=== PATIENT | male | born 1940 | race Caucasian/White ===

== ENCOUNTER → 2018-06-01 00:44 | Outpatient (CLI) | payer MEDICARE, SELFPAY ==
[2018-06-01 10:38] LABS: Hemoglobin A1C 6.7 % (4.5-6.2)
== END ==
PROVIDERS: PCP Family Medicine; Visit Provider Family Medicine
DX: E11.9 Type 2 diabetes mellitus without complications (principal)
CPT/HCPCS: 36415; 83036

== ENCOUNTER 2018-08-20 10:36 | Outpatient (CLI) | payer MEDICARE, SELFPAY ==
[2018-08-20 15:27] LABS: Hemoglobin A1C 6.8 % (4.5-6.2)
== END 2018-08-20 10:56 ==
PROVIDERS: PCP Family Medicine; Visit Provider Family Medicine
DX: E11.9 Type 2 diabetes mellitus without complications (principal)
CPT/HCPCS: 36415; 83036

== ENCOUNTER 2019-02-12 09:06 | Outpatient (CLI) | payer MEDICARE, SELFPAY ==
[2019-02-12 11:58] LABS: Hemoglobin A1C 7.3 % (4.5-6.2)
== END 2019-02-12 09:26 ==
LOC: LBN 09:21 → LBO 11:16
PROVIDERS: PCP Family Medicine; Visit Provider Family Medicine
DX: E11.319 Type 2 diabetes mellitus with unspecified diabetic retinopathy without macular edema (principal)
CPT/HCPCS: 36415; 83036

== ENCOUNTER 2019-08-12 14:37 | Outpatient (CLI) | payer MEDICARE, SELFPAY | END 2019-08-12 14:57 | PROVIDERS: PCP Family Medicine; Visit Provider Family Medicine | DX: E11.9 Type 2 diabetes mellitus without complications (principal) | CPT/HCPCS: 36415; 83036 ==

== ENCOUNTER 2020-05-08 03:27 | Outpatient (CLI) | payer MEDICARE, SELFPAY ==
[2020-05-08 10:10] LABS: Hemoglobin A1C 6.4 % (3.8-5.6)
[2020-05-08 10:46] LABS: Anion Gap 6.6 mmol/L (3-11); BUN 10 mg/dL (7-18); CO2 29.4 mmol/L (21.0-32.0); CREATININE 0.68 mg/dL (0.70-1.30); Calcium 9.3 mg/dL (8.5-10.1); Chloride 98 mmol/L (98-107); Glucose 146 mg/dL (74-106); Potassium 4.7 mmol/L (3.5-5.1); Sodium 134 mmol/L (136-145)
== END 2020-05-08 03:47 ==
PROVIDERS: PCP Family Medicine; Visit Provider Family Medicine
DX: E11.9 Type 2 diabetes mellitus without complications (principal); I10 Essential (primary) hypertension
CPT/HCPCS: 36415; 80048; 83036

== ENCOUNTER 2021-05-20 16:47 | Outpatient (REF) | payer MEDICARE, SELFPAY | END 2021-05-20 16:48 | disposition home or self-care (01) | LOC: LBN 16:47 | PROVIDERS: PCP Nurse Practitioner; Visit Provider Nurse Practitioner | DX: N40.1 Benign prostatic hyperplasia with lower urinary tract symptoms (principal); N13.8 Other obstructive and reflux uropathy | CPT/HCPCS: 87077; 87086; 87186 ==

== ENCOUNTER 2021-06-15 03:07 | Outpatient (CLI) | payer MEDICARE, SELFPAY ==
[2021-06-15 12:32] LABS: CREATININE 0.9 mg/dL (0.70-1.30); Potassium 4.8 mmol/L (3.5-5.1)
[2021-06-15 13:43] LABS: Hemoglobin A1C 6.8 % (<5.7)
== END 2021-06-15 03:08 | disposition home or self-care (01) ==
LOC: LOS 03:08
PROVIDERS: PCP Nurse Practitioner; Visit Provider Nurse Practitioner
DX: I10 Essential (primary) hypertension (principal); E11.9 Type 2 diabetes mellitus without complications
CPT/HCPCS: 36415; 82565; 83036; 84132

== ENCOUNTER 2021-07-21 00:53 | Outpatient (CLI) | payer MEDICARE, SELFPAY ==
[2021-07-21 14:24] LABS: CREATININE 0.8 mg/dL (0.70-1.30); Potassium 4.7 mmol/L (3.5-5.1)
== END 2021-07-21 00:54 | disposition home or self-care (01) ==
PROVIDERS: PCP Nurse Practitioner; Visit Provider Nurse Practitioner
DX: I10 Essential (primary) hypertension (principal)
CPT/HCPCS: 36415; 82565; 84132

== ENCOUNTER 2022-05-28 01:11 | Emergency (ER) | payer MEDICARE, SELFPAY ==
[2022-05-28 01:20] VITALS: BP 165/70; PULSE 72; RESP 16; TEMP 36.5; O2SAT 98
--- NOTE | 2022-05-28 01:33 | ED.GENADUL_ITS ---
Discharge Plan Disposition Patient Disposition: HOME Condition: Stable Discharge Details Clinical Impression: Acute UTI Primary Care Provider: Ning Almanza ED Provider: Romeo Page Home Meds and New Rx's Prescriptions: New ciprofloxacin HCl 500 mg tablet 500 mg PO BID Qty: 14 0RF Continued metoprolol succinate 50 mg tablet extended release 24 hr 25 mg PO DAILY Qty: 90 2RF hydrochlorothiazide 25 mg tablet 25 mg PO DAILY Qty: 90 4RF Hold Instructions: Home Medication placed on hold at Doctor's office metformin 1,000 mg tablet 1,000 mg PO BID Qty: 180 4RF nitroglycerin [Nitrostat] 0.4 mg tablet, sublingual 0.4 mg Sublingual PRN MDD 3 tabs Qty: 25 4RF folic acid 0.4 MG tablet 1 tab PO DAILY aspirin [Ecotrin] 325 MG tablet,delayed release (DR/EC) 1 tab PO DAILY Nephrocaps 1 MG capsule 1 cap PO DAILY Qty: 90 cholecalciferol (vitamin D3) 1,000 UNIT capsule 1 cap PO DAILY glipizide 5 mg tablet 2.5 mg PO BID Qty: 45 4RF (DME) Accu-Chek Nabila Plus test strp Strip 1 ea Miscellaneous BID Qty: 100 4RF Rx Instructions: once daily (DME) lancets 28 gauge misc 1 ea Miscellaneous BID Qty: 100 5RF Rx Instructions: NABILA ACCUCHECK SOFT CLIX Dx: E11.9 QD testing lisinopril 30 mg tablet 30 mg PO DAILY Qty: 90 0RF Discharge Instructions Instructions: Urinary Tract Infection in Men (ED) Additional Instructions: your urine showed evidence of an infection follow up with your primary care provider within 1-2 weeks, you should have a repeat urine test to see if the blood has gone away if you feel more ill, have severe pain or fevers return to the emergency department Medical Decision Making 82 yo male with hx of prior prostatitis, dm, who comes in with cc of his urine having blood in it starting tonight. He says he has felt well all day and continues to feel well now but tonight while urinating has noticed his urine has looked bloody. He denies pain with urination fevers, abdominal pain, urinary frequency or feeling like he is not emptying his bladder. He is in no distress on exam speaking in full sentences, caox4 and intermittently telling jokes. He has no cva tenderness or abdominal tenderness. Suspect this could be a uti and possible prostatitis, will obtain ua and reassess. No fevers or chills and appears well so doubt sepsis pt continues to feel well and has no complaints resting comfortably in the stret rc. UA positive for nitrites so will start on cipro. He is stable for d/c, advised to f/u with pcp and return precautions given Differential Diagnosis Differential Diagnosis: cystitis, prostatitis Lab Data Lab results reviewed: Yes I reviewed the patient's lab results. HPI General Mode of arrival: ambulatory . Date/Time Provider Initiated Documentation: 05/28/22 01:12 . Limitations to Documentation: no limitations . Information obtained by: patient . History of Present Illness 82 year old M presents to the emergency department with the chief complaint of red urine, described as moderate, Patient started experiencing this hour(s) (6) and it has been constant. No relieving factors improve symptom(s), No exacerbating factors reported . Patient notes no other symptoms.. Patient did receive the following treatments prior to arrival, none Related Data Home Medications Medication Instructions Recorded Confirmed aspirin 325 mg tablet,delayed 1 tab PO DAILY 02/06/13 05/28/22 release (Ecotrin) cholecalciferol (vitamin D3) 25 1 cap PO DAILY 02/06/13 05/28/22 mcg (1,000 unit) capsule folic acid 400 mcg tablet 1 tab PO DAILY 02/06/13 05/28/22 vitamin B complex and vitamin C 1 cap PO DAILY ##90 02/06/13 05/28/22 no.20-folic acid 1 mg capsule (Nephrocaps) nitroglycerin 0.4 mg sublingual 0.4 mg sublingual PRN #25 tabs 05/20/21 05/28/22 tablet (Nitrostat) hydrochlorothiazide 25 mg tablet 25 mg PO DAILY #90 tabs 07/23/21 05/28/22 metoprolol succinate 50 mg 25 mg PO DAILY #90 tabs 07/23/21 05/28/22 tablet,extended release 24 hr glipizide 5 mg tablet 2.5 mg PO BID #45 tabs 09/14/21 05/28/22 metformin 1,000 mg tablet 1,000 mg PO BID #180 tabs 02/10/22 05/28/22 blood sugar diagnostic (Accu-Chek #100 strips 02/11/22 05/28/22 Nabila Plus test strips) lancets 28 gauge #100 ea 02/16/22 05/28/22 lisinopril 30 mg tablet 30 mg PO DAILY #90 tabs 05/03/22 05/28/22 ciprofloxacin HCl 500 mg tablet 500 mg PO BID #14 tabs 05/28/22 Previous Rx's Medication Instructions Recorded nitroglycerin 0.4 mg sublingual 0.4 mg sublingual PRN #25 tabs 05/20/21 tablet (Nitrostat) hydrochlorothiazide 25 mg tablet 25 mg PO DAILY #90 tabs 07/23/21 metoprolol succinate 50 mg 25 mg PO DAILY #90 tabs 07/23/21 tablet,extended release 24 hr glipizide 5 mg tablet 2.5 mg PO BID #45 tabs 09/14/21 metformin 1,000 mg tablet 1,000 mg PO BID #180 tabs 02/10/22 blood sugar diagnostic (Accu-Chek #100 strips 02/11/22 Nabila Plus test strips) lancets 28 gauge #100 ea 02/16/22 lisinopril 30 mg tablet 30 mg PO DAILY #90 tabs 05/03/22 ciprofloxacin HCl 500 mg tablet 500 mg PO BID #14 tabs 05/28/22 Allergies Allergy/AdvReac Type Severity Reaction Status Date / Time menthol Allergy Unknown WHEEZING Unverified 05/28/22 01:23 General Stated Complaint: Urinary LILA: 4 Review of Systems All systems reviewed & are unremarkable except as noted in HPI and below Constitutional Constitutional: Denies chills, Denies fever(s) and Denies weakness ENT Ears, Nose, Mouth, and Throat: Denies change in voice Cardiovascular Cardiovascular: Denies chest pain and Denies dyspnea Respiratory Respiratory: Denies cough and Denies dyspnea Gastrointestinal Gastrointestinal: Denies abdominal pain, Denies nausea and Denies vomiting Musculoskeletal Musculoskeletal: Denies joint swelling Neurologic Neurologic: Denies weakness PFSH All Active Problems (Updated 05/28/22 @ 02:41 by Romeo Page MD) Acute UTI (Acute) Bradycardia (Acute) Constipation (Acute) Anal and rectal polyp (Acute) Gastroesophageal reflux disease (Acute) Status post coronary artery stent placement (Acute) Sensorineural hearing loss (SNHL) of both ears (Acute 03/01/18) Primary osteoarthritis of right knee (Acute 08/02/16) Non-toxic multinodular goiter (Acute) Lipoma of neck (Acute 03/01/18) Essential hypertension (Acute 07/24/13) Diabetic retinopathy (Acute) MILD IN LEFT EYE~OPTICAL EXPRESSIONS 08/12/15 Diabetes mellitus (Acute 02/08/13) BPH w urinary obs/LUTS (Acute 03/01/18) Atherosclerosis of [place] coronary artery (Acute) Asthma (Acute) Arthritis (Acute) Medical History (Updated 05/28/22 @ 02:41 by Romeo Page MD) Change in facial mole not suspect- sees [facility] [place] Surgical History (Updated 04/01/20 @ 16:09 by Dell Nowak) Stent placement (~05/2001) 05/30 2 STENTS LAD 11/2001 AND 02/2002 CLEANED BLOCKED STENT (WAS SCAR BUILDUP) KJG (below) Patient report radiation therapy in [facility] to correct scar formation. He believes bare metal stents were placed. Family History (Updated 05/22/21 @ 13:16 by Talia Rivera) Mother , 91 Epilepsy Hyperlipidemia Parkinson disease Father , 73 Essential hypertension Personal history of malignant neoplasm SKIN Stroke Sister Diabetes Essential hypertension Heart disease Hyperlipidemia Brother Heart disease Stroke Pacemaker Parkinson disease Brother Diabetes Heart disease Stroke Brother Diabetes Essential hypertension Heart disease Hyperlipidemia Grandfather Diabetes Heart disease Stroke Grandfather Stroke Grandmother Essential hypertension Depression Heart disease Stroke Grandmother Essential hypertension Hyperlipidemia Stroke Daughter Diabetes Asthma Daughter Diabetes Heart disease VALVE REPLACEMENT Pancreatic cancer Social History (Updated 05/22/21 @ 13:14 by Talia Rivera) Smoking/Tobacco Use Status: Former Tobacco Use Tobacco: How many years used: 14 Smoking risk assessment performed?: Yes Alcohol Intake: never Caregiver/Support person: No Household members: spouse Housing: house Communication Needs: Hard of Hearing Do you need help understanding health information?: Rarely Pets and animals: No Sexually active: No Do you think of yourself as: straight/heterosexual Current gender identity: male What is your relationship status?: How often do you talk on the phone with friends or family?: twice per week How often do you get together with friends or relatives?: three or more times per week How often do you attend cheondoism or muslim services?: 1-3 times per year Do you belong to any clubs or organized social groups?: no Panel score (0-1 are the most socially isolated patients): 2 What type of physical activity do you participate in: regular exercise Duration: > 90 minutes/day Frequency: 3-4 times per week Scarlett/Catholic: Yazidi Special scarlett needs: No Seatbelt use: always Helmet use: Yes Helmet use: sometimes Drive 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 Do you feel safe at home: Yes Exam Const General: no acute distress Orientation: alert HENMT Head: normal to inspection Ears: external ears normal General nose exam: external nose normal Mouth: moist mucous membranes Eyes General: appearance normal, both eyes and all related structures Neck Neck: normal visual inspection Resp Effort & Inspection: normal respiratory effort and able to speak in complete sentences Cardio Rate: regular rate GI Palpation: soft and nontender Skin General skin exam: no rashes or lesions noted Neuro General: patient alert and patient oriented x3 Extrem General: normal to inspection Psych Mental Status: mental status grossly normal Course Vital Signs Vital signs: Vital Signs Temperature 36.5 C 05/28/22 01:20 Pulse 72 05/28/22 01:20 Respiratory Rate 16 05/28/22 01:20 Blood Pressure 165/70 H 05/28/22 01:20 Pulse Oximetry 98 05/28/22 01:20 Temperature 36.5 C 05/28/22 01:20 Temperature Source Oral 05/28/22 01:20 Pulse 72 05/28/22 01:20 Respiratory Rate 16 05/28/22 01:20 Respiratory Effort Short of Breath 05/28/22 01:24 Blood Pressure 165/70 H 05/28/22 01:20 Pulse Oximetry 98 05/28/22 01:20 Pain Level 0 05/28/22 01:20
[2022-05-28 02:24] LABS: Bilirubin Moderate (Negative); Blood Large (Negative); Clarity Cloudy (Clear); Glucose Negative (Negative); Ketones Trace mg/dL (Negative); Leukocyte Esterase Large (Negative); Nitrite Positive (Negative); pH 6.5 (5-8)
[2022-05-28 02:33] LABS: C & S Indicated? C&S Done As Ordered
[2022-05-28 02:59] VITALS: BP 151/69; PULSE 56; RESP 16; O2SAT 97
[2022-05-28] MEDS: Ciprofloxacin 500 MG TAB PO (02:59)
== END 2022-05-28 03:00 | disposition home or self-care (01) ==
PROVIDERS: Emergency Provider Emergency Medicine; PCP Nurse Practitioner
DX: N39.0 Urinary tract infection, site not specified (principal); B96.5 Pseudomonas (aeruginosa) (mallei) (pseudomallei) as the cause of diseases classified elsewhere; Z87.891 Personal history of nicotine dependence
CPT/HCPCS: 87077; 99283; 81003; 81015; 87086; 87186; 99284

== ENCOUNTER 2022-06-08 20:10 | Outpatient (REF) | payer MEDICARE, SELFPAY | END 2022-06-08 20:11 | disposition home or self-care (01) | LOC: LBN 20:10 | PROVIDERS: PCP Nurse Practitioner; Visit Provider Nurse Practitioner Family | DX: R31.9 Hematuria, unspecified (principal) | CPT/HCPCS: 87086 ==

== ENCOUNTER 2022-06-27 04:36 | Outpatient (CLI) | payer MEDICARE, SELFPAY ==
[2022-06-27 12:21] LABS: BUN 12 mg/dL (7-18); CREATININE 0.7 mg/dL (0.70-1.30); Calcium 9.1 mg/dL (8.5-10.1); Chloride 98 mmol/L (98-107); Glucose 92 mg/dL (74-106); Potassium 4.8 mmol/L (3.5-5.1); Sodium 135 mmol/L (136-145)
[2022-06-27 12:59] LABS: Hemoglobin A1C 6.8 % (<5.7)
== END 2022-06-27 04:37 | disposition home or self-care (01) ==
LOC: LOS 04:36
PROVIDERS: PCP Nurse Practitioner; Visit Provider Nurse Practitioner
DX: I10 Essential (primary) hypertension (principal); E11.9 Type 2 diabetes mellitus without complications
CPT/HCPCS: 36415; 80048; 83036

== ENCOUNTER 2022-07-10 23:44 | Emergency (ER) | payer MEDICARE, SELFPAY ==
[2022-07-10 23:48] VITALS: PULSE 68; RESP 20; TEMP 36.1; O2SAT 98
--- NOTE | 2022-07-11 00:07 | W.ED.GENAD ---
Discharge Plan Disposition Patient Disposition: HOME Condition: Stable Discharge Details Clinical Impression: Urinary tract infection Primary Care Provider: Ning Almanza ED Provider: Romeo Page Home Meds and New Rx's Prescriptions: New ciprofloxacin HCl 500 mg tablet 500 mg PO BID Qty: 14 0RF Continued glipizide 5 mg tablet 2.5 mg PO BID Qty: 90 4RF Rx Instructions: dose increase metoprolol succinate 50 mg tablet extended release 24 hr 25 mg PO DAILY Qty: 45 3RF (DME) Accu-Chek Nabila Plus test strp Strip 1 ea Miscellaneous BID Qty: 100 4RF Rx Instructions: once daily metformin 1,000 mg tablet 1,000 mg PO BID Qty: 180 4RF nitroglycerin [Nitrostat] 0.4 mg tablet, sublingual 0.4 mg Sublingual PRN MDD 3 tabs Qty: 25 4RF folic acid 0.4 MG tablet 1 tab PO DAILY aspirin [Ecotrin] 325 MG tablet,delayed release (DR/EC) 1 tab PO DAILY Nephrocaps 1 MG capsule 1 cap PO DAILY Qty: 90 cholecalciferol (vitamin D3) 1,000 UNIT capsule 1 cap PO DAILY (DME) lancets 28 gauge misc 1 ea Miscellaneous BID Qty: 100 5RF Rx Instructions: NABILA ACCUCHECK SOFT CLIX Dx: E11.9 QD testing lisinopril 30 mg tablet 30 mg PO DAILY Qty: 90 0RF Discharge Instructions Instructions: Urinary Tract Infection in Men (ED) Additional Instructions: i placed you on our follow up list to try and see a urologist, you should be contacted with appointment information if you feel more ill, have severe pain or fevers return to the emergency department Medical Decision Making 82 yo male with hx of bph, gerd, uti in April that grew P. aeruginosa sensitive to all antibiotics tested against it and was treated wt cipro, comes in with return of blood in urine. HE states he has felt well all day and tonight urinated and it was bloody. He has some burning as well when he does urinate. Denies fevers, chills, abdomen pain, back pain. He arrives stable and appears well systemically. No abdomen tenderness, no cva tenderness. Given well appearance and no fevers or back pain doubt sepsis or pyelo. Will obtain ua and reassess, suspect recurrent uti. labs show likely recurrent uti, will place on cipro again and provide urology referral given recurrent hematuria and uti so close in time as soon as possible. Return precautions given Differential Diagnosis Differential Diagnosis: uti, cystitis, prostatitis Lab Data Lab results reviewed: Yes I reviewed the patient's lab results. HPI General Mode of arrival: ambulatory. Date/Time Provider Initiated Documentation: 07/10/22 23:44. Limitations to Documentation: no limitations. Information obtained by: patient. History of Present Illness 82 year old M presents to the emergency department with the chief complaint of blood in urine, described as moderate, and it has been constant. No relieving factors improve symptom(s), No exacerbating factors reported . Related Data Home Medications Medication Instructions Recorded Confirmed aspirin 325 mg tablet,delayed 1 tab PO DAILY 02/06/13 07/10/22 release (Ecotrin) cholecalciferol (vitamin D3) 25 1 cap PO DAILY 02/06/13 07/10/22 mcg (1,000 unit) capsule folic acid 400 mcg tablet 1 tab PO DAILY 02/06/13 07/10/22 vitamin B complex and vitamin C 1 cap PO DAILY ##90 02/06/13 07/08/22 no.20-folic acid 1 mg capsule (Nephrocaps) nitroglycerin 0.4 mg sublingual 0.4 mg sublingual PRN #25 tabs 05/20/21 07/10/22 tablet (Nitrostat) metformin 1,000 mg tablet 1,000 mg PO BID #180 tabs 02/10/22 07/10/22 lancets 28 gauge #100 ea 02/16/22 07/10/22 lisinopril 30 mg tablet 30 mg PO DAILY #90 tabs 05/03/22 07/10/22 blood sugar diagnostic (Accu-Chek #100 strips 07/08/22 07/10/22 Nabila Plus test strips) glipizide 5 mg tablet 2.5 mg PO BID #90 tabs 07/08/22 07/10/22 metoprolol succinate 50 mg 25 mg PO DAILY #45 tabs 07/08/22 07/10/22 tablet,extended release 24 hr ciprofloxacin HCl 500 mg tablet 500 mg PO BID #14 tabs 07/11/22 Previous Rx's Medication Instructions Recorded nitroglycerin 0.4 mg sublingual 0.4 mg sublingual PRN #25 tabs 05/20/21 tablet (Nitrostat) metformin 1,000 mg tablet 1,000 mg PO BID #180 tabs 02/10/22 lancets 28 gauge #100 ea 02/16/22 lisinopril 30 mg tablet 30 mg PO DAILY #90 tabs 05/03/22 blood sugar diagnostic (Accu-Chek #100 strips 07/08/22 Nabila Plus test strips) glipizide 5 mg tablet 2.5 mg PO BID #90 tabs 07/08/22 metoprolol succinate 50 mg 25 mg PO DAILY #45 tabs 07/08/22 tablet,extended release 24 hr ciprofloxacin HCl 500 mg tablet 500 mg PO BID #14 tabs 07/11/22 Allergies Allergy/AdvReac Type Severity Reaction Status Date / Time menthol Allergy Unknown WHEEZING Unverified 07/10/22 23:59 General Stated Complaint: Urinary LILA: 4 Review of Systems All systems reviewed & are unremarkable except as noted in HPI and below Constitutional Constitutional: Denies chills, Denies fever(s) and Denies weakness Cardiovascular Cardiovascular: Denies chest pain and Denies dyspnea Respiratory Respiratory: Denies cough and Denies dyspnea Gastrointestinal Gastrointestinal: Denies abdominal pain, Denies nausea and Denies vomiting Musculoskeletal Musculoskeletal: Denies joint swelling Neurologic Neurologic: Denies weakness PFSH All Active Problems (Updated 07/11/22 @ 01:13 by Romeo Page MD) Urinary tract infection (Acute) Arthritis of left knee (Acute) Bradycardia (Acute) Constipation (Acute) Anal and rectal polyp (Acute) Gastroesophageal reflux disease (Acute) Status post coronary artery stent placement (Acute) Sensorineural hearing loss (SNHL) of both ears (Acute 03/01/18) Primary osteoarthritis of right knee (Acute 08/02/16) Non-toxic multinodular goiter (Acute) Lipoma of neck (Acute 03/01/18) Essential hypertension (Acute 07/24/13) Diabetic retinopathy (Acute) MILD IN LEFT EYE~OPTICAL EXPRESSIONS 08/12/15 Diabetes mellitus (Acute 02/08/13) BPH w urinary obs/LUTS (Acute 03/01/18) Atherosclerosis of [place] coronary artery (Acute) Asthma (Acute) Arthritis (Acute) Medical History (Updated 07/11/22 @ 01:13 by Romeo Page MD) Change in facial mole not suspect- sees [facility] [place] Surgical History (Updated 04/01/20 @ 16:09 by Dell Nowak) Stent placement (~05/2001) 05/30 2 STENTS LAD 11/2001 AND 02/2002 CLEANED BLOCKED STENT (WAS SCAR BUILDUP) MATTHIASG (below) Patient report radiation therapy in [facility] to correct scar formation. He believes bare metal stents were placed. Family History (Updated 05/22/21 @ 13:16 by Talia Rivera) Mother , 91 Epilepsy Hyperlipidemia Parkinson disease Father , 73 Essential hypertension Personal history of malignant neoplasm SKIN Stroke Sister Diabetes Essential hypertension Heart disease Hyperlipidemia Brother Heart disease Stroke Pacemaker Parkinson disease Brother Diabetes Heart disease Stroke Brother Diabetes Essential hypertension Heart disease Hyperlipidemia Grandfather Diabetes Heart disease Stroke Grandfather Stroke Grandmother Essential hypertension Depression Heart disease Stroke Grandmother Essential hypertension Hyperlipidemia Stroke Daughter Diabetes Asthma Daughter Diabetes Heart disease VALVE REPLACEMENT Pancreatic cancer Social History (Updated 05/22/21 @ 13:14 by Talia Rivera) Smoking/Tobacco Use Status: Former Tobacco Use Tobacco: How many years used: 14 Smoking risk assessment performed?: Yes Alcohol Intake: current Alcohol Intake frequency: 0-2 drinks per day Alcohol type: wine and hard liquor Drug use: Never Substance use type: does not use Caregiver/Support person: No Household members: spouse Housing: house Communication Needs: Hard of Hearing Do you need help understanding health information?: Rarely Pets and animals: No Sexually active: No Do you think of yourself as: straight/heterosexual Current gender identity: male What is your relationship status?: How often do you talk on the phone with friends or family?: twice per week How often do you get together with friends or relatives?: three or more times per week How often do you attend restoration or amish services?: 1-3 times per year Do you belong to any clubs or organized social groups?: no Panel score (0-1 are the most socially isolated patients): 2 What type of physical activity do you participate in: regular exercise Duration: > 90 minutes/day Frequency: 3-4 times per week Scarlett/Confucianism: Presybeterian Special scarlett needs: No Seatbelt use: always Helmet use: Yes Helmet use: sometimes Drive 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 Do you feel safe at home: Yes Exam Const General: no acute distress Orientation: alert HENMT Head: normal to inspection Ears: external ears normal General nose exam: external nose normal Mouth: moist mucous membranes Eyes General: appearance normal, both eyes and all related structures Neck Neck: normal visual inspection Resp Effort & Inspection: normal respiratory effort and able to speak in complete sentences Cardio Rate: regular rate GI Palpation: soft and nontender Back/Spine/Pelvis Back: no CVA tenderness Skin General skin exam: no rashes or lesions noted Neuro General: patient alert and patient oriented x3 Extrem General: normal to inspection Psych Mental Status: mental status grossly normal Course Vital Signs Vital signs: Vital Signs Temperature 36.1 C L 07/10/22 23:48 Pulse 68 07/10/22 23:48 Respiratory Rate 20 07/10/22 23:48 Pulse Oximetry 98 07/10/22 23:48 Temperature 36.1 C L 07/10/22 23:48 Temperature Source Temporal Artery Scan 07/10/22 23:48 Pulse 68 07/10/22 23:48 Respiratory Rate 20 07/10/22 23:48 Respiratory Effort Non-Labored 07/11/22 00:00 Blood Pressure Position Sitting 07/10/22 23:48 Pulse Oximetry 98 07/10/22 23:48 Oxygen Delivery Method Room Air 07/10/22 23:48 Oxygen Flow Rate 0 07/10/22 23:48 Pain Level 0 07/10/22 23:48 Lab/Test Results Lab/Test Results: 07/10/22 23:59 Urine - Clean Catch Urine Culture - Pending PAWSS Have you Been Recently Intoxicated or Drunk Within the Last 30 days?: No Have you Ever Experienced Previous Episodes of Alcohol Withdrawal?: No Have you ever Experienced Withdrawal Seizures?: No Have you ever Experienced Delirium Tremens(DT)s?: No Have you ever undergone Alcohol Rehabilitation Treatment (i.e, inpt ot outpatient treatment programs)?: No Have you ever Experienced Blackouts?: No Have you ever Combined Alcohol with other Downers within the last 90 days?: No Have you ever Combined Alcohol with any other Substance of Abuse during the last 90 days?: No Positive Blood Alcohol level on Presentation? [PCS.BAL]: No Evidence of Increased Autonomic Activity (i.e. HR>120, tremor, sweating, agitation, nausea)?: No Result: 0
[2022-07-11 00:22] LABS: Bilirubin Small (Negative); Blood Large (Negative); Clarity Cloudy (Clear); Glucose 100 mg/dL (Negative); Ketones Negative (Negative); Leukocyte Esterase Large (Negative); Nitrite Positive (Negative); Urobilinogen 0.2 EU/dL (Up TO 0.2); pH 6.5 (5-8)
[2022-07-11 00:28] LABS: RBC >50 HPF (0-2); WBC >50 HPF (0-5)
[2022-07-11 00:29] LABS: C & S Indicated? C&S Done As Ordered
--- NOTE | 2022-07-11 01:11 | NUR.NOTE ---
Referral faxed to [facility] to f/u for recurrent UTI, Hematuria.Nursing Note:
[2022-07-11] MEDS: Ciprofloxacin 500 MG TAB PO (01:14)
--- NOTE | 2022-07-15 07:58 | W.ED.FU ---
Follow Up Plan: Patient was treated for urinary tract infection and discharged on ciprofloxacin. Urine culture resulted postdischarge growing Pseudomonas aeruginosa, sensitive to ciprofloxacin.
== END 2022-07-11 01:24 | disposition home or self-care (01) ==
PROVIDERS: Emergency Provider Emergency Medicine; PCP Nurse Practitioner
DX: N39.0 Urinary tract infection, site not specified (principal); R31.9 Hematuria, unspecified; Z87.891 Personal history of nicotine dependence; Z87.438 Personal history of other diseases of male genital organs
CPT/HCPCS: 87077; 99283; 81003; 81015; 87086; 87186; 99284

== ENCOUNTER 2022-07-15 14:19 | Emergency (ER) | payer MEDICARE, SELFPAY ==
[2022-07-15 14:22] VITALS: BP 147/72; PULSE 75; RESP 18; TEMP 36.9; O2SAT 98
--- NOTE | 2022-07-15 15:27 | ED.GENADUL_ITS ---
Discharge Plan Disposition Patient Disposition: HOME Condition: Good Discharge Details Clinical Impression: Biceps muscle tear, Traumatic ecchymosis of left upper arm Primary Care Provider: Ning Almanza ED Provider: Josh Greene Home Meds and New Rx's Prescriptions: No Action glipizide 5 mg tablet 2.5 mg PO BID Qty: 90 4RF Rx Instructions: dose increase metoprolol succinate 50 mg tablet extended release 24 hr 25 mg PO DAILY Qty: 45 3RF (DME) Accu-Chek Nabila Plus test strp Strip 1 ea Miscellaneous BID Qty: 100 4RF Rx Instructions: once daily metformin 1,000 mg tablet 1,000 mg PO BID Qty: 180 4RF nitroglycerin [Nitrostat] 0.4 mg tablet, sublingual 0.4 mg Sublingual PRN MDD 3 tabs Qty: 25 4RF folic acid 0.4 MG tablet 1 tab PO DAILY aspirin [Ecotrin] 325 MG tablet,delayed release (DR/EC) 1 tab PO DAILY Nephrocaps 1 MG capsule 1 cap PO DAILY Qty: 90 cholecalciferol (vitamin D3) 1,000 UNIT capsule 1 cap PO DAILY (DME) lancets 28 gauge misc 1 ea Miscellaneous BID Qty: 100 5RF Rx Instructions: NABILA ACCUCHECK SOFT CLIX Dx: E11.9 QD testing lisinopril 30 mg tablet 30 mg PO DAILY Qty: 90 0RF ciprofloxacin HCl 500 mg tablet 500 mg PO BID Qty: 14 0RF Discharge Instructions Instructions: Hematoma (ED) Additional Instructions: At this time I suspect you had a mild or partial muscle tear in your left bicep which caused some bleeding. For the next week please cut down to 81 mg of aspirin daily. You may have been put at increased risk for a tear secondary to the medication you are currently on, Levaquin. At your appointment this week with your urologist please discuss whether or not you need to continue this medication. Please keep your arm wrapped every day and an Kip wrap to help decrease the swelling. Please avoid any significant lifting flexing or utilization of the left arm as this can certainly worsen the bleeding and partial tear. If you notice any worsening of your symptoms, or any new symptoms such as vomiting, diarrhea, fever, chills, shortness of breath, chest pain, numbness, weakness, or fainting , please return immediately to the emergency department for reevaluation. Please follow up with your primary care provider as soon as possible for reassessment and reevaluation. As always, it was a pleasure participating in your medical care today. Referrals: Domenico Gray NP [NURSE PRACTITIONER] - Ning Almanza NP [Primary Care Provider] - Discharge Data Discharge Date/Time-TO BE ENTERED AT DEPARTURE: 07/15/22 15:48 Medical Decision Making 82-year-old male who with past medical history of diabetes, atherosclerotic coronary disease, currently on aspirin, as well as a recent urinary tract infection for which she was taking levofloxacin, presents today for evaluation of swelling and redness in his right arm. Patient states that 3 days ago he was carrying a bucket and felt a sudden burning pinching pain in his left arm. Shortly after that patient developed mild bruising, swelling, with some initial pain with movement. This pain eventually resolved, however the redness/bruising seemed to spread proximally and distally. He has no fever or chills. He denies any other complaints. He does admit to having a previous muscle tear in his left arm in the past. He denies any other trauma. No other complaints at this time. Exam demonstrates evidence of bruising over the medial aspect of his arm extending from the proximal arm all the way down to the medial forearm. No hematoma, no deformity, no signs of muscle tear on exam. Bedside ultrasound shows no evidence of large hematoma or fluid collection or abscess. Area is not warm. There is no evidence of cellulitis clinically. Symptoms at this time appear most consistent with a small partial muscle tear or tendon irritation that resulted in subsequent bleeding. This may have been exacerbated by the Levaquin that he was on. At this time with no evidence of abscess infection or other significant abnormality, there is no indication for imaging or labs currently. We will Kip wrap the patient's arm to help with the minimal swelling. Recommend diminishing his aspirin from 325 to 81 mg for the next week. Recommend discussing with his urologist this week if he can stop the antibiotic. Discussed red flags which to return. I have extensively reviewed the treatment plan and discharge instructions with the patient. I have addressed all patient concerns at this time. The patient was made aware of what symptoms to monitor for that would warrant a return to the emergency department. Discussed the plan with the patient, they demonstrate verbal understanding and agreement with our assessment and plan at this time. The documentation in this chart was dictated using [employer] dictation software. Please excuse any dictation errors. HPI General Date/Time Provider Initiated Documentation: 07/15/22 14:21 . HPI Narrative: 82-year-old male who with past medical history of diabetes, atherosclerotic coronary disease, currently on aspirin, as well as a recent urin [place] tract infection for which she was taking levofloxacin, presents today for evaluation of swelling and redness in his right arm. Patient states that 3 days ago he was carrying a bucket and felt a sudden burning pinching pain in his left arm. Shortly after that patient developed mild bruising, swelling, with some initial pain with movement. This pain eventually resolved, however the redness/bruising seemed to spread proximally and distally. He has no fever or chills. He denies any other complaints. He does admit to having a previous muscle tear in his left arm in the past. He denies any other trauma. No other complaints at this time. Related Data Home Medications Medication Instructions Recorded Confirmed aspirin 325 mg tablet,delayed 1 tab PO DAILY 02/06/13 07/10/22 release (Ecotrin) cholecalciferol (vitamin D3) 25 1 cap PO DAILY 02/06/13 07/10/22 mcg (1,000 unit) capsule folic acid 400 mcg tablet 1 tab PO DAILY 02/06/13 07/10/22 vitamin B complex and vitamin C 1 cap PO DAILY ##90 02/06/13 07/08/22 no.20-folic acid 1 mg capsule (Nephrocaps) nitroglycerin 0.4 mg sublingual 0.4 mg sublingual PRN #25 tabs 05/20/21 07/10/22 tablet (Nitrostat) metformin 1,000 mg tablet 1,000 mg PO BID #180 tabs 02/10/22 07/10/22 lancets 28 gauge #100 ea 02/16/22 07/10/22 lisinopril 30 mg tablet 30 mg PO DAILY #90 tabs 05/03/22 07/10/22 blood sugar diagnostic (Accu-Chek #100 strips 07/08/22 07/10/22 Nabila Plus test strips) glipizide 5 mg tablet 2.5 mg PO BID #90 tabs 07/08/22 07/10/22 metoprolol succinate 50 mg 25 mg PO DAILY #45 tabs 07/08/22 07/10/22 tablet,extended release 24 hr ciprofloxacin HCl 500 mg tablet 500 mg PO BID #14 tabs 07/11/22 Previous Rx's Medication Instructions Recorded nitroglycerin 0.4 mg sublingual 0.4 mg sublingual PRN #25 tabs 05/20/21 tablet (Nitrostat) metformin 1,000 mg tablet 1,000 mg PO BID #180 tabs 02/10/22 lancets 28 gauge #100 ea 02/16/22 lisinopril 30 mg tablet 30 mg PO DAILY #90 tabs 05/03/22 blood sugar diagnostic (Accu-Chek #100 strips 07/08/22 Nabila Plus test strips) glipizide 5 mg tablet 2.5 mg PO BID #90 tabs 07/08/22 metoprolol succinate 50 mg 25 mg PO DAILY #45 tabs 07/08/22 tablet,extended release 24 hr ciprofloxacin HCl 500 mg tablet 500 mg PO BID #14 tabs 07/11/22 Allergies Allergy/AdvReac Type Severity Reaction Status Date / Time menthol Allergy Unknown WHEEZING Unverified 07/10/22 23:59 General Stated Complaint: Cellulitis LILA: 3 Review of Systems All systems reviewed & are unremarkable except as noted in HPI and below PFSH All Active Problems Urinary tract infection (Acute) Biceps muscle tear (Acute) Traumatic ecchymosis of left upper arm (Acute) Arthritis of left knee (Acute) Bradycardia (Acute) Constipation (Acute) Anal and rectal polyp (Acute) Gastroesophageal reflux disease (Acute) Status post coronary artery stent placement (Acute) Sensorineural hearing loss (SNHL) of both ears (Acute 03/01/18) Primary osteoarthritis of right knee (Acute 08/02/16) Non-toxic multinodular goiter (Acute) Lipoma of neck (Acute 03/01/18) Essential hypertension (Acute 07/24/13) Diabetic retinopathy (Acute) MILD IN LEFT EYE~OPTICAL EXPRESSIONS 08/12/15 Diabetes mellitus (Acute 02/08/13) BPH w urinary obs/LUTS (Acute 03/01/18) Atherosclerosis of [place] coronary artery (Acute) Asthma (Acute) Arthritis (Acute) Medical History Change in facial mole not suspect- [place] [facility] [place] placement (~05/2001) 05/30 2 STENTS LAD 11/2001 AND 02/2002 CLEANED BLOCKED STENT (WAS SCAR BUILDUP) KJG (below) Patient report radiation therapy in [facility] to correct scar formation. He believes bare metal stents were placed. Family History Mother , 91 Epilepsy Hyperlipidemia Parkinson disease Father , 73 Essential hypertension Personal history of malignant neoplasm SKIN Stroke Sister Diabetes Essential hypertension Heart disease Hyperlipidemia Brother Heart disease Stroke Pacemaker Parkinson disease Brother Diabetes Heart disease Stroke Brother Diabetes Essential hypertension Heart disease Hyperlipidemia Grandfather Diabetes Heart disease Stroke Grandfather Stroke Grandmother Essential hypertension Depression Heart disease Stroke Grandmother Essential hypertension Hyperlipidemia Stroke Daughter Diabetes Asthma Daughter Diabetes Heart disease VALVE REPLACEMENT Pancreatic cancer Social History Smoking/Tobacco Use Status: Former Tobacco Use Tobacco: How many years used: 14 Smoking risk assessment performed?: Yes Alcohol Intake: current Alcohol Intake frequency: 0-2 drinks per day Alcohol type: wine and hard liquor Drug use: Never Substance use type: does not use Caregiver/Support person: No Household members: spouse Housing: house Communication Needs: Hard of Hearing Do you need help understanding health information?: Rarely Pets and animals: No Sexually active: No Do you think of yourself as: straight/heterosexual Current gender identity: male What is your relationship status?: How often do you talk on the phone with friends or family?: twice per week How often do you get together with friends or relatives?: three or more times per week How often do you attend restoration or holiness services?: 1-3 times per year Do you belong to any clubs or organized social groups?: no Panel score (0-1 are the most socially isolated patients): 2 What type of physical activity do you participate in: regular exercise Duration: > 90 minutes/day Frequency: 3-4 times per week Scarlett/Caodaism: Hoahaoism Special scarlett needs: No Seatbelt use: always Helmet use: Yes Helmet use: sometimes Drive intox 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 vibratory pile driver: No Do you feel safe at home: Yes Exam Narrative Exam Narrative: 1.Const: Well-nourished, Well-developed, appearing stated age 2.Eyes: PERRL, no conjunctival injection, and symmetrical lids. 3.ENT: Atraumatic external nose and ears. Moist MM. Neck: Symmetric, trachea midline, No thyromegaly. 4.CVS: +S1/S2, No murmurs or gallops. Peripheral pulses 2+ and equal in all extremities. Brisk capillary refill in all extremities. 5.RESP: Unlabored respiratory effort. Clear to auscultation bilaterally. No wheezes rales or rhonchi 6.GI: Soft, Nontender/Nondistended, No hepatosplenomegaly. No guarding or rebound. 7.MSK: Normocephali, normal movement of all extremities. Bruising is noted from the proximal left arm extending down to the medial forearm for the patient's left upper extremity. No tenderness in this area. Patient demonstrates excellent flexion and extension of the left elbow, normal hand and wrist movements. Normal shoulder movements. No signs of large hematoma. Bedside ultrasound showed no evidence of effusion or large fluid collection. Distal exam demonstrates good capillary refill less than 3 seconds, radial pulse +2 bilaterally. Normal sensation throughout. 8.Skin: Warm, Dry. Please see musculoskeletal 9.Neuro: wireline operator II-XII grossly intact. Sensation grossly intact, no focal neurologic deficits. 10.Psych: (AAO) x3. Appropriate mood and affect Course Vital Signs Vital signs: Vital Signs Temperature 36.9 C 07/15/22 14:22 Pulse 75 07/15/22 14:22 Respiratory Rate 18 07/15/22 14:22 Blood Pressure 147/72 H 07/15/22 14:22 Pulse Oximetry 98 07/15/22 14:22 Temperature 36.9 C 07/15/22 14:22 Temperature Source Temporal Artery Scan 07/15/22 14:22 Pulse 75 07/15/22 14:22 Respiratory Rate 18 07/15/22 14:22 Blood Pressure 147/72 H 07/15/22 14:22 Blood Pressure Position Sitting 07/15/22 14:22 Pulse Oximetry 98 07/15/22 14:22 Oxygen Delivery Method Room Air 07/15/22 14:22 Oxygen Flow Rate 0 07/15/22 14:22
[2022-07-15 15:42] VITALS: BP 114/66; PULSE 62; TEMP 37; O2SAT 99
== END 2022-07-15 15:48 | disposition home or self-care (01) ==
PROVIDERS: Emergency Provider Student in an Organized Health Care Education/Training Program; PCP Nurse Practitioner
DX: S46.212A Strain of muscle, fascia and tendon of other parts of biceps, left arm, initial encounter (principal); S40.022A Contusion of left upper arm, initial encounter; E11.9 Type 2 diabetes mellitus without complications; I25.10 Atherosclerotic heart disease of native coronary artery without angina pectoris; Z79.82 Long term (current) use of aspirin; Z95.5 Presence of coronary angioplasty implant and graft; Z87.891 Personal history of nicotine dependence; X50.0XXA Overexertion from strenuous movement or load, initial encounter
CPT/HCPCS: 99284; 99282

== ENCOUNTER → 2022-07-19 12:48 | Outpatient (BNVA) | payer MEDICARE, SELFPAY | PROVIDERS: PCP Nurse Practitioner; Referring Provider Nurse Practitioner; Visit Provider Nurse Practitioner Gerontology | DX: R39.89 Other symptoms and signs involving the genitourinary system (principal); N40.1 Benign prostatic hyperplasia with lower urinary tract symptoms; N13.8 Other obstructive and reflux uropathy; R33.8 Other retention of urine | CPT/HCPCS: 51798; 81003; 99215 ==

== ENCOUNTER → 2022-09-14 11:29 | Outpatient (BNVA) | payer MEDICARE, SELFPAY | PROVIDERS: PCP Nurse Practitioner Family; Referring Provider Nurse Practitioner; Visit Provider Nurse Practitioner Gerontology | DX: N40.1 Benign prostatic hyperplasia with lower urinary tract symptoms (principal); N13.8 Other obstructive and reflux uropathy; R33.8 Other retention of urine; N39.0 Urinary tract infection, site not specified; R39.89 Other symptoms and signs involving the genitourinary system | CPT/HCPCS: 51798; 81003; 99214 ==

== ENCOUNTER 2022-09-14 18:49 | Outpatient (REF) | payer MEDICARE, SELFPAY | END 2022-09-14 18:50 | disposition home or self-care (01) | LOC: LBN 18:49 | PROVIDERS: PCP Nurse Practitioner Family; Visit Provider Nurse Practitioner Gerontology | DX: N39.0 Urinary tract infection, site not specified (principal); R33.8 Other retention of urine; N40.1 Benign prostatic hyperplasia with lower urinary tract symptoms | CPT/HCPCS: 87077; 87086; 87186 ==

== ENCOUNTER 2022-10-08 12:50 | Emergency (ER) | payer MEDICARE, SELFPAY ==
[2022-10-08 12:55] VITALS: BP 167/77; PULSE 69; RESP 17; TEMP 36.8; O2SAT 99
--- NOTE | 2022-10-08 13:00 | DI.RAD_ITS ---
Exam(s) XR CLAVICLE RT XR SHOULDER RT COMPLETE 2+V EXAM: XR CLAVICLE RT and XR right shoulder complete CLINICAL HISTORY: pain s/p fall TECHNIQUE: 2D digital imaging was performed of the right clavicle. Six images were obtained. AP, Y, Grashey and axial views were obtained. COMPARISON: None. FINDINGS: BONES: There is an acute mildly angulated fracture of the medial right clavicle. The fracture does a ppear to be comminuted. No bony destructive lesion is seen. JOINTS: No dislocation present. There are degenerative changes seen at the acromioclavicular joint. SOFT TISSUE: Normal IMPRESSION: 1. Acute comminuted angulated fracture of the medial right clavicle. 2. Findings were discussed with Dr. Page at 8 p.m. on 10/08/2022. DATA REPOSITORY: RADIATION DOSE DELIVERED:
--- NOTE | 2022-10-08 13:08 | ED.GENADUL_ITS ---
Discharge Plan Disposition Patient Disposition: Home Condition: Stable Discharge Details Clinical Impression: Contusion of right shoulder Primary Care Provider: Delaney Gaviria ED Provider: Romeo Page Home Meds and New Rx's Prescriptions: Continued glipizide 5 mg tablet 2.5 mg PO BID Qty: 90 4RF Rx Instructions: dose increase metoprolol succinate 50 mg tablet extended release 24 hr 25 mg PO DAILY Qty: 45 3RF (DME) Accu-Chek Nabila Plus test strp Strip 1 ea Miscellaneous BID Qty: 100 4RF Rx Instructions: once daily aspirin [Adult Low Dose Aspirin] 81 mg tablet,delayed release (DR/EC) 81 mg PO DAILY nitroglycerin [Nitrostat] 0.4 mg tablet, sublingual 0.4 mg Sublingual PRN MDD 3 tabs Qty: 25 4RF tamsulosin [Flomax] 0.4 mg capsule 0.8 mg PO DAILY Qty: 180 3RF Rx Instructions: Note dosage increase folic acid 0.4 MG tablet 1 tab PO DAILY Nephrocaps 1 MG capsule 1 cap PO DAILY Qty: 90 cholecalciferol (vitamin D3) 1,000 UNIT capsule 1 cap PO DAILY (DME) lancets 28 gauge misc 1 ea Miscellaneous BID Qty: 100 5RF Rx Instructions: NABILA ACCUCHECK SOFT CLIX Dx: E11.9 QD testing lisinopril 30 mg tablet 30 mg PO DAILY Qty: 90 3RF metformin 1,000 mg tablet 1,000 mg PO BID Qty: 180 3RF Discharge Instructions Instructions: Contusion in Adults (ED) Additional Instructions: follow up with your primary care provider if pain continues this week if you have severe worsening pain, feel more ill or have new pain such as chest pain return to the emergency department Medical Decision Making 82 yo male with hx of htn, dm, bph, who comes in with right shoulder pain. He was pulling on a wood stove and he slipped and landed on his right shoulder. Denies hitting his head or loc. He has pain in the right lateral shoulder and mid clavicle. He is able to move the shoulder in abduction to about 90 degrees then limited by pain. No pain or tenderness elsewhere in the arm, normal distal sensation and pulses. Has no palpable defects of the bone of the shoulder or clavicle. Will obtain xrays of the shoulder and clavicle. He has no midline c spine tenderness and full rom without pain and no signs of trauma to the head so do not feel head ct or c spine ct indicated. pt stable, imaging negative, no changes in exam. Suspect contusion vs sprain, will have him use sling as needed and has f/u this week with pcp, return precautions given Differential Diagnosis Differential Diagnosis: contusion, fracture Imaging Data Radiologic Study: Attestation: I personally reviewed and interpreted this imaging study as follows: Imaging: X-Ray Radiologist's impression: no acute findings shoulder xray Radiologic Study #2: Attestation: I personally reviewed and interpreted this imaging study as follows: Imaging: X-Ray My impression: no acute findings clavicle xray Sign Out No HPI General Mode of arrival: ambulatory . Date/Time Provider Initiated Documentation: 10/08/22 12:51 . Limitations to Documentation: no limitations . Information obtained by: patient . History of Present Illness 82 year old M presents to the emergency department with the chief complaint of right shoulder pain, described as moderate, Quality is described as aching, Patient started experiencing this hour(s) (1) and it has been constant. No relieving factors improve symptom(s), No exacerbating factors reported . Patient notes no other symptoms.. Patient did receive the following treatments prior to arrival, none Related Data Home Medications Medication Instructions Recorded Confirmed cholecalciferol (vitamin D3) 25 1 cap PO DAILY 02/06/13 10/08/22 mcg (1,000 unit) capsule folic acid 400 mcg tablet 1 tab PO DAILY 02/06/13 10/08/22 vitamin B complex and vitamin C 1 cap PO DAILY ##90 02/06/13 10/08/22 no.20-folic acid 1 mg capsule (Nephrocaps) nitroglycerin 0.4 mg sublingual 0.4 mg sublingual PRN #25 tabs 05/20/21 10/08/22 tablet (Nitrostat) lancets 28 gauge #100 ea 02/16/22 10/08/22 blood sugar diagnostic (Accu-Chek #100 strips 07/08/22 10/08/22 Nabila Plus test strips) glipizide 5 mg tablet 2.5 mg PO BID #90 tabs 07/08/22 10/08/22 metoprolol succinate 50 mg 25 mg PO DAILY #45 tabs 07/08/22 10/08/22 tablet,extended release 24 hr aspirin 81 mg tablet,delayed 81 mg PO DAILY 07/19/22 10/08/22 release (Adult Low Dose Aspirin) lisinopril 30 mg tablet 30 mg PO DAILY #90 tabs 07/29/22 10/08/22 metformin 1,000 mg tablet 1,000 mg PO BID #180 tabs 07/29/22 10/08/22 tamsulosin 0.4 mg capsule (Flomax) 0.8 mg PO DAILY #180 caps 09/14/22 10/08/22 Previous Rx's Medication Instructions Recorded nitroglycerin 0.4 mg sublingual 0.4 mg sublingual PRN #25 tabs 05/20/21 tablet (Nitrostat) lancets 28 gauge #100 ea 02/16/22 blood sugar diagnostic (Accu-Chek #100 strips 07/08/22 Nabila Plus test strips) glipizide 5 mg tablet 2.5 mg PO BID #90 tabs 07/08/22 metoprolol succinate 50 mg 25 mg PO DAILY #45 tabs 07/08/22 tablet,extended release 24 hr lisinopril 30 mg tablet 30 mg PO DAILY #90 tabs 07/29/22 metformin 1,000 mg tablet 1,000 mg PO BID #180 tabs 07/29/22 tamsulosin 0.4 mg capsule (Flomax) 0.8 mg PO DAILY #180 caps 09/14/22 Allergies Allergy/AdvReac Type Severity Reaction Status Date / Time menthol Allergy Unknown WHEEZING Unverified 10/08/22 13:03 General Stated Complaint: Orthopedic LILA: 4 Review of Systems All systems reviewed & are unremarkable except as noted in HPI and below Constitutional Constitutional: Denies chills, Denies fever(s) and Denies weakness Eyes Eyes: Denies loss of vision Cardiovascular Cardiovascular: Denies chest pain and Denies dyspnea Respiratory Respiratory: Denies cough and Denies dyspnea Gastrointestinal Gastrointestinal: Denies abdominal pain, Denies nausea and Denies vomiting Integumentary/Breasts Skin/Breast: Denies rash Neurologic Neurologic: Denies loss of vision and Denies weakness PFSH All Active Problems (Updated 10/08/22 @ 14:30 by Romeo Page MD) Contusion of right shoulder (Acute) Arthritis of left knee (Acute) Bradycardia (Acute) Constipation (Acute) Anal and rectal polyp (Acute) Gastroesophageal reflux disease (Acute) Status post coronary artery stent placement (Acute) Sensorineural hearing loss (SNHL) of both ears (Acute 03/01/18) Primary osteoarthritis of right knee (Acute 08/02/16) Non-toxic multinodular goiter (Acute) Lipoma of neck (Acute 03/01/18) Essential hypertension (Acute 07/24/13) Diabetic retinopathy (Acute) MILD IN LEFT EYE~OPTICAL EXPRESSIONS 08/12/15 Diabetes mellitus (Acute 02/08/13) BPH w urinary obs/LUTS (Acute 03/01/18) Atherosclerosis of [place] coronary artery (Acute) Asthma (Acute) Arthritis (Acute) Medical History Change in facial mole not suspect- [place] [facility] [place] History Stent placement (~05/2001) 05/30 2 STENTS LAD 11/2001 AND 02/2002 CLEANED BLOCKED STENT (WAS SCAR BUILDUP) KJG (below) Patient report radiation therapy in [facility] to correct scar formation. He believes bare metal stents were placed. Family History Mother , 91 Epilepsy Hyperlipidemia Parkinson disease Father , 73 Essential hypertension Personal history of malignant neoplasm SKIN Stroke Sister Diabetes Essential hypertension Heart disease Hyperlipidemia Brother Heart disease Stroke Pacemaker Parkinson disease Brother Diabetes Heart disease Stroke Brother Diabetes Essential hypertension Heart disease Hyperlipidemia Grandfather Diabetes Heart disease Stroke Grandfather Stroke Grandmother Essential hypertension Depression Heart disease Stroke Grandmother Essential hypertension Hyperlipidemia Stroke Daughter Diabetes Asthma Daughter Diabetes Heart disease VALVE REPLACEMENT Pancreatic cancer Social History Smoking/Tobacco Use Status: Former Tobacco Use Tobacco: How many years used: 14 Smoking risk assessment performed?: Yes Alcohol Intake: current Alcohol Intake frequency: 0-2 drinks per day Alcohol ty pe: wine and hard liquor Drug use: Never Substance use type: does not use Caregiver/Support person: No Household members: spouse Housing: house Communication Needs: Hard of Hearing Do you need help understanding health information?: Rarely Pets and animals: No Sexually active: No Do you think of yourself as: straight/heterosexual Current gender identity: male What is your relationship status?: How often do you talk on the phone with friends or family?: twice per week How often do you get together with friends or relatives?: three or more times per week How often do you attend restorationism or hindu services?: 1-3 times per year Do you belong to any clubs or organized social groups?: no Panel score (0-1 are the most socially isolated patients): 2 What type of physical activity do you participate in: regular exercise Duration: > 90 minutes/day Frequency: 3-4 times per week Scarlett/Uatsdin: Yarsani Special scarlett needs: No Seatbelt use: always Helmet use: Yes Helmet use: sometimes Drive intox 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 driver guide: No Do you feel safe at home: Yes Exam Const General: no acute distress Orientation: alert HENMT Head: normal to inspection Ears: external ears normal General nose exam: external nose normal Mouth: moist mucous membranes Eyes General: appearance normal, both eyes and all related structures Neck Neck: normal visual inspection Resp Effort & Inspection: normal respiratory effort and able to speak in complete sentences Cardio Rate: regular rate Skin General skin exam: no rashes or lesions noted Neuro General: patient alert and patient oriented x3 Extrem General: capillary refill normal Psych Mental Status: mental status grossly normal Course Vital Signs Vital signs: Vital Signs Temperature 36.8 C 10/08/22 12:55 Pulse 69 10/08/22 12:55 Respiratory Rate 17 10/08/22 12:55 Blood Pressure 167/77 H 10/08/22 12:55 Pulse Oximetry 99 10/08/22 12:55 Temperature 36.8 C 10/08/22 12:55 Temperature Source Temporal Artery Scan 10/08/22 12:55 Pulse 69 10/08/22 12:55 Respiratory Rate 17 10/08/22 12:55 Respiratory Effort Non-Labored 10/08/22 12:59 Blood Pressure 167/77 H 10/08/22 12:55 Blood Pressure Position Sitting 10/08/22 12:55 Pulse Oximetry 99 10/08/22 12:55 Oxygen Delivery Method Room Air 10/08/22 12:55 Oxygen Flow Rate 0 10/08/22 12:55 Pain Level 6 10/08/22 12:59 PAWSS Have you Been Recently Intoxicated or Drunk Within the Last 30 days?: No Have you Ever Experienced Previous Episodes of Alcohol Withdrawal?: No Have you ever Experienced Withdrawal Seizures?: No Have you ever Experienced Delirium Tremens(DT)s?: No Have you ever undergone Alcohol Rehabilitation Treatment (i.e, inpt ot outpatient treatment programs)?: No Have you ever Experienced Blackouts?: No Have you ever Combined Alcohol with other Downers within the last 90 days?: No Have you ever Combined Alcohol with any other Substance of Abuse during the last 90 days?: No Result: 0
[2022-10-08] MEDS: Acetaminophen 500 MG TAB 1000 MG PO (13:53)
--- NOTE | 2022-10-08 14:16 | DI.VRAD_ITS ---
PROCEDURE INFORMATION: Exam: XR Right Clavicle, Complete Exam date and time: 10/08/2022 1:45 PM Age: 82 years old Clinical indication: Injury or trauma; Fall; Blunt trauma (contusions or hematomas); Shoulder; Right TECHNIQUE: Imaging protocol: Radiologic exam of the Right clavicle. Complete exam. Views: Any number of views. COMPARISON: No relevant prior studies available. FINDINGS: Bones/joints: Mild degenerative changes of the acromioclavicular joint. No evidence for acute bony injury. Degenerative changes of the glenohumeral joint. Soft tissues: Unremarkable. IMPRESSION: No acute bony findings. If clinical symptoms persist recommend followup film in 7-10 days. Dictated and Authenticated by: Mia Lewis MD. Ordering:LUCAS Walters MD
--- NOTE | 2022-10-08 14:21 | DI.VRAD_ITS ---
PROCEDURE INFORMATION: Exam: XR Right Shoulder Exam date and time: 10/08/2022 1:47 PM Age: 82 years old Clinical indication: Injury or trauma; Fall; Blunt trauma (contusions or hematomas); Shoulder; Right TECHNIQUE: Imaging protocol: Radiologic exam of the Right shoulder. Views: 2 or more views. COMPARISON: CR XR CLAVICLE RT 08/10/2022 13:45 FINDINGS: Bones/joints: Mild degenerative osteophytes on the under surface of the humerus. The humerus is high-riding in the glenoid fossa. Mild degenerative changes of the acromioclavicular joint. No evidence for fracture dislocation. Mild irregularity of the greater tubercle. The visualized ribs are intact. Soft tissues: Unremarkable. IMPRESSION: No acute bony findings. If clinical symptoms persist recommend followup film in 7-10 days. Dictated and Authenticated by: Mia Lewis MD. Ordering:LUCAS Walters MD
[2022-10-08 14:46] VITALS: BP 153/67; PULSE 76; RESP 18; O2SAT 99
--- NOTE | 2022-10-09 08:21 | W.ED.FU ---
Date of service: 10/09/22 Time of Service: 08:21 Follow Up Plan: overread by Dr. Marie shows right medial clavicle fracture, spoke with pt and he is feeling better, has the sling. I provided the number for ortho and placed on the follow up list, he understands to call them tomorrow and to return for any new or worsening symptoms.
== END 2022-10-08 14:45 | disposition home or self-care (01) ==
PROVIDERS: Emergency Provider Emergency Medicine; PCP Nurse Practitioner Family
DX: S42.011A Anterior displaced fracture of sternal end of right clavicle, initial encounter for closed fracture (principal); I10 Essential (primary) hypertension; E11.9 Type 2 diabetes mellitus without complications; W01.0XXA Fall on same level from slipping, tripping and stumbling without subsequent striking against object, initial encounter; X50.1XXA Overexertion from prolonged static or awkward postures, initial encounter
CPT/HCPCS: 99284; 73000; 73030; 99282

== ENCOUNTER 2022-10-19 10:11 | Outpatient (CLI) | payer MEDICARE, SELFPAY ==
--- NOTE | 2022-10-19 09:43 | DI.RAD_ITS ---
Exam(s) XR CLAVICLE RT EXAM: XR CLAVICLE RT CLINICAL HISTORY: R clavicle fx. TECHNIQUE: 2D digital imaging was performed. COMPARISON: CR,XR XR SHOULDER RT COMPLETE 2+V from 10/08/2022 CR,XR XR CLAVICLE RT from 10/08/2022 FINDINGS: Two views: The medial aspect of the right clavicle is not well-defined on these images. Mid and lateral aspects appear unremarkable. Moderate degenerative changes in the AC joint are again noted. IMPRESSION: Abnormal medial aspect of the right clavicle possible fracture or lesion. Recommend follow-up CT or MRI. DATA REPOSITORY: RADIATION DOSE DELIVERED:
== END 2022-10-19 10:12 | disposition home or self-care (01) ==
LOC: DIORS 10:12
PROVIDERS: PCP Nurse Practitioner Family; Referring Provider Nurse Practitioner Family; Visit Provider Physician Assistant
DX: S42.001A Fracture of unspecified part of right clavicle, initial encounter for closed fracture (principal); X58.XXXA Exposure to other specified factors, initial encounter
CPT/HCPCS: 99203; 99213; 73000

== ENCOUNTER 2022-11-23 11:10 | Outpatient (CLI) | payer MEDICARE, SELFPAY ==
--- NOTE | 2022-11-23 10:45 | DI.RAD_ITS ---
Exam(s) XR CLAVICLE RT EXAM: XR CLAVICLE RT CLINICAL HISTORY: f/u RR CLAVICLE FX TECHNIQUE: 2D digital imaging was performed. COMPARISON: CR,XR XR SHOULDER RT COMPLETE 2+V from 10/08/2022 CR,XR XR CLAVICLE RT from 10/08/2022 CR XR CLAVICLE RT from 10/19/2022 FINDINGS: BONES: The fracture of the medial clavicle is mostly obscured by overlap with the proximal ribs. No gross change in alignment. JOINTS: Spurring at the AC joint and undersurface of the acromion as well as glenoid. SOFT TISSUE: Normal IMPRESSION: No gross interval change in fracture of the medial clavicle. DATA REPOSITORY: RADIATION DOSE DELIVERED:
== END 2022-11-23 11:11 | disposition home or self-care (01) ==
LOC: DIORS 11:11
PROVIDERS: PCP Nurse Practitioner Family; Referring Provider Nurse Practitioner Family; Visit Provider Student in an Organized Health Care Education/Training Program
DX: S42.001D Fracture of unspecified part of right clavicle, subsequent encounter for fracture with routine healing (principal); X58.XXXD Exposure to other specified factors, subsequent encounter
CPT/HCPCS: 99213; 73000

== ENCOUNTER → 2022-12-14 09:56 | Outpatient (BNVA) | payer MEDICARE, SELFPAY | PROVIDERS: PCP Nurse Practitioner Family; Visit Provider Nurse Practitioner Gerontology ==

== ENCOUNTER 2022-12-14 10:28 | Outpatient (CLI) | payer MEDICARE, SELFPAY | END 2022-12-14 10:29 | disposition home or self-care (01) | LOC: LBO 10:30 | PROVIDERS: PCP Nurse Practitioner Family; Visit Provider Nurse Practitioner Gerontology | DX: N40.1 Benign prostatic hyperplasia with lower urinary tract symptoms (principal); N13.8 Other obstructive and reflux uropathy; Z87.440 Personal history of urinary (tract) infections; R33.8 Other retention of urine | CPT/HCPCS: 51798; 81003; 99213 ==

== ENCOUNTER 2022-12-14 15:06 | Outpatient (REF) | payer MEDICARE, SELFPAY | END 2022-12-14 15:07 | disposition home or self-care (01) | LOC: LBN 15:06 | PROVIDERS: PCP Nurse Practitioner Family; Visit Provider Nurse Practitioner Gerontology | DX: N39.0 Urinary tract infection, site not specified (principal); R39.9 Unspecified symptoms and signs involving the genitourinary system | CPT/HCPCS: 87086 ==

== ENCOUNTER 2023-01-12 21:13 | Outpatient (REF) | payer MEDICARE, SELFPAY ==
[2023-01-12 21:58] LABS: COMMENT (LAB VIEW ONLY) 45.49 mg/dL
[2023-01-12 22:04] LABS: Microalb ug/mg Crea 193.9 ug/mg Cr
== END 2023-01-12 21:14 | disposition home or self-care (01) ==
LOC: LBN 21:13
PROVIDERS: PCP Nurse Practitioner Family; Visit Provider Nurse Practitioner Family
DX: E11.9 Type 2 diabetes mellitus without complications (principal)
CPT/HCPCS: 82043; 82570

== ENCOUNTER → 2023-02-07 10:10 | Outpatient (BNVA) | payer MEDICARE, SELFPAY | PROVIDERS: PCP Nurse Practitioner Family; Visit Provider Nurse Practitioner Gerontology | DX: N40.1 Benign prostatic hyperplasia with lower urinary tract symptoms (principal); N13.8 Other obstructive and reflux uropathy; R33.8 Other retention of urine; Z87.440 Personal history of urinary (tract) infections | CPT/HCPCS: 51798; 81003; 99213 ==

== ENCOUNTER 2023-02-07 12:06 | Outpatient (REF) | payer MEDICARE, SELFPAY | END 2023-02-07 12:07 | disposition home or self-care (01) | LOC: LBN 12:06 | PROVIDERS: PCP Nurse Practitioner Family; Visit Provider Nurse Practitioner Gerontology | DX: N39.0 Urinary tract infection, site not specified (principal) | CPT/HCPCS: 87077; 87086; 87186 ==

== ENCOUNTER → 2023-07-19 15:19 | Outpatient (BNVA) | payer MEDICARE, SELFPAY | PROVIDERS: PCP Nurse Practitioner Family; Referring Provider Nurse Practitioner Family; Visit Provider Nurse Practitioner Gerontology ==

== ENCOUNTER 2023-07-19 16:10 | Outpatient (REF) | payer MEDICARE, SELFPAY | END 2023-07-19 16:11 | disposition home or self-care (01) | LOC: LBN 16:10 | PROVIDERS: PCP Nurse Practitioner Family; Visit Provider Nurse Practitioner Gerontology | DX: N40.1 Benign prostatic hyperplasia with lower urinary tract symptoms (principal); R30.0 Dysuria; R39.89 Other symptoms and signs involving the genitourinary system | CPT/HCPCS: 87077; 87086; 87186 ==

== ENCOUNTER 2023-07-19 16:46 | Outpatient (CLI) | payer MEDICARE, SELFPAY ==
[2023-07-19 19:52] LABS: ALT 21 U/L (16-63); AST 19 U/L (15-37); Alkaline Phosphatase 61 U/L (46-116); Anion Gap 9.2 mmol/L (3-11); BUN 11 mg/dL (7-18); Bilirubin, Total 0.6 mg/dL (0.2-1.0); CO2 24.8 mmol/L (21.0-32.0); CREATININE 0.9 mg/dL (0.70-1.30); Calcium 9.6 mg/dL (8.5-10.1); Calculated LDL 72 mg/dL (<100); Chloride 92 mmol/L (98-107); Cholesterol 150 mg/dL (<200); Estimated GFR 85.27 (mL/min/1.73m2); Glucose 94 mg/dL (74-106); HDL Cholesterol 44 mg/dL (40-60); Potassium 4.7 mmol/L (3.5-5.1); Sodium 126 mmol/L (136-145); Total Protein 7.4 g/dL (6.4-8.2); Triglyceride 173 mg/dL (<150)
[2023-07-20 19:57] LABS: PSA, Diagnostic 0.8 ng/mL (<=6.5)
== END 2023-07-19 16:47 | disposition home or self-care (01) ==
LOC: LBO 16:46
PROVIDERS: PCP Nurse Practitioner Family; Visit Provider Nurse Practitioner Gerontology
DX: I10 Essential (primary) hypertension (principal); N13.8 Other obstructive and reflux uropathy; N40.1 Benign prostatic hyperplasia with lower urinary tract symptoms
CPT/HCPCS: 51798; 80053; 80061; 81003; 99214; 84153; 87086

== ENCOUNTER → 2023-07-21 01:34 | Outpatient (CLI) | payer MEDICARE, SELFPAY ==
--- NOTE | 2023-07-21 07:30 | DI.US_ITS ---
Exam(s) US RENAL EXAM: US RENAL CLINICAL HISTORY: High PVR, ? hydro; Renals WNL,r33.9,n40.1,n13.8. TECHNIQUE: Pickett scale, color and spectral Doppler were used. COMPARISON: No exams were available for comparison FINDINGS: Renal size in cm: Right: 12.1 left: 11.7 Echogenicity: Normal. Normal parenchymal thickness. Hydronephrosis: No Cyst or mass: No Nephrolithiasis: No Bladder:Normal . Both ureteral jets were visualized. Prevoid vol:634 cc Postvoid vol: 337 cc Prostate volume 43 cc. IMPRESSION: Large postvoid residual. No evidence of hydronephrosis. DATA REPOSITORY:
== END ==
PROVIDERS: PCP Nurse Practitioner Family; Visit Provider Nurse Practitioner Gerontology
DX: N13.8 Other obstructive and reflux uropathy (principal); N40.1 Benign prostatic hyperplasia with lower urinary tract symptoms; R33.9 Retention of urine, unspecified
CPT/HCPCS: 76770

== ENCOUNTER 2023-07-25 01:44 | Outpatient (CLI) | payer MEDICARE, SELFPAY ==
[2023-07-25 12:27] LABS: Anion Gap 6.9 mmol/L (3-11); BUN 12 mg/dL (7-18); CO2 27.1 mmol/L (21.0-32.0); CREATININE 0.9 mg/dL (0.70-1.30); Calcium 9.5 mg/dL (8.5-10.1); Chloride 96 mmol/L (98-107); Estimated GFR 85.27 (mL/min/1.73m2); Glucose 124 mg/dL (74-106); Potassium 4.6 mmol/L (3.5-5.1); Sodium 130 mmol/L (136-145)
== END 2023-07-25 01:45 | disposition home or self-care (01) ==
LOC: LOS 01:44
PROVIDERS: PCP Nurse Practitioner Family; Visit Provider Nurse Practitioner Family
DX: E87.1 Hypo-osmolality and hyponatremia (principal); E11.9 Type 2 diabetes mellitus without complications; I10 Essential (primary) hypertension
CPT/HCPCS: 36415; 80048

== ENCOUNTER → 2023-10-18 13:46 | Outpatient (BNVA) | payer MEDICARE, SELFPAY | PROVIDERS: PCP Nurse Practitioner Family; Referring Provider Nurse Practitioner Family; Visit Provider Nurse Practitioner Gerontology | DX: N40.1 Benign prostatic hyperplasia with lower urinary tract symptoms (principal); N13.8 Other obstructive and reflux uropathy | CPT/HCPCS: 51798; 99214 ==

== ENCOUNTER 2023-12-21 13:41 | Emergency (ER) | payer MEDICARE, SELFPAY ==
[2023-12-21] VITALS (35 sets, daily range): BP systolic 145–185; BP diastolic 53–84; PULSE 53–69; RESP 18; TEMP 36.8; O2SAT 97–100
--- NOTE | 2023-12-21 13:46 | NUR.NOTE ---
[id number] called back to say that they have the hat and boots at their facility. They will look for the flannel shirt also. The patient at that facility did tell them that these items are not his. Nursing Note:
[2023-12-21 14:25] LABS: Abs Immature Grans 0.01 10^3/uL (0.0-0.06); Absolute Basophil Count 0.02 10^3/uL (0.0-0.2); Absolute Monocyte Count 0.48 10^3/uL (0.1-0.8); Absolute Neutrophil Count 3.58 10^3/uL (1.2-6.7); Basophils % 0.4; Eosinophils % 1.9; HCT 34.3 % (40.0-50.0); HGB 11.9 g/dL (13.5-17.5); Immature Grans % 0.2; Lymphocytes % 20.8; MCHC 34.7 % (32.0-36.0); MCV 92 fL (80-95); MPV 8.9 fL (8.0-11.0); Monocytes % 9.1; Neutrophils % 67.6; Platelet Count 188 10^3/uL (130-400); RBC 3.72 10^6/uL (4.36-5.78); RDW 12.2 % (11.8-14.1); RDW-SD 41.4 fL; WBC 5.29 10^3/uL (4.4-10.8)
[2023-12-21 14:36] LABS: Bilirubin Small (Negative); Blood Large (Negative); Clarity Cloudy (Clear); Glucose 100 mg/dL (Negative); Ketones Negative (Negative); Leukocyte Esterase Small (Negative); Nitrite Negative (Negative); Specific Gravity 1.025 (1.005-1.025); Urobilinogen 0.2 mg/dL (Up to 0.2)
[2023-12-21 14:39] LABS: C & S Indicated? Yes; RBC >50 HPF (0-2)
[2023-12-21 14:40] LABS: ALT 17 U/L (16-63); AST 13 U/L (15-37); Alkaline Phosphatase 63 U/L (46-116); BUN 13 mg/dL (7-18); Bilirubin, Total 0.7 mg/dL (0.2-1.0); CREATININE 0.8 mg/dL (0.70-1.30); Calcium 9.4 mg/dL (8.5-10.1); Chloride 94 mmol/L (98-107); Estimated GFR 88.36 (mL/min/1.73m2); Glucose 131 mg/dL (74-106); Potassium 4.7 mmol/L (3.5-5.1); Sodium 129 mmol/L (136-145); Total Protein 7.9 g/dL (6.4-8.2)
--- NOTE | 2023-12-21 14:55 | ED.GENADUL_ITS ---
Discharge Plan Disposition Patient Disposition: Home Discharge Details Clinical Impression: Gross hematuria, Dilatation of ureter Primary Care Provider: Delaney Gaviria ED Provider: Magdi Mcgee Home Meds and New Rx's Prescriptions: No Action glipizide 5 mg tablet 2.5 mg PO BID Qty: 90 4RF Rx Instructions: dose increase aspirin [Adult Low Dose Aspirin] 81 mg tablet,delayed release (DR/EC) 81 mg PO DAILY metformin 500 mg tablet 500 mg PO BID Qty: 180 3RF tamsulosin [Flomax] 0.4 mg capsule 0.8 mg PO DAILY Qty: 180 3RF Rx Instructions: Note dosage increase finasteride 5 mg tablet 5 mg PO DAILY Qty: 90 3RF Nephrocaps 1 MG capsule 1 cap PO DAILY Qty: 90 cholecalciferol (vitamin D3) 1,000 UNIT capsule 1 cap PO DAILY folic acid 400 mcg tablet 0.2 mg PO DAILY (DME) lancets Misc See Rx Instructions .MEDSUPPLY Qty: 100 3RF Rx Instructions: Check sugars once daily. No insulin. Dispense covered brand. Dx: E11.9 to maintain HbA1c less than 7%. (DME) Blood Glucose Test Strip See Rx Instructions .MEDSUPPLY Qty: 100 3RF Rx Instructions: Check sugars once per day. No insulin. Dispense covered brand. Dx: E11.9 to maintain HbA1c less than 7%. (DME) blood-glucose meter Misc See Rx Instructions .MEDSUPPLY Qty: 1 0RF Rx Instructions: Check blood sugar once daily. No insulin. Dispense covered brand. Dx: E11.9 to maintain HbA1c less than 7%. nitroglycerin [Nitrostat] 0.4 mg tablet, sublingual 0.4 mg Sublingual PRN MDD 3 tabs Qty: 25 4RF metoprolol succinate 50 mg tablet extended release 24 hr 25 mg PO DAILY Qty: 45 3RF lisinopril 30 mg tablet 30 mg PO DAILY Qty: 90 3RF Discharge Instructions Instructions: Hematuria (ED) Additional Instructions: Alexandre should stay in place until you are evaluated by urology. Alexandre bag should drain easily if it is not flowing, return to the emergency department as it may get clogged and need to be flushed and irrigated again. If you develop any fever or abdominal pain please return to the emergency department. Urology will contact you with your follow-up appointment. HPI General Date/Time Provider Initiated Documentation: 12/21/23 14:01 . Limitations to Documentation: no limitations . Information obtained by: patient . HPI Narrative: 83y M with PMH of HTN, DM, CAD, prior hematuria presents with gross hematuria. Reports that his first void this morning was normal. Since that time he has noticed he has been passing large clots. he has pain with the clots but otherwise no pain with urination. no burning. no abdominal pain or flank pain. no vomiting or fever. denies trauma. takes baby aspirin daily. Related Data Home Medications Medication Instructions Recorded Confirmed cholecalciferol (vitamin D3) 25 1 cap PO DAILY 02/06/13 12/21/23 mcg (1,000 unit) capsule vitamin B complex and vitamin C 1 cap PO DAILY ##90 02/06/13 12/21/23 no.20-folic acid 1 mg capsule (Nephrocaps) glipizide 5 mg tablet 2.5 mg (1/2 x 5 mg) PO BID #90 tabs 07/08/22 12/21/23 aspirin 81 mg tablet,delayed 81 mg PO DAILY 07/19/22 12/21/23 release (Adult Low Dose Aspirin) folic acid 400 mcg tablet 0.2 mg PO DAILY 12/14/22 12/21/23 metformin 500 mg tablet 500 mg PO BID #180 tabs 01/12/23 12/21/23 blood sugar diagnostic (Blood #100 ea 01/19/23 12/21/23 Glucose Test strips) lancets #100 ea 01/19/23 12/21/23 blood-glucose meter #1 ea 01/23/23 12/21/23 nitroglycerin 0.4 mg sublingual 0.4 mg sublingual PRN #25 tabs 03/24/23 12/21/23 tablet (Nitrostat) metoprolol succinate 50 mg 25 mg (1/2 x 50 mg) PO DAILY #45 06/30/23 12/21/23 tablet,extended release 24 hr tabs finasteride 5 mg tablet 5 mg PO DAILY #90 tabs 07/19/23 12/21/23 tamsulosin 0.4 mg capsule (Flomax) 0.8 mg (2 x 0.4 mg) PO DAILY #180 07/19/23 12/21/23 caps lisinopril 30 mg tablet 30 mg PO DAILY #90 tabs 10/15/23 12/21/23 Previous Rx's Medication Instructions Recorded glipizide 5 mg tablet 2.5 mg (1/2 x 5 mg) PO BID #90 tabs 07/08/22 metformin 500 mg tablet 500 mg PO BID #180 tabs 01/12/23 blood sugar diagnostic (Blood #100 ea 01/19/23 Glucose Test strips) lancets #100 ea 01/19/23 blood-glucose meter #1 ea 01/23/23 nitroglycerin 0.4 mg sublingual 0.4 mg sublingual PRN #25 tabs 03/24/23 tablet (Nitrostat) metoprolol succinate 50 mg 25 mg (1/2 x 50 mg) PO DAILY #45 06/30/23 tablet,extended release 24 hr tabs finasteride 5 mg tablet 5 mg PO DAILY #90 tabs 07/19/23 tamsulosin 0.4 mg capsule (Flomax) 0.8 mg (2 x 0.4 mg) PO DAILY #180 07/19/23 caps lisinopril 30 mg tablet 30 mg PO DAILY #90 tabs 10/15/23 Allergies Allergy/AdvReac Type Severity Reaction Status Date / Time menthol Allergy Unknown WHEEZING Verified 12/21/23 13:50 aspirin Allergy sick to Verified 12/21/23 13:50 stomach General Stated Complaint: Urinary LILA: 3 Exam Narrative Exam Narrative: Review of Systems: All systems reviewed & are unremarkable except as noted in HPI and below Well-developed, no acute distress NCAT PERRL, normal conjunctiva RRR Unlabored respiratory effort Nondistended abdomen , mild suprapubic tenderness Extremities w/o deformity, no cyanosis, no edema No rashes or lesions. no focal neurologic deficits Appropriate mood and affect Course Vital Signs Vital signs: Vital Signs Temperature 36.8 C 12/21/23 13:46 Pulse 69 12/21/23 13:46 Respiratory Rate 18 12/21/23 13:46 Blood Pressure 169/66 H 12/21/23 13:46 Temperature 36.8 C 12/21/23 13:46 Temperature Source Skin 12/21/23 13:46 Pulse 69 12/21/23 13:46 Respiratory Rate 18 12/21/23 13:46 Respiratory Effort Normal 12/21/23 13:49 Blood Pressure 169/66 H 12/21/23 13:46 Pain Level 0 12/21/23 14:22 Lab/Test Results Lab/Test Results: 12/21/23 14:20 Urine - Reflex from Ua Urine Culture - Pending Laboratory Tests Range/Units 12/21/23 12/21/23 14:15 14:20 WBC (4.4-10.8) 10^3/uL 5.29 RBC (4.36-5.78) 10^6/uL 3.72 L Hgb (13.5-17.5) g/dL 11.9 L Hct (40.0-50.0) % 34.3 L MCV (80-95) fL 92 MCH (27.0-33.0) pg 32.0 MCHC (32.0-36.0) % 34.7 RDW (11.8-14.1) % 12.2 Plt Count (130-400) 10^3/uL 188 MPV (8.0-11.0) fL 8.9 Immature Gran % 0.2 Neutrophils % 67.6 Lymphocytes % 20.8 Monocytes % 9.1 Eosinophils % 1.9 Basophils % 0.4 Nucleated RBC % (0.0-0.3) % 0.0 Absolute Neutrophils (1.2-6.7) 10^3/uL 3.58 Absolute Lymphocytes (1.2-3.4) 10^3/uL 1.10 L Absolute Monocytes (0.1-0.8) 10^3/uL 0.48 Absolute Eosinophils (0.0-0.7) 10^3/uL 0.10 Absolute Basophils (0.0-0.2) 10^3/uL 0.02 Sodium (136-145) mmol/L 129 L Potassium (3.5-5.1) mmol/L 4.7 Chloride (98-107) mmol/L 94 L Carbon Dioxide (21.0-32.0) mmol/L 29.0 Anion Gap (3-11) mmol/L 6.0 BUN (7-18) mg/dL 13 Creatinine (0.70-1.30) mg/dL 0.8 Est GFR (CKD-EPI 2020) (mL/min/1.73m2) 88.36 Glucose (74-106) mg/dL 131 H Calcium (8.5-10.1) mg/dL 9.4 Total Bilirubin (0.2-1.0) mg/dL 0.7 AST (15-37) U/L 13 L ALT (16-63) U/L 17 Alkaline Phosphatase (46-116) U/L 63 Total Protein (6.4-8.2) g/dL 7.9 Albumin (3.4-5.0) g/dL 4.0 Urine Color (Yellow) Red Urine Clarity (Clear) Cloudy Urine pH (5-8) 7.0 Ur Specific [place] (1.005-1.025) 1.025 Urine Protein (Neg-Trace) mg/dL >=300 H Urine Ketones (Negative) mg/dL Negative Urine Blood (Negative) Large H Urine Nitrite (Negative) Negative Urine Bilirubin (Negative) Small H Urine Urobilinogen (Up to 0.2) mg/dL 0.2 Ur Leukocyte Esterase (Negative) Small H Urine RBC (0-2) HPF >50 H Urine WBC Not Applicable Ur Epithelial Cells Not Applicable Urine Crystals Not Applicable Urine Bacteria Not Applicable Urine Mucus Not Applicable Ur Culture Indicated? Yes Urine Glucose (Negative) mg/dL 100 H Medical Decision Making emergent evaluation of hematuria. ddx includes infection, stone, malignancy. is on baby asa but no other anticoagulants. urine at bedside is jalyn blood. PVR is > 700. Alexandre placed and will begin irrigation. Plan for labs and imaging [address] findings with radiologist, concern for dilated left distal ureter, concerning for some obstruction whether non calcified stone or mass. Discussed patient and clinical plan with Dr. Jackson. He will arrange for outpatient procedural evaluation. Patient was irrigated in the emergency department with 3L and had no further clotting and was catheter was flowing well. Strict return precautions advised. Follow-up plan understood by patient Medical Records Medical records reviewed: Yes I reviewed the patient's medical records. Lab Data Lab results reviewed: Yes I reviewed the patient's lab results. Quality:SDOH Health Related Social Needs: No Data to Display PFSH All Active Problems (Updated 12/21/23 @ 19:08 by Magdi Mcgee MD) Dilatation of ureter (Acute) Gross hematuria (Acute) Hyponatremia (Acute) Incomplete emptying of bladder (Acute) Closed right clavicular fracture (Acute 10/08/22) Arthritis of left knee (Acute) Bradycardia (Acute) Constipation (Acute) Anal and rectal polyp (Acute) Gastroesophageal reflux disease (Acute) Status post coronary artery stent placement (Acute) Sensorineural hearing loss (SNHL) of both ears (Acute 03/01/18) Primary osteoarthritis of right knee (Acute 08/02/16) Non-toxic multinodular goiter (Acute) Lipoma of neck (Acute 03/01/18) Essential hypertension (Acute 07/24/13) Diabetic retinopathy (Acute) MILD IN LEFT EYE~OPTICAL EXPRESSIONS 08/12/15 Diabetes mellitus (Acute 02/08/13) BPH w urinary obs/LUTS (Acute 03/01/18) Atherosclerosis of [place] coronary artery (Acute) Asthma (Acute) Arthritis (Acute) Medical History Change in facial mole not suspect- sees [facility] Surgical History Stent placement (~05/2001) 05/30 2 STENTS LAD 11/2001 AND 02/2002 CLEANED BLOCKED STENT (WAS SCAR BUILDUP) KJG (below) Patient report radiation therapy in [facility] to correct scar formation. He believes bare metal stents were placed. Family History Mother , 91 Epilepsy Hyperlipidemia Parkinson disease Father , 73 Essential hypertension Personal history of malignant neoplasm SKIN Stroke Sister Diabetes Essential hypertension Heart disease Hyperlipidemia Brother Heart disease Stroke Pacemaker Parkinson disease Brother Diabetes Heart disease Stroke Brother Diabetes Essential hypertension Heart disease Hyperlipidemia Grandfather Diabetes Heart disease Stroke Grandfather Stroke Grandmother Essential hypertension Depression Heart disease Stroke Grandmother Essential hypertension Hyperlipidemia Stroke Daughter Diabetes Asthma Daughter Diabetes Heart disease VALVE REPLACEMENT Pancreatic cancer Social History Smoking/Tobacco Use Status: Former Tobacco Use Tobacco: How many years used: 14 Smoking risk assessment performed?: Yes Alcohol Intake: current Alcohol Intake frequency: 0-2 drinks per day Alcohol type: wine and hard liquor Drug use: Never Substance use type: does not use Caregiver/Support person: No Household members: spouse Housing: house Communication Needs: Hard of Hearing Do you need help understanding health information?: Rarely Pets and animals: No Sexually active: No Do you think of yourself as: straight/heterosexual Current gender identity: male What is your relationship status?: How often do you talk on the phone with friends or family?: twice per week How often do you get together with friends or relatives?: three or more times per week How often do you attend mormon or sikh services?: 1-3 times per year Do you belong to any clubs or organized social groups?: no Panel score (0-1 are the most socially isolated patients): 2 What type of physical activity do you participate in: regular exercise Duration: > 90 minutes/day Frequency: 3-4 times per week Scarlett/Taoism: Confucianism Special scarlett needs: No Seatbelt use: always Helmet use: Yes Helmet use: sometimes Drive intox 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 over the road driver: No Do you feel safe at home: Yes
--- NOTE | 2023-12-21 15:05 | DI.CT_ITS ---
Exam(s) CT RENAL COLIC WO EXAM: CT RENAL COLIC WO CLINICAL HISTORY: HEMATURIA. TECHNIQUE: Imaging Protocol: Axial computed tomography images with coronal and sagittal reformatted images were created and reviewed. COMPARISON: US US RENAL from 07/21/2023 FINDINGS: ABDOMEN: Lung Bases: Coronary artery calcifications and/or stents. Liver: Normal density. No measurable mass. Gallbladder and biliary tract: No radiodense calculus or biliary ductal dilation. Pancreas: Normal density, no abnormal calcifications or inflammatory process. Spleen: Normal. Kidneys: Normal size, contour and axis.There is moderate dilatation of the left renal collecting syst em to the level of the UVJ. No calcified stone is identified. The right renal collecting system is of normal caliber. No masses seen. Adrenal glands: No mass is seen. Lymph nodes: Within normal limits. Abdominal Aorta: Abdominal portion non-dilated. Atherosclerotic calcifications are present. PELVIS: Bladder:There is thickening of the wall of the urinary bladder diffusely. There is focal thickening posteriorly in the dependent portion of the urinary bladder (series 5 images [id number]. It measures 3. 1 cm transverse by 1.2 cm AP x 3.9 cm craniocaudad. Bowel: There is a large amount of stool in the rectum which may reflect fecal impaction. There is di verticulosis of the colon but no evidence of acute diverticulitis. There is no evidence of bowel obs truction. Appendix is unremarkable. Peritoneal cavity: No ascites, collection or mesenteric inflammatory response. No free air. Reproductive organs: Mildly enlarged prostate gland. Bones: Within normal limits. There is minimal anterolisthesis of L4 on L5. Soft Tissues: Within normal limits. IMPRESSION: 1. New moderate dilatation of the left renal collecting system to the level of the UVJ. No obstructi ng stone is identified. Differential considerations include a recently passed stone or renal mass. Urology consult is recommended. 2. Focal wall thickening along the posterior urinary bladder. Differential considerations include ur inary bladder mass versus clot/hemorrhage. Urology consult is recommended. 3. Colonic diverticulosis without evidence of acute diverticulitis. 4. Large amount of stool seen in the rectum suspicious for fecal impaction. 5. Findings were discussed with Dr. Mcgee on 12/21/2023. RADIATION DOSE DELIVERED: 903.6mGy.cm Total DLP DATA REPOSITORY: All CT scans at this facility are submitted to the National Radiology Data Registry (NRDR) Dose Index Registry (DIR) with the [employer] (A[employer]). RADIATION OPTIMIZATION: All CT scans at this facility use at least one of these dose optimization te chniques: automated exposure control; mA and/or kV adjustment per patient size (includes targeted exa ms where dose is matched to clinical indication); or iterative reconstruction.
== END 2023-12-21 19:39 | disposition home or self-care (01) ==
PROVIDERS: Emergency Provider Emergency Medicine; PCP Nurse Practitioner Family
DX: R31.9 Hematuria, unspecified (principal); N28.82 Megaloureter; I25.10 Atherosclerotic heart disease of native coronary artery without angina pectoris; I10 Essential (primary) hypertension; E11.9 Type 2 diabetes mellitus without complications; Z79.84 Long term (current) use of oral hypoglycemic drugs; Z79.82 Long term (current) use of aspirin; Z95.5 Presence of coronary angioplasty implant and graft; Z87.891 Personal history of nicotine dependence
CPT/HCPCS: 36415; 51702; 80053; 99284; 74176; 81003; 81015; 85025; 87086

== ENCOUNTER → 2023-12-26 13:58 | Outpatient (BNVA) | payer MEDICARE, SELFPAY | PROVIDERS: PCP Nurse Practitioner Family; Referring Provider Nurse Practitioner Family; Visit Provider Urology | DX: N48.89 Other specified disorders of penis (principal); N39.0 Urinary tract infection, site not specified | CPT/HCPCS: 81003; 99213 ==

== ENCOUNTER 2023-12-26 17:31 | Outpatient (REF) | payer MEDICARE, SELFPAY | END 2023-12-26 17:32 | disposition home or self-care (01) | LOC: LBN 17:31 | PROVIDERS: PCP Nurse Practitioner Family; Visit Provider Urology | DX: N39.0 Urinary tract infection, site not specified (principal) | CPT/HCPCS: 87077; 87086; 87186 ==

== ENCOUNTER → 2024-01-02 09:13 | Outpatient (BNVA) | payer MEDICARE, SELFPAY | PROVIDERS: PCP Nurse Practitioner Family; Referring Provider Nurse Practitioner Family; Visit Provider Urology | DX: R31.0 Gross hematuria (principal); N28.82 Megaloureter | CPT/HCPCS: 99214 ==

== ENCOUNTER 2024-01-03 19:43 | Emergency (ER) | payer MEDICARE, SELFPAY ==
[2024-01-03 19:45] VITALS: BP 171/77; PULSE 79; RESP 18; TEMP 37.1; O2SAT 96
--- NOTE | 2024-01-03 19:56 | ED.GENADUL_ITS ---
Discharge Plan Disposition Patient Disposition: Home Condition: Good Discharge Details Clinical Impression: Hematuria Primary Care Provider: Delaney Gaviria ED Provider: Ghassan Mcleods and New Rx's Prescriptions: Continued glipizide 5 mg tablet 2.5 mg PO BID Qty: 90 4RF Rx Instructions: dose increase aspirin [Adult Low Dose Aspirin] 81 mg tablet,delayed release (DR/EC) 81 mg PO DAILY tamsulosin [Flomax] 0.4 mg capsule 0.8 mg PO DAILY Qty: 180 3RF Rx Instructions: Note dosage increase finasteride 5 mg tablet 5 mg PO DAILY Qty: 90 3RF metformin 500 mg tablet 1,000 mg PO BID clotrimazole 1 % cream 1 applic topical TID PRN (Reason: rash) Qty: 15 0RF cholecalciferol (vitamin D3) 1,000 UNIT capsule 1 cap PO DAILY (DME) lancets Misc See Rx Instructions .MEDSUPPLY Qty: 100 3RF Rx Instructions: Check sugars once daily. No insulin. Dispense covered brand. Dx: E11.9 to maintain HbA1c less than 7%. (DME) Blood Glucose Test Strip See Rx Instructions .MEDSUPPLY Qty: 100 3RF Rx Instructions: Check sugars once per day. No insulin. Dispense covered brand. Dx: E11.9 to maintain HbA1c less than 7%. (DME) blood-glucose meter Misc See Rx Instructions .MEDSUPPLY Qty: 1 0RF Rx Instructions: Check blood sugar once daily. No insulin. Dispense covered brand. Dx: E11.9 to maintain HbA1c less than 7%. nitroglycerin [Nitrostat] 0.4 mg tablet, sublingual 0.4 mg Sublingual PRN MDD 3 tabs Qty: 25 4RF metoprolol succinate 50 mg tablet extended release 24 hr 25 mg PO DAILY Qty: 45 3RF lisinopril 30 mg tablet 30 mg PO DAILY Qty: 90 3RF Nephrocaps 1 mg capsule 1 cap PO DAILY Qty: 90 folic acid 400 mcg tablet 0.4 mg PO DAILY Discharge Instructions Additional Instructions: You were seen in the ED for transient hematuria which has since cleared up. May have been related to trauma/irritation. He may continue current medications and follow-up with Dr. Jackson as previously planned. Return to ED for fever, flank pain, abdominal pain, Alexandre catheter not draining, other concerns. HPI General Mode of arrival: ambulatory . Date/Time Provider Initiated Documentation: 01/03/24 19:56 . Limitations to Documentation: no limitations . Information obtained by: patient . HPI Narrative: Patient presenting to ED with concern for blood in his Alexandre. Patient is being worked up for hematuria by Dr. Jackson. Patient for the most part has had minimal blood in his urine since his initial visit here with gross hematuria at the end of November. Tonight he noticed blood like it had been previously. It now seems to be clearing up. He denies fever, back pain, abdominal pain. Related Data Home Medications Medication Instructions Recorded Confirmed cholecalciferol (vitamin D3) 25 1 cap PO DAILY 02/06/13 12/26/23 mcg (1,000 unit) capsule glipizide 5 mg tablet 2.5 mg (1/2 x 5 mg) PO BID #90 tabs 07/08/22 12/26/23 aspirin 81 mg tablet,delayed 81 mg PO DAILY 07/19/22 12/26/23 release (Adult Low Dose Aspirin) blood sugar diagnostic (Blood #100 ea 01/19/23 12/26/23 Glucose Test strips) lancets #100 ea 01/19/23 12/26/23 blood-glucose meter #1 ea 01/23/23 12/26/23 nitroglycerin 0.4 mg sublingual 0.4 mg sublingual PRN #25 tabs 03/24/23 12/26/23 tablet (Nitrostat) metoprolol succinate 50 mg 25 mg (1/2 x 50 mg) PO DAILY #45 06/30/23 12/26/23 tablet,extended release 24 hr tabs finasteride 5 mg tablet 5 mg PO DAILY #90 tabs 07/19/23 12/26/23 tamsulosin 0.4 mg capsule (Flomax) 0.8 mg (2 x 0.4 mg) PO DAILY #180 07/19/23 12/26/23 caps lisinopril 30 mg tablet 30 mg PO DAILY #90 tabs 10/15/23 12/26/23 clotrimazole 1 % topical cream 1 applic topical TID PRN rash #15 12/26/23 12/26/23 grams vitamin B complex and vitamin C 1 cap PO DAILY ##90 02/27/24 02/27/24 no.20-folic acid 1 mg capsule (Nephrocaps) folic acid 400 mcg tablet 0.4 mg PO DAILY 01/02/24 01/02/24 metformin 500 mg tablet 1,000 mg PO BID 01/02/24 Previous Rx's Medication Instructions Recorded glipizide 5 mg tablet 2.5 mg (1/2 x 5 mg) PO BID #90 tabs 07/08/22 blood sugar diagnostic (Blood #100 ea 01/19/23 Glucose Test strips) lancets #100 ea 01/19/23 blood-glucose meter #1 ea 01/23/23 nitroglycerin 0.4 mg sublingual 0.4 mg sublingual PRN #25 tabs 03/24/23 tablet (Nitrostat) metoprolol succinate 50 mg 25 mg (1/2 x 50 mg) PO DAILY #45 06/30/23 tablet,extended release 24 hr tabs finasteride 5 mg tablet 5 mg PO DAILY #90 tabs 07/19/23 tamsulosin 0.4 mg capsule (Flomax) 0.8 mg (2 x 0.4 mg) PO DAILY #180 07/19/23 caps lisinopril 30 mg tablet 30 mg PO DAILY #90 tabs 10/15/23 clotrimazole 1 % topical cream 1 applic topical TID PRN rash #15 12/26/23 grams Allergies Allergy/AdvReac Type Severity Reaction Status Date / Time menthol Allergy Unknown WHEEZING Verified 01/03/24 19:49 aspirin Allergy sick to Verified 01/03/24 19:49 stomach General Stated Complaint: Urinary LILA: 3 Review of Systems Narrative: Per HPI Exam Narrative Exam Narrative: Const: WDWN elderly male in NAD. HEENT: NC/AT. Normal facial exam. Eyes: Normal conjunctiva and sclera. Neck: Supple. Trachea midline. Lungs: Normal respiratory effort. Neuro: A+O x 3. Normal speech, mentation, gait. Cranial nerves II - XII grossly intact. No gross motor or sensory deficit. Course Vital Signs Vital signs: Vital Signs Temperature 98.7 F 01/03/24 19:45 Pulse 79 01/03/24 19:45 Respiratory Rate 18 01/03/24 19:45 Blood Pressure 171/77 H 01/03/24 19:45 Pulse Oximetry 96 01/03/24 19:45 Temperature 98.7 F 01/03/24 19:45 Temperature Source Skin 01/03/24 19:45 Pulse 79 01/03/24 19:45 Respiratory Rate 18 01/03/24 19:45 Respiratory Effort Normal, Non-Labored 01/03/24 19:48 Blood Pressure 171/77 H 01/03/24 19:45 Blood Pressure Position Sitting 01/03/24 19:45 Pulse Oximetry 96 01/03/24 19:45 Oxygen Delivery Method Room Air 01/03/24 19:45 Oxygen Flow Rate 0 01/03/24 19:45 Pain Level 0 01/03/24 19:45 Medical Decision Making Patient presenting to ED with gross hematuria noticed this evening but has since started to resolve. Has indwelling Alexandre pending cystoscopy and further workup by Dr. Jackson later this month after presenting with gross hematuria at the end of November. Denies any fever, back pain, abdominal pain. Denies any traumatic injury. Alexandre has been draining appropriately. Urine present in the Alexandre tube at this point is clear. Will have nursing do some hand irrigation be sure there is no clot in the bladder. Otherwise suspect this was likely more related to traumatic injury or irritation. After irrigation, no clots or bleeding. Will discharge home and follow-up with Dr. Jackson as planned. Return precautions provided. Quality:SDOH Health Related Social Needs: No Data to Display PFSH All Active Problems (Updated 01/03/24 @ 20:16 by Ghassan Mcleod MD) Hematuria (Acute) Dilatation of ureter (Acute) Gross hematuria (Acute) Hyponatremia (Acute) Incomplete emptying of bladder (Acute) Closed right clavicular fracture (Acute 10/08/22) Arthritis of left knee (Acute) Bradycardia (Acute) Constipation (Acute) Anal and rectal polyp (Acute) Gastroesophageal reflux disease (Acute) Status post coronary artery stent placement (Acute) Sensorineural hearing loss (SNHL) of both ears (Acute 03/01/18) Primary osteoarthritis of right knee (Acute 08/02/16) Non-toxic multinodular goiter (Acute) Lipoma of neck (Acute 03/01/18) Diabetic retinopathy (Acute) MILD IN LEFT EYE~OPTICAL EXPRESSIONS 08/12/15 Arthritis (Acute) Medical History Essential hypertension (07/24/13) Diabetes mellitus (02/08/13) BPH w urinary obs/LUTS (03/01/18) Atherosclerosis of [place] coronary artery Asthma Change in facial mole not suspect- [place] [facility] [place] Stent placement (~05/2001) 05/30 2 STENTS LAD 11/2001 AND 02/2002 CLEANED BLOCKED STENT (WAS SCAR BUILDUP) KJG (below) Patient report radiation therapy in [facility] to correct scar formation. He believes bare metal stents were placed. Family History Mother , 91 Epilepsy Hyperlipidemia Parkinson disease Father , 73 Essential hypertension Personal history of malignant neoplasm SKIN Stroke Sister Diabetes Essential hypertension Heart disease Hyperlipidemia Brother Heart disease Stroke Pacemaker Parkinson disease Brother Diabetes Heart disease Stroke Brother Diabetes Essential hypertension Heart disease Hyperlipidemia Grandfather Diabetes Heart disease Stroke Grandfather Stroke Grandmother Essential hypertension Depression Heart disease Stroke Grandmother Essential hypertension Hyperlipidemia Stroke Daughter Diabetes Asthma Daughter Diabetes Heart disease VALVE REPLACEMENT Pancreatic cancer Social History Smoking/Tobacco Use Status: Former Tobacco Use Tobacco: How many years used: 14 Smoking risk assessment performed?: Yes Alcohol Intake: current Alcohol Intake frequency: 0-2 drinks per day Alcohol type: wine and hard liquor Drug use: Never Substance use type: does not use Caregiver/Support person: No Household members: spouse Housing: house Communication Needs: Hard of Hearing Do you need help understanding health information?: Rarely Pets and animals: No Sexually active: No Do you think of yourself as: straight/heterosexual Current gender identity: male What is your relationship status?: How often do you talk on the phone with friends or family?: twice per week How often do you get together with friends or relatives?: three or more times per week How often do you attend uatsdin or adventism services?: 1-3 times per year Do you belong to any clubs or organized social groups?: no Panel score (0-1 are the most socially isolated patients): 2 What type of physical activity do you participate in: regular exercise Duration: > 90 minutes/day Frequency: 3-4 times per week Scarlett/Mormonism: Christian Special scarlett needs: No Seatbelt use: always Helmet use: Yes Helmet use: sometimes Drive intox 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
== END 2024-01-03 20:30 | disposition home or self-care (01) ==
PROVIDERS: Emergency Provider Emergency Medicine; PCP Nurse Practitioner Family
DX: R31.9 Hematuria, unspecified (principal); I10 Essential (primary) hypertension; E11.9 Type 2 diabetes mellitus without complications; N40.1 Benign prostatic hyperplasia with lower urinary tract symptoms; Z79.84 Long term (current) use of oral hypoglycemic drugs
CPT/HCPCS: 99283

== ENCOUNTER 2024-01-09 04:31 | Outpatient (CLI) | payer MEDICARE, SELFPAY ==
[2024-01-09 14:55] LABS: HCT 32.5 % (40.0-50.0); HGB 11.4 g/dL (13.5-17.5); MCH 32.5 pg (27.0-33.0); MCHC 35.1 % (32.0-36.0); MCV 93 fL (80-95); Platelet Count 186 10^3/uL (130-400); RBC 3.51 10^6/uL (4.36-5.78); RDW-SD 40.8 fL; WBC 6.18 10^3/uL (4.4-10.8)
[2024-01-09 16:09] LABS: ALT 17 U/L (16-63); AST 13 U/L (15-37); Albumin 3.9 g/dL (3.4-5.0); Alkaline Phosphatase 58 U/L (46-116); Anion Gap 7.3 mmol/L (3-11); BUN 11 mg/dL (7-18); Bilirubin, Total 0.5 mg/dL (0.2-1.0); CO2 26.7 mmol/L (21.0-32.0); CREATININE 0.9 mg/dL (0.70-1.30); Calcium 9.4 mg/dL (8.5-10.1); Chloride 97 mmol/L (98-107); Estimated GFR 85.27 (mL/min/1.73m2); Glucose 156 mg/dL (74-106); Potassium 4.6 mmol/L (3.5-5.1); Sodium 131 mmol/L (136-145); TSH (W/Ref FT4) 3.38 uIU/mL (0.36-3.74); Total Protein 7.4 g/dL (6.4-8.2)
== END 2024-01-09 04:32 | disposition home or self-care (01) ==
LOC: LBO 04:31
PROVIDERS: PCP Nurse Practitioner Family; Visit Provider Nurse Practitioner Family
DX: E11.9 Type 2 diabetes mellitus without complications (principal); E04.2 Nontoxic multinodular goiter; E87.1 Hypo-osmolality and hyponatremia
CPT/HCPCS: 36415; 80053; 85027; 84443

== ENCOUNTER 2024-01-11 16:42 | Emergency (ER) | payer MEDICARE, SELFPAY ==
[2024-01-11 16:48] VITALS: BP 129/67; PULSE 60; RESP 16; TEMP 36.5; O2SAT 97
--- NOTE | 2024-01-11 16:53 | ED.GENADUL_ITS ---
Discharge Plan Disposition Patient Disposition: Home Condition: Good Discharge Details Clinical Impression: Complication of Alexandre catheter Primary Care Provider: Delaney Gaviria ED Provider: Josh Greene Home Meds and New Rx's Prescriptions: No Action glipizide 5 mg tablet 2.5 mg PO BID Qty: 90 4RF Rx Instructions: dose increase aspirin [Adult Low Dose Aspirin] 81 mg tablet,delayed release (DR/EC) 81 mg PO DAILY tamsulosin [Flomax] 0.4 mg capsule 0.8 mg PO DAILY Qty: 180 3RF Rx Instructions: Note dosage increase finasteride 5 mg tablet 5 mg PO DAILY Qty: 90 3RF metformin 500 mg tablet 500 mg PO BID clotrimazole 1 % cream 1 applic topical TID PRN (Reason: rash) Qty: 15 0RF cholecalciferol (vitamin D3) 1,000 UNIT capsule 1 cap PO DAILY (DME) lancets Misc See Rx Instructions .MEDSUPPLY Qty: 100 3RF Rx Instructions: Check sugars once daily. No insulin. Dispense covered brand. Dx: E11.9 to maintain HbA1c less than 7%. (DME) Blood Glucose Test Strip See Rx Instructions .MEDSUPPLY Qty: 100 3RF Rx Instructions: Check sugars once per day. No insulin. Dispense covered brand. Dx: E11.9 to maintain HbA1c less than 7%. (DME) blood-glucose meter Misc See Rx Instructions .MEDSUPPLY Qty: 1 0RF Rx Instructions: Check blood sugar once daily. No insulin. Dispense covered brand. Dx: E11.9 to maintain HbA1c less than 7%. nitroglycerin [Nitrostat] 0.4 mg tablet, sublingual 0.4 mg Sublingual PRN MDD 3 tabs Qty: 25 4RF metoprolol succinate 50 mg tablet extended release 24 hr 25 mg PO DAILY Qty: 45 3RF lisinopril 30 mg tablet 30 mg PO DAILY Qty: 90 3RF Nephrocaps 1 mg capsule 1 cap PO DAILY Qty: 90 folic acid 400 mcg tablet 0.4 mg PO DAILY Discharge Instructions Additional Instructions: Please avoid any trauma to the Alexandre bag and empty it frequently. If you notice any worsening of your symptoms, or any new symptoms such as vomiting, diarrhea, fever, chills, shortness of breath, chest pain, numbness, weakness, or fainting , please return immediately to the emergency department for reevaluation. Please follow up with your primary care provider as soon as possible for reassessment and reevaluation. As always, it was a pleasure participating in your medical care today. Referrals: Delaney Gaviria NP [Primary Care Provider] - Discharge Data Discharge Date/Time-TO BE ENTERED AT DEPARTURE: 01/11/24 17:01 HPI General Date/Time Provider Initiated Documentation: 01/11/24 16:53 . HPI Narrative: 83-year-old male with a past medical history of chronic Alexandre presents today because the Alexandre bag broke and started leaking. He has no other complaints, no pain, no leaking around the urethral site. Related Data Home Medications Medication Instructions Recorded Confirmed cholecalciferol (vitamin D3) 25 1 cap PO DAILY 02/06/13 01/11/24 mcg (1,000 unit) capsule glipizide 5 mg tablet 2.5 mg (1/2 x 5 mg) PO BID #90 tabs 07/08/22 01/11/24 aspirin 81 mg tablet,delayed 81 mg PO DAILY 07/19/22 01/11/24 release (Adult Low Dose Aspirin) blood sugar diagnostic (Blood #100 ea 01/19/23 01/11/24 Glucose Test strips) lancets #100 ea 01/19/23 01/11/24 blood-glucose meter #1 ea 01/23/23 01/11/24 nitroglycerin 0.4 mg sublingual 0.4 mg sublingual PRN #25 tabs 03/24/23 01/11/24 tablet (Nitrostat) metoprolol succinate 50 mg 25 mg (1/2 x 50 mg) PO DAILY #45 06/30/23 01/11/24 tablet,extended release 24 hr tabs finasteride 5 mg tablet 5 mg PO DAILY #90 tabs 07/19/23 01/11/24 tamsulosin 0.4 mg capsule (Flomax) 0.8 mg (2 x 0.4 mg) PO DAILY #180 07/19/23 01/11/24 caps lisinopril 30 mg tablet 30 mg PO DAILY #90 tabs 10/15/23 01/11/24 clotrimazole 1 % topical cream 1 applic topical TID PRN rash #15 12/26/23 01/11/24 grams vitamin B complex and vitamin C 1 cap PO DAILY ##90 12/26/23 01/11/24 no.20-folic acid 1 mg capsule (Nephrocaps) folic acid 400 mcg tablet 0.4 mg PO DAILY 01/02/24 01/11/24 metformin 500 mg tablet 500 mg PO BID 01/11/24 01/11/24 Previous Rx's Medication Instructions Recorded glipizide 5 mg tablet 2.5 mg (1/2 x 5 mg) PO BID #90 tabs 07/08/22 blood sugar diagnostic (Blood #100 ea 01/19/23 Glucose Test strips) lancets #100 ea 01/19/23 blood-glucose meter #1 ea 01/23/23 nitroglycerin 0.4 mg sublingual 0.4 mg sublingual PRN #25 tabs 03/24/23 tablet (Nitrostat) metoprolol succinate 50 mg 25 mg (1/2 x 50 mg) PO DAILY #45 06/30/23 tablet,extended release 24 hr tabs finasteride 5 mg tablet 5 mg PO DAILY #90 tabs 07/19/23 tamsulosin 0.4 mg capsule (Flomax) 0.8 mg (2 x 0.4 mg) PO DAILY #180 07/19/23 caps lisinopril 30 mg tablet 30 mg PO DAILY #90 tabs 10/15/23 clotrimazole 1 % topical cream 1 applic topical TID PRN rash #15 12/26/23 grams Allergies Allergy/AdvReac Type Severity Reaction Status Date / Time menthol Allergy Unknown WHEEZING Verified 01/11/24 16:47 aspirin Allergy sick to Verified 01/11/24 16:47 stomach General Stated Complaint: Urinary LILA: 5 Review of Systems All systems reviewed & are unremarkable except as noted in HPI and below Exam Narrative Exam Narrative: 1.Const: Well-nourished, Well-developed, appearing stated age 2.Eyes: PERRL, no conjunctival injection, and symmetrical lids. 3.ENT: Atraumatic external nose and ears. Moist MM. Neck: Symmetric, trachea midline, No thyromegaly. 4.CVS: +S1/S2, No murmurs or gallops. Peripheral pulses 2+ and equal in all extremities. Brisk capillary refill in all extremities. 5.RESP: Unlabored respiratory effort. Clear to auscultation bilaterally. No wheezes rales or rhonchi 6.GI: Soft, Nontender/Nondistended, No hepatosplenomegaly. No guarding or rebound. Alexandre catheter bag is leaking. Alexandre catheter itself is in place without any complications. 7.MSK: Normocephalic/Atraumatic, Extremities w/o deformity or ttp No cyanosis or clubbing, Normal movement of all extremities 8.Skin: Warm, Dry. No rashes or lesions. 9.Neuro: christian science reader II-XII grossly intact. Sensation grossly intact, no focal neurolo gic deficits. 10.Psych: (AAO) x3. Appropriate mood and affect Course Vital Signs Vital signs: Vital Signs Temperature 36.5 C 01/11/24 16:48 Pulse 60 01/11/24 16:48 Respiratory Rate 16 01/11/24 16:48 Blood Pressure 129/67 01/11/24 16:48 Pulse Oximetry 97 01/11/24 16:48 Temperature 36.5 C 01/11/24 16:48 Temperature Source Temporal Artery Scan 01/11/24 16:48 Pulse 60 01/11/24 16:48 Respiratory Rate 16 01/11/24 16:48 Respiratory Effort Normal, Non-Labored 01/11/24 16:49 Blood Pressure 129/67 01/11/24 16:48 Blood Pressure Position Sitting 01/11/24 16:48 Pulse Oximetry 97 01/11/24 16:48 Oxygen Delivery Method Room Air 01/11/24 16:48 Oxygen Flow Rate 0 01/11/24 16:48 Pain Level 0 01/11/24 16:48 Medical Decision Making 83-year-old male with a past medical history of chronic Alexandre presents today because the Alexandre bag broke and started leaking. He has no other complaints, no pain, no leaking around the urethral site. Alexandre catheter bag was replaced without complication or difficulty. Patient tolerated this well. Will be discharged home. Quality:SDOH Health Related Social Needs: No Data to Display PFSH All Active Problems Complication of Alexandre catheter (Acute) Essential hypertension (Chronic 07/24/13) Diabetes mellitus (Chronic 02/08/13) Hematuria (Acute) Dilatation of ureter (Acute) Gross hematuria (Acute) Hyponatremia (Acute) Incomplete emptying of bladder (Acute) Closed right clavicular fracture (Acute 10/08/22) Arthritis of left knee (Acute) Bradycardia (Acute) Constipation (Acute) Anal and rectal polyp (Acute) Gastroesophageal reflux disease (Acute) Status post coronary artery stent placement (Acute) Sensorineural hearing loss (SNHL) of both ears (Acute 03/01/18) Primary osteoarthritis of right knee (Acute 08/02/16) Non-toxic multinodular goiter (Acute) Lipoma of neck (Acute 03/01/18) Diabetic retinopathy (Acute) MILD IN LEFT EYE~OPTICAL EXPRESSIONS 08/12/15 Arthritis (Acute) Medical History BPH w urinary obs/LUTS (03/01/18) Atherosclerosis of [place] coronary artery Asthma Change in facial mole not suspect- sees [facility] [place] Surgical History Stent placement (~05/2001) 05/30 2 STENTS LAD 11/2001 AND 02/2002 CLEANED BLOCKED STENT (WAS SCAR BUILDUP) KJG (below) Patient report radiation therapy in [facility] to correct scar formation. He believes bare metal stents were placed. Family History Mother , 91 Epilepsy Hyperlipidemia Parkinson disease Father , 73 Essential hypertension Personal history of malignant neoplasm SKIN Stroke Sister Diabetes Essential hypertension Heart disease Hyperlipidemia Brother Heart disease Stroke Pacemaker Parkinson disease Brother Diabetes Heart disease Stroke Brother Diabetes Essential hypertension Heart disease Hyperlipidemia Grandfather Diabetes Heart disease Stroke Grandfather Stroke Grandmother Essential hypertension Depression Heart disease Stroke Grandmother Essential hypertension Hyperlipidemia Stroke Daughter Diabetes Asthma Daughter Diabetes Heart disease VALVE REPLACEMENT Pancreatic cancer Social History Smoking/Tobacco Use Status: Former Tobacco Use Quit Date: 10/30/81 Tobacco: How many years used: 14 Smoking risk assessment performed?: Yes Alcohol Intake: current Alcohol Intake frequency: 0-2 drinks per day Alcohol type: wine and hard liquor Drug use: Never Substance use type: does not use Caregiver/Support person: No Household members: spouse Housing: house Communication Needs: Hard of Hearing Do you need help understanding health information?: Rarely Pets and animals: No Sexually active: No Do you think of yourself as: straight/heterosexual Current gender identity: male What is your relationship status?: How often do you talk on the phone with friends or family?: twice per week How often do you get together with friends or relatives?: three or more times per week How often do you attend shinto or orthodox services?: 1-3 times per year Do you belong to any clubs or organized social groups?: no Panel score (0-1 are the most socially isolated patients): 2 What type of physical activity do you participate in: regular exercise Duration: > 90 minutes/day Frequency: 3-4 times per week Scarlett/Hoahaoism: Buddhist Special scarlett needs: No Seatbelt use: always Helmet use: Yes Helmet use: sometimes Drive 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
== END 2024-01-11 17:01 | disposition home or self-care (01) ==
PROVIDERS: Emergency Provider Student in an Organized Health Care Education/Training Program; PCP Nurse Practitioner Family
DX: I10 Essential (primary) hypertension; E11.9 Type 2 diabetes mellitus without complications; Z79.84 Long term (current) use of oral hypoglycemic drugs; Z79.899 Other long term (current) drug therapy; T83.038A Leakage of other urinary catheter, initial encounter
CPT/HCPCS: 99283; 99282

== ENCOUNTER 2024-01-15 07:25 | Day surgery (SDC) | payer MEDICARE, SELFPAY ==
[2024-01-15 07:30] VITALS: BP 173/70; PULSE 59; RESP 16; TEMP 36.6; O2SAT 95
--- NOTE | 2024-01-15 08:30 | RT.EKG_ITS ---
APPROVED REPORT Exam: Resting ECG Reason for Exam: Abnormal rhythm Patient Location: I HR:54 bpm ECG Measurements Heart Rate 54 AXIS NM 262 P 72 QRSd 169 QRS -24 QT 454 T 29 QTc 431 Conclusion Bradycardia with irregular rate...V-rate 41- 62, mean < 60 Prolonged NM interval...NM >220, V-rate 50- 90 Right bundle branch block...QRSd>120, terminal axis(90,270)
--- NOTE | 2024-01-15 08:38 | HPE_ITS ---
Date of service: 01/15/24 Time of Service: 08:38 History of Present Illness History of Present Illness Chief Complaint: Hematuria Narrative: This is an 83-year-old gentleman who has a history of BPH with lower urinary tract symptoms. He is not on a combination of tamsulosin and finasteride. He had a recent visit to the emergency department for gross hematuria and clots. He had an irrigating catheter placed and continuous bladder irrigation was done in the emergency department. The patient was ultimately discharged from the ED with his catheter in place. While in the emergency department, he had a CT of the abdomen and pelvis. The CT raises the question of a bladder mass. Left hydronephrosis was also identified. He tells me that the urine has become more grossly clear. He has no flank pain. He had some irritation to the urethral meatus from the catheter initially. Irritation has improved with a topical ointment (clotrimazole) He is on a baby aspirin but no other anticoagulants. He is not a current smoker, but in the past, he smoked up to 4 packs of cigarettes per day. Review of Systems Narrative: No fevers or chills No vision change or dysphasia No diabetes or thyroid No shortness of breath, cough or hemoptysis No chest pain or palpitations No nausea, vomiting, hepatitis, ulcers, jaundice, diarrhea or constipation No seizures, strokes or peripheral neuropathy No bleeding disorders or anemia No gout PFSH All Active Problems Complication of Alexandre catheter (Acute) Essential hypertension (Chronic 07/24/13) Diabetes mellitus (Chronic 02/08/13) Hematuria (Acute) Dilatation of ureter (Acute) Gross hematuria (Acute) Hyponatremia (Acute) Incomplete emptying of bladder (Acute) Closed right clavicular fracture (Acute 10/08/22) Arthritis of left knee (Acute) Bradycardia (Acute) Constipation (Acute) Anal and rectal polyp (Acute) Gastroesophageal reflux disease (Acute) Status post coronary artery stent placement (Acute) Sensorineural hearing loss (SNHL) of both ears (Acute 03/01/18) Primary osteoarthritis of right knee (Acute 08/02/16) Non-toxic multinodular goiter (Acute) Lipoma of neck (Acute 03/01/18) Diabetic retinopathy (Acute) MILD IN LEFT EYE~OPTICAL EXPRESSIONS 08/12/15 Arthritis (Acute) Medical History BPH w urinary obs/LUTS (03/01/18) Atherosclerosis of [place] coronary artery Asthma Change in facial mole not suspect- sees [facility] [place] Surgical History Stent placement (~05/2001) 05/30 2 STENTS LAD 11/2001 AND 02/2002 CLEANED BLOCKED STENT (WAS SCAR BUILDUP) KJG (below) Patient report radiation therapy in [facility] to correct scar formation. He believes bare metal stents were placed. Family History Mother , 91 Epilepsy Hyperlipidemia Parkinson disease Father , 73 Essential hypertension Personal history of malignant neoplasm SKIN Stroke Sister Diabetes Essential hypertension Heart disease Hyperlipidemia Brother Heart disease Stroke Pacemaker Parkinson disease Brother Diabetes Heart disease Stroke Brother Diabetes Essential hypertension Heart disease Hyperlipidemia Grandfather Diabetes Heart disease Stroke Grandfather Stroke Grandmother Essential hypertension Depression Heart disease Stroke Grandmother Essential hypertension Hyperlipidemia Stroke Daughter Diabetes Asthma Daughter Diabetes Heart disease VALVE REPLACEMENT Pancreatic cancer Social History Smoking/Tobacco Use Status: Former Tobacco Use Quit Date: 10/30/81 Tobacco: How many years used: 14 Smoking risk assessment performed?: Yes Alcohol Intake: current Alcohol Intake frequency: 0-2 drinks per day Alcohol type: wine and hard liquor Drug use: Never Substance use type: does not use Caregiver/Support person: No Household members: spouse Housing: house Communication Needs: Hard of Hearing Do you need help understanding health information?: Rarely Pets and animals: No Sexually active: No Do you think of yourself as: straight/heterosexual Current gender identity: male What is your relationship status?: How often do you talk on the phone with friends or family?: twice per week How often do you get together with friends or relatives?: three or more times per week How often do you attend worship or jehovah's witness services?: 1-3 times per year Do you belong to any clubs or organized social groups?: no Panel score (0-1 are the most socially isolated patients): 2 What type of physical activity do you participate in: regular exercise Duration: > 90 minutes/day Frequency: 3-4 times per week Scarlett/Spiritism: Quaker Special scarlett needs: No Seatbelt use: always Helmet use: Yes Helmet use: sometimes Drive intox 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 Do you feel safe at home: Yes Do you feel safe in your relationship?: Yes Additional Social history: Unable to assess privately, at side Meds Allergies and Home Medications Allergies Allergy/AdvReac Type Severity Reaction Status Date / Time menthol Allergy Unknown WHEEZING Verified 01/15/24 07:42 aspirin Allergy sick to Verified 01/15/24 07:42 stomach Home Medications Medication Instructions Recorded Confirmed Type cholecalciferol (vitamin D3) 25 1 cap PO DAILY 02/06/13 01/15/24 History mcg (1,000 unit) capsule glipizide 5 mg tablet 2.5 mg (1/2 x 5 mg) PO BID #90 tabs 07/08/22 01/15/24 Rx aspirin 81 mg tablet,delayed 81 mg PO DAILY 07/19/22 01/11/24 History release (Adult Low Dose Aspirin) blood sugar diagnostic (Blood #100 ea 01/19/23 01/11/24 Rx Glucose Test strips) lancets #100 ea 01/19/23 01/11/24 Rx blood-glucose meter #1 ea 01/23/23 01/11/24 Rx nitroglycerin 0.4 mg sublingual 0.4 mg sublingual PRN #25 tabs 03/24/23 01/15/24 Rx tablet (Nitrostat) metoprolol succinate 50 mg 25 mg (1/2 x 50 mg) PO DAILY #45 06/30/23 01/15/24 Rx tablet,extended release 24 hr tabs finasteride 5 mg tablet 5 mg PO DAILY #90 tabs 07/19/23 01/15/24 Rx tamsulosin 0.4 mg capsule (Flomax) 0.8 mg (2 x 0.4 mg) PO DAILY #180 07/19/23 01/15/24 Rx caps lisinopril 30 mg tablet 30 mg PO DAILY #90 tabs 10/15/23 01/15/24 Rx clotrimazole 1 % topical cream 1 applic topical TID PRN rash #15 12/26/23 01/15/24 Rx grams vitamin B complex and vitamin C 1 cap PO DAILY ##90 12/26/23 01/15/24 History no.20-folic acid 1 mg capsule (Nephrocaps) folic acid 400 mcg tablet 0.4 mg PO DAILY 01/02/24 01/15/24 History metformin 500 mg tablet 1,000 mg PO BID 01/11/24 01/15/24 History Results Last Vital Signs Temp 36.6 C 01/15/24 07:30 Pulse 59 L 01/15/24 07:30 Resp 16 01/15/24 07:30 BP 173/70 H 01/15/24 07:30 Pulse Ox 95 01/15/24 07:30
--- NOTE | 2024-01-15 09:33 | PDOC.ANES ---
Date of service: 01/15/24 Time of Service: 09:00 Anesthesia Note Report Anesthesia Note: Met with patient this morning for preoperative assessment for scheduled urology procedure. Per nursing staff, patient noted to have audible pauses in pulse and EKG ordered. Additionally, gathering patient history, Mr. Cruz states longstanding audible cardiac murmur that has not been evaluated by echocadiogram. Given patient's EKG findings of irregular bradycardia, ? heart block, and need for evaluation of murmur, elective scheduled procedure has been postponed today. Dr. Jackson aware, education provided to family, and will reach out to PCP for appropriate followup. No active chest pain.
[2024-01-15] MEDS: levoFLOXacin 500 MG TAB PO (09:51)
== END 2024-01-15 07:26 | disposition home or self-care (01) ==
LOC: PDS 10:56 → DSU 02-08 13:11
PROVIDERS: PCP Nurse Practitioner Family; Visit Provider Urology
DX: Z53.09 Procedure and treatment not carried out because of other contraindication (principal); R00.1 Bradycardia, unspecified; I45.10 Unspecified right bundle-branch block
CPT/HCPCS: 93005; 93010

== ENCOUNTER → 2024-01-17 13:51 | Outpatient (BNVA) | payer MEDICARE, SELFPAY | PROVIDERS: PCP Nurse Practitioner Family; Referring Provider Nurse Practitioner Family; Visit Provider Nurse Practitioner Gerontology | DX: Z46.6 Encounter for fitting and adjustment of urinary device (principal); N40.1 Benign prostatic hyperplasia with lower urinary tract symptoms; N13.8 Other obstructive and reflux uropathy; N28.82 Megaloureter; R31.0 Gross hematuria | CPT/HCPCS: 51702 ==

== ENCOUNTER → 2024-02-06 02:15 | Outpatient (CLI) | payer MEDICARE, SELFPAY ==
--- NOTE | 2024-02-06 14:24 | DI.US_ITS ---
APPROVED REPORT EXAM: Comprehensive 2D, Doppler, and color-flow Echocardiogram Patient Location: Out-Patient [facility] Equipment Design Engineer: Angie Hayward RDCS (AE) Indications: Heart murmur, HTN Other Information Study Quality: Adequate Conclusion Normal left ventricular chamber size and wall thickness. EF 60%. Normal wall motion Normal right ventricular size and function Both atria are normal in size Aortic valve is mildly sclerotic and trileaflet with trace regurgitation Normal mitral valve, mild regurgitation Normal tricuspid valve with trace to mild regurgitation. Estimated right ventricular size pressure i s 42 mmHg Ascending aorta 3.93 cm Wall motion Left Ventricle The left ventricle is normal size. The left ventricular systolic function is normal. The left ventric ular ejection fraction is within the normal range. There is normal left ventricular wall thickness. T here is normal LV segmental wall motion. There is no ventricular septal defect visualized. LVEF is 60 %. Right Ventricle The right ventricle is normal size. The right ventricular systolic function is normal. Atria The left atrium size is normal. The right atrium size is normal. The interatrial septum is intact wi th no evidence for an atrial septal defect. Aortic Valve The Aortic valve is mildly sclerotic. Aortic valve is trileaflet. No hemodynamically significant cullen vular aortic stenosis. Trace aortic regurgitation. Mitral Valve The mitral valve is normal in structure. No evidence of mitral valve stenosis. Mild mitral regurgitat ion. Tricuspid Valve The tricuspid valve is normal in structure. There is no tricuspid valve stenosis. Trace to mild tric uspid regurgitation. The RVSP is 42.4 mmHg. Pulmonic Valve The pulmonary valve is normal in structure. There is no pulmonic valvular stenosis. Trace pulmonic re gurgitation. Great Vessels The aortic root is normal in size. The ascending aorta is mildly dilated. Aortic arch is not well vis ualized. IVC is normal in size and collapses >50% with inspiration. Pericardium There is no pericardial effusion. 2D Dimensions IVSD d PLAX 0.96 cm M: 0.6-1.2 Ao Root d 3.72 cm M: 3.1 - 3.7 LVPW d PLAX 0.96 cm M: 0.6 - 1.2 Ao Asc Diam d 3.93 cm M: 2.6 - 3.4 LVID d PLAX 5.28 cm M: 4.2 - 5.8 LVDs 3.54 cm M: 2.5 - 4.0 LV EF Teichholz 61.0 % FS 32.93 % LV EDV (Teich) 134.1 mL LV ESV (Teich) 52.3 mL M-Mode TAPSE 2.24 cm (M/F) >1.7 Auto EF LV EDV A4C 135.6 mL LV EDV A2C 187.2 mL LV EDV BP 159.8 mL LV ESV A4C 56.7 mL LV ESV A2C 76.3 mL LV ESV BP 65.6 mL LVEF(%) A4C 58.2 % LVEF(%) A2C 59.2 % LVEF(%) BP 59.0 % LV SV A4C 78.9 ml LV SV A2C 110.9 ml LV SV BP 94.3 ml LV CO A4C 5.2 L/min LV CO A2C 7.1 L/min LV CO BP 6.1 L/min HR A4C 65.70 BPM HR A2C 64.18 BPM LV EDV Index (BP) LA Volume LA Length A4C 6.4 cm LA Length A2C 5.9 cm LA Area A4C s 22.65 cm2 LA Area A2C s 23.22 cm2 LA Vol A4C A-L 67.67 mL LA Vol A2C A-L 77.93 mL LA Vol Biplane A-L 76.0 mL LA Vol/BSA A4C A-L LA Vol/BSA A2C A-L LA Vol/BSA BP A-L 36.5 mL/m2 LA Vol A4C MOD 62.6 mL LA Vol A2C MOD 75.4 mL LA Vol BP MOD 70.9 mL RA Volume RA Area A4C 18.9 cm2 RA ESV A4C (A-L) 54.5mL RA Vol/BSA A4C A-L RA Length A4C 5.6 cm RA ESV A4C (MOD) 53.8mL LV Diastology MV E' medial 0.098 (>0.07 m/s) MV E Vmax 0.98 (0.4-1.3 m/s) MV E/E' MED 10.03 (<14) MV A Vmax 1.15 (0.4-1.3 m/s) MV E' lateral 0.113 (>0.1 m/s) E/A Ratio 0.9 MV E/E' LAT 8.68 (<14) MV E' Average 0.105 m/s MV E/E'(average) 9.31 Aortic Valve AoV Vmax 1.97 m/s LVOT Vmax 1.27 m/s AoV Peak Grad 15.4 mmHg LVOT Peak Grad 6.4 mmHg AoV Area (Vmax) 2.11 cm2 LVOT VTI 0.317 m AoV VTI 0.489 m LVOT Mean Grad 3.6 mmHg AoV Mean Ryan. 1.30 m/s LVOT SV 103.49 mL AoV Mean Grad 7.9 mmHg LVOT Diam s 2.00 cm AoV Area (VTI) 2.12 cm2 Velocity Ratio 0.64 Mitral Valve MV DT 217 (160-240 msec) MV Vmax TIPS 1.06 m/s MV Mean Grad 2.1 (<2mmHg) MV VTI 0.340 m Pulmonary Valve PV Vmax 1.22 (0.5-1.5 m/s) RVOT Vmax 0.90 m/s PV Peak Grad 5.9 mmHg RVOT Peak Gr. 3.2 mmHg PV Mean Ryan 0.81 m/s RVOT VTI 0.214 m PV Mean Grad 3.0 mmHg RVOT Mean Gr. 2.0 mmHg Tricuspid Valve RA Pressure 3.00 mmHg TR Vmax 3.14 m/s TV S' 0.13 m/s TR Peak Grad 39.3 mmHg RVSP (TR) 42.4 mmHg
== END ==
PROVIDERS: PCP Nurse Practitioner Family; Visit Provider Nurse Practitioner Family
DX: R01.1 Cardiac murmur, unspecified (principal)
CPT/HCPCS: 93306

== ENCOUNTER 2024-02-12 08:29 | Outpatient (CLI) | payer MEDICARE, SELFPAY ==
--- NOTE | 2024-02-12 08:15 | RT.EKG_ITS ---
APPROVED REPORT Exam: Resting ECG Reason for Exam: hx of cardiac stent Patient Location: O HR:63 bpm ECG Measurements Heart Rate 63 AXIS MA 176 P -32 QRSd 150 QRS -34 QT 418 T 22 QTc 428 Conclusion Sinus rhythm...normal P axis, V-rate 50- 99 Right bundle branch block...QRSd>120, terminal axis(90,270)
== END 2024-02-12 08:30 | disposition home or self-care (01) ==
LOC: DI.CARD 08:30
PROVIDERS: PCP Nurse Practitioner Family; Visit Provider Internal Medicine Cardiovascular Disease
DX: Z95.5 Presence of coronary angioplasty implant and graft (principal); R00.1 Bradycardia, unspecified
CPT/HCPCS: 93010

== ENCOUNTER → 2024-02-12 13:41 | Outpatient (BNVA) | payer MEDICARE, SELFPAY | PROVIDERS: PCP Nurse Practitioner Family; Referring Provider Nurse Practitioner Family; Visit Provider Internal Medicine Cardiovascular Disease | DX: I25.10 Atherosclerotic heart disease of native coronary artery without angina pectoris (principal); I45.10 Unspecified right bundle-branch block; Z95.828 Presence of other vascular implants and grafts; Z01.810 Encounter for preprocedural cardiovascular examination; Z95.5 Presence of coronary angioplasty implant and graft | CPT/HCPCS: 93005; 99214 ==

== ENCOUNTER 2024-02-16 13:22 | Outpatient (REF) | payer MEDICARE, SELFPAY | END 2024-02-16 13:23 | disposition home or self-care (01) | LOC: LBN 13:22 | PROVIDERS: PCP Nurse Practitioner Family; Visit Provider Urology | DX: N40.1 Benign prostatic hyperplasia with lower urinary tract symptoms (principal); B96.5 Pseudomonas (aeruginosa) (mallei) (pseudomallei) as the cause of diseases classified elsewhere | CPT/HCPCS: 87077; 87086; 87186 ==

== ENCOUNTER 2024-02-22 07:51 | Observation (INO) | payer MEDICARE, SELFPAY ==
[2024-02-22 08:36] VITALS: BP 175/78; PULSE 74; RESP 16; TEMP 36.7; O2SAT 98
[2024-02-22] MEDS: Lactated Ringers 1,000 ML 80 ML IV (08:42)
--- NOTE | 2024-02-22 08:44 | HPE_ITS ---
Date of service: 02/22/24 Time of Service: 08:44 Assessment and Plan Assessment and plan (1) Dilatation of ureter: Status: Inactive (2) Gross hematuria: Status: Inactive Assessment and plan: For cystoscopy and possible TUR bladder tumor. We will perform a left retrograde pyelogram. If the ureter remains dilated, we will be prepared to do a left ureteroscopy. History of Present Illness History of Present Illness Chief Complaint: Hematuria Narrative: Clinton is an 84-year-old male with history of BPH with LUTS as well as gross hematuria. He is currently on a combination of finasteride as well as tamsulosin. He had a recent emergency room visit due to gross hematuria and catheter was placed. Imaging of the CT noted concern for a bladder mass that was not previously seen on renal ultrasound just done a few months prior. In addition to the bladder mass, he was found to have a new onset of left hydronephrosis and left hydroureter. He has had persistent intermittent gross hematuria. He presents for cystoscopy, possible TUR bladder tumor, left retrograde pyelogram and possible ureteroscopy Review of Systems Narrative: No fevers or chills Decreased hearing acuity. No dysphasia Hx goiter. Hx diabetes No shortness of breath, cough or hemoptysis Heart murmur. No chest pain or palpitations GERD. No hepatitis, ulcers or jaundice No seizures, strokes or peripheral neuropathy No bleeding disorders or anemia No gout PFSH All Active Problems Heart murmur (Acute) Hyponatremia (Acute) Incomplete emptying of bladder (Acute) Closed right clavicular fracture (Acute 10/08/22) Arthritis of left knee (Acute) Bradycardia (Acute) Constipation (Acute) Anal and rectal polyp (Acute) Gastroesophageal reflux disease (Acute) Status post coronary artery stent placement (Acute) Sensorineural hearing loss (SNHL) of both ears (Acute 03/01/18) Primary osteoarthritis of right knee (Acute 08/02/16) Non-toxic multinodular goiter (Acute) Lipoma of neck (Acute 03/01/18) Essential hypertension (Chronic 07/24/13) Diabetic retinopathy (Acute) MILD IN LEFT EYE~OPTICAL EXPRESSIONS 08/12/15 Diabetes mellitus (Chronic 02/08/13) Arthritis (Acute) Medical History White coat syndrome with hypertension Stated per patient BPH w urinary obs/LUTS (03/01/18) Atherosclerosis of [place] coronary artery Asthma Change in facial mole not suspect- sees [facility] Surgical History Stent placement (~05/2001) 05/30 2 STENTS LAD 11/2001 AND 02/2002 CLEANED BLOCKED STENT (WAS SCAR BUILDUP) KJG (below) Patient report radiation therapy in [facility] to correct scar formation. He believes bare metal stents were placed. Family History Mother , 91 Epilepsy Hyperlipidemia Parkinson disease Father , 73 Essential hypertension Personal history of malignant neoplasm SKIN Stroke Sister Diabetes Essential hypertension Heart disease Hyperlipidemia Brother Heart disease Stroke Pacemaker Parkinson disease Brother Diabetes Heart disease Stroke Brother Diabetes Essential hypertension Heart disease Hyperlipidemia Grandfather Diabetes Heart disease Stroke Grandfather Stroke Grandmother Essential hypertension Depression Heart disease Stroke Grandmother Essential hypertension Hyperlipidemia Stroke Daughter Diabetes Asthma Daughter Diabetes Heart disease VALVE REPLACEMENT Pancreatic cancer Social History Smoking/Tobacco Use Status: Former Tobacco Use Quit Date: 10/30/81 Tobacco: How many years used: 14 Smoking risk assessment performed?: Yes Alcohol Intake: current Alcohol Intake frequency: 0-2 drinks per day Alcohol type: wine and hard liquor Drug use: Never Substance use type: does not use Caregiver/Support person: No Household members: spouse Housing: house Communication Needs: Hard of Hearing Do you need help understanding health information?: Rarely Pets and animals: No Sexually active: No Do you think of yourself as: straight/heterosexual Current gender identity: male What is your relationship status?: How often do you talk on the phone with friends or family?: twice per week How often do you get together with friends or relatives?: three or more times per week How often do you attend yazidi or faith services?: 1-3 times per year Do you belong to any clubs or organized social groups?: no Panel score (0-1 are the most socially isolated patients): 2 What type of physical activity do you participate in: regular exercise Duration: > 90 minutes/day Frequency: 3-4 times per week Scarlett/Muslim: Episcopal Special scarlett needs: No Seatbelt use: always Helmet use: Yes Helmet use: sometimes 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 Additional Social history: Unable to assess privately, at side Meds Allergies and Home Medications Allergies Allergy/AdvReac Type Severity Reaction Status Date / Time menthol Allergy Unknown WHEEZING Verified 02/22/24 08:08 aspirin Allergy sick to Verified 02/22/24 08:08 stomach Home Medications Medication Instructions Recorded Confirmed Type cholecalciferol (vitamin D3) 25 1 cap PO DAILY 02/06/13 02/22/24 History mcg (1,000 unit) capsule glipizide 5 mg tablet 2.5 mg (1/2 x 5 mg) PO BID #90 tabs 07/08/22 02/22/24 Rx aspirin 81 mg tablet,delayed 81 mg PO DAILY 07/19/22 02/19/24 History release (Adult Low Dose Aspirin) blood sugar diagnostic (Blood #100 ea 01/19/23 02/12/24 Rx Glucose Test strips) lancets #100 ea 01/19/23 02/12/24 Rx blood-glucose meter #1 ea 01/23/23 02/12/24 Rx nitroglycerin 0.4 mg sublingual 0.4 mg sublingual PRN #25 tabs 03/24/23 02/22/24 Rx tablet (Nitrostat) metoprolol succinate 50 mg 25 mg (1/2 x 50 mg) PO DAILY #45 06/30/23 02/22/24 Rx tablet,extended release 24 hr tabs finasteride 5 mg tablet 5 mg PO DAILY #90 tabs 07/19/23 02/22/24 Rx tamsulosin 0.4 mg capsule (Flomax) 0.8 mg (2 x 0.4 mg) PO DAILY #180 07/19/23 02/22/24 Rx caps lisinopril 30 mg tablet 30 mg PO DAILY #90 tabs 10/15/23 02/22/24 Rx clotrimazole 1 % topical cream 1 applic topical TID PRN rash #15 12/26/23 02/22/24 Rx grams vitamin B complex and vitamin C 1 cap PO DAILY ##90 12/26/23 02/22/24 History no.20-folic acid 1 mg capsule (Nephrocaps) folic acid 400 mcg tablet 0.4 mg PO DAILY 01/02/24 02/22/24 History metformin 500 mg tablet 1,000 mg PO BID 01/11/24 02/22/24 History Exam Const General: cooperative and comfortable Neck Neck: supple Resp Effort & Inspection: normal respiratory effort Auscultation: clear to auscultation bilaterally Cardio Rate: regular rate Rhythm: regular rhythm Heart Sounds: murmur GI Palpation: soft and no masses Penis: other (catheter in place) Skin Rashes: rashes noted (right lower extremitiy beneath drainage bag) Neuro General: patient alert, patient awake and patient oriented x3 Results Last Vital Signs Temp 36.7 C 02/22/24 08:36 Pulse 74 02/22/24 08:36 Resp 16 02/22/24 08:36 BP 175/78 H 02/22/24 08:36 Pulse Ox 98 02/22/24 08:36 Time Spent Time spent with Patient: <40 minutes Time was spent: other
--- NOTE | 2024-02-22 08:58 | W.ANESPRE ---
General Info Date of Service Date Performed: 02/22/24 Height: 5 ft 10 in Weight: 92.9 kg Body Mass Index (BMI): 29.3 Surgical Procedure: Operation Date: 02/22/24 09:25 Proposed Procedure Side Surgeon p Cystoscopy/Retrograde Left Alexis Jackson MD s Transurethral Resection Bladder Tumor Alexis Jackson MD Meds Allergies and Home Medications Allergies Allergy/AdvReac Type Severity Reaction Status Date / Time menthol Allergy Unknown WHEEZING Verified 02/22/24 08:08 aspirin Allergy sick to Verified 02/22/24 08:08 stomach Home Medication Medication Instructions Recorded cholecalciferol (vitamin D3) 25 1 cap PO DAILY 02/06/13 mcg (1,000 unit) capsule glipizide 5 mg tablet 2.5 mg (1/2 x 5 mg) PO BID #90 tabs 07/08/22 aspirin 81 mg tablet,delayed 81 mg PO DAILY 07/19/22 release (Adult Low Dose Aspirin) blood sugar diagnostic (Blood #100 ea 01/19/23 Glucose Test strips) lancets #100 ea 01/19/23 blood-glucose meter #1 ea 01/23/23 nitroglycerin 0.4 mg sublingual 0.4 mg sublingual PRN #25 tabs 03/24/23 tablet (Nitrostat) metoprolol succinate 50 mg 25 mg (1/2 x 50 mg) PO DAILY #45 06/30/23 tablet,extended release 24 hr tabs finasteride 5 mg tablet 5 mg PO DAILY #90 tabs 07/19/23 tamsulosin 0.4 mg capsule (Flomax) 0.8 mg (2 x 0.4 mg) PO DAILY #180 07/19/23 caps lisinopril 30 mg tablet 30 mg PO DAILY #90 tabs 10/15/23 clotrimazole 1 % topical cream 1 applic topical TID PRN rash #15 12/26/23 grams vitamin B complex and vitamin C 1 cap PO DAILY ##90 12/26/23 no.20-folic acid 1 mg capsule (Nephrocaps) folic acid 400 mcg tablet 0.4 mg PO DAILY 01/02/24 metformin 500 mg tablet 1,000 mg PO BID 01/11/24 Current Visit Medications: Current Medications Generic Name Dose Route Start Last Admin Trade Name Freq PRN Reason Stop Dose Admin Ringer's Solution 1,000 mls @ 80 mls/hr 04/25/24 06:00 02/22/24 08:42 IV 03/21/24 23:59 80 mls/hr INFUSION NARCISO Administration Piperacillin Sod/Tazobactam 50 mls @ 100 mls/hr 02/22/24 06:00 Sod 3.375 gm/ Sodium Chloride IVPB 02/22/24 23:59 PREOP NARCISO IV Miscellaneous Supplies 1 each 02/22/24 06:00 Iv Access IV 03/21/24 23:59 DIRECTED NARCISO Sodium Chloride 0 ml 02/22/24 06:00 Normal Saline Flush 10 Ml Syr IV 03/21/24 23:59 PRN PRN Sodium Chloride 0 ml 02/22/24 06:00 Normal Saline 10 Ml Vial IJ 03/21/24 23:59 DIRECTED PRN Sterile Water 0 ml 02/22/24 06:00 Water,Injection,Sterile 10 Ml Vial IJ 03/21/24 23:59 DIRECTED PRN PFSH Active Problems Active Problems: Problem Status Onset Code Heart murmur R01.1 Hyponatremia E87.1 Incomplete emptying of bladder R33.9 Closed right clavicular fracture 10/08/22 S42.001A Arthritis of left knee M17.12 Bradycardia R00.1 Constipation K59.00 Anal and rectal polyp K62.0, K62.1 Gastroesophageal reflux disease K21.9 Status post coronary artery stent placement Z95.5 Sensorineural hearing loss (SNHL) of both ears 03/01/18 H90.3 Primary osteoarthritis of right knee 08/02/16 M17.11 Non-toxic multinodular goiter E04.2 Lipoma of neck 03/01/18 D17.0 Essential hypertension 07/24/13 I10 Diabetic retinopathy E11.319 Diabetes mellitus 02/08/13 E11.9 Arthritis M19.90 Medical History Medical History White coat syndrome with hypertension Stated per patient BPH w urinary obs/LUTS (03/01/18) Atherosclerosis of [place] coronary artery Asthma Change in facial mole not suspect- sees [facility] [place] Medical History Comments:: Bradycardia preop with pauses Surgical History Surgical History Stent placement (~05/2001) 05/30 2 STENTS LAD 11/2001 AND 02/2002 CLEANED BLOCKED STENT (WAS SCAR BUILDUP) KJG (below) Patient report radiation therapy in [facility] to correct scar formation. He believes bare metal stents were placed. Tobacco Smoking/Tobacco Use Status: Former Tobacco Use Passive smoking exposure: Yes Alcohol Alcohol Intake: current Alcohol intake frequency: 0-2 drinks per day Alcohol type: wine and hard liquor Substance Use Substance use: Never Substance use type: does not use Vital Signs and Lab Results Vital Signs Most Recent Vital Signs in EMR: Most Recent Vital Signs Temp Pulse Resp BP Pulse Ox 36.7 C 74 16 175/78 H 98 02/22/24 08:36 02/22/24 08:36 02/22/24 08:36 02/22/24 08:36 02/22/24 08:36 Point of Care Results Point of Care Results: Finger Stick Blood Glucose 182 02/22/24 08:28 Lab Results Blood Type / Crossmatch: No Data to Display Complete Blood Count: No Data to Display Complete Metabolic Panel: No Data to Display Liver Function Panel: No Data to Display Coagulation Panel: No Data to Display Cardiac Panel: No Data to Display Arterial Blood Gas: No Data to Display Venous Blood Gas: No Data to Display Pancreas Panel: No Data to Display Thyroid Panel: No Data to Display Infectious Disease: No Data to Display Blood Cultures: No Data to Display Toxicology Panel: No Data to Display Imaging and Studies Imaging and Studies Study information below may be from another EMR and interpreted by another provider. Please see original notes in EMR for more complete details. EKG Summary: 02/12/24 Conclusion Sinus rhythm...normal P axis, V-rate 50- 99 Right bundle branch block...QRSd>120, terminal axis(90,270) Echocardiogram Summary: 02/06/24 Conclusion Normal left ventricular chamber size and wall thickness. EF 60%. Normal wall motion Normal right ventricular size and function Both atria are normal in size Aortic valve is mildly sclerotic and trileaflet with trace regurgitation Normal mitral valve, mild regurgitation Normal tricuspid valve with trace to mild regurgitation. Estimated right ventricular size pressure is 42 mmHg Ascending aorta 3.93 cm Anesthesia Assessment and Plan Anesthesia History Personal History: No History of Anesthesia Complications Family History: No Family History of Anesthesia Complications Exercise Tolerance Exercise Tolerance: Metabolic Equivalents<4 Pertinent Negatives Pertinent Negatives: No Symptoms of GERD, No Major Cardiovascular Symptoms or Complaints, No Major Pulmonary Symptoms or Complaints and No History of CVA/TIA Cardiac & Pulmonary Exam Cardiac Exam: Normal S1/S2 Heart Sounds Pulmonary Exam: Clear Bilateral Breath Sounds Cardiac and Pulmonary Comment:: pt reports nasal discharge r/t environmental allergies and past reflux s/s but no s/s/ of reflux today Implantable Cardiac Device Does patient have a Pacemaker or an ICD?: No Airway Exam Known Difficult Airway: No Mallampati Class: 3 Mouth Opening: Normal (> 3cm) Thyromental Distance: Greater than 3 cm Neck Range of Motion: Full ROM Neck Circumference: Normal Teeth Condition: Removable Dentures/Plates Upper ASA Classification ASA Score: ASA 3 Emergency Case?: No NPO Status NPO Status: NPO Clears >2 hours, Solids >8 hours Anesthesia Plan Resuscitation Status: Full Code Anesthesia Technique: General Anesthesia Airway Planned: Natural Airway Monitors Used: Standard Monitors
[2024-02-22 09:35] VITALS: BMI 29.3
[2024-02-22] MEDS: PIPERACILLIN/TAZO 3.375 GM in Normal Saline 50 ML IVPB (09:40)
[2024-02-22] MEDS: Lidocaine 2% Jelly 11 ML SYR (09:55)
--- NOTE | 2024-02-22 10:15 | DI.RAD_ITS ---
Exam(s) XR RETROGRADE IN OR EXAM: XR RETROGRADE IN OR CLINICAL HISTORY: gross hematuria TECHNIQUE: 2D and realtime digital imaging was performed. CONTRAST MATERIAL: Refer to procedure report. COMPARISON: CT CT RENAL COLIC WO from 12/21/2023 FINDINGS: Fluoroscopy was provided for Dr. Jackson during the performance of a retrograde evaluation of the francisco l collecting system. Please refer to the procedure report for complete details. Ka,r=10.0 mGy IMPRESSION: RADIATION DOSE DELIVERED: 0.0 0.0 0
--- NOTE | 2024-02-22 10:25 | BLADDER_PTH ---
PATIENT: Clinton Cruz LOC: U#:[id number] AGE/SX: 84/M ROOM: [facility] [place] RE02/22/[address]: Alexis Jackson MD : [id number] BED: A DIS: 02/23/2024 SPEC #: [id number] RECD: 02/22/24 13:45 STATUS: SOUT REQ #: [id number] GIRISH: 02/22/24 10:[address]: Alexis Jackson DEPT: Surgical Specimen RECD BY: Mariely Azul ENTERED: 02/22/24 13:45 SP TYPE: Bladder OTHR DR: Delaney Gaviria, FUENTES Tissues: 1 - BLADDER CURRETTINGS Procedures: GROSS AND MICRO LEVEL 5 Comments: [id number]
[2024-02-22 10:47] VITALS: BP 122/71; PULSE 61; RESP 16; TEMP 36.5; O2SAT 96
--- NOTE | 2024-02-22 10:49 | ROE_ITS ---
Date of service: 02/22/24 Time of Service: 10:49 Operative Note Operative Note DATE OF PROCEDURE: 02/22/24 PRE-OP DIAGNOSIS: Hematuria POST-OP DIAGNOSIS: same PROCEDURE: Cystoscopy, left retrograde pyelogram, transurethral resection bladder tissue SURGEON: Alexis Jackson ANESTHESIA TYPE: Local By Surgeon and General:No Airway Refer to Anesthesia Record ESTIMATED BLOOD LOSS: 5 PATHOLOGY: other (bladder tissue) COMPLICATIONS: None Patient was transported to: same day Patient's condition: stable Implants: 20 maori coude tipped irrigation catheter with 30 cc sterile water in balloon Indications: This is an 84-year-old gentleman who initially presented to the emergency department with gross hematuria and clots. On imaging studies, he had some left hydronephrosis and left hydroureter all the way down to the bladder. No specific obstructing lesion was identified. There was also question of a bladder mass. He was treated with placement of a catheter. He presents now for cystoscopy and left retrograde pyelogram to evaluate the hydronephrosis and hydroureter. We are prepared to do ureteroscopy if there is any concern for an obstructing lesion. We are also prepared to do transurethral resection of any visible bladder abnormality Findings: Diffuse erythematous mucosa on posterior bladder wall and up towards the dome Procedure Description: The patient was brought to the operating room on 02/22/2024. He was given preoperative antibiotics. After successful induction of general anesthesia without intubation, he was placed in the dorsal lithotomy position. His indwelling catheter balloon was deflated and the catheter was removed. The genitalia was then prepped and draped. 2% Xylocaine jelly was instilled into the urethra to act as a local anesthetic. A 22 [place] rigid cystoscope was passed through the urethra into the bladder. The urethra and bladder were inspected with a 30 degree lens. The pendulous, bulbar and membranous urethra was all appeared normal with no strictures. The prostatic urethra showed some lateral lobe enlargement but no significant median lobe. No active bleeding was seen from the prostatic mucosa. The bladder neck was then entered and the bladder mucosa was inspected. Both ureteral orifices appeared normal in configuration and location. The left orifice was cannulated with a 5 [place] access catheter. A retrograde pyelogram was obtained by injecting Omnipaque through the access catheter under fluoroscopic guidance. There was significant J hooking of the distal left ureter. Above the submucosal tunnel, the ureter was dilated. No specific filling defects were identified. On delayed films, the ureter was able to drain with no filling defect identified. Because of the appearance of the retrograde pyelogram, we elected not to do ureteroscopy. We then inspected the remainder of the bladder. The lateral philip of the bladder appeared normal as did the base and trigone area. On the posterior bladder wall and up towards the dome however, the mucosa was beefy red and had a cobblestone appearance. There were also some ulcerated areas of mucosa. I then removed the cystoscope and passed a 24 [place] resectoscope sheath through the urethra into the bladder. We performed transurethral resection of the majority of the beefy red bladder mucosa. All resected tissue was sent to pathology for permanent section. The resection site along with any additional beefy red mucosa was cauterized with the rollerball electrode. At the completion of the procedure, no arterial bleeding was identified. We filled the bladder with irrigant and removed the resectoscope. We then passed a 20 [place] hematuria catheter through the urethra into the bladder. The catheter balloon was inflated with 30 cc of sterile water. Continuous bladder irrigation with saline was then begun. The catheter was hooked to gravity drainage. The patient tolerated this procedure well with no complications.
[2024-02-22] MEDS: Acetaminophen 325 MG TAB 650 MG PO ×2 (11:01→19:59)
[2024-02-22 11:20] VITALS: BP 161/73; PULSE 53; RESP 16; TEMP 36.4; O2SAT 97
[2024-02-22 12:31] VITALS: BP 170/72; PULSE 58; RESP 16; TEMP 35.9; O2SAT 98
[2024-02-22] MEDS: Metoprolol CR 25 MG TABCR PO (13:52)
[2024-02-22 14:46] VITALS: BP 171/95; PULSE 57; RESP 16; TEMP 36; O2SAT 96
--- NOTE | 2024-02-22 14:55 | PHA.REVIEW2 ---
Pharmacy Admission Review Admission Clinical Review Admission Pharmacy Review: menthol Allergy (Unknown, Verified 02/22/24 08:08) WHEEZING aspirin Allergy (Verified 02/22/24 08:08) sick to stomach Resuscitation Status Full Code Height 5 ft 10 in Weight 92.9 kg Pharmacy Admission Review Renal Dosing Medications needing adjustments: Reviewed (CrCl 64.09 mL/min) List of meds needing interventions: Current medications are okay Anticoagulation DVT Prophylaxis: Reviewed (SCDs, hematuria and possible surgery) Relevant Labs Electrolytes, C-Reactive P, ESR: Reviewed DM Control DM Control: Finger Stick Blood Glucose 200 1059 Finger Stick Blood Glucose 200 1059 Finger Stick Blood Glucose 182 0828 Finger Stick Blood Glucose 182 0828 DM Control: Reviewed Insulin Dosing, Diabetic Medication: Has order for glipizide and metformin Cardiac Review Cardiac Review: Blood Pressure 171/95 1446 Blood Pressure 170/72 1231 Blood Pressure 161/73 1120 Blood Pressure 122/71 1047 Blood Pressure 175/78 0836 BP, HR, EF%: Reviewed (HR 57 and BP 171/95) QTc Review QTc: Reviewed (428 from 02/12/24) IV to PO Switch IV Medications: Reviewed (Ondansetron) Home Meds Relevent Home Meds Not ordered & why?: Aspirin, vitamin D3 and vitamin B complex Current Meds Current Medication Order Review: Reviewed
[2024-02-22] MEDS: metFORMIN 500 MG TAB 1000 MG PO (16:35)
[2024-02-22] MEDS: glipiZIDE 5 MG TAB 2.5 MG PO (16:36)
[2024-02-22] MEDS: Ketorolac 15 MG/ML VIAL IVP (17:43)
[2024-02-22] MEDS: Normal Saline Flush 10 ML SYR IV (17:44)
[2024-02-22 19:51] VITALS: BP 154/67; PULSE 62; RESP 18; TEMP 36.3; O2SAT 96
[2024-02-22] MEDS: Docusate Sodium 100 MG CAP PO (19:59)
[2024-02-23 00:17] VITALS: BP 128/61; PULSE 54; RESP 20; TEMP 36; O2SAT 94
[2024-02-23 06:51] LABS: Abs Immature Grans 0.01 10^3/uL (0.0-0.06); Absolute Basophil Count 0.01 10^3/uL (0.0-0.2); Absolute Eosinophil Count 0.01 10^3/uL (0.0-0.7); Absolute Lymphocyte Count 0.93 10^3/uL (1.2-3.4); Absolute Monocyte Count 0.55 10^3/uL (0.1-0.8); Basophils % 0.1; Eosinophils % 0.1; HCT 37.4 % (40.0-50.0); Immature Grans % 0.1; Lymphocytes % 13.7; MCH 32.1 pg (27.0-33.0); MCHC 34.8 % (32.0-36.0); MCV 92 fL (80-95); MPV 9.8 fL (8.0-11.0); Monocytes % 8.1; Neutrophils % 77.9; Platelet Count 165 10^3/uL (130-400); RBC 4.05 10^6/uL (4.36-5.78); RDW 11.9 % (11.8-14.1); RDW-SD 40.1 fL; WBC 6.81 10^3/uL (4.4-10.8)
[2024-02-23 07:02] LABS: Anion Gap 4.8 mmol/L (3-11); BUN 28 mg/dL (7-18); CO2 28.2 mmol/L (21.0-32.0); CREATININE 1.4 mg/dL (0.70-1.30); Calcium 8.9 mg/dL (8.5-10.1); Chloride 93 mmol/L (98-107); Estimated GFR 49.87 (mL/min/1.73m2); Glucose 236 mg/dL (74-106); Potassium 4.8 mmol/L (3.5-5.1); Sodium 126 mmol/L (136-145)
--- NOTE | 2024-02-23 07:34 | W.PM.PROGNOT ---
Date of Service Date of service: 02/23/24 Time of Service: 07:34 Assessment and Plan Assessment and plan (1) Gross hematuria: Status: Inactive Assessment and plan: We would discontinue his bladder irrigation and send him home with a Alexandre catheter in place. He will return early next week for a voiding trial. He will have a second follow-up appointment to see me in about 2 weeks to review his surgical pathology. Subjective Subjective Interval history since last seen: He had a comfortable night with no episodes of clot retention. Exam Narrative Exam Narrative: He looks well His vital signs are documented elsewhere He is awake and alert His urine outflow is transparent with CBI running at a very slow rate Objective Last Vital Signs Temp 36.0 C L 02/23/24 00:17 Pulse 54 L 02/23/24 00:17 Resp 20 02/23/24 00:17 BP 128/61 02/23/24 00:17 Pulse Ox 94 02/23/24 00:17 Laboratory Results - last 24 hr 02/23/24 06:45 WBC 6.81 RBC 4.05 L Hgb 13.0 L Hct 37.4 L MCV 92 MCH 32.1 MCHC 34.8 RDW 11.9 Plt Count 165 MPV 9.8 Immature Gran % 0.1 Neutrophils % 77.9 Lymphocytes % 13.7 Monocytes % 8.1 Eosinophils % 0.1 Basophils % 0.1 Nucleated RBC % 0.0 Absolute Neutrophils 5.30 Absolute Lymphocytes 0.93 L Absolute Monocytes 0.55 Absolute Eosinophils 0.01 Absolute Basophils 0.01 Sodium 126 L Potassium 4.8 Chloride 93 L Carbon Dioxide 28.2 Anion Gap 4.8 BUN 28 H Creatinine 1.4 H Est GFR (CKD-EPI 2020) 49.87 Glucose 236 H Calcium 8.9 Time Spent with Patient Time Spent with Patient: <25 minutes Time was spent: other
--- NOTE | 2024-02-23 07:36 | W.PM.DS.N ---
Date of service: 02/23/24 Time of Service: 07:37 DS: Diagnosis Discharge Diagnosis (1) Gross hematuria: Status: Inactive (2) S/P cystoscopy: Discharge Plan Disposition Patient Disposition: Home Condition: Stable Discharge Details Reason For Visit: Hematuria Admit Date/Time: 02/22/24 07:51 Admit Provider: Alexis Jackson Attending Provider: Alexis Jackson Primary Care Provider: [facility] Course Hospital Course: The patient was admitted and taken to the operating room on 02/22/2024. We removed his indwelling catheter and perform cystoscopy and left retrograde pyelogram. The left ureter was dilated, but appeared to drain well so ureteroscopy was not performed. At the time of cystoscopy, there was beefy red mucosa on the posterior wall of the bladder and up towards the dome. The area was resected and cauterized. At the time of his discharge, the surgical pathology is not yet available. An irrigating catheter was replaced and continuous bladder irrigation was maintained overnight. On postoperative day #1, the irrigant was clear. His lab work was stable. He is deemed ready for discharge. Home Meds and New Rx's Prescriptions: No Action glipizide 5 mg tablet 2.5 mg PO BID Qty: 90 4RF Rx Instructions: dose increase aspirin [Adult Low Dose Aspirin] 81 mg tablet,delayed release (DR/EC) 81 mg PO DAILY tamsulosin [Flomax] 0.4 mg capsule 0.8 mg PO DAILY Qty: 180 3RF Rx Instructions: Note dosage increase finasteride 5 mg tablet 5 mg PO DAILY Qty: 90 3RF metformin 500 mg tablet 1,000 mg PO BID clotrimazole 1 % cream 1 applic topical TID PRN (Reason: rash) Qty: 15 0RF Patient Comments: Yeast groin area cholecalciferol (vitamin D3) 1,000 UNIT capsule 1 cap PO DAILY (DME) lancets Misc See Rx Instructions .MEDSUPPLY Qty: 100 3RF Rx Instructions: Check sugars once daily. No insulin. Dispense covered brand. Dx: E11.9 to maintain HbA1c less than 7%. (DME) Blood Glucose Test Strip See Rx Instructions .MEDSUPPLY Qty: 100 3RF Rx Instructions: Check sugars once per day. No insulin. Dispense covered brand. Dx: E11.9 to maintain HbA1c less than 7%. (DME) blood-glucose meter Misc See Rx Instructions .MEDSUPPLY Qty: 1 0RF Rx Instructions: Check blood sugar once daily. No insulin. Dispense covered brand. Dx: E11.9 to maintain HbA1c less than 7%. nitroglycerin [Nitrostat] 0.4 mg tablet, sublingual 0.4 mg Sublingual PRN MDD 3 tabs Qty: 25 4RF metoprolol succinate 50 mg tablet extended release 24 hr 25 mg PO DAILY Qty: 45 3RF lisinopril 30 mg tablet 30 mg PO DAILY Qty: 90 3RF Nephrocaps 1 mg capsule 1 cap PO DAILY Qty: 90 folic acid 400 mcg tablet 0.4 mg PO DAILY Discharge Instructions Additional Instructions: No additional medications needed Catheter plug to the irrigation port on his Alexandre. Drainage port the catheter bag Follow-up early next week for voiding trial Additional follow-up appointment in 1 to 2 weeks for surgical pathology Activity:: Activity as Tolerated Equipment/Supplies:: Alexandre catheter to drainag Diet:: As Tolerated Discharge Orders Discharge Orders: Discharge Order (Routine); Ordered 02/23/24 Ordered By: Alexis Jackson DS: Summary Time Spent with Patient providing and/or coordinating discharge services: Less than 30 minutes Status at Discharge Functional status at discharge: independent ambulation Overall status at discharge: patient is back to baseline Mental Status: mental status grossly normal Speech and Movement: speech and movement normal Mood: congruent mood Affect: normal affect Quality:SDOH Health Related Social Needs: No Data to Display Exam Narrative Exam Narrative: On the morning of discharge, he appears comfortable His vital signs are documented elsewhere His chest wall motion is normal. He is not short of breath at rest. His abdomen is soft A Alexandre catheter is in place and is draining clear outflow with very slow bladder irrigation He is awake and alert Psych Mental Status: mental status grossly normal Speech and Movement: speech and movement normal Mood: congruent mood Affect: normal affect DS: Data Vitals/I&O Vitals and I&O: Vital Signs Temperature 36.0 C L 02/23/24 00:17 Temperature Source Tympanic 02/23/24 00:17 Pulse 54 L 02/23/24 00:17 Pulse Rhythm Regular 02/23/24 00:00 Respiratory Rate 20 02/23/24 00:17 Respiratory Effort Normal, Non-Labored 02/23/24 00:00 Respiratory Depth Normal 02/23/24 00:00 Respiratory Pattern Normal 02/23/24 00:00 Blood Pressure 128/61 02/23/24 00:17 Pulse Oximetry 94 02/23/24 00:17 Oxygen Delivery Method Room Air 02/23/24 00:17 Oxygen Flow Rate 0 02/23/24 00:17 Pain Level 2 02/22/24 19:59 Intake & Output 02/22/24 02/22/24 02/23/24 11:59 23:59 11:59 Intake Total 550 / 1250 700 / 1250 Output Total 3400 / 3400 Balance -2850 / -2150 700 / -2150 Weight 92.9 kg Intake: IV 350 / 1050 700 / 1050 Oral 200 / 200 Output: Urine 3400 / 3400 Other: Urine Color Pale Pale [place] Urine Appearance Clear Clots Clots Comment Pt has bladder irrigation in place. Changed 1 3000ml NS irrigation bag; emptied bucket, total of 5200 out, urine pale yellow/pink with small amount of clots. Data Completed and Pending Labs on day of discharge: Labs from last 24 hours 02/23/24 06:45 WBC 6.81 RBC 4.05 L Hgb 13.0 L Hct 37.4 L MCV 92 MCH 32.1 MCHC 34.8 RDW 11.9 Plt Count 165 MPV 9.8 Immature Gran % 0.1 Neutrophils % 77.9 Lymphocytes % 13.7 Monocytes % 8.1 Eosinophils % 0.1 Basophils % 0.1 Nucleated RBC % 0.0 Absolute Neutrophils 5.30 Absolute Lymphocytes 0.93 L Absolute Monocytes 0.55 Absolute Eosinophils 0.01 Absolute Basophils 0.01 Sodium 126 L Potassium 4.8 Chloride 93 L Carbon Dioxide 28.2 Anion Gap 4.8 BUN 28 H Creatinine 1.4 H Est GFR (CKD-EPI 2020) 49.87 Glucose 236 H Calcium 8.9 PFSH All Active Problems Heart murmur (Acute) Hyponatremia (Acute) Incomplete emptying of bladder (Acute) Closed right clavicular fracture (Acute 10/08/22) Arthritis of left knee (Acute) Bradycardia (Acute) Constipation (Acute) Anal and rectal polyp (Acute) Gastroesophageal reflux disease (Acute) Status post coronary artery stent placement (Acute) Sensorineural hearing loss (SNHL) of both ears (Acute 03/01/18) Primary osteoarthritis of right knee (Acute 08/02/16) Non-toxic multinodular goiter (Acute) Lipoma of neck (Acute 03/01/18) Essential hypertension (Chronic 07/24/13) Diabetic retinopathy (Acute) MILD IN LEFT EYE~OPTICAL EXPRESSIONS 08/12/15 Diabetes mellitus (Chronic 02/08/13) Arthritis (Acute) Medical History White coat syndrome with hypertension Stated per patient BPH w urinary obs/LUTS (03/01/18) Atherosclerosis of [place] coronary artery Asthma Change in facial mole not suspect- [place] [facility] Surgical History (Updated 02/23/24 @ 07:38 by Alexis Jackson MD) S/P cystoscopy Stent placement (~05/2001) 05/30 2 STENTS LAD 11/2001 AND 02/2002 CLEANED BLOCKED STENT (WAS SCAR BUILDUP) KJG (below) Patient report radiation therapy in [facility] to correct scar formation. He believes bare metal stents were placed. Family History Mother , 91 Epilepsy Hyperlipidemia Parkinson disease Father , 73 Essential hypertension Personal history of malignant neoplasm SKIN Stroke Sister Diabetes Essential hypertension Heart disease Hyperlipidemia Brother Heart disease Stroke Pacemaker Parkinson disease Brother Diabetes Heart disease Stroke Brother Diabetes Essential hypertension Heart disease Hyperlipidemia Grandfather Diabetes Heart disease Stroke Grandfather Stroke Grandmother Essential hypertension Depression Heart disease Stroke Grandmother Essential hypertension Hyperlipidemia Stroke Daughter Diabetes Asthma Daughter Diabetes Heart disease VALVE REPLACEMENT Pancreatic cancer Social History Smoking/Tobacco Use Status: Former Tobacco Use Quit Date: 10/30/81 Tobacco: How many years used: 14 Smoking risk assessment performed?: Yes Alcohol Intake: current Alcohol Intake frequency: 0-2 drinks per day Alcohol type: wine and hard liquor Drug use: Never Substance use type: does not use Caregiver/Support person: No Household members: spouse Housing: house Communication Needs: Hard of Hearing Do you need help understanding health information?: Rarely Pets and animals: No Sexually active: No Do you think of yourself as: straight/heterosexual Current gender identity: male What is your relationship status?: How often do you talk on the phone with friends or family?: twice per week How often do you get together with friends or relatives?: three or more times per week How often do you attend taoism or hinduism services?: 1-3 times per year Do you belong to any clubs or organized social groups?: no Panel score (0-1 are the most socially isolated patients): 2 What type of physical activity do you participate in: regular exercise Duration: > 90 minutes/day Frequency: 3-4 times per week Scarlett/Confucianist: Sikh Special scarlett needs: No Seatbelt use: always Helmet use: Yes Helmet use: sometimes Drive intox 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 ross carrier driver: No Additional Social history: Unable to assess privately, at side Time Spent with Patient Time Spent with Patient: <45 minutes Time was spent: other
[2024-02-23] MEDS: glipiZIDE 5 MG TAB 2.5 MG PO (07:42)
[2024-02-23] MEDS: Metoprolol CR 50 MG TABCR 25 MG PO (07:45)
[2024-02-23] MEDS: metFORMIN 500 MG TAB 1000 MG PO (07:45)
[2024-02-23] MEDS: Finasteride 5 MG TAB PO (07:46)
[2024-02-23] MEDS: Tamsulosin 0.4 MG CAPCR 0.8 MG PO (07:46)
[2024-02-23] MEDS: Docusate Sodium 100 MG CAP PO (07:46)
[2024-02-23] MEDS: Lisinopril 10 MG TAB 30 MG PO (07:46)
[2024-02-23] MEDS: levoFLOXacin 500 MG TAB PO (07:46)
[2024-02-23] MEDS: Folic Acid 1 MG TAB 0.5 MG PO (07:46)
[2024-02-23 08:04] VITALS: BP 146/57; PULSE 41; RESP 17; TEMP 35.3; O2SAT 99
--- NOTE | 2024-02-23 10:01 | W.ANESPOSTOP ---
Postoperative Evaluation Date, Time and Location Date Performed: 02/22/24 Time Performed: 10:54 Patient Location: Day Surgery Unit Vital Signs Most Recent Imported Vital Signs: Most Recent Vital Signs Temp Pulse Resp BP Pulse Ox 35.3 C L 41 L 17 146/57 H 99 02/23/24 08:04 02/23/24 08:04 02/23/24 08:04 02/23/24 08:04 02/23/24 08:04 Pain Score Most Recent Pain Score: Most Recent Pain Score Pain Level [Lower Abdomen] 0 02/23/24 07:50 Pain Level 0 02/23/24 08:04 Assessment Mental Status: Awake (Alert & Oriented to Patient Baseline) Airway and Respiratory Function: Patent airway with normal (patient baseline) respiratory exam Cardiovascular Function: Hemodynamically Stable Hydration Status: Adequately Hydrated Nausea & Vomiting: No Nausea or Vomiting Pain: Pt. Denies Any Pain Peripheral Nerve Block: Patient did not receive a nerve block Postoperative Comments:: Late entry
--- NOTE | 2024-02-23 12:17 | PDOC.CMDIS ---
Date of service: 02/23/24 LACE Index Scoring Tool Questions: Length of Stay (in days): 1 Was the patient admitted via the E.D.?: Yes E.D. Visits: 0 Answers: Total Score: 4 Risk of Readmission: Low Risk Care Management Discharge Plan Reason for Hospitalization: Hematuria SDOH Health Related Social Needs: No Data to Display
--- NOTE | 2024-02-23 12:32 | INITIAL_ITS ---
Date of service: 02/23/24 Care Management Initial Assmt Initial Assessment REASON FOR HOSPITALIZATION:: Hematuria PREVIOUS FUNCTIONAL STATUS/SOCIAL/FAMILY SUPPORTS:: Clinton lives in [place] with his of 65 years, Aislinn. The property the couple lives on what purchased for $1500 in the 70s and is not values at over 300,000. CURRENT FUNCTIONAL STATUS:: Clinton was sitting up in bed and easy to engage in conversation. He shared history about his land and it being subdivided, as well as the location and proximity to [place] and how it has appealed to many throughout the years to purchase. 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 He also shared in accident he had with a tractor that crushed bones in his chest and a few ribs. He reports he discussed with his PCP he believes his need for stints in his heart to have been attributed from the accident not cholesterol. Clinton shares he enjoys working outside and is looking to discharge to go home and work around the house. ADVANCE DIRECTIVES:: None on file Has patient been provided with info about the portal/API?: Yes Did the patient sign up for the portal?: No CODE STATUS:: Full Code INSURANCE COVERAGE / FINANCIAL ISSUES:: Medicare Part A & B [facility] CURRENT HOME/COMMUNITY SERVICES/EQUIPMENT:: No services identified PRIMARY CARE PHYSICIAN:: Delaney Gaviria NP POTENTIAL DISCHARGE NEEDS:: None PATIENT/FAMILY EDUCATION NEEDS:: Discussion of Ask Me Three ANTICIPATED BARRIERS TO DISCHARGE:: None TRANSPORTATION:: Via private vehicle via family. PLAN:: Clinton will discharge when medically cleared and transport via private vehicle with Aislinn. He will follow up with his PCP and discharge plan of care. He will not have any new services. CM following. PFSH All Active Problems Heart murmur (Acute) Hyponatremia (Acute) Incomplete emptying of bladder (Acute) Closed right clavicular fracture (Acute 10/08/22) Arthritis of left knee (Acute) Bradycardia (Acute) Constipation (Acute) Anal and rectal polyp (Acute) Gastroesophageal reflux disease (Acute) Status post coronary artery stent placement (Acute) Sensorineural hearing loss (SNHL) of both ears (Acute 03/01/18) Primary osteoarthritis of right knee (Acute 08/02/16) Non-toxic multinodular goiter (Acute) Lipoma of neck (Acute 03/01/18) Essential hypertension (Chronic 07/24/13) Diabetic retinopathy (Acute) MILD IN LEFT EYE~OPTICAL EXPRESSIONS 08/12/15 Diabetes mellitus (Chronic 02/08/13) Arthritis (Acute) Medical History White coat syndrome with hypertension Stated per patient BPH w urinary obs/LUTS (03/01/18) Atherosclerosis of [place] coronary artery Asthma Change in facial mole not suspect- sees [facility] [place] Surgical History (Updated 02/23/24 @ 07:38 by Alexis Jackson MD) S/P cystoscopy Stent placement (~05/2001) 05/30 2 STENTS LAD 11/2001 AND 02/2002 CLEANED BLOCKED STENT (WAS SCAR BUILDUP) KJG (below) Patient report radiation therapy in [facility] to correct scar formation. He believes bare metal stents were placed. Family History Mother , 91 Epilepsy Hyperlipidemia Parkinson disease Father , 73 Essential hypertension Personal history of malignant neoplasm SKIN Stroke Sister Diabetes Essential hypertension Heart disease Hyperlipidemia Brother Heart disease Stroke Pacemaker Parkinson disease Brother Diabetes Heart disease Stroke Brother Diabetes Essential hypertension Heart disease Hyperlipidemia Grandfather Diabetes Heart disease Stroke Grandfather Stroke Grandmother Essential hypertension Depression Heart disease Stroke Grandmother Essential hypertension Hyperlipidemia Stroke Daughter Diabetes Asthma Daughter Diabetes Heart disease VALVE REPLACEMENT Pancreatic cancer Social History Smoking/Tobacco Use Status: Former Tobacco Use Quit Date: 10/30/81 Tobacco: How many years used: 14 Smoking risk assessment performed?: Yes Alcohol Intake: current Alcohol Intake frequency: 0-2 drinks per day Alcohol type: wine and hard liquor Drug use: Never Substance use type: does not use Caregiver/Support person: No Household members: spouse Housing: house Communication Needs: Hard of Hearing Do you need help understanding health information?: Rarely Pets and animals: No Sexually active: No Do you think of yourself as: straight/heterosexual Current gender identity: male What is your relationship status?: How often do you talk on the phone with friends or family?: twice per week How often do you get together with friends or relatives?: three or more times per week How often do you attend sikh or confucianism services?: 1-3 times per year Do you belong to any clubs or organized social groups?: no Panel score (0-1 are the most socially isolated patients): 2 What type of physical activity do you participate in: regular exercise Duration: > 90 minutes/day Frequency: 3-4 times per week Scarlett/Mosque: Mormon Special scarlett needs: No Seatbelt use: always Helmet use: Yes Helmet use: sometimes Drive intox 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 drivers license examiner: No Additional Social history: Unable to assess privately, at side SDOH(Care Management) Screening Will the Patient Participate in the Screening?: Declined to provide In the past 12 months, have you had to go without electric, gas, oil or water in your home?: choose not to answer Have you or anyone in your house had to go without enough food to eat?: choose not to answer Has lack of transportation kept you from medical appointments or from doing things needed for daily living?: choose not to answer Has anyone in your support network made you feel unsafe for any reason?: choose not to answer
== END 2024-02-23 12:13 | disposition home or self-care (01) ==
LOC: PDS 12:05 → MS 13:17
PROVIDERS: Admitting Provider Urology; PCP Nurse Practitioner Family; Visit Provider Urology
PROC: (CPT 74450; principal; 2024-02-22 09:15)
PROC: 0TBB8ZZ Excision of Bladder, Via Natural or Artificial Opening Endoscopic (ICD-10-PCS; 2024-02-22 09:15)
DX: N32.89 Other specified disorders of bladder (principal); R31.0 Gross hematuria; N13.30 Unspecified hydronephrosis; N40.1 Benign prostatic hyperplasia with lower urinary tract symptoms; R33.8 Other retention of urine; K21.9 Gastro-esophageal reflux disease without esophagitis; H90.3 Sensorineural hearing loss, bilateral; Z95.5 Presence of coronary angioplasty implant and graft; E11.319 Type 2 diabetes mellitus with unspecified diabetic retinopathy without macular edema; E04.2 Nontoxic multinodular goiter; I25.10 Atherosclerotic heart disease of native coronary artery without angina pectoris; J45.909 Unspecified asthma, uncomplicated; Z79.84 Long term (current) use of oral hypoglycemic drugs
CPT/HCPCS: 36415; 52005; 52224; 80048; 96374; 99222; 99238; 74420; 85025; 88307; G0378; J1100; J1885; J2001; J2405; J2543; J2704

== ENCOUNTER 2024-02-27 19:59 | Emergency (ER) | payer MEDICARE, SELFPAY ==
[2024-02-27] VITALS (9 sets, daily range): BP systolic 138–175; BP diastolic 53–79; PULSE 77–92; RESP 15–18; TEMP 36.8; O2SAT 98
--- NOTE | 2024-02-27 20:15 | DI.CT_ITS ---
Exam(s) CT ABDOMEN PELVIS WO EXAM: CT ABDOMEN PELVIS WO CLINICAL HISTORY: flank pain. TECHNIQUE: Imaging Protocol: Axial computed tomography images with coronal and sagittal reformatted images were created and reviewed CONTRAST MATERIAL: Intravenous: none Oral: None COMPARISON: CT CT RENAL COLIC WO from 12/21/2023 FINDINGS: VISUALIZED LUNG BASES: No nodules nor pleural effusions evident. ABDOMEN: There is no ascites. LIVER: There are no obvious focal hepatic lesions evident of this noninfused study. GALLBLADDER/BILIARY: No obvious gallbladder pathology. CBD is not dilated. PANCREAS: No evidence of pancreatic mass nor dilatation of the pancreatic duct. SPLEEN: Spleen is not enlarged. No obvious intrasplenic lesions. ADRENALS: There are no significant adrenal masses. KIDNEYS:There is perinephric streaking around both kidneys. No solid renal masses. No radiopaque darnell culi evident in the kidneys. Minimal dilatation left ureter but significantly less than previous. N o radiopaque calculi. There is a Alexandre catheter in the urinary bladder. Bladder is collapsed around the Alexandre by wall does appear thickened and there is periventricular streaking. ABDOMINAL AORTA: Abdominal aorta is not enlarged. LYMPH NODES: There is no retroperitoneal nor paraaortic adenopathy. ABDOMINAL WALL: No evidence of significant anterior abdominal wall nor inguinal hernia. GI: No evidence of appendicitis. However, the there is no evidence of acute diverticulitis at the ju nction in the lower descending left colon with some wall thickening as well as surrounding streaking. Small amount of adjacent fluid noted in the pericolic gutter. PELVIS: LYMPH NODES: There is no intrapelvic nor inguinal adenopathy. GI: No evidence of appendicitis. URINARY BLADDER: Alexandre catheter in the lumen. Wall thickening and perivesicular streaking REPRODUCTIVE: Prostate not enlarged. . OSSEOUS: No significant osseous lesions. No acute fractures. Degenerative anterolisthesis L4 upon L5 with mild disc space narrowing at this l evel. IMPRESSION: 1. The main finding here is a acute diverticulitis in the lower descending colon. No formed abscess at this time. No obvious perforation. No bowel obstruction. 2. There is a Alexandre catheter in the urinary bladder. The bladder is thickened and there is perivesic ular streaking. Recommend assessment for cystitis. Neoplasm cannot be excluded. 3. Mild prominence of the left ureter although less prominent than on the prior study of 12/21/2023. RADIATION DOSE DELIVERED: 925.62mGy.cm Total DLP DATA REPOSITORY: All CT scans at this facility are submitted to the National Radiology Data Registry (NRDR) Dose Index Registry (DIR) with the [employer] (ACR). RADIATION OPTIMIZATION: All CT scans at this facility use at least one of these dose optimization te chniques: automated exposure control; mA and/or kV adjustment per patient size (includes targeted exa ms where dose is matched to clinical indication); or iterative reconstruction.
[2024-02-27 20:32] LABS: Abs Immature Grans 0.02 10^3/uL (0.0-0.06); Absolute Basophil Count 0.01 10^3/uL (0.0-0.2); Absolute Eosinophil Count 0.08 10^3/uL (0.0-0.7); Absolute Lymphocyte Count 0.98 10^3/uL (1.2-3.4); Absolute Monocyte Count 0.71 10^3/uL (0.1-0.8); Absolute Neutrophil Count 5.48 10^3/uL (1.2-6.7); Basophils % 0.1 %; Eosinophils % 1.1 %; HCT 35.4 % (40.0-50.0); HGB 12.5 g/dL (13.5-17.5); Immature Grans % 0.3 %; Lymphocytes % 13.5 %; MCH 32.6 pg (27.0-33.0); MCHC 35.3 % (32.0-36.0); MCV 92 fL (80-95); MPV 9.7 fL (8.0-11.0); Monocytes % 9.8 %; Neutrophils % 75.2 %; Platelet Count 160 10^3/uL (130-400); RBC 3.83 10^6/uL (4.36-5.78); RDW 11.9 % (11.8-14.1); RDW-SD 40.2 fL; WBC 7.28 10^3/uL (4.4-10.8)
[2024-02-27 20:42] LABS: BUN 11 mg/dL (7-18); CREATININE 0.7 mg/dL (0.70-1.30); Calcium 8.8 mg/dL (8.5-10.1); Chloride 93 mmol/L (98-107); Estimated GFR 91.42 (mL/min/1.73m2); Glucose 216 mg/dL (74-106); Potassium 4.7 mmol/L (3.5-5.1); Sodium 127 mmol/L (136-145)
[2024-02-27 21:08] LABS: Bilirubin Negative (Negative); Blood Large (Negative); Clarity Turbid (Clear); Glucose 100 mg/dL (Negative); Ketones Negative (Negative); Leukocyte Esterase Trace (Negative); Nitrite Negative (Negative); Urobilinogen 0.2 mg/dL (Up to 0.2); pH 7.5 (5-8)
[2024-02-27 21:15] LABS: C & S Indicated? No; RBC >50 HPF (0-2)
--- NOTE | 2024-02-27 22:10 | DI.VRAD_ITS ---
PROCEDURE INFORMATION: Exam: CT Abdomen And Pelvis Without Contrast Exam date and time: 02/27/2024 9:19 PM Age: 84 years old Clinical indication: Other: L flank pain; Prior surgery; Surgery date: 3-7 days post-operative; Surgery type: PT states urology removed something obstructing left kidney on 02/21 TECHNIQUE: Imaging protocol: Computed tomography of the abdomen and pelvis without contrast. Radiation optimization: All CT scans at this facility use at least one of these dose optimization techniques: automated exposure control; mA and/or kV adjustment per patient size (includes targeted exams where dose is matched to clinical indication); or iterative reconstruction. COMPARISON: CT RENAL COLIC WO 12/21/2023 3:03 PM FINDINGS: Lungs: Mild dependent atelectasis/edema. Liver: Unremarkable noncontrast liver imaging. Gallbladder and bile ducts: Normal. No calcified stones. No ductal dilation. Pancreas: Normal. No ductal dilation. Spleen: Normal. No splenomegaly. Adrenal glands: Normal. No mass. Kidneys and ureters: No hydronephrosis. No ureteral stones. The left ureter is mildly dilated. Stomach and bowel: Moderate focal wall thickening and fat stranding are noted in the distal descending colon. Diverticula are present in the descending/sigmoid colon. See installation service representative axial image 55 series 2. The distal colon is collapsed. The small bowel is not dilated. Stomach is unremarkable. Appendix: Normal appendix. Intraperitoneal space: Trace free fluid noted in the left paracolic gutter. No free air. No abscess. Vasculature: Mild vascular calcifications. Negative for abdominal aortic aneurysm. Lymph nodes: Unremarkable. No enlarged lymph nodes. Urinary bladder: Moderate wall thickening and fat stranding. A Alexandre catheter is present, balloon within the urinary bladder. Reproductive: Unremarkable as visualized. Bones/joints: Negative for compression fracture. Multilevel degenerative disc disease and facet arthropathy noted. Mild degenerative anterolisthesis noted at L4-L5. Soft tissues: Subcutaneous fat stranding noted in the suprapubic abdominal wall. No significant hernia or fluid collection. IMPRESSION: 1. Acute diverticulitis, descending colon. 2. No abscess. No perforation. No bowel obstruction. 3. Abnormal urinary bladder. Correlate for any known disease. Tumor and/or cystitis considered. 4. Mildly dilated left ureter. No hydronephrosis. No stones observed. Dictated and Authenticated by: Romeo Jackson MD. Ordering:P.ARELY Mcclendon MD
[2024-02-27 22:19] LABS: ESR 13 mm/hr (0-20)
[2024-02-27 22:26] LABS: C-Reactive Protein 3.34 mg/dL (<or=0.5)
[2024-02-27] MEDS: Amoxicillin 875/Clav. 125 TAB PO (22:29)
[2024-02-27] MEDS: Acetaminophen 500 MG TAB 1000 MG PO (22:31)
--- NOTE | 2024-02-27 22:42 | ED.GENADUL_ITS ---
Discharge Plan Disposition Patient Disposition: Home Condition: Stable Discharge Details Clinical Impression: Diverticulitis, Hematuria Primary Care Provider: Delaney Gaviria ED Provider: Magdi cMgee Home Meds and New Rx's Prescriptions: New amoxicillin-pot clavulanate 875-125 mg tablet 1 tab PO BID 9 Days Qty: 18 0RF No Action glipizide 5 mg tablet 2.5 mg PO BID Qty: 90 4RF Rx Instructions: dose increase aspirin [Adult Low Dose Aspirin] 81 mg tablet,delayed release (DR/EC) 81 mg PO DAILY tamsulosin [Flomax] 0.4 mg capsule 0.8 mg PO DAILY Qty: 180 3RF Rx Instructions: Note dosage increase finasteride 5 mg tablet 5 mg PO DAILY Qty: 90 3RF metformin 500 mg tablet 1,000 mg PO BID clotrimazole 1 % cream 1 applic topical TID PRN (Reason: rash) Qty: 15 0RF Patient Comments: Yeast groin area cholecalciferol (vitamin D3) 1,000 UNIT capsule 1 cap PO DAILY (DME) lancets Misc See Rx Instructions .MEDSUPPLY Qty: 100 3RF Rx Instructions: Check sugars once daily. No insulin. Dispense covered brand. Dx: E11.9 to maintain HbA1c less than 7%. (DME) Blood Glucose Test Strip See Rx Instructions .MEDSUPPLY Qty: 100 3RF Rx Instructions: Check sugars once per day. No insulin. Dispense covered brand. Dx: E11.9 to maintain HbA1c less than 7%. (DME) blood-glucose meter Misc See Rx Instructions .MEDSUPPLY Qty: 1 0RF Rx Instructions: Check blood sugar once daily. No insulin. Dispense covered brand. Dx: E11.9 to maintain HbA1c less than 7%. nitroglycerin [Nitrostat] 0.4 mg tablet, sublingual 0.4 mg Sublingual PRN MDD 3 tabs Qty: 25 4RF metoprolol succinate 50 mg tablet extended release 24 hr 25 mg PO DAILY Qty: 45 3RF lisinopril 30 mg tablet 30 mg PO DAILY Qty: 90 3RF Nephrocaps 1 mg capsule 1 cap PO DAILY Qty: 90 folic acid 400 mcg tablet 0.4 mg PO DAILY Discharge Instructions Instructions: Diverticulitis (ED) Additional Instructions: * keep appointment with urology in the morning * you were given 2 antibiotic pills to go home with so that you have your dose of medicine to take in the morning before you go to the pharmacy. prescription for 9 additional day (10 total days) sent to pharmacy. You will take 10 total days of medicine * take tylenol for pain * return to the ED with fever, chills, not tolerating antibiotics or not feeling better HPI General Date/Time Provider Initiated Documentation: 02/27/24 20:22 . Limitations to Documentation: no limitations . Information obtained by: patient . HPI Narrative: 84-year-old gentleman with past medical history of diabetes, CAD and recent urologic procedure presents for evaluation of increased blood in his Alexandre catheter as well as left lower quadrant abdominal pain. He reports acute onset of the abdominal pain this afternoon. Pain localized to the left side of his abdomen. Does not radiate. No exacerbating or relieving symptoms. No associated fever or vomiting. Reports constipation during that time and he was in the hospital for his procedure. But that since he has been home he started taking stewed prunes and that this is improved that. He reports 3 bowel movements today after taking his prunes and black coffee. He denies any blood in his bowel movement. He reports that his Alexandre catheter was draining clearish pink, but that today it started becoming darker red. He has not had any pain and his Alexandre catheter is draining well. Related Data Home Medications Medication Instructions Recorded Confirmed cholecalciferol (vitamin D3) 25 1 cap PO DAILY 02/06/13 02/22/24 mcg (1,000 unit) capsule glipizide 5 mg tablet 2.5 mg (1/2 x 5 mg) PO BID #90 tabs 07/08/22 02/22/24 aspirin 81 mg tablet,delayed 81 mg PO DAILY 07/19/22 02/19/24 release (Adult Low Dose Aspirin) blood sugar diagnostic (Blood #100 ea 01/19/23 02/12/24 Glucose Test strips) lancets #100 ea 01/19/23 02/12/24 blood-glucose meter #1 ea 01/23/23 02/12/24 nitroglycerin 0.4 mg sublingual 0.4 mg sublingual PRN #25 tabs 03/24/23 02/22/24 tablet (Nitrostat) metoprolol succinate 50 mg 25 mg (1/2 x 50 mg) PO DAILY #45 06/30/23 02/22/24 tablet,extended release 24 hr tabs finasteride 5 mg tablet 5 mg PO DAILY #90 tabs 07/19/23 02/22/24 tamsulosin 0.4 mg capsule (Flomax) 0.8 mg (2 x 0.4 mg) PO DAILY #180 07/19/23 02/22/24 caps lisinopril 30 mg tablet 30 mg PO DAILY #90 tabs 10/15/23 02/22/24 clotrimazole 1 % topical cream 1 applic topical TID PRN rash #15 12/26/23 02/22/24 grams vitamin B complex and vitamin C 1 cap PO DAILY ##90 12/26/23 02/22/24 no.20-folic acid 1 mg capsule (Nephrocaps) folic acid 400 mcg tablet 0.4 mg PO DAILY 01/02/24 02/22/24 metformin 500 mg tablet 1,000 mg PO BID 01/11/24 02/22/24 amoxicillin 875 mg-potassium 1 tab PO BID 9 days #18 tabs 02/27/24 clavulanate 125 mg tablet Previous Rx's Medication Instructions Recorded glipizide 5 mg tablet 2.5 mg (1/2 x 5 mg) PO BID #90 tabs 07/08/22 blood sugar diagnostic (Blood #100 ea 01/19/23 Glucose Test strips) lancets #100 ea 01/19/23 blood-glucose meter #1 ea 01/23/23 nitroglycerin 0.4 mg sublingual 0.4 mg sublingual PRN #25 tabs 03/24/23 tablet (Nitrostat) metoprolol succinate 50 mg 25 mg (1/2 x 50 mg) PO DAILY #45 06/30/23 tablet,extended release 24 hr tabs finasteride 5 mg tablet 5 mg PO DAILY #90 tabs 07/19/23 tamsulosin 0.4 mg capsule (Flomax) 0.8 mg (2 x 0.4 mg) PO DAILY #180 07/19/23 caps lisinopril 30 mg tablet 30 mg PO DAILY #90 tabs 10/15/23 clotrimazole 1 % topical cream 1 applic topical TID PRN rash #15 12/26/23 grams amoxicillin 875 mg-potassium 1 tab PO BID 9 days #18 tabs 02/27/24 clavulanate 125 mg tablet Allergies Allergy/AdvReac Type Severity Reaction Status Date / Time menthol Allergy Unknown WHEEZING Verified 02/22/24 08:08 aspirin Allergy sick to Verified 02/22/24 08:08 stomach General Stated Complaint: Urinary LILA: 3 Exam Narrative Exam Narrative: Review of Systems: All systems reviewed & are unremarkable except as noted in HPI and below Well-developed, no acute distress NCAT PERRL, normal conjunctiva RRR Unlabored respiratory effort clear bilaterally Nondistended abdomen, soft + left lower quadrant abdominal pain Extremities w/o deformity, no cyanosis, no edema Alexandre catheter in place, flowing nicely, urine Henrique-Aid colored No rashes or lesions. no focal neurologic deficits Appropriate mood and affect Course Vital Signs Vital signs: Vital Signs Temperature 36.8 C 02/27/24 20:03 Pulse 92 H 02/27/24 20:03 Respiratory Rate 15 02/27/24 20:03 Blood Pressure 175/79 H 02/27/24 20:03 Pulse Oximetry 98 02/27/24 20:03 Temperature 36.8 C 02/27/24 20:08 Temperature Source Tympanic 02/27/24 20:08 Pulse 79 02/27/24 21:31 Respiratory Rate 15 02/27/24 20:08 Respiratory Effort Normal 02/27/24 20:08 Blood Pressure 149/54 H 02/27/24 21:31 Blood Pressure Mean 89 02/27/24 21:31 Blood Pressure Position Sitting 02/27/24 20:08 Pulse Oximetry 98 02/27/24 20:08 Oxygen Delivery Method Room Air 02/27/24 20:08 Oxygen Flow Rate 0 02/27/24 20:08 Pain Level 8 02/27/24 20:08 Lab/Test Results Lab/Test Results: 02/27/24 21:02 Urine - Cath Alexandre Indwelling Urine Culture - Pending Laboratory Tests Range/Units 02/27/24 02/27/24 20:14 21:02 WBC (4.4-10.8) 10^3/uL 7.28 RBC (4.36-5.78) 10^6/uL 3.83 L Hgb (13.5-17.5) g/dL 12.5 L Hct (40.0-50.0) % 35.4 L MCV (80-95) fL 92 MCH (27.0-33.0) pg 32.6 MCHC (32.0-36.0) % 35.3 RDW (11.8-14.1) % 11.9 Plt Count (130-400) 10^3/uL 160 MPV (8.0-11.0) fL 9.7 Immature Gran % % 0.3 Neutrophils % % 75.2 Lymphocytes % % 13.5 Monocytes % % 9.8 Eosinophils % % 1.1 Basophils % % 0.1 Nucleated RBC % (0.0-0.3) % 0.0 Absolute Neutrophils (1.2-6.7) 10^3/uL 5.48 Absolute Lymphocytes (1.2-3.4) 10^3/uL 0.98 L Absolute Monocytes (0.1-0.8) 10^3/uL 0.71 Absolute Eosinophils (0.0-0.7) 10^3/uL 0.08 Absolute Basophils (0.0-0.2) 10^3/uL 0.01 ESR (0-20) mm/hr 13 Sodium (136-145) mmol/L 127 L Potassium (3.5-5.1) mmol/L 4.7 Chloride (98-107) mmol/L 93 L Carbon Dioxide (21.0-32.0) mmol/L 29.0 Anion Gap (3-11) mmol/L 5.0 BUN (7-18) mg/dL 11 Creatinine (0.70-1.30) mg/dL 0.7 Est GFR (CKD-EPI 2020) (mL/min/1.73m2) 91.42 Glucose (74-106) mg/dL 216 H Calcium (8.5-10.1) mg/dL 8.8 C-Reactive Protein (<or=0.5) mg/dL 3.34 H Urine Color (Yellow) Red Urine Clarity (Clear) Turbid Urine pH (5-8) 7.5 Ur Specific [place] (1.005-1.025) 1.020 Urine Protein (Neg-Trace) mg/dL 100 H Urine Ketones (Negative) mg/dL Negative Urine Blood (Negative) Large H Urine Nitrite (Negative) Negative Urine Bilirubin (Negative) Negative Urine Urobilinogen (Up to 0.2) mg/dL 0.2 Ur Leukocyte Esterase (Negative) Trace H Urine RBC (0-2) HPF >50 H Urine WBC Not Applicable Ur Epithelial Cells Not Applicable Urine Crystals Not Applicable Urine Bacteria Not Applicable Urine Mucus Not Applicable Ur Culture Indicated? No Urine Glucose (Negative) mg/dL 100 H Medical Decision Making Emergent evaluation of abdominal pain and hematuria. Alexandre catheter is not clogged, but urine is slightly the resolved. Plan for irrigation. He is on aspirin, but no other anticoagulation. He does have focal abdominal tenderness. Unclear etiology of this, given his recent instrumentation, will send blood work and get CT imaging Blood work reviewed, no leukocytosis or significant anemia. He has hyponatremia which appears to be the patient's baseline. Normal renal function. Urinalysis with blood and no signs of infection. Given his recent urologic procedure a culture has been sent. CT imaging is concerning for acute diverticulitis, uncomplicated. The patient is fairly well pain controlled, tolerating p.o., no fever and is otherwise well-appearing. I added on inflammatory markers, ESR is negative. CRP is only slightly elevated. I discussed with hospitalist, who concurs that the patient will likely do well at home and that we should give him a trial of oral antibiotics. His first dose of Augmentin was given here. He was also provided a take-home bottle of 2 pills. Patient for remaining prescription sent to the pharmacy, for a total of 10 days of Augmentin. Advised Tylenol for pain control. Strict return precautions advised including fever, worsening pain, not tolerating anything by mouth. Patient has follow-up tomorrow morning at 8 AM with urology clinic for reevaluation of his Alexandre catheter. Medical Records Medical records reviewed: Yes I reviewed the patient's medical records. Lab Data Lab results reviewed: Yes I reviewed the patient's lab results. Quality:SDOH Health Related Social Needs: No Data to Display PFSH All Active Problems Hematuria (Acute) Diverticulitis (Chronic) Heart murmur (Acute) Hyponatremia (Acute) Incomplete emptying of bladder (Acute) Closed right clavicular fracture (Acute 10/08/22) Arthritis of left knee (Acute) Bradycardia (Acute) Constipation (Acute) Anal and rectal polyp (Acute) Gastroesophageal reflux disease (Acute) Status post coronary artery stent placement (Acute) Sensorineural hearing loss (SNHL) of both ears (Acute 03/01/18) Primary osteoarthritis of right knee (Acute 08/02/16) Non-toxic multinodular goiter (Acute) Lipoma of neck (Acute 03/01/18) Essential hypertension (Chronic 07/24/13) Diabetic retinopathy (Acute) MILD IN LEFT EYE~OPTICAL EXPRESSIONS 08/12/15 Diabetes mellitus (Chronic 02/08/13) Arthritis (Acute) Medical History White coat syndrome with hypertension Stated per patient BPH w urinary obs/LUTS (03/01/18) Atherosclerosis of ho-chunk coronary artery Asthma Change in facial mole not suspect- sees [facility] Surgical History S/P cystoscopy Stent placement (~05/2001) 05/30 2 STENTS LAD 11/2001 AND 02/2002 CLEANED BLOCKED STENT (WAS SCAR BUILDUP) KJG (below) Patient report radiation therapy in [facility] to correct scar formation. He believes bare metal stents were placed. Family History Mother , 91 Epilepsy Hyperlipidemia Parkinson disease Father , 73 Essential hypertension Personal history of malignant neoplasm SKIN Stroke Sister Diabetes Essential hypertension Heart disease Hyperlipidemia Brother Heart disease Stroke Pacemaker Parkinson disease Brother Diabetes Heart disease Stroke Brother Diabetes Essential hypertension Heart disease Hyperlipidemia Grandfather Diabetes Heart disease Stroke Grandfather Stroke Grandmother Essential hypertension Depression Heart disease Stroke Grandmother Essential hypertension Hyperlipidemia Stroke Daughter Diabetes Asthma Daughter Diabetes Heart disease VALVE REPLACEMENT Pancreatic cancer Social History Smoking/Tobacco Use Status: Former Tobacco Use Quit Date: 10/30/81 Tobacco: How many years used: 14 Smoking risk assessment performed?: Yes Alcohol Intake: current Alcohol Intake frequency: 0-2 drinks per day Alcohol type: wine and hard liquor Drug use: Never Substance use type: does not use Caregiver/Support person: No Household members: spouse Housing: house Communication Needs: Hard of Hearing Do you need help understanding health information?: Rarely Pets and animals: No Sexually active: No Do you think of yourself as: straight/heterosexual Current gender identity: male What is your relationship status?: How often do you talk on the phone with friends or family?: twice per week How often do you get together with friends or relatives?: three or more times per week How often do you attend confucianism or worship services?: 1-3 times per year Do you belong to any clubs or organized social groups?: no Panel score (0-1 are the most socially isolated patients): 2 What type of physical activity do you participate in: regular exercise Duration: > 90 minutes/day Frequency: 3-4 times per week Scarlett/Voodoo: Religious Special scarlett needs: No Seatbelt use: always Helmet use: Yes Helmet use: sometimes Drive intox 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: No Additional Social history: Unable to assess privately, at side PAWSS Have you Been Recently Intoxicated or Drunk Within the Last 30 days?: No Have you Ever Experienced Previous Episodes of Alcohol Withdrawal?: No Have you ever Experienced Withdrawal Seizures?: No Have you ever Experienced Delirium Tremens(DT)s?: No Have you ever undergone Alcohol Rehabilitation Treatment (i.e, inpt ot outpatient treatment programs)?: No Have you ever Experienced Blackouts?: No Have you ever Combined Alcohol with other Downers within the last 90 days?: No Have you ever Combined Alcohol with any other Substance of Abuse during the last 90 days?: No Positive Blood Alcohol level on Presentation? [PCS.BAL]: No Evidence of Increased Autonomic Activity (i.e. HR>120, tremor, sweating, agitation, nausea)?: No Result: 0
[2024-02-27] MEDS: Acetaminophen 500 MG TAB 2000 MG PO (22:56)
[2024-02-27] MEDS: Amox. 875/Clav. 125, 2 TABS/BTL 1 TAB PO (22:57)
== END 2024-02-27 23:09 | disposition home or self-care (01) ==
PROVIDERS: Emergency Provider Emergency Medicine; PCP Nurse Practitioner Family
DX: R31.9 Hematuria, unspecified (principal); K57.32 Diverticulitis of large intestine without perforation or abscess without bleeding; I25.10 Atherosclerotic heart disease of native coronary artery without angina pectoris; I10 Essential (primary) hypertension; E11.319 Type 2 diabetes mellitus with unspecified diabetic retinopathy without macular edema; Z79.84 Long term (current) use of oral hypoglycemic drugs; Z79.82 Long term (current) use of aspirin; Z95.5 Presence of coronary angioplasty implant and graft; Z87.891 Personal history of nicotine dependence
CPT/HCPCS: 80048; 85652; 99284; 74176; 81003; 81015; 85025; 86140; 87086

== ENCOUNTER → 2024-02-28 08:00 | Outpatient (BNVA) | payer MEDICARE, SELFPAY | PROVIDERS: PCP Nurse Practitioner Family; Referring Provider Nurse Practitioner Family; Visit Provider Nurse Practitioner Gerontology | DX: R33.8 Other retention of urine (principal); R31.9 Hematuria, unspecified | CPT/HCPCS: 99213 ==

== ENCOUNTER 2024-02-29 20:32 | Emergency (ER) | payer MEDICARE, SELFPAY ==
[2024-02-29] VITALS (66 sets, daily range): BP systolic 140–188; BP diastolic 59–106; PULSE 61–76; RESP 12–20; TEMP 36.5–36.8; O2SAT 93–99
[2024-02-29 21:14] LABS: Clarity Turbid (Clear)
--- NOTE | 2024-02-29 21:14 | W.ED.GENAD ---
Discharge Plan Disposition Patient Disposition: Home Condition: Good Discharge Details Clinical Impression: Hematuria, Incomplete emptying of bladder Primary Care Provider: Delaney Gaviria ED Provider: Radha Abrams Home Meds and New Rx's Prescriptions: Continued glipizide 5 mg tablet 2.5 mg PO BID Qty: 90 4RF Rx Instructions: dose increase aspirin [Adult Low Dose Aspirin] 81 mg tablet,delayed release (DR/EC) 81 mg PO DAILY clotrimazole 1 % cream 1 applic topical TID PRN (Reason: rash) Qty: 15 0RF Patient Comments: Yeast groin area tamsulosin [Flomax] 0.4 mg capsule 0.8 mg PO DAILY Qty: 180 3RF Rx Instructions: Note dosage increase finasteride 5 mg tablet 5 mg PO DAILY Qty: 90 3RF metformin 500 mg tablet 1,000 mg PO BID cholecalciferol (vitamin D3) 1,000 UNIT capsule 1 cap PO DAILY (DME) lancets Misc See Rx Instructions .MEDSUPPLY Qty: 100 3RF Rx Instructions: Check sugars once daily. No insulin. Dispense covered brand. Dx: E11.9 to maintain HbA1c less than 7%. (DME) Blood Glucose Test Strip See Rx Instructions .MEDSUPPLY Qty: 100 3RF Rx Instructions: Check sugars once per day. No insulin. Dispense covered brand. Dx: E11.9 to maintain HbA1c less than 7%. (DME) blood-glucose meter Misc See Rx Instructions .MEDSUPPLY Qty: 1 0RF Rx Instructions: Check blood sugar once daily. No insulin. Dispense covered brand. Dx: E11.9 to maintain HbA1c less than 7%. nitroglycerin [Nitrostat] 0.4 mg tablet, sublingual 0.4 mg Sublingual PRN MDD 3 tabs Qty: 25 4RF metoprolol succinate 50 mg tablet extended release 24 hr 25 mg PO DAILY Qty: 45 3RF lisinopril 30 mg tablet 30 mg PO DAILY Qty: 90 3RF Nephrocaps 1 mg capsule 1 cap PO DAILY Qty: 90 folic acid 400 mcg tablet 0.4 mg PO DAILY amoxicillin-pot clavulanate 875-125 mg tablet 1 tab PO BID 9 Days Qty: 18 0RF Discharge Instructions Instructions: Hematuria (ED) Additional Instructions: Please call and reach urology first thing in the morning to discuss today's emergency department visit and to schedule follow-up appointment. Stay well-hydrated, drinking plenty of fluids throughout the day. Continue taking all your medications as prescribed. Return to emergency care if you develop new abdominal pain, nausea/vomiting, clogging of your catheter, blood in your stool, or if you are very worried and need to be rechecked again immediately Referrals: Alexis Jackson MD [ [facility] STAFF PHYSICIAN] - HPI General Date/Time Provider Initiated Documentation: 02/29/24 20:33. HPI Narrative: Clinotn is an 84-year-old male with history of T2DM, stent placement, bladder tumor status post TURBT, and recent diagnosis of diverticulitis on antibiotics who presents to the emergency department today for evaluation of hematuria. He reports he had his Alexandre catheter removed yesterday at the urology clinic, was advised that he may have some hematuria in the first few voids after this. However, he has had increasing hematuria with voiding throughout the day today, with large blood clots passing. He denies fever/chills, abdominal pain, testicular or penile complaints, dysuria, feeling of incomplete bladder emptying, change in bowel function or blood in stool. He is anticoagulated with 81 mg ASA daily. He does have a history of intermittant hematuria for the last few months; is being evaluated by urology for this. Related Data Home Medications Medication Instructions Recorded Confirmed cholecalciferol (vitamin D3) 25 1 cap PO DAILY 02/06/13 02/29/24 mcg (1,000 unit) capsule glipizide 5 mg tablet 2.5 mg (1/2 x 5 mg) PO BID #90 tabs 07/08/22 02/29/24 aspirin 81 mg tablet,delayed 81 mg PO DAILY 07/19/22 02/29/24 release (Adult Low Dose Aspirin) blood sugar diagnostic (Blood #100 ea 01/19/23 02/12/24 Glucose Test strips) lancets #100 ea 01/19/23 02/12/24 blood-glucose meter #1 ea 01/23/23 02/12/24 nitroglycerin 0.4 mg sublingual 0.4 mg sublingual PRN #25 tabs 03/24/23 02/29/24 tablet (Nitrostat) metoprolol succinate 50 mg 25 mg (1/2 x 50 mg) PO DAILY #45 06/30/23 02/29/24 tablet,extended release 24 hr tabs finasteride 5 mg tablet 5 mg PO DAILY #90 tabs 07/19/23 02/29/24 tamsulosin 0.4 mg capsule (Flomax) 0.8 mg (2 x 0.4 mg) PO DAILY #180 07/19/23 02/29/24 caps lisinopril 30 mg tablet 30 mg PO DAILY #90 tabs 10/15/23 02/29/24 vitamin B complex and vitamin C 1 cap PO DAILY ##90 12/26/23 02/29/24 no.20-folic acid 1 mg capsule (Nephrocaps) folic acid 400 mcg tablet 0.4 mg PO DAILY 01/02/24 02/29/24 metformin 500 mg tablet 1,000 mg PO BID 01/11/24 02/29/24 amoxicillin 875 mg-potassium 1 tab PO BID 9 days #18 tabs 02/27/24 02/29/24 clavulanate 125 mg tablet clotrimazole 1 % topical cream 1 applic topical TID PRN rash #15 02/28/24 02/29/24 grams Previous Rx's Medication Instructions Recorded glipizide 5 mg tablet 2.5 mg (1/2 x 5 mg) PO BID #90 tabs 07/08/22 blood sugar diagnostic (Blood #100 ea 01/19/23 Glucose Test strips) lancets #100 ea 01/19/23 blood-glucose meter #1 ea 01/23/23 nitroglycerin 0.4 mg sublingual 0.4 mg sublingual PRN #25 tabs 03/24/23 tablet (Nitrostat) metoprolol succinate 50 mg 25 mg (1/2 x 50 mg) PO DAILY #45 06/30/23 tablet,extended release 24 hr tabs finasteride 5 mg tablet 5 mg PO DAILY #90 tabs 07/19/23 tamsulosin 0.4 mg capsule (Flomax) 0.8 mg (2 x 0.4 mg) PO DAILY #180 07/19/23 caps lisinopril 30 mg tablet 30 mg PO DAILY #90 tabs 10/15/23 amoxicillin 875 mg-potassium 1 tab PO BID 9 days #18 tabs 02/27/24 clavulanate 125 mg tablet clotrimazole 1 % topical cream 1 applic topical TID PRN rash #15 02/28/24 grams Allergies Allergy/AdvReac Type Severity Reaction Status Date / Time menthol Allergy Unknown WHEEZING Verified 02/29/24 20:50 aspirin Allergy sick to Verified 02/29/24 20:50 stomach General Stated Complaint: Urinary LILA: 3 Review of Systems Narrative: see HPI Exam Const General: cooperative, healthy appearing, comfortable and no acute distress Nutritional Appearance: average body habitus Cardio Rate: regular rate Rhythm: regular rhythm Heart Sounds: murmur GI Inspection: normal to inspection Palpation: soft and nontender Auscultation: normal bowel sounds Course Vital Signs Vital signs: Vital Signs Pulse 74 02/29/24 20:42 Respiratory Rate 18 02/29/24 20:42 Blood Pressure 174/74 H 02/29/24 20:42 Pulse Oximetry 98 02/29/24 20:42 Pulse 74 02/29/24 20:42 Respiratory Rate 18 02/29/24 20:42 Respiratory Effort Normal 02/29/24 20:49 Blood Pressure 174/74 H 02/29/24 20:42 Blood Pressure Position Sitting 02/29/24 20:42 Pulse Oximetry 98 02/29/24 20:42 Oxygen Delivery Method Room Air 02/29/24 20:42 Oxygen Flow Rate 0 02/29/24 20:42 Medical Decision Making Clinton is an 84-year-old male with history of T2DM, stent placement, bladder tumor status post TURBT, and recent diagnosis of diverticulitis on antibiotics who presents to the emergency department today for evaluation of hematuria. He reports he had his Alexandre catheter removed yesterday at the urology clinic, was advised that he may have some hematuria in the first few voids after this. However, he has had increasing hematuria with voiding throughout the day today, with large blood clots passing. He denies fever/chills, abdominal pain, testicular or penile complaints, dysuria, feeling of incomplete bladder emptying, change in bowel function or blood in stool. He is anticoagulated with 81 mg ASA daily. He does have a history of intermittant hematuria for the last few months; is being evaluated by urology for this. Physical exam reassuring. Abdomen soft, nondistended, nontender to palpation with normal active bowel sounds. Normal rate and rhythm, heart murmur noted. Easy work of breathing, lung sounds clear bilaterally. No CVA tenderness. History and presentation consistent with uncomplicated hematuria; likely postprocedural abdominal related to bladder tumors also possible. No red flags on physical exam or history concerning for nephrolithiasis or UTI. Labs drawn to rule out severe anemia or kidney dysfunction; CBC shows mild anemia only slightly decreased from previous, BMP notable for hyponatremia unchanged from baseline. UA remarkable for red turbid urine with greater than 50 RBCs per hpf. As patient does have significant hematuria with urinary retention, Alexandre catheter placed and bladder irrigation performed until urine remained clear. Patient tolerated procedure well. Patient to be discharged home with Alexandre catheter in place and close urology follow-up Reviewed discharge instructions with patient and his , including importance of follow-up with urology. They will call urology clinic first thing in the morning to discuss today's emergency department visit and schedule follow-up. Reviewed red flags indicate need for return to emergency care. Quality:SDOH Health Related Social Needs: No Data to Display PFSH All Active Problems (Updated 02/29/24 @ 23:07 by Radha Pham) Hematuria (Acute) Diverticulitis (Chronic) Heart murmur (Acute) Hyponatremia (Acute) Incomplete emptying of bladder (Acute) Closed right clavicular fracture (Acute 10/08/22) Arthritis of left knee (Acute) Bradycardia (Acute) Constipation (Acute) Anal and rectal polyp (Acute) Gastroesophageal reflux disease (Acute) Status post coronary artery stent placement (Acute) Sensorineural hearing loss (SNHL) of both ears (Acute 03/01/18) Primary osteoarthritis of right knee (Acute 08/02/16) Non-toxic multinodular goiter (Acute) Lipoma of neck (Acute 03/01/18) Essential hypertension (Chronic 07/24/13) Diabetic retinopathy (Acute) MILD IN LEFT EYE~OPTICAL EXPRESSIONS 08/12/15 Diabetes mellitus (Chronic 02/08/13) Arthritis (Acute) Medical History White coat syndrome with hypertension Stated per patient BPH w urinary obs/LUTS (03/01/18) Atherosclerosis of [place] coronary artery Asthma Change in facial mole not suspect- [place] [facility] History S/P cystoscopy Stent placement (~05/2001) 05/30 2 STENTS LAD 11/2001 AND 02/2002 CLEANED BLOCKED STENT (WAS SCAR BUILDUP) KJG (below) Patient report radiation therapy in [facility] to correct scar formation. He believes bare metal stents were placed. Family History Mother , 91 Epilepsy Hyperlipidemia Parkinson disease Father , 73 Essential hypertension Personal history of malignant neoplasm SKIN Stroke Sister Diabetes Essential hypertension Heart disease Hyperlipidemia Brother Heart disease Stroke Pacemaker Parkinson disease Brother Diabetes Heart disease Stroke Brother Diabetes Essential hypertension Heart disease Hyperlipidemia Grandfather Diabetes Heart disease Stroke Grandfather Stroke Grandmother Essential hypertension Depression Heart disease Stroke Grandmother Essential hypertension Hyperlipidemia Stroke Daughter Diabetes Asthma Daughter Diabetes Heart disease VALVE REPLACEMENT Pancreatic cancer Social History Smoking/Tobacco Use Status: Former Tobacco Use Quit Date: 10/30/81 Tobacco: How many years used: 14 Smoking risk assessment performed?: Yes Alcohol Intake: current Alcohol Intake frequency: 0-2 drinks per day Alcohol type: wine and hard liquor Drug use: Never Substance use type: does not use Caregiver/Support person: No Household members: spouse Housing: house Communication Needs: Hard of Hearing Do you need help understanding health information?: Rarely Pets and animals: No Sexually active: No Do you think of yourself as: straight/heterosexual Current gender identity: male What is your relationship status?: How often do you talk on the phone with friends or family?: twice per week How often do you get together with friends or relatives?: three or more times per week How often do you attend oriental orthodox or quaker services?: 1-3 times per year Do you belong to any clubs or organized social groups?: no Panel score (0-1 are the most socially isolated patients): 2 What type of physical activity do you participate in: regular exercise Duration: > 90 minutes/day Frequency: 3-4 times per week Scarlett/Confucianism: Episcopalian Special scarlett needs: No Seatbelt use: always Helmet use: Yes Helmet use: sometimes 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
[2024-02-29 21:23] LABS: C & S Indicated? No; RBC >50 HPF (0-2)
[2024-02-29 21:38] LABS: Abs Immature Grans 0.02 10^3/uL (0.0-0.06); Absolute Basophil Count 0.02 10^3/uL (0.0-0.2); Absolute Eosinophil Count 0.09 10^3/uL (0.0-0.7); Absolute Lymphocyte Count 0.83 10^3/uL (1.2-3.4); Absolute Monocyte Count 0.58 10^3/uL (0.1-0.8); Absolute Neutrophil Count 3.05 10^3/uL (1.2-6.7); Basophils % 0.4 %; HCT 32.9 % (40.0-50.0); HGB 11.7 g/dL (13.5-17.5); Immature Grans % 0.4 %; Lymphocytes % 18.1 %; MCH 32.6 pg (27.0-33.0); MCHC 35.6 % (32.0-36.0); MCV 92 fL (80-95); MPV 9.4 fL (8.0-11.0); Monocytes % 12.6 %; Neutrophils % 66.5 %; Platelet Count 158 10^3/uL (130-400); RBC 3.59 10^6/uL (4.36-5.78); RDW 11.7 % (11.8-14.1); RDW-SD 39.6 fL; WBC 4.59 10^3/uL (4.4-10.8)
[2024-02-29 21:48] LABS: Anion Gap 5.5 mmol/L (3-11); BUN 8 mg/dL (7-18); CO2 26.5 mmol/L (21.0-32.0); CREATININE 0.7 mg/dL (0.70-1.30); Calcium 8.7 mg/dL (8.5-10.1); Chloride 93 mmol/L (98-107); Estimated GFR 91.42 (mL/min/1.73m2); Glucose 158 mg/dL (74-106); Potassium 4.8 mmol/L (3.5-5.1); Sodium 125 mmol/L (136-145)
== END 2024-03-01 00:01 | disposition home or self-care (01) ==
PROVIDERS: Emergency Provider Nurse Practitioner Family; PCP Nurse Practitioner Family
DX: R31.0 Gross hematuria (principal); R39.14 Feeling of incomplete bladder emptying; Z98.890 Other specified postprocedural states
CPT/HCPCS: 51798; 80048; 99283; 81003; 81015; 85025

== ENCOUNTER → 2024-03-05 08:15 | Outpatient (BNVA) | payer MEDICARE, SELFPAY | PROVIDERS: PCP Nurse Practitioner Family; Referring Provider Nurse Practitioner Family; Visit Provider Nurse Practitioner Gerontology | DX: R31.9 Hematuria, unspecified (principal); R33.8 Other retention of urine | CPT/HCPCS: 99213 ==

== ENCOUNTER → 2024-03-14 10:45 | Outpatient (BNVA) | payer MEDICARE, SELFPAY | PROVIDERS: PCP Nurse Practitioner Family; Referring Provider Nurse Practitioner Family; Visit Provider Urology | DX: R31.9 Hematuria, unspecified (principal); R33.8 Other retention of urine | CPT/HCPCS: 99214 ==

== ENCOUNTER 2024-03-28 17:11 | Emergency (ER) | payer MEDICARE, SELFPAY ==
[2024-03-28] VITALS (12 sets, daily range): BP systolic 125–169; BP diastolic 52–104; PULSE 60–94; RESP 18; TEMP 36.6; O2SAT 92–100
--- NOTE | 2024-03-28 17:42 | ED.GENADUL_ITS ---
Discharge Plan Disposition Patient Disposition: Home Condition: Improving Discharge Details Chief Complaint: Urinary Clinical Impression: Hematuria Primary Care Provider: Delaney Gaviria ED Provider: Jatinder Benitez Home Meds and New Rx's Prescriptions: No Action glipizide 5 mg tablet 2.5 mg PO BID Qty: 90 4RF Rx Instructions: dose increase aspirin [Adult Low Dose Aspirin] 81 mg tablet,delayed release (DR/EC) 81 mg PO DAILY clotrimazole 1 % cream 1 applic topical TID PRN (Reason: rash) Qty: 15 0RF Patient Comments: Yeast groin area tamsulosin [Flomax] 0.4 mg capsule 0.8 mg PO DAILY Qty: 180 3RF Rx Instructions: Note dosage increase finasteride 5 mg tablet 5 mg PO DAILY Qty: 90 3RF metformin 500 mg tablet 1,000 mg PO BID cholecalciferol (vitamin D3) 1,000 UNIT capsule 1 cap PO DAILY (DME) lancets Misc See Rx Instructions .MEDSUPPLY Qty: 100 3RF Rx Instructions: Check sugars once daily. No insulin. Dispense covered brand. Dx: E11.9 to maintain HbA1c less than 7%. (DME) Blood Glucose Test Strip See Rx Instructions .MEDSUPPLY Qty: 100 3RF Rx Instructions: Check sugars once per day. No insulin. Dispense covered brand. Dx: E11.9 to maintain HbA1c less than 7%. (DME) blood-glucose meter Misc See Rx Instructions .MEDSUPPLY Qty: 1 0RF Rx Instructions: Check blood sugar once daily. No insulin. Dispense covered brand. Dx: E11.9 to maintain HbA1c less than 7%. nitroglycerin [Nitrostat] 0.4 mg tablet, sublingual 0.4 mg Sublingual PRN MDD 3 tabs Qty: 25 4RF metoprolol succinate 50 mg tablet extended release 24 hr 25 mg PO DAILY Qty: 45 3RF lisinopril 30 mg tablet 30 mg PO DAILY Qty: 90 3RF Nephrocaps 1 mg capsule 1 cap PO DAILY Qty: 90 folic acid 400 mcg tablet 0.4 mg PO DAILY Discharge Instructions Instructions: Hematuria (ED) Additional Instructions: Please follow-up with urology team next week. Please return to the emergency room for any worsening symptoms HPI General Date/Time Provider Initiated Documentation: 03/28/24 17:35 . HPI Narrative: 84-year-old male on aspirin presents with hematuria and passing blood clots over the last day, 3 weeks ago had a transurethral bladder biopsy performed which was negative for malignancy. Patient has had history of hematuria in the past requiring catheterization. No fevers chills nausea or vomiting. Feels better after passing a large clot was having some suprapubic fullness Related Data Home Medications Medication Instructions Recorded Confirmed cholecalciferol (vitamin D3) 25 1 cap PO DAILY 02/06/13 03/28/24 mcg (1,000 unit) capsule glipizide 5 mg tablet 2.5 mg (1/2 x 5 mg) PO BID #90 tabs 07/08/22 03/28/24 aspirin 81 mg tablet,delayed 81 mg PO DAILY 07/19/22 03/28/24 release (Adult Low Dose Aspirin) blood sugar diagnostic (Blood #100 ea 01/19/23 03/28/24 Glucose Test strips) lancets #100 ea 01/19/23 03/28/24 blood-glucose meter #1 ea 01/23/23 03/28/24 nitroglycerin 0.4 mg sublingual 0.4 mg sublingual PRN #25 tabs 03/24/23 03/28/24 tablet (Nitrostat) metoprolol succinate 50 mg 25 mg (1/2 x 50 mg) PO DAILY #45 06/30/23 03/28/24 tablet,extended release 24 hr tabs finasteride 5 mg tablet 5 mg PO DAILY #90 tabs 07/19/23 03/28/24 tamsulosin 0.4 mg capsule (Flomax) 0.8 mg (2 x 0.4 mg) PO DAILY #180 07/19/23 03/28/24 caps lisinopril 30 mg tablet 30 mg PO DAILY #90 tabs 10/15/23 03/28/24 vitamin B complex and vitamin C 1 cap PO DAILY ##90 12/26/23 03/28/24 no.20-folic acid 1 mg capsule (Nephrocaps) folic acid 400 mcg tablet 0.4 mg PO DAILY 01/02/24 03/28/24 metformin 500 mg tablet 1,000 mg PO BID 01/11/24 03/28/24 clotrimazole 1 % topical cream 1 applic topical TID PRN rash #15 02/28/24 03/28/24 grams Previous Rx's Medication Instructions Recorded glipizide 5 mg tablet 2.5 mg (1/2 x 5 mg) PO BID #90 tabs 07/08/22 blood sugar diagnostic (Blood #100 ea 01/19/23 Glucose Test strips) lancets #100 ea 01/19/23 blood-glucose meter #1 ea 01/23/23 nitroglycerin 0.4 mg sublingual 0.4 mg sublingual PRN #25 tabs 03/24/23 tablet (Nitrostat) metoprolol succinate 50 mg 25 mg (1/2 x 50 mg) PO DAILY #45 06/30/23 tablet,extended release 24 hr tabs finasteride 5 mg tablet 5 mg PO DAILY #90 tabs 07/19/23 tamsulosin 0.4 mg capsule (Flomax) 0.8 mg (2 x 0.4 mg) PO DAILY #180 07/19/23 caps lisinopril 30 mg tablet 30 mg PO DAILY #90 tabs 10/15/23 clotrimazole 1 % topical cream 1 applic topical TID PRN rash #15 02/28/24 grams Allergies Allergy/AdvReac Type Severity Reaction Status Date / Time menthol Allergy Unknown WHEEZING Verified 03/01/24 15:37 aspirin Allergy sick to Verified 03/01/24 15:37 stomach General Stated Complaint: Urinary LILA: 3 Review of Systems Narrative: Review of Systems Constitutional: negative Eyes: negative ENT: negative Cardiovascular: negative Respiratory: negative Gastrointestinal: negative : Hematuria Musculoskeletal: negative Skin: negative Neurologic: negative Psych: negative Exam Narrative Exam Narrative: Physical Examination General: alert, awake, cooperative, resting comfortably, no acute distress HEENT: normocephalic, atraumatic Neck: supple, trachea midline; full ROM Chest: normal to inspection Respiratory: normal respiratory effort, speaking in full sentences Cardiac: regular rate, regular rhythm, S1S2 intact, no murmurs rubs or gallops GI: abdomen soft, non-tender, non-distended; no palpable mass or hepatosplenomegaly : Mild suprapubic fullness Skin: no lesions, rashes or trauma appreciated Neuro: AAOx3, normal speech, moving all extremities Psych: Appropriate mood and affect Course Vital Signs Vital signs: Vital Signs Temperature 36.6 C 03/28/24 17:21 Pulse 92 H 03/28/24 17:21 Respiratory Rate 18 03/28/24 17:21 Blood Pressure 169/104 H 03/28/24 17:21 Pulse Oximetry 97 03/28/24 17:21 Temperature 36.6 C 03/28/24 17:21 Temperature Source Tympanic 03/28/24 17:21 Pulse 92 H 03/28/24 17:21 Respiratory Rate 18 03/28/24 17:21 Blood Pressure 169/104 H 03/28/24 17:21 Pulse Oximetry 97 03/28/24 17:21 Oxygen Delivery Method Room Air 03/28/24 17:21 Oxygen Flow Rate 0 03/28/24 17:21 Medical Decision Making 84-year-old male history of hematuria, recent transurethral bladder biopsy performed 3 weeks ago given recurrent hematuria, negative for malignancy, pr esents with suprapubic fullness passing large clots in urine over the last day. Patient is on aspirin. Feeling some relief after passing large clots into bedside basin, some suprapubic fullness on examination nonperitoneal. Will place three-way Alexandre and perform continuous bladder irrigation until urine is clear. Likely believe Alexandre in place and have patient follow-up with urology team. 20: 12 patient resting notably no acute distress. Urine clearing after continuous bladder irrigation. Now clear pink. Patient much more comfortable. Will be given urology follow-up for next week. Home care instructions and return precautions given. Alexandre catheter be left in place Quality:SDOH Health Related Social Needs: 2 No Data to Display PFSH All Active Problems (Updated 03/28/24 @ 20:13 by Jatinder Benitez MD) Hematuria (Acute) Hematuria (Acute) Diverticulitis (Chronic) Heart murmur (Acute) Hyponatremia (Acute) Incomplete emptying of bladder (Acute) Closed right clavicular fracture (Acute 10/08/22) Arthritis of left knee (Acute) Bradycardia (Acute) Constipation (Acute) Anal and rectal polyp (Acute) Gastroesophageal reflux disease (Acute) Status post coronary artery stent placement (Acute) Sensorineural hearing loss (SNHL) of both ears (Acute 03/01/18) Primary osteoarthritis of right knee (Acute 08/02/16) Non-toxic multinodular goiter (Acute) Lipoma of neck (Acute 03/01/18) Essential hypertension (Chronic 07/24/13) Diabetic retinopathy (Acute) MILD IN LEFT EYE~OPTICAL EXPRESSIONS 08/12/15 Diabetes mellitus (Chronic 02/08/13) Arthritis (Acute) Medical History White coat syndrome with hypertension Stated per patient BPH w urinary obs/LUTS (03/01/18) Atherosclerosis of [place] coronary artery Asthma Change in facial mole not suspect- [place] [facility] [place] History S/P cystoscopy Stent placement (~05/2001) 05/30 2 STENTS LAD 11/2001 AND 02/2002 CLEANED BLOCKED STENT (WAS SCAR BUILDUP) KJG (below) Patient report radiation therapy in [facility] to correct scar formation. He believes bare metal stents were placed. Family History Mother , 91 Epilepsy Hyperlipidemia Parkinson disease Father , 73 Essential hypertension Personal history of malignant neoplasm SKIN Stroke Sister Diabetes Essential hypertension Heart disease Hyperlipidemia Brother Heart disease Stroke Pacemaker Parkinson disease Brother Diabetes Heart disease Stroke Brother Diabetes Essential hypertension Heart disease Hyperlipidemia Grandfather Diabetes Heart disease Stroke Grandfather Stroke Grandmother Essential hypertension Depression Heart disease Stroke Grandmother Essential hypertension Hyperlipidemia Stroke Daughter Diabetes Asthma Daughter Diabetes Heart disease VALVE REPLACEMENT Pancreatic cancer Social History Smoking/Tobacco Use Status: Former Tobacco Use Quit Date: 10/30/81 Tobacco: How many years used: 14 Smoking risk assessment performed?: Yes Alcohol Intake: current Alcohol Intake frequency: 0-2 drinks per day Alcohol type: wine and hard liquor Drug use: Never Substance use type: does not use Caregiver/Support person: No Household members: spouse Housing: house Communication Needs: Hard of Hearing Do you need help understanding health information?: Rarely Pets and animals: No Sexually active: No Do you think of yourself as: straight/heterosexual Current gender identity: male What is your relationship status?: How often do you talk on the phone with friends or family?: twice per week How often do you get together with friends or relatives?: three or more times per week How often do you attend sikh or jehovah's witness services?: 1-3 times per year Do you belong to any clubs or organized social groups?: no Panel score (0-1 are the most socially isolated patients): 2 What type of physical activity do you participate in: regular exercise Duration: > 90 minutes/day Frequency: 3-4 times per week Scarlett/Evangelical: Moravian Special scarlett needs: No Seatbelt use: always Helmet use: Yes Helmet use: sometimes 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
[2024-03-28 18:34] LABS: Clarity Cloudy (Clear)
[2024-03-28 18:35] LABS: Bilirubin Negative (Negative); Blood Moderate (Negative); Glucose 100 mg/dL (Negative); Ketones Negative (Negative); Leukocyte Esterase Trace (Negative); Nitrite Negative (Negative); Specific Gravity >= 1.030 (1.005-1.025); Urobilinogen 0.2 mg/dL (Up to 0.2)
[2024-03-28 18:36] LABS: C & S Indicated? Yes; RBC >50 HPF (0-2)
--- NOTE | 2024-03-28 20:45 | NUR.NOTE ---
Nursing Note: this RN gave patient DC teaching regarding p[facility]man care. Patient did teach back and verbalized he understood DC teaching
== END 2024-03-28 20:48 | disposition home or self-care (01) ==
PROVIDERS: Emergency Provider Emergency Medicine; PCP Nurse Practitioner Family
DX: R31.9 Hematuria, unspecified (principal); Z98.890 Other specified postprocedural states; Z79.82 Long term (current) use of aspirin; E11.9 Type 2 diabetes mellitus without complications; I10 Essential (primary) hypertension; Z79.899 Other long term (current) drug therapy
CPT/HCPCS: 51702; 87077; 99284; 81003; 81015; 87086; 87186

== ENCOUNTER → 2024-04-04 09:14 | Outpatient (BNVA) | payer MEDICARE, SELFPAY | PROVIDERS: PCP Nurse Practitioner Family; Referring Provider Nurse Practitioner Family; Visit Provider Urology | DX: R33.8 Other retention of urine (principal); R31.9 Hematuria, unspecified | CPT/HCPCS: 99213 ==

== ENCOUNTER → 2024-05-03 10:21 | Outpatient (BNVA) | payer MEDICARE, SELFPAY | PROVIDERS: PCP Nurse Practitioner Family; Referring Provider Nurse Practitioner Family; Visit Provider Urology | DX: N39.0 Urinary tract infection, site not specified (principal); R32 Unspecified urinary incontinence; R39.15 Urgency of urination | CPT/HCPCS: 81003; 99213 ==

== ENCOUNTER 2024-05-03 15:30 | Outpatient (REF) | payer MEDICARE, SELFPAY | END 2024-05-03 15:31 | disposition home or self-care (01) | LOC: LBN 15:30 | PROVIDERS: PCP Nurse Practitioner Family; Visit Provider Urology | DX: R31.9 Hematuria, unspecified (principal) | CPT/HCPCS: 87077; 87086; 87186 ==

== ENCOUNTER → 2024-05-22 08:02 | Outpatient (BNVA) | payer MEDICARE, SELFPAY | PROVIDERS: PCP Nurse Practitioner Family; Referring Provider Nurse Practitioner Family; Visit Provider Nurse Practitioner Gerontology | DX: N40.1 Benign prostatic hyperplasia with lower urinary tract symptoms (principal); N13.8 Other obstructive and reflux uropathy; N39.0 Urinary tract infection, site not specified; R33.8 Other retention of urine | CPT/HCPCS: 51798; 81003; 99214 ==

== ENCOUNTER 2024-05-22 10:53 | Outpatient (REF) | payer MEDICARE, SELFPAY | END 2024-05-22 10:54 | disposition home or self-care (01) | LOC: LBN 10:53 | PROVIDERS: PCP Nurse Practitioner Family; Visit Provider Nurse Practitioner Gerontology | DX: N39.0 Urinary tract infection, site not specified (principal) | CPT/HCPCS: 87086 ==

== ENCOUNTER 2024-08-08 03:02 | Outpatient (CLI) | payer MEDICARE, SELFPAY ==
[2024-08-08 12:31] LABS: Anion Gap 6.9 mmol/L (3-11); BUN 14 mg/dL (7-18); CO2 28.1 mmol/L (21.0-32.0); CREATININE 0.9 mg/dL (0.70-1.30); Calcium 9.3 mg/dL (8.5-10.1); Calculated LDL 80 mg/dL (<100); Chloride 99 mmol/L (98-107); Cholesterol 144 mg/dL (<200); Estimated GFR 84.74 (mL/min/1.73m2); Glucose 172 mg/dL (74-106); HDL Cholesterol 53 mg/dL (40-60); Potassium 5.1 mmol/L (3.5-5.1); Sodium 134 mmol/L (136-145); Triglyceride 56 mg/dL (<150)
[2024-08-08 13:03] LABS: Hemoglobin A1C 7.6 % (<5.7)
== END 2024-08-08 03:03 | disposition home or self-care (01) ==
LOC: LOS 03:02
PROVIDERS: PCP Nurse Practitioner Family; Visit Provider Nurse Practitioner Family
DX: I10 Essential (primary) hypertension (principal); E11.9 Type 2 diabetes mellitus without complications; R01.1 Cardiac murmur, unspecified; R31.9 Hematuria, unspecified; Z95.5 Presence of coronary angioplasty implant and graft
CPT/HCPCS: 80048; 80061; 83036

== ENCOUNTER → 2024-08-13 10:11 | Outpatient (BNVA) | payer MEDICARE, SELFPAY | PROVIDERS: PCP Nurse Practitioner Family; Referring Provider Nurse Practitioner Family; Visit Provider Urology | DX: R33.9 Retention of urine, unspecified (principal); N39.0 Urinary tract infection, site not specified; R39.9 Unspecified symptoms and signs involving the genitourinary system | CPT/HCPCS: 51798; 81003; 99214 ==

== ENCOUNTER 2024-09-22 21:43 | Emergency (ER) | payer MEDICARE, SELFPAY ==
[2024-09-22 21:44] VITALS: BP 185/88; PULSE 66; RESP 18; TEMP 36.1; O2SAT 96
[2024-09-22 22:33] LABS: Clarity Cloudy (Clear); Specific Gravity 1.012 (1.005-1.025)
[2024-09-22 22:34] LABS: Bilirubin Color Interference (Negative); Blood Color Interference (Negative); Glucose Color Interference mg/dL (Negative); Ketones Color Interference mg/dL (Negative); Leukocyte Esterase Color Interference (Negative); Nitrite Color Interference (Negative); Urobilinogen Color Interference mg/dL (Up to 0.2)
[2024-09-22 22:35] LABS: RBC >50 HPF (0-2)
[2024-09-22 22:36] LABS: C & S Indicated? Yes
[2024-09-22 22:59] VITALS: BP 148/64; PULSE 68; RESP 18; TEMP 37.4; O2SAT 97
--- NOTE | 2024-09-22 23:04 | ED.GENADUL_ITS ---
Discharge Plan Disposition Patient Disposition: Home Condition: Stable Discharge Details Clinical Impression: Acute UTI, Hematuria Primary Care Provider: Delaney Gaviria ED Provider: Mariely Franco Home Meds and New Rx's Prescriptions: New ciprofloxacin HCl [Cipro] 500 mg tablet 500 mg PO BID Qty: 14 0RF Continued glipizide 5 mg tablet 2.5 mg PO BID Qty: 90 4RF Rx Instructions: dose increase aspirin [Adult Low Dose Aspirin] 81 mg tablet,delayed release (DR/EC) 81 mg PO DAILY clotrimazole 1 % cream 1 applic topical TID PRN (Reason: rash) Qty: 15 0RF Patient Comments: Yeast groin area lisinopril 30 mg tablet 30 mg PO DAILY Qty: 90 3RF metoprolol succinate 50 mg tablet extended release 24 hr 25 mg PO DAILY Qty: 45 3RF nitroglycerin [Nitrostat] 0.4 mg tablet, sublingual 0.4 mg Sublingual PRN MDD 3 tabs Qty: 25 4RF metformin 500 mg tablet 1,000 mg PO BID Qty: 360 3RF finasteride 5 mg tablet 5 mg PO DAILY Qty: 90 3RF tamsulosin [Flomax] 0.4 mg capsule 0.8 mg PO DAILY Qty: 180 3RF Rx Instructions: Note dosage increase cholecalciferol (vitamin D3) 1,000 UNIT capsule 1 cap PO DAILY (DME) blood-glucose meter Misc See Rx Instructions .MEDSUPPLY Qty: 1 0RF Rx Instructions: Check blood sugar once daily. No insulin. Dispense covered brand. Dx: E11.9 to maintain HbA1c less than 7%. Nephrocaps 1 mg capsule 1 cap PO DAILY Qty: 90 folic acid 400 mcg tablet 0.4 mg PO DAILY (DME) Blood Glucose Test Strip See Rx Instructions .MEDSUPPLY Qty: 100 3RF Rx Instructions: Check sugars once per day. No insulin. Dispense covered brand. Dx: E11.9 to maintain HbA1c less than 7%. (DME) lancets Misc See Rx Instructions .MEDSUPPLY Qty: 100 3RF Rx Instructions: Check sugars once daily. No insulin. Dispense covered brand. Dx: E11.9 to maintain HbA1c less than 7%. Discharge Instructions Instructions: Blood in Urine (Hematuria), Adult ED, Urinary tract infection - Discharge instructions Additional Instructions: Take the antibiotic as prescribed for the next 7 days Make sure you are having at least eight 8 ounce glasses of water daily Should he develop difficulty urinating, fever, chills, or persistent blood in your urine greater than 48 hours please return immediately for reassessment I have placed you on the referral list to follow-up with Dr. Jackson, please call if you do not hear from the office in the next 48 hours to schedule an a ppointment Referrals: Alexis Jackson MD [ [facility]] - 2 days HPI General Date/Time Provider Initiated Documentation: 09/22/24 21:56 . HPI Narrative: This 84-year-old male presents with gross hematuria which started today. He has had clots which is why he presents. He states he has a history of urinary tract infections associated with his gross hematuria in the past. He states he is able to empty completely. Patient denies any additional complaints at this time. He denies any fever chills weakness or dizziness Related Data Home Medications ?Medication ?Instructions ?Recorded ?Confirmed cholecalciferol (vitamin D3) 25 1 cap PO DAILY 02/06/13 09/22/24 mcg (1,000 unit) capsule glipizide 5 mg tablet 2.5 mg (1/2 x 5 mg) PO BID #90 tabs 07/08/22 09/22/24 aspirin 81 mg tablet,delayed 81 mg PO DAILY 07/19/22 09/22/24 release (Adult Low Dose Aspirin) blood-glucose meter #1 ea 01/23/23 09/22/24 vitamin B complex and vitamin C 1 cap PO DAILY ##90 12/26/23 09/22/24 no.20-folic acid 1 mg capsule (Nephrocaps) folic acid 400 mcg tablet 0.4 mg PO DAILY 01/02/24 09/22/24 clotrimazole 1 % topical cream 1 applic topical TID PRN rash #15 02/28/24 09/22/24 grams finasteride 5 mg tablet 5 mg PO DAILY #90 tabs 04/04/24 09/22/24 tamsulosin 0.4 mg capsule (Flomax) 0.8 mg (2 x 0.4 mg) PO DAILY #180 04/04/24 09/22/24 caps lisinopril 30 mg tablet 30 mg PO DAILY #90 tabs 04/18/24 09/22/24 metformin 500 mg tablet 1,000 mg (2 x 500 mg) PO BID #360 04/18/24 09/22/24 tabs metoprolol succinate 50 mg 25 mg (1/2 x 50 mg) PO DAILY #45 04/18/24 09/22/24 tablet,extended release 24 hr tabs nitroglycerin 0.4 mg sublingual 0.4 mg sublingual PRN #25 tabs 04/18/24 09/22/24 tablet (Nitrostat) blood sugar diagnostic (Blood #100 ea 05/27/24 09/22/24 Glucose Test strips) lancets #100 ea 05/27/24 09/22/24 ciprofloxacin HCl 500 mg tablet 500 mg PO BID #14 tabs 09/22/24 (Cipro) Previous Rx's ?Medication ?Instructions ?Recorded glipizide 5 mg tablet 2.5 mg (1/2 x 5 mg) PO BID #90 tabs 07/08/22 blood-glucose meter #1 ea 01/23/23 clotrimazole 1 % topical cream 1 applic topical TID PRN rash #15 02/28/24 grams finasteride 5 mg tablet 5 mg PO DAILY #90 tabs 04/04/24 tamsulosin 0.4 mg capsule (Flomax) 0.8 mg (2 x 0.4 mg) PO DAILY #180 04/04/24 caps lisinopril 30 mg tablet 30 mg PO DAILY #90 tabs 04/18/24 metformin 500 mg tablet 1,000 mg (2 x 500 mg) PO BID #360 04/18/24 tabs metoprolol succinate 50 mg 25 mg (1/2 x 50 mg) PO DAILY #45 04/18/24 tablet,extended release 24 hr tabs nitroglycerin 0.4 mg sublingual 0.4 mg sublingual PRN #25 tabs 04/18/24 tablet (Nitrostat) blood sugar diagnostic (Blood #100 ea 05/27/24 Glucose Test strips) lancets #100 ea 05/27/24 ciprofloxacin HCl 500 mg tablet 500 mg PO BID #14 tabs 09/22/24 (Cipro) Allergies Allergy/AdvReac Type Severity Reaction Status Date / Time menthol Allergy Unknown WHEEZING Verified 09/22/24 21:47 aspirin Allergy sick to Verified 09/22/24 21:47 stomach General Stated Complaint: Urinary LILA: 3 Exam Narrative Exam Narrative: 84-year-old male, no acute distress, alert and oriented, no CVA tenderness, no abdominal tenderness, no pallor, cardiac rate rhythm regular, distal pulses intact Course Vital Signs Vital signs: Vital Signs Temperature 36.1 C L 09/22/24 21:44 Pulse 66 09/22/24 21:44 Respiratory Rate 18 09/22/24 21:44 Blood Pressure 185/88 H 09/22/24 21:44 Pulse Oximetry 96 09/22/24 21:44 Temperature 37.4 C 09/22/24 22:59 Temperature Source Temporal Artery Scan 09/22/24 21:44 Pulse 68 09/22/24 22:59 Respiratory Rate 18 09/22/24 22:59 Respiratory Effort Normal, Non-Labored 09/22/24 21:49 Blood Pressure 148/64 H 09/22/24 22:59 Blood Pressure Position Sitting 09/22/24 21:44 Pulse Oximetry 97 09/22/24 22:59 Oxygen Delivery Method Room Air 09/22/24 21:44 Oxygen Flow Rate 0 09/22/24 21:44 Lab/Test Results Lab/Test Results: 09/22/24 21:51 Urine - Reflex from Ua Urine Culture - Pending Laboratory Tests Range/Units 09/22/24 21:51 Urine Color (Yellow) Red Urine Clarity (Clear) Cloudy Urine pH Not Applicable Ur Specific [place] (1.005-1.025) 1.012 Urine Protein (Neg-Trace) mg/dL Color Interference Urine Ketones (Negative) mg/dL Color Interference Urine Blood (Negative) Color Interference Urine Nitrite (Negative) Color Interference Urine Bilirubin (Negative) Color Interference Urine Urobilinogen (Up to 0.2) mg/dL Color Interference Ur Leukocyte Esterase (Negative) Color Interference Urine RBC (0-2) HPF >50 H Urine WBC (0-5) HPF Ur Epithelial Cells Not Applicable Urine Crystals Not Applicable Urine Bacteria Not Applicable Urine Mucus Not Applicable Ur Culture Indicated? Yes Urine Glucose (Negative) mg/dL Color Interference Medical Decision Making 83-year-old male with complex medical history including that of UTIs and gross hematuria. Patient is been evaluated for the gross hematuria in the past and actually had a resection of the mass that was negative. Patient has no history of renal cell carcinoma or cancer. He is not anticoagulated. He states he is had gross hematuria in the past with urinary tract infections. I did review his CT scan from February 2024 in addition to a recent CBC and chemistry, creatinine is within normal limits patient has no history of anemia and is not anticoagulated. At this time I did review patient's prior urine and he does have a history of gross hematuria and he typically grows Pseudomonas. I will treat patient with ciprofloxacin 500 mg twice daily for the next 7 days. I did review patient's prior EKG which does not show QTc prolongation and creatinine 1 month ago was within normal limits. I placed patient on follow-up with Dr. Jackson for gross hematuria and complicated medical history. We did perform bladder scan and patient had residual 300 cc in his bladder. Dr. Jackson did tell patient that this is his baseline and patient does not feel that he needs a Alexandre catheter at this time. I do not see clots in patient's urine but it is a gross hematuria on presentation today. Patient is encouraged to return in 24 to 48 hours should the hematuria persist or should he have any difficulty urinating or fever or chills. Return precautions reviewed and patient expressed understanding, dis charged home in stable condition with stable vitals. Hemodynamically stable. Quality:SDOH Health Related Social Needs: No Data to Display PFSH All Active Problems (Updated 09/22/24 @ 22:50 by JESENIA Vincent) Hematuria (Acute) Acute UTI (Acute) Recurrent UTI (urinary tract infection) (Acute) Heart murmur (Acute) Hyponatremia (Acute) Incomplete emptying of bladder (Acute) Closed right clavicular fracture (Acute 10/08/22) Arthritis of left knee (Acute) Bradycardia (Acute) Constipation (Acute) Anal and rectal polyp (Acute) Gastroesophageal reflux disease (Acute) Status post coronary artery stent placement (Acute) Sensorineural hearing loss (SNHL) of both ears (Acute 03/01/18) Primary osteoarthritis of right knee (Acute 08/02/16) Non-toxic multinodular goiter (Acute) Lipoma of neck (Acute 03/01/18) Essential hypertension (Chronic 07/24/13) Diabetic retinopathy (Acute) MILD IN LEFT EYE~OPTICAL EXPRESSIONS 08/12/15 Diabetes mellitus (Chronic 02/08/13) Arthritis (Acute) Medical History White coat syndrome with hypertension Stated per patient BPH w urinary obs/LUTS (03/01/18) Atherosclerosis of [place] coronary artery Asthma Change in facial mole not suspect- sees [facility] [place] Surgical History S/P cystoscopy Stent placement (~05/2001) 05/30 2 STENTS LAD 11/2001 AND 02/2002 CLEANED BLOCKED STENT (WAS SCAR BUILDUP) KJG (below) Patient report radiation therapy in [facility] to correct scar formation. He believes bare metal stents were placed. Family History Mother , 91 Epilepsy Hyperlipidemia Parkinson disease Father , 73 Essential hypertension Personal history of malignant neoplasm SKIN Stroke Sister Diabetes Essential hypertension Heart disease Hyperlipidemia Brother Heart disease Stroke Pacemaker Parkinson disease Brother Diabetes Heart disease Stroke Brother Diabetes Essential hypertension Heart disease Hyperlipidemia Grandfather Diabetes Heart disease Stroke Grandfather Stroke Grandmother Essential hypertension Depression Heart disease Stroke Grandmother Essential hypertension Hyperlipidemia Stroke Daughter Diabetes Asthma Daughter Diabetes Heart disease VALVE REPLACEMENT Pancreatic cancer Social History (Updated 04/22/24 @ 13:17 by Rylee Olivera) Smoking/Tobacco Use Status: Former Tobacco Use tobacco type: cigarettes and cigars Quit Date: 10/30/67 Tobacco: How many years used: 14 Smoking risk assessment performed?: Yes Alcohol Intake: current Alcohol Intake frequency: 3 or more drinks per day Alcohol type: wine and hard liquor Drug use: Never Substance use type: does not use Caregiver/Support person: No Household members: spouse Housing: house Communication Needs: Hard of Hearing Do you need help understanding health information?: Rarely Pets and animals: No Sexually active: No Do you think of yourself as: straight/heterosexual Current gender identity: male What is your relationship status?: How often do you talk on the phone with friends or family?: twice per week How often do you get together with friends or relatives?: three or more times per week How often do you attend yazidism or anglican services?: 1-3 times per year Do you belong to any clubs or organized social groups?: no Panel score (0-1 are the most socially isolated patients): 2 What type of physical activity do you participate in: regular exercise Duration: > 90 minutes/day Frequency: 3-4 times per week Scarlett/Caodaism: Voodoo Special scarlett needs: No Seatbelt use: always Helmet use: Yes Helmet use: sometimes Drive intox 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 mobile lounge driver: No Additional Social history: Unable to assess privately, at side
== END 2024-09-22 23:02 | disposition home or self-care (01) ==
PROVIDERS: Emergency Medicine; Emergency Provider Physician Assistant; PCP Nurse Practitioner Family
DX: R31.0 Gross hematuria (principal); R30.0 Dysuria; N39.0 Urinary tract infection, site not specified; I10 Essential (primary) hypertension
CPT/HCPCS: 51798; 99283; 81003; 81015; 87086; 99284

== ENCOUNTER 2024-09-23 05:37 | Emergency (ER) | payer MEDICARE, SELFPAY ==
[2024-09-23] VITALS (23 sets, daily range): BP systolic 126–164; BP diastolic 50–87; PULSE 52–69; RESP 18; TEMP 36.2–36.4; O2SAT 92–99
--- NOTE | 2024-09-23 05:22 | ED.GENADUL_ITS ---
Discharge Plan Disposition Patient Disposition: Home Condition: Good Discharge Details Clinical Impression: Hematuria Primary Care Provider: Delaney Gaviria ED Provider: Josh Greene Home Meds and New Rx's Prescriptions: No Action glipizide 5 mg tablet 2.5 mg PO BID Qty: 90 4RF Rx Instructions: dose increase aspirin [Adult Low Dose Aspirin] 81 mg tablet,delayed release (DR/EC) 81 mg PO DAILY clotrimazole 1 % cream 1 applic topical TID PRN (Reason: rash) Qty: 15 0RF Patient Comments: Yeast groin area lisinopril 30 mg tablet 30 mg PO DAILY Qty: 90 3RF metoprolol succinate 50 mg tablet extended release 24 hr 25 mg PO DAILY Qty: 45 3RF nitroglycerin [Nitrostat] 0.4 mg tablet, sublingual 0.4 mg Sublingual PRN MDD 3 tabs Qty: 25 4RF metformin 500 mg tablet 1,000 mg PO BID Qty: 360 3RF finasteride 5 mg tablet 5 mg PO DAILY Qty: 90 3RF tamsulosin [Flomax] 0.4 mg capsule 0.8 mg PO DAILY Qty: 180 3RF Rx Instructions: Note dosage increase cholecalciferol (vitamin D3) 1,000 UNIT capsule 1 cap PO DAILY (DME) blood-glucose meter Misc See Rx Instructions .MEDSUPPLY Qty: 1 0RF Rx Instructions: Check blood sugar once daily. No insulin. Dispense covered brand. Dx: E11.9 to maintain HbA1c less than 7%. Nephrocaps 1 mg capsule 1 cap PO DAILY Qty: 90 folic acid 400 mcg tablet 0.4 mg PO DAILY (DME) Blood Glucose Test Strip See Rx Instructions .MEDSUPPLY Qty: 100 3RF Rx Instructions: Check sugars once per day. No insulin. Dispense covered brand. Dx: E11.9 to maintain HbA1c less than 7%. (DME) lancets Misc See Rx Instructions .MEDSUPPLY Qty: 100 3RF Rx Instructions: Check sugars once daily. No insulin. Dispense covered brand. Dx: E11.9 to maintain HbA1c less than 7%. ciprofloxacin HCl [Cipro] 500 mg tablet 500 mg PO BID Qty: 14 0RF Discharge Instructions Instructions: Alexandre Catheter Additional Instructions: At this time Alexandre catheter has been placed to allow passage of clots if any further develop. Please follow-up closely with Dr. Jackson. Please leave the Alexandre catheter in until you have followed up with Dr. Jackson. If you notice any worsening of your symptoms, or any new symptoms such as vomiting, diarrhea, fever, chills, shortness of breath, chest pain, numbness, weakness, or fainting , please return immediately to the emergency department for reevaluation. Please follow up with your primary care provider as soon as possible for reassessment and reevaluation. As always, it was a pleasure participating in your medical care today. Referrals: Alexis Jackson MD [ [facility] STAFF PHYSICIAN] - [facility] General Date/Time Provider Initiated Documentation: 09/23/24 06:13 . [facility] Narrative: This is a pleasant 84-year-old male with a past medical history of hematuria, urinary retention, who sees Dr. Jackson, diabetes, GERD, who is on daily aspirin but no blood thinner otherwise, who presents today for inability to urinate. Patient was here earlier this evening, he was seen and assessed by my colleague, evidence of a urinary tract infection. He was started on Cipro. He was able to urinate then without any significant acute retention, he was discharged home. Unfortunately he states that he has not been able to pee throughout the night, and feels notable pressure. He came in via EMS [facility] fo further assessment. He denies any other pain. He denies vomiting or diarrhea. No other complaints at this time. Related Data Home Medications ?Medication ?Instructions ?Recorded ?Confirmed cholecalciferol (vitamin D3) 25 1 cap PO DAILY 02/06/13 09/23/24 mcg (1,000 unit) capsule glipizide 5 mg tablet 2.5 mg (1/2 x 5 mg) PO BID #90 tabs 07/08/22 09/23/24 aspirin 81 mg tablet,delayed 81 mg PO DAILY 07/19/22 09/23/24 release (Adult Low Dose Aspirin) blood-glucose meter #1 ea 01/23/23 09/23/24 vitamin B complex and vitamin C 1 cap PO DAILY ##90 12/26/23 09/23/24 no.20-folic acid 1 mg capsule (Nephrocaps) folic acid 400 mcg tablet 0.4 mg PO DAILY 01/02/24 09/23/24 clotrimazole 1 % topical cream 1 applic topical TID PRN rash #15 02/28/24 09/23/24 grams finasteride 5 mg tablet 5 mg PO DAILY #90 tabs 04/04/24 09/23/24 tamsulosin 0.4 mg capsule (Flomax) 0.8 mg (2 x 0.4 mg) PO DAILY #180 04/04/24 09/23/24 caps lisinopril 30 mg tablet 30 mg PO DAILY #90 tabs 04/18/24 09/23/24 metformin 500 mg tablet 1,000 mg (2 x 500 mg) PO BID #360 04/18/24 09/23/24 tabs metoprolol succinate 50 mg 25 mg (1/2 x 50 mg) PO DAILY #45 04/18/24 09/23/24 tablet,extended release 24 hr tabs nitroglycerin 0.4 mg sublingual 0.4 mg sublingual PRN #25 tabs 04/18/24 09/23/24 tablet (Nitrostat) blood sugar diagnostic (Blood #100 ea 05/27/24 09/23/24 Glucose Test strips) lancets #100 ea 05/27/24 09/23/24 ciprofloxacin HCl 500 mg tablet 500 mg PO BID #14 tabs 09/22/24 09/23/24 (Cipro) Previous Rx's ?Medication ?Instructions ?Recorded glipizide 5 mg tablet 2.5 mg (1/2 x 5 mg) PO BID #90 tabs 07/08/22 blood-glucose meter #1 ea 01/23/23 clotrimazole 1 % topical cream 1 applic topical TID PRN rash #15 02/28/24 grams finasteride 5 mg tablet 5 mg PO DAILY #90 tabs 04/04/24 tamsulosin 0.4 mg capsule (Flomax) 0.8 mg (2 x 0.4 mg) PO DAILY #180 04/04/24 caps lisinopril 30 mg tablet 30 mg PO DAILY #90 tabs 04/18/24 metformin 500 mg tablet 1,000 mg (2 x 500 mg) PO BID #360 04/18/24 tabs metoprolol succinate 50 mg 25 mg (1/2 x 50 mg) PO DAILY #45 04/18/24 tablet,extended release 24 hr tabs nitroglycerin 0.4 mg sublingual 0.4 mg sublingual PRN #25 tabs 04/18/24 tablet (Nitrostat) blood sugar diagnostic (Blood #100 ea 05/27/24 Glucose Test strips) lancets #100 ea 05/27/24 ciprofloxacin HCl 500 mg tablet 500 mg PO BID #14 tabs 09/22/24 (Cipro) Allergies Allergy/AdvReac Type Severity Reaction Status Date / Time menthol Allergy Unknown WHEEZING Verified 09/22/24 21:47 aspirin Allergy sick to Verified 09/22/24 21:47 stomach General LILA: 3 Review of Systems All systems reviewed & are unremarkable except as noted in HPI and below Exam Narrative Exam Narrative: 1.Const: Well-nourished, Well-developed, appearing stated age 2.Eyes: PERRL, no conjunctival injection, and symmetrical lids. 3.ENT: Atraumatic external nose and ears. Moist MM. Neck: Symmetric, trachea midline, No thyromegaly. 4.CVS: +S1/S2, Peripheral pulses 2+ and equal in all extremities. Brisk capilla ry refill in all extremities. 5.RESP: Unlabored respiratory effort. Clear to auscultation bilaterally. No wheezes rales or rhonchi 6.GI: Soft, Nontender/Nondistended, No hepatosplenomegaly. No guarding or rebound. Genital exam demonstrates unremarkable penis, no active urethral bleeding. Mild suprapubic distention with palpation of the bladder. 7.MSK: Normocephalic/Atraumatic, Extremities w/o deformity or ttp No cyanosis or clubbing, Normal movement of all extremities 8.Skin: Warm, Dry. No rashes or lesions. 9.Neuro: integration developer II-XII grossly intact. Sensation grossly intact, no focal n eurologic deficits. 10.Psych: (AAO) x3. Appropriate mood and affect Medical Decision Making This is a pleasant 84-year-old male with a past medical history of hematuria, urinary retention, who sees Dr. Jackson, diabetes, GERD, who is on daily aspirin but no blood thinner otherwise, who presents today for inability to urinate. Patient was here earlier this evening, he was seen and assessed by my colleague, evidence of a urinary tract infection. He was started on Cipro. He was able to urinate then without any significant acute retention, he was discharged home. Unfortunately he states that he has not been able to pee throughout the night, and feels notable pressure. He came in via EMS tonight for further assessment. He denies any other pain. He denies vomiting or diarrhea. No other complaints at this time. Exam demonstrates well-appearing male, enlarged bladder is palpable and present. Greater than 999 mL in bladder. Alexandre catheter was placed with coud? tip catheter. Multiple clots and urine were removed. Patient's urine flowing well. Will monitor closely to see if it reclots. Patient will benefit from catheter for home use for the time being and follow-up with Dr. Jackson. 6:40 AM Patient is feeling much better, multiple clots been irrigated, he has had no repeat clogging. He feels well and would like to go home. Recommend close follow-up with Manuel. Will leave Alexandre catheter in. Recommend continued antibiotic use. I have extensively reviewed the treatment plan and discharge instructions with the patient. I have addressed all patient concerns at this time. The patient was made aware of what symptoms to monitor for that would warrant a return to the emergency department. Discussed the plan with the patient, they demonstrate verbal understanding and agreement with our assessment and plan at this time. The documentation in this chart was dictated using [employer] dictation software. Please excuse any dictation errors. Quality:SDOH Health Related Social Needs: No Data to Display PFSH All Active Problems (Updated 09/23/24 @ 06:15 by Josh Greene DO) Hematuria (Acute) Hematuria (Acute) Acute UTI (Acute) Recurrent UTI (urinary tract infection) (Acute) Heart murmur (Acute) Hyponatremia (Acute) Incomplete emptying of bladder (Acute) Closed right clavicular fracture (Acute 10/08/22) Arthritis of left knee (Acute) Bradycardia (Acute) Constipation (Acute) Anal and rectal polyp (Acute) Gastroesophageal reflux disease (Acute) Status post coronary artery stent placement (Acute) Sensorineural hearing loss (SNHL) of both ears (Acute 03/01/18) Primary osteoarthritis of right knee (Acute 08/02/16) Non-toxic multinodular goiter (Acute) Lipoma of neck (Acute 03/01/18) Essential hypertension (Chronic 07/24/13) Diabetic retinopathy (Acute) MILD IN LEFT EYE~OPTICAL EXPRESSIONS 08/12/15 Diabetes mellitus (Chronic 02/08/13) Arthritis (Acute) Medical History White coat syndrome with hypertension Stated per patient BPH w urinary obs/LUTS (03/01/18) Atherosclerosis of [place] coronary artery Asthma Change in facial mole not suspect- [place] [facility] [place] S/P cystoscopy Stent placement (~05/2001) 05/30 2 STENTS LAD 11/2001 AND 02/2002 CLEANED BLOCKED STENT (WAS SCAR BUILDUP) KJG (below) Patient report radiation therapy in [facility] to correct scar formation. He believes bare metal stents were placed. Family History Mother , 91 Epilepsy Hyperlipidemia Parkinson disease Father , 73 Essential hypertension Personal history of malignant neoplasm SKIN Stroke Sister Diabetes Essential hypertension Heart disease Hyperlipidemia Brother Heart disease Stroke Pacemaker Parkinson disease Brother Diabetes Heart disease Stroke Brother Diabetes Essential hypertension Heart disease Hyperlipidemia Grandfather Diabetes Heart disease Stroke Grandfather Stroke Grandmother Essential hypertension Depression Heart disease Stroke Grandmother Essential hypertension Hyperlipidemia Stroke Daughter Diabetes Asthma Daughter Diabetes Heart disease VALVE REPLACEMENT Pancreatic cancer Social History Smoking/Tobacco Use Status: Former Tobacco Use tobacco type: cigarettes and cigars Quit Date: 10/30/67 Tobacco: How many years used: 14 Smoking risk assessment performed?: Yes Alcohol Intake: current Alcohol Intake frequency: 3 or more drinks per day Alcohol type: wine and hard liquor Drug use: Never Substance use type: does not use Caregiver/Support person: No Household members: spouse Housing: house Communication Needs: Hard of Hearing Do you need help understanding health information?: Rarely Pets and animals: No Sexually active: No Do you think of yourself as: straight/heterosexual Current gender identity: male What is your relationship status?: How often do you talk on the phone with friends or family?: twice per week How often do you get together with friends or relatives?: three or more times per week How often do you attend mu-ism or christianity services?: 1-3 times per year Do you belong to any clubs or organized social groups?: no Panel score (0-1 are the most socially isolated patients): 2 What type of physical activity do you participate in: regular exercise Duration: > 90 minutes/day Frequency: 3-4 times per week Scarlett/Spiritism: Adventist Special scarlett needs: No Seatbelt use: always Helmet use: Yes Helmet use: sometimes Drive intox 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 cdl a driver: No Additional Social history: Unable to assess privately, at side
[2024-09-23] MEDS: Lidocaine 2% Jelly 6 ML SYR (05:50)
== END 2024-09-23 07:54 | disposition home or self-care (01) ==
PROVIDERS: Emergency Provider Student in an Organized Health Care Education/Training Program; PCP Nurse Practitioner Family
DX: R33.9 Retention of urine, unspecified (principal); R31.9 Hematuria, unspecified; E11.319 Type 2 diabetes mellitus with unspecified diabetic retinopathy without macular edema; N39.0 Urinary tract infection, site not specified; I10 Essential (primary) hypertension; Z95.5 Presence of coronary angioplasty implant and graft; Z79.82 Long term (current) use of aspirin; Z79.84 Long term (current) use of oral hypoglycemic drugs; Z87.891 Personal history of nicotine dependence
CPT/HCPCS: 99284

== ENCOUNTER 2024-09-23 12:54 | Inpatient (IN) | payer MEDICARE, SELFPAY ==
[2024-09-23 12:58] VITALS: BP 110/63; PULSE 80; RESP 15; TEMP 36.3; O2SAT 97
[2024-09-23 13:02] VITALS: BP 110/63; PULSE 80; RESP 15; TEMP 36.3; O2SAT 97
--- NOTE | 2024-09-23 13:19 | W.ED.GENAD ---
Discharge Plan Disposition Patient Disposition: Admit to [facility] Condition: Serious Discharge Details Chief Complaint: Urinary Clinical Impression: Hematuria Primary Care Provider: Delaney Gaviria ED Provider: Jean Marie Oneill Home Meds and New Rx's Prescriptions: No Action glipizide 5 mg tablet 2.5 mg PO BID Qty: 90 4RF Rx Instructions: dose increase aspirin [Adult Low Dose Aspirin] 81 mg tablet,delayed release (DR/EC) 81 mg PO DAILY clotrimazole 1 % cream 1 applic topical TID PRN (Reason: rash) Qty: 15 0RF Patient Comments: Yeast groin area lisinopril 30 mg tablet 30 mg PO DAILY Qty: 90 3RF metoprolol succinate 50 mg tablet extended release 24 hr 25 mg PO DAILY Qty: 45 3RF nitroglycerin [Nitrostat] 0.4 mg tablet, sublingual 0.4 mg Sublingual PRN MDD 3 tabs Qty: 25 4RF metformin 500 mg tablet 1,000 mg PO BID Qty: 360 3RF finasteride 5 mg tablet 5 mg PO DAILY Qty: 90 3RF tamsulosin [Flomax] 0.4 mg capsule 0.8 mg PO DAILY Qty: 180 3RF Rx Instructions: Note dosage increase cholecalciferol (vitamin D3) 1,000 UNIT capsule 1 cap PO DAILY (DME) blood-glucose meter Misc See Rx Instructions .MEDSUPPLY Qty: 1 0RF Rx Instructions: Check blood sugar once daily. No insulin. Dispense covered brand. Dx: E11.9 to maintain HbA1c less than 7%. Nephrocaps 1 mg capsule 1 cap PO DAILY Qty: 90 folic acid 400 mcg tablet 0.4 mg PO DAILY (DME) Blood Glucose Test Strip See Rx Instructions .MEDSUPPLY Qty: 100 3RF Rx Instructions: Check sugars once per day. No insulin. Dispense covered brand. Dx: E11.9 to maintain HbA1c less than 7%. (DME) lancets Misc See Rx Instructions .MEDSUPPLY Qty: 100 3RF Rx Instructions: Check sugars once daily. No insulin. Dispense covered brand. Dx: E11.9 to maintain HbA1c less than 7%. ciprofloxacin HCl [Cipro] 500 mg tablet 500 mg PO BID Qty: 14 0RF HPI General Mode of arrival: ambulatory. Date/Time Provider Initiated Documentation: 09/23/24 13:06. Limitations to Documentation: no limitations. Information obtained by: patient and family. HPI Narrative: 84-year-old male with a past medical history significant for hematuria, BPH with LUTs, follows Dr. Jackson, diabetes, GERD, who is on daily aspirin, presents today with obstructed urinary catheter. Patient was seen here on yesterday with hematuria and concern for UTI. He was started on ciprofloxacin at discharge. He returned last night with inability urinate and Alexandre catheter was placed. He returns again now noting concern that the catheter is obstructed with blood. Related Data Home Medications ?Medication ?Instructions ?Recorded ?Confirmed cholecalciferol (vitamin D3) 25 1 cap PO DAILY 02/06/13 09/23/24 mcg (1,000 unit) capsule glipizide 5 mg tablet 2.5 mg (1/2 x 5 mg) PO BID #90 tabs 07/08/22 09/23/24 aspirin 81 mg tablet,delayed 81 mg PO DAILY 07/19/22 09/23/24 release (Adult Low Dose Aspirin) blood-glucose meter #1 ea 01/23/23 09/23/24 vitamin B complex and vitamin C 1 cap PO DAILY ##90 12/26/23 09/23/24 no.20-folic acid 1 mg capsule (Nephrocaps) folic acid 400 mcg tablet 0.4 mg PO DAILY 01/02/24 09/23/24 clotrimazole 1 % topical cream 1 applic topical TID PRN rash #15 02/28/24 09/23/24 grams finasteride 5 mg tablet 5 mg PO DAILY #90 tabs 04/04/24 09/23/24 tamsulosin 0.4 mg capsule (Flomax) 0.8 mg (2 x 0.4 mg) PO DAILY #180 04/04/24 09/23/24 caps lisinopril 30 mg tablet 30 mg PO DAILY #90 tabs 04/18/24 09/23/24 metformin 500 mg tablet 1,000 mg (2 x 500 mg) PO BID #360 04/18/24 09/23/24 tabs metoprolol succinate 50 mg 25 mg (1/2 x 50 mg) PO DAILY #45 04/18/24 09/23/24 tablet,extended release 24 hr tabs nitroglycerin 0.4 mg sublingual 0.4 mg sublingual PRN #25 tabs 04/18/24 09/23/24 tablet (Nitrostat) blood sugar diagnostic (Blood #100 ea 05/27/24 09/23/24 Glucose Test strips) lancets #100 ea 05/27/24 09/23/24 ciprofloxacin HCl 500 mg tablet 500 mg PO BID #14 tabs 09/22/24 09/23/24 (Cipro) Previous Rx's ?Medication ?Instructions ?Recorded glipizide 5 mg tablet 2.5 mg (1/2 x 5 mg) PO BID #90 tabs 07/08/22 blood-glucose meter #1 ea 01/23/23 clotrimazole 1 % topical cream 1 applic topical TID PRN rash #15 02/28/24 grams finasteride 5 mg tablet 5 mg PO DAILY #90 tabs 04/04/24 tamsulosin 0.4 mg capsule (Flomax) 0.8 mg (2 x 0.4 mg) PO DAILY #180 04/04/24 caps lisinopril 30 mg tablet 30 mg PO DAILY #90 tabs 04/18/24 metformin 500 mg tablet 1,000 mg (2 x 500 mg) PO BID #360 04/18/24 tabs metoprolol succinate 50 mg 25 mg (1/2 x 50 mg) PO DAILY #45 04/18/24 tablet,extended release 24 hr tabs nitroglycerin 0.4 mg sublingual 0.4 mg sublingual PRN #25 tabs 04/18/24 tablet (Nitrostat) blood sugar diagnostic (Blood #100 ea 05/27/24 Glucose Test strips) lancets #100 ea 05/27/24 ciprofloxacin HCl 500 mg tablet 500 mg PO BID #14 tabs 09/22/24 (Cipro) Allergies Allergy/AdvReac Type Severity Reaction Status Date / Time menthol Allergy Unknown WHEEZING Verified 09/23/24 13:04 aspirin Allergy sick to Verified 09/23/24 13:04 stomach General Stated Complaint: Urinary LILA: 3 Review of Systems Constitutional Constitutional: Denies fever(s) Genitourinary Genitourinary: Reports as per HPI Exam Const General: cooperative and no acute distress HENMT Mouth: moist mucous membranes Eyes Conjunctivae: normal conjunctivae Sclera: normal sclerae Cardio Rate: regular rate and not tachycardic GI Palpation: soft, not firm, no guarding, no masses, not rigid and nontender Other: Urethral Alexandre catheter intact Neuro General: patient alert, patient awake, patient oriented x3 and tone normal Course Vital Signs Vital signs: Vital Signs Temperature 36.3 C L 09/23/24 12:58 Pulse 80 09/23/24 12:58 Respiratory Rate 15 09/23/24 12:58 Blood Pressure 110/63 09/23/24 12:58 Pulse Oximetry 97 09/23/24 12:58 Temperature 36.3 C L 09/23/24 13:02 Pulse 80 09/23/24 13:02 Respiratory Rate 15 09/23/24 13:02 Respiratory Effort Normal 09/23/24 13:02 Blood Pressure 110/63 09/23/24 13:02 Blood Pressure Position Sitting 09/23/24 13:02 Pulse Oximetry 97 09/23/24 13:02 Oxygen Delivery Method Room Air 09/23/24 13:02 Oxygen Flow Rate 0 09/23/24 12:58 Pain Level 8 09/23/24 13:15 Medical Decision Making 1323??84-year-old male with history of BPH with LUTS, seen here yesterday with hematuria and diagnosed with UTI and started on ciprofloxacin, returned last night with urinary retention, Alexandre catheter was placed, he was discharged early this morning and returns again now with obstructed urinary catheter. Patient is hemodynamically stable. Nurse was able to dislodge clot with some irrigation. Catheter now draining dark red urine. Patient notes significant relief of pressure. Plan to consult with urology. -- I spoke with Dr. Jackson, urology, he recommends three-way catheter placement and bladder irrigation. He recommends admission to the hospitalist service. I spoke with Dr. Cooper who will admit the patient. Labs pending at time of admission. Notified by nursing that nursing had extreme difficulty and had to use coud? Alexandre last night to place Alexandre catheter. They are requesting urology place three-way catheter. They are intermittently irrigating through Alexandre catheter at this time. Quality:SDOH Health Related Social Needs: No Data to Display PFSH All Active Problems (Updated 09/23/24 @ 15:28 by Jean Marie Oneill MD) Hematuria (Acute) Hematuria (Acute) Hematuria (Acute) Acute UTI (Acute) Recurrent UTI (urinary tract infection) (Acute) Heart murmur (Acute) Hyponatremia (Acute) Incomplete emptying of bladder (Acute) Closed right clavicular fracture (Acute 10/08/22) Arthritis of left knee (Acute) Bradycardia (Acute) Constipation (Acute) Anal and rectal polyp (Acute) Gastroesophageal reflux disease (Acute) Status post coronary artery stent placement (Acute) Sensorineural hearing loss (SNHL) of both ears (Acute 03/01/18) Primary osteoarthritis of right knee (Acute 08/02/16) Non-toxic multinodular goiter (Acute) Lipoma of neck (Acute 03/01/18) Essential hypertension (Chronic 07/24/13) Diabetic retinopathy (Acute) MILD IN LEFT EYE~OPTICAL EXPRESSIONS 08/12/15 Diabetes mellitus (Chronic 02/08/13) Arthritis (Acute) Medical History White coat syndrome with hypertension Stated per patient BPH w urinary obs/LUTS (03/01/18) Atherosclerosis of [place] coronary artery Asthma Change in facial mole not suspect- [place] [facility] [place] S/P cystoscopy Stent placement (~05/2001) 05/30 2 STENTS LAD 11/2001 AND 02/2002 CLEANED BLOCKED STENT (WAS SCAR BUILDUP) KJG (below) Patient report radiation therapy in [facility] to correct scar formation. He believes bare metal stents were placed. Family History Mother , 91 Epilepsy Hyperlipidemia Parkinson disease Father , 73 Essential hypertension Personal history of malignant neoplasm SKIN Stroke Sister Diabetes Essential hypertension Heart disease Hyperlipidemia Brother Heart disease Stroke Pacemaker Parkinson disease Brother Diabetes Heart disease Stroke Brother Diabetes Essential hypertension Heart disease Hyperlipidemia Grandfather Diabetes Heart disease Stroke Grandfather Stroke Grandmother Essential hypertension Depression Heart disease Stroke Grandmother Essential hypertension Hyperlipidemia Stroke Daughter Diabetes Asthma Daughter Diabetes Heart disease VALVE REPLACEMENT Pancreatic cancer Social History Smoking/Tobacco Use Status: Former Tobacco Use tobacco type: cigarettes and cigars Quit Date: 10/30/67 Tobacco: How many years used: 14 Smoking risk assessment performed?: Yes Alcohol Intake: current Alcohol Intake frequency: 3 or more drinks per day Alcohol type: wine and hard liquor Drug use: Never Substance use type: does not use Caregiver/Support person: No Household members: spouse Housing: house Communication Needs: Hard of Hearing Do you need help understanding health information?: Rarely Pets and animals: No Sexually active: No Do you think of yourself as: straight/heterosexual Current gender identity: male What is your relationship status?: How often do you talk on the phone with friends or family?: twice per week How often do you get together with friends or relatives?: three or more times per week How often do you attend anabaptist or catholic services?: 1-3 times per year Do you belong to any clubs or organized social groups?: no Panel score (0-1 are the most socially isolated patients): 2 What type of physical activity do you participate in: regular exercise Duration: > 90 minutes/day Frequency: 3-4 times per week Scarlett/Advent: Anglican Special scarlett needs: No Seatbelt use: always Helmet use: Yes Helmet use: sometimes Drive intox 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 distribution driver: No Additional Social history: Unable to assess privately, at [facility] Have you Been Recently Intoxicated or Drunk Within the Last 30 days?: No Have you Ever Experienced Previous Episodes of Alcohol Withdrawal?: No Have you ever Experienced Withdrawal Seizures?: No Have you ever Experienced Delirium Tremens(DT)s?: No Have you ever undergone Alcohol Rehabilitation Treatment (i.e, inpt ot outpatient treatment programs)?: No Have you ever Experienced Blackouts?: No Have you ever Combined Alcohol with other Downers within the last 90 days?: No Have you ever Combined Alcohol with any other Substance of Abuse during the last 90 days?: No Positive Blood Alcohol level on Presentation? [PCS.BAL]: No Evidence of Increased Autonomic Activity (i.e. HR>120, tremor, sweating, agitation, nausea)?: No Result: 0
[2024-09-23 14:59] LABS: Abs Immature Grans 0.02 10^3/uL (0.0-0.06); Absolute Basophil Count 0.02 10^3/uL (0.0-0.2); Absolute Eosinophil Count 0.02 10^3/uL (0.0-0.7); Absolute Lymphocyte Count 0.77 10^3/uL (1.2-3.4); Absolute Monocyte Count 0.59 10^3/uL (0.1-0.8); Absolute Neutrophil Count 6.54 10^3/uL (1.2-6.7); Basophils % 0.3 %; Eosinophils % 0.3 %; HCT 33.1 % (40.0-50.0); HGB 11.6 g/dL (13.5-17.5); Immature Grans % 0.3 %; Lymphocytes % 9.7 %; MCH 31.2 pg (27.0-33.0); MCV 89 fL (80-95); MPV 9.9 fL (8.0-11.0); Monocytes % 7.4 %; Platelet Count 180 10^3/uL (130-400); RBC 3.72 10^6/uL (4.36-5.78); RDW 13.2 % (11.8-14.1); RDW-SD 42.9 fL; WBC 7.96 10^3/uL (4.4-10.8)
[2024-09-23 15:09] LABS: INR 1.1 (0.9-1.1); Prothrombin Time 10.7 sec (9.1-11.1)
[2024-09-23 15:14] LABS: ALT 17 U/L (16-63); AST 17 U/L (15-37); Albumin 3.9 g/dL (3.4-5.0); Alkaline Phosphatase 61 U/L (46-116); Anion Gap 9.5 mmol/L (3-11); BUN 12 mg/dL (7-18); Bilirubin, Total 0.91 mg/dL (0.2-1.0); CO2 23.5 mmol/L (21.0-32.0); CREATININE 0.9 mg/dL (0.70-1.30); Calcium 9.3 mg/dL (8.5-10.1); Chloride 91 mmol/L (98-107); Estimated GFR 84.74 (mL/min/1.73m2); Glucose 238 mg/dL (74-106); Magnesium 1.8 mg/dL (1.8-2.4); Potassium 4.4 mmol/L (3.5-5.1); Total Protein 7.8 g/dL (6.4-8.2)
[2024-09-23 15:19] LABS: Sodium 124 mmol/L (136-145)
--- NOTE | 2024-09-23 16:14 | W.PC.ACHO ---
Registration Status: Primary Language: Preferred Language: ED Information & Data Chief Complaint Urinary 09/23/24 13:24 Triage Note PT concerned that his 09/23/24 12:58 catheter is blocked. PT Reports that he feels like he nned to urinate but that his catheter does not appear to be functioning. 6 of 10 aching pain lower abd ( pelvic region) starting 0800 this morning after leaving the hospital this morning Medical / Surgical History (Last Reviewed 09/23/24 @ 13:22 by Jean Marie Oneill MD) White coat syndrome with hypertension BPH w urinary obs/LUTS (03/01/18) Atherosclerosis of [place] coronary artery Asthma Change in facial mole (Last Reviewed 09/23/24 @ 13:22 by Jean Marie Oneill MD) S/P cystoscopy Stent placement (~05/2001) Most Recent Vital Signs Temperature 36.3 C L 09/23/24 13:02 Pulse 80 09/23/24 13:02 Respiratory Rate 15 09/23/24 13:02 Respiratory Effort Normal 09/23/24 13:02 Blood Pressure 110/63 09/23/24 13:02 Blood Pressure Position Sitting 09/23/24 13:02 Pulse Oximetry 97 09/23/24 13:02 Oxygen Delivery Method Room Air 09/23/24 13:02 Oxygen Flow Rate 0 09/23/24 12:58 Pain Level 8 09/23/24 13:15 Allergies menthol Allergy (Unknown, Verified 09/23/24 13:04) WHEEZING aspirin Allergy (Verified 09/23/24 13:04) sick to stomach Takes 81mg every day IV IV Catheter Type [Right Peripheral IV Forearm] IV Catheter Gauge [Right 18 Forearm] Diet Orders Category Date Time Status Diabetes Consistent CHO/Heart Healthy [DIET] Nutrition 09/23/24 Dinner Active Diagnostics 09/23/24 Range/Units 14:45 WBC 7.96 (4.4-10.8) 10^3/uL RBC 3.72 L (4.36-5.78) 10^6/uL Hgb 11.6 L (13.5-17.5) g/dL Hct 33.1 L (40.0-50.0) % MCV 89 (80-95) fL MCH 31.2 (27.0-33.0) pg MCHC 35.0 (32.0-36.0) % RDW 13.2 (11.8-14.1) % Plt Count 180 (130-400) 10^3/uL MPV 9.9 (8.0-11.0) fL Immature Gran % 0.3 % Neutrophils % 82.0 % Lymphocytes % 9.7 % Monocytes % 7.4 % Eosinophils % 0.3 % Basophils % 0.3 % Nucleated RBC % 0.0 (0.0-0.3) % Absolute Neutrophils 6.54 (1.2-6.7) 10^3/uL Absolute Lymphocytes 0.77 L (1.2-3.4) 10^3/uL Absolute Monocytes 0.59 (0.1-0.8) 10^3/uL Absolute Eosinophils 0.02 (0.0-0.7) 10^3/uL Absolute Basophils 0.02 (0.0-0.2) 10^3/uL PT 10.7 (9.1-11.1) sec INR 1.1 (0.9-1.1) Sodium 124 L* (136-145) mmol/L Potassium 4.4 (3.5-5.1) mmol/L Chloride 91 L (98-107) mmol/L Carbon Dioxide 23.5 (21.0-32.0) mmol/L Anion Gap 9.5 (3-11) mmol/L BUN 12 (7-18) mg/dL Creatinine 0.9 (0.70-1.30) mg/dL Est GFR (CKD-EPI 2020) 84.74 (mL/min/1.73m2) Glucose 238 H (74-106) mg/dL Calcium 9.3 (8.5-10.1) mg/dL Magnesium 1.8 (1.8-2.4) mg/dL Total Bilirubin 0.91 (0.2-1.0) mg/dL AST 17 (15-37) U/L ALT 17 (16-63) U/L Alkaline Phosphatase 61 (46-116) U/L Total Protein 7.8 (6.4-8.2) g/dL Albumin 3.9 (3.4-5.0) g/dL ABO/Rh A Negative Antibody Screen NEGATIVE Intake and Output - 24 Hour Total 09/23/24 12:54 thru 09/23/24 12:58 Weight 90.718 kg Falls Risk Assessment History of Falls No History 09/23/24 13:02 Contributing Factors No Factors 09/23/24 13:02 Ambulatory Aids Independent 09/23/24 13:02 Tubes/Lines None 09/23/24 13:02 Gait Evaluation No gait disturbance 09/23/24 13:02 Cognition No cognitive impairment 09/23/24 13:02 Fall Total Score 0 09/23/24 13:02 Level of Risk Standard/Low Risk 09/23/24 13:02 Problems (Last Reviewed 09/23/24 @ 13:22 by Jean Marie Oneill MD) Hematuria (Acute) v v v v v v v v v Sending and/or Receiving Nurses: Please use comment section below to note any information pertinent to the patient hand-off not included above. Information / Comments: Report received from: Ella PRINCE given to Sara at 1600
--- NOTE | 2024-09-23 16:57 | UCONE_ITS ---
Date of service: 09/23/24 Time of Service: 16:57 Assessment and Plan Assessment and plan (1) Hematuria: Status: Acute Assessment and plan: We will run continuous bladder irrigation but I will leave him n.p.o. after midnight just in case his hematuria continues or clots continue to develop. I may need to take him to the operating room tomorrow for cystoscopy, clot evacuation and possible fulguration of any bleeding point. History of Present Illness History of Present Illness Chief Complaint: Clot retention Narrative: This is an 84-year-old gentleman who has a history of bladder outlet obstruction. He has had previous episodes of hematuria. We had done cystoscopy and biopsy to his bladder. No malignancy was identified. He was ultimately able to void on his own and he did well for about 6 months. He returns with another episode of gross hematuria and clots. He was unable to void, so he came to the emergency room earlier today. A catheter was placed and at first, the catheter drained well. When the catheter clotted off, he returned to the emergency department. Our plan is to admit him for continuous bladder irrigation. He has not been febrile. He has no flank pain. He has no known bleeding disorders. Review of Systems Constitutional Constitutional: Denies chills and Denies fever(s) Respiratory Respiratory: Denies hemoptysis Gastrointestinal Gastrointestinal: Denies nausea and Denies vomiting Neurologic Neurologic: Denies confusion Psychiatric Psychiatric: Denies confusion PFSH All Active Problems (Updated 09/23/24 @ 17:39 by Quincy Latham) DVT prophylaxis (Acute) Hematuria (Acute) Hematuria (Acute) Hematuria (Acute) Acute UTI (Acute) Recurrent UTI (urinary tract infection) (Acute) Heart murmur (Acute) Hyponatremia (Acute) Incomplete emptying of bladder (Acute) Closed right clavicular fracture (Acute 10/08/22) Arthritis of left knee (Acute) Bradycardia (Acute) Constipation (Acute) Anal and rectal polyp (Acute) Gastroesophageal reflux disease (Acute) Status post coronary artery stent placement (Acute) Sensorineural hearing loss (SNHL) of both ears (Acute 03/01/18) Primary osteoarthritis of right knee (Acute 08/02/16) Non-toxic multinodular goiter (Acute) Lipoma of neck (Acute 03/01/18) Essential hypertension (Chronic 07/24/13) Diabetic retinopathy (Acute) MILD IN LEFT EYE~OPTICAL EXPRESSIONS 08/12/15 Diabetes mellitus (Chronic 02/08/13) Arthritis (Acute) Medical History White coat syndrome with hypertension Stated per patient Change in facial mole not suspect- sees [facility] [place] BPH w urinary obs/LUTS (03/01/18) Atherosclerosis of [place] coronary artery Asthma Surgical History S/P cystoscopy Stent placement (~05/2001) 05/30 2 STENTS LAD 11/2001 AND 02/2002 CLEANED BLOCKED STENT (WAS SCAR BUILDUP) KJG (below) Patient report radiation therapy in [facility] to correct scar formation. He believes bare metal stents were placed. Family History Mother , 91 Epilepsy Hyperlipidemia Parkinson disease Father , 73 Essential hypertension Personal history of malignant neoplasm SKIN Stroke Sister Diabetes Essential hypertension Heart disease Hyperlipidemia Brother Heart disease Stroke Pacemaker Parkinson disease Brother Diabetes Heart disease Stroke Brother Diabetes Essential hypertension Heart disease Hyperlipidemia Grandfather Diabetes Heart disease Stroke Grandfather Stroke Grandmother Essential hypertension Depression Heart disease Stroke Grandmother Essential hypertension Hyperlipidemia Stroke Daughter Diabetes Asthma Daughter Diabetes Heart disease VALVE REPLACEMENT Pancreatic cancer Social History Smoking/Tobacco Use Status: Former Tobacco Use tobacco type: cigarettes and cigars Quit Date: 10/30/67 Tobacco: How many years used: 14 Smoking risk assessment performed?: Yes Alcohol Intake: current Alcohol Intake frequency: 3 or more drinks per day Alcohol type: wine and hard liquor Drug use: Never Substance use type: does not use Caregiver/Support person: No Household members: spouse Housing: house Communication Needs: Hard of Hearing Do you need help understanding health information?: Rarely Pets and animals: No Sexually active: No Do you think of yourself as: straight/heterosexual Current gender identity: male What is your relationship status?: How often do you talk on the phone with friends or family?: twice per week How often do you get together with friends or relatives?: three or more times per week How often do you attend jewish or baptism services?: 1-3 times per year Do you belong to any clubs or organized social groups?: no Panel score (0-1 are the most socially isolated patients): 2 What type of physical activity do you participate in: regular exercise Duration: > 90 minutes/day Frequency: 3-4 times per week Scarlett/Episcopalian: Catholic Special scarlett needs: No Seatbelt use: always Helmet use: Yes Helmet use: sometimes Drive intox 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 Results Last Vital Signs Temp 36.3 C L 09/23/24 13:02 Pulse 80 09/23/24 13:02 Resp 15 09/23/24 13:02 BP 110/63 09/23/24 13:02 Pulse Ox 97 09/23/24 13:02 Labs 09/24/24 06:00 09/24/24 06:00 Labs: Laboratory Results - last 24 hr 09/23/24 14:45 WBC 7.96 RBC 3.72 L Hgb 11.6 L Hct 33.1 L MCV 89 MCH 31.2 MCHC 35.0 RDW 13.2 Plt Count 180 MPV 9.9 Immature Gran % 0.3 Neutrophils % 82.0 Lymphocytes % 9.7 Monocytes % 7.4 Eosinophils % 0.3 Basophils % 0.3 Nucleated RBC % 0.0 Absolute Neutrophils 6.54 Absolute Lymphocytes 0.77 L Absolute Monocytes 0.59 Absolute Eosinophils 0.02 Absolute Basophils 0.02 PT 10.7 INR 1.1 Sodium 124 L* Potassium 4.4 Chloride 91 L Carbon Dioxide 23.5 Anion Gap 9.5 BUN 12 Creatinine 0.9 Est GFR (CKD-EPI 2020) 84.74 Glucose 238 H Calcium 9.3 Magnesium 1.8 Total Bilirubin 0.91 AST 17 ALT 17 Alkaline Phosphatase 61 Total Protein 7.8 Albumin 3.9 ABO/Rh A Negative Antibody Screen NEGATIVE Insert Bladder Catheter Text: He is seen in the emergency department. His indwelling urethral catheter balloon is deflated and the catheter is removed. His penis was then prepped with Betadine. 2% Xylocaine jelly was instilled into the urethra to act as a local anesthetic. A 22 Sinhala coud? tipped irrigating catheter was passed through the urethra into the bladder. The catheter balloon was inflated with 30 cc of sterile water. I then hand irrigated his catheter with over a liter of sterile water. Multiple clots were evacuated by hand irrigation. Continuous bladder irrigation with saline was then begun. The irrigant was pink-tinged but clot free.
[2024-09-23 17:23] VITALS: BP 146/67; PULSE 79; RESP 23; TEMP 36.6; O2SAT 99
--- NOTE | 2024-09-23 17:24 | HPE_ITS ---
Date of service: 09/23/24 Time of Service: 17:24 Assessment and Plan Assessment and plan (1) Hematuria: Status: Acute Assessment and plan: Recurrent hematuria, but admitted due to clots causing outlet obstruction and failing outpatient management. Irrigation per Dr. Jackson. NPO at [place] in case urology decides he needs a procedure in the AM. renal function stable, anemia due to blood loss is mild and not symptomatic at this point Qualifiers: Hematuria type: gross Qualified Code(s): R31.0 - Gross hematuria (2) Acute UTI: Status: Acute Assessment and plan: Culture pending, continue cipro to cover pseudomonas for now. If culture negative tomorrow, can stop this as long as he isn't getting a procedure. (3) Hyponatremia: Status: Acute Assessment and plan: Slight worsening of a chronic issue. He appears euvolemic. No symptoms. For now, fluid restrict but no hypertonic saline. Bladder irrigation can cause this if hypotonic solution used, but using isotonic fluid now so I'm not sure this is contributing. Follow. (4) BPH w urinary obs/LUTS: Assessment and plan: Assocaited with the above. Continune finasteride and tamsulosin. (5) Essential hypertension: Status: Chronic Assessment and plan: continue outpatient medication. (6) Diabetes mellitus: Status: Chronic Assessment and plan: continue oral medication, ISS for now. Consider glargine if we have to stop orals. Qualifiers: Diabetes mellitus type: type 2 Diabetes mellitus residential insulin use: without termite control servicer use Diabetes mellitus complication status: without complication Qualified Code(s): E11.9 - Type 2 diabetes mellitus without complications (7) Atherosclerosis of [place] coronary artery: Assessment and plan: No symptoms. He is not on statin, defer to outpatient. Holding ASA with active bleeding but resume within 2-3 days given CAD. Qualifiers: Inupiat vs. transplanted heart: n[place]ai heart Associated angina: without angina Qualified Code(s): I25.10 - Atherosclerotic heart disease of [place] coronary artery without angina pectoris (8) DVT prophylaxis: Status: Acute Assessment and plan: TEDs/SCDs with active bleeding. History of Present Illness History of Present Illness Chief Complaint: hematuria Narrative: 84 yo M with history of BPH, CAD s/p remote stent, type 2 DM who is presenting with recurrent hematuria with clots that are obstructing his pittman catheter. He first had gross hematuria in December. At that point he had some bladder thickening with dilation of left ureter and had transurethral resection of that area of the bladder with negative biopsy. He has had hematuria off/on since then. 2 days ago he started having hematuria and and was seen 09/22 in the ED. He was started on ciprofloxacin for UTI given recent pseudomonas+ urine culture. He returned early in the morning of admission to the ED with worse hematuria with clots and difficulty emptying his bladder. Pittman catheter was placed and he was discharged. He returned 6 hours later with clots again obstructing his urinary catheter. The catheter was flushed in the ED but with continued clot formation urology was consulted who recommended admission for continuous bladder irrigation and possible cystoscopy. He feels well other than the hematuria. Some low back pain before the hematuria started, but not now. No fever/chills. No n/v or abdominal pain. Had some pressure in lower abdomen but this has resolved. He hasn't eaten a lot in the past day, but has an appetite. No chest pain, palpitations, dizziness, or shortness of breath. He has no other bleeding. Review of Systems All systems reviewed & are unremarkable except as noted in HPI and below PFSH All Active Problems (Updated 09/23/24 @ 17:39 by Quincy Latham) DVT prophylaxis (Acute) Hematuria (Acute) Hematuria (Acute) Hematuria (Acute) Acute UTI (Acute) Recurrent UTI (urinary tract infection) (Acute) Heart murmur (Acute) Hyponatremia (Acute) Incomplete emptying of bladder (Acute) Closed right clavicular fracture (Acute 10/08/22) Arthritis of left knee (Acute) Bradycardia (Acute) Constipation (Acute) Anal and rectal polyp (Acute) Gastroesophageal reflux disease (Acute) Status post coronary artery stent placement (Acute) Sensorineural hearing loss (SNHL) of both ears (Acute 03/01/18) Primary osteoarthritis of right knee (Acute 08/02/16) Non-toxic multinodular goiter (Acute) Lipoma of neck (Acute 03/01/18) Essential hypertension (Chronic 07/24/13) Diabetic retinopathy (Acute) MILD IN LEFT EYE~OPTICAL EXPRESSIONS 08/12/15 Diabetes mellitus (Chronic 02/08/13) Arthritis (Acute) Medical History White coat syndrome with hypertension Stated per patient Change in facial mole not suspect- sees [facility] [place] BPH w urinary obs/LUTS (03/01/18) Atherosclerosis of [place] coronary artery Asthma Surgical History S/P cystoscopy Stent placement (~05/2001) 05/30 2 STENTS LAD 11/2001 AND 02/2002 CLEANED BLOCKED STENT (WAS SCAR BUILDUP) KJG (below) Patient report radiation therapy in [facility] to correct scar formation. He believes bare metal stents were placed. Family History Mother , 91 Epilepsy Hyperlipidemia Parkinson disease Father , 73 Essential hypertension Personal history of malignant neoplasm SKIN Stroke Sister Diabetes Essential hypertension Heart disease Hyperlipidemia Brother Heart disease Stroke Pacemaker Parkinson disease Brother Diabetes Heart disease Stroke Brother Diabetes Essential hypertension Heart disease Hyperlipidemia Grandfather Diabetes Heart disease Stroke Grandfather Stroke Grandmother Essential hypertension Depression Heart disease Stroke Grandmother Essential hypertension Hyperlipidemia Stroke Daughter Diabetes Asthma Daughter Diabetes Heart disease VALVE REPLACEMENT Pancreatic cancer Social History Smoking/Tobacco Use Status: Former Tobacco Use tobacco type: cigarettes and cigars Quit Date: 10/30/67 Tobacco: How many years used: 14 Smoking risk assessment performed?: Yes Alcohol Intake: current Alcohol Intake frequency: 3 or more drinks per day Alcohol type: wine and hard liquor Drug use: Never Substance use type: does not use Caregiver/Support person: No Household members: spouse Housing: house Communication Needs: Hard of Hearing Do you need help understanding health information?: Rarely Pets and animals: No Sexually active: No Do you think of yourself as: straight/heterosexual Current gender identity: male What is your relationship status?: How often do you talk on the phone with friends or family?: twice per week How often do you get together with friends or relatives?: three or more times per week How often do you attend denominational or judaism services?: 1-3 times per year Do you belong to any clubs or organized social groups?: no Panel score (0-1 are the most socially isolated patients): 2 What type of physical activity do you participate in: regular exercise Duration: > 90 minutes/day Frequency: 3-4 times per week Scarlett/Cheondoism: Scientologist Special scarlett needs: No Seatbelt use: always Helmet use: Yes Helmet use: sometimes Drive intox 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 Additional Social history: Unable to assess privately, at side Meds Allergies and Home Medications Allergies Allergy/AdvReac Type Severity Reaction Status Date / Time menthol Allergy Unknown WHEEZING Verified 09/23/24 13:04 aspirin Allergy sick to Verified 09/23/24 13:04 stomach Home Medications ?Medication ?Instructions ?Recorded ?Confirmed ?Type cholecalciferol (vitamin D3) 25 1 cap PO DAILY 02/06/13 09/23/24 History mcg (1,000 unit) capsule glipizide 5 mg tablet 2.5 mg (1/2 x 5 mg) PO BID #90 tabs 07/08/22 09/23/24 Rx aspirin 81 mg tablet,delayed 81 mg PO DAILY 07/19/22 09/23/24 History release (Adult Low Dose Aspirin) blood-glucose meter #1 ea 01/23/23 09/23/24 Rx vitamin B complex and vitamin C 1 cap PO DAILY ##90 12/26/23 09/23/24 History no.20-folic acid 1 mg capsule (Nephrocaps) folic acid 400 mcg tablet 0.4 mg PO DAILY 01/02/24 09/23/24 History clotrimazole 1 % topical cream 1 applic topical TID PRN rash #15 02/28/24 09/23/24 Rx grams finasteride 5 mg tablet 5 mg PO DAILY #90 tabs 04/04/24 09/23/24 Rx tamsulosin 0.4 mg capsule (Flomax) 0.8 mg (2 x 0.4 mg) PO DAILY #180 04/04/24 09/23/24 Rx caps lisinopril 30 mg tablet 30 mg PO DAILY #90 tabs 04/18/24 09/23/24 Rx metformin 500 mg tablet 1,000 mg (2 x 500 mg) PO BID #360 04/18/24 09/23/24 Rx tabs metoprolol succinate 50 mg 25 mg (1/2 x 50 mg) PO DAILY #45 04/18/24 09/23/24 Rx tablet,extended release 24 hr tabs nitroglycerin 0.4 mg sublingual 0.4 mg sublingual PRN #25 tabs 04/18/24 09/23/24 Rx tablet (Nitrostat) blood sugar diagnostic (Blood #100 ea 05/27/24 09/23/24 Rx Glucose Test strips) lancets #100 ea 05/27/24 09/23/24 Rx ciprofloxacin HCl 500 mg tablet 500 mg PO BID #14 tabs 09/22/24 09/23/24 Rx (Cipro) Exam Narrative Exam Narrative: GEN: Alert and oriented x 4, pleasant and cooperative, gives linear history. No acute distress at rest. HEENT: Head atraumatic. Conjunctiva clear, no icterus. PEERL, EOMI. no rhinorrhea. MMM, OP benign. Neck is supple with no masses or lymphadenopathy, trachea midline LUNGS: CTAB with normal effort CV: RRR with no murmurs, gallops, or rubs. ABD: active bowel sounds, soft, nontender and nondistended. No masses. EXT: no cyanosis, clubbing, or edema MSK: No joint redness or swelling. no CVAT : no penile lesions. bright red urine in pittman. NEURO: CN 2-12 grossly intact. Normal movement of 4 extremities. Normal speech and coordination. No tremor SKIN: No rashes or open wounds. PSYCH: normal mood and affect Results Labs 09/23/24 14:45 09/23/24 14:45 Labs: Laboratory Results - last 24 hr 09/23/24 14:45 WBC 7.96 RBC 3.72 L Hgb 11.6 L Hct 33.1 L MCV 89 MCH 31.2 MCHC 35.0 RDW 13.2 Plt Count 180 MPV 9.9 Immature Gran % 0.3 Neutrophils % 82.0 Lymphocytes % 9.7 Monocytes % 7.4 Eosinophils % 0.3 Basophils % 0.3 Nucleated RBC % 0.0 Absolute Neutrophils 6.54 Absolute Lymphocytes 0.77 L Absolute Monocytes 0.59 Absolute Eosinophils 0.02 Absolute Basophils 0.02 PT 10.7 INR 1.1 Sodium 124 L* Potassium 4.4 Chloride 91 L Carbon Dioxide 23.5 Anion Gap 9.5 BUN 12 Creatinine 0.9 Est GFR (CKD-EPI 2020) 84.74 Glucose 238 H Calcium 9.3 Magnesium 1.8 Total Bilirubin 0.91 AST 17 ALT 17 Alkaline Phosphatase 61 Total Protein 7.8 Albumin 3.9 ABO/Rh A Negative Antibody Screen NEGATIVE Last Vital Signs Temp 36.3 C L 09/23/24 13:02 Pulse 80 09/23/24 13:02 Resp 15 09/23/24 13:02 BP 110/63 09/23/24 13:02 Pulse Ox 97 09/23/24 13:02 PAWSS Have you Been Recently Intoxicated or Drunk Within the Last 30 days?: No Have you Ever Experienced Previous Episodes of Alcohol Withdrawal?: No Have you ever Experienced Withdrawal Seizures?: No Have you ever Experienced Delirium Tremens(DT)s?: No Have you ever undergone Alcohol Rehabilitation Treatment (i.e, inpt ot outpatient treatment programs)?: No Have you ever Experienced Blackouts?: No Have you ever Combined Alcohol with other Downers within the last 90 days?: No Have you ever Combined Alcohol with any other Substance of Abuse during the last 90 days?: No Positive Blood Alcohol level on Presentation? [PCS.BAL]: No Evidence of Increased Autonomic Activity (i.e. HR>120, tremor, sweating, agitation, nausea)?: No Result: 0 Time Spent Time spent with Patient: 55-74 minutes Time was spent: preparing to see the patient(eg.review tests), obtaining and/or reviewing separately otained hiistory, ordering medications,tests, procedures, referring, communicating with other health career development counselor, indepentently interpreting results, counseling the patient and care coordination
[2024-09-23 17:30] VITALS: BP 146/67; PULSE 79; RESP 23; TEMP 36.6; O2SAT 99
[2024-09-23] MEDS: glipiZIDE 5 MG TAB 2.5 MG PO (18:05)
[2024-09-23] MEDS: metFORMIN 500 MG TAB 1000 MG PO (18:06)
[2024-09-23] MEDS: Ciprofloxacin 500 MG TAB PO (19:34)
[2024-09-23 19:50] VITALS: BP 121/60; PULSE 89; RESP 19; TEMP 36.5; O2SAT 94
[2024-09-23] MEDS: Normal Saline Flush 10 ML SYR IVP (21:52)
[2024-09-24 01:00] VITALS: BP 121/58; PULSE 76; TEMP 37.3
[2024-09-24 06:19] VITALS: BP 124/70; PULSE 60; RESP 16; TEMP 36.9; O2SAT 98
[2024-09-24 06:48] LABS: ALT 17 U/L (16-63); AST 12 U/L (15-37); Albumin 3.4 g/dL (3.4-5.0); Alkaline Phosphatase 52 U/L (46-116); Anion Gap 9.8 mmol/L (3-11); BUN 15 mg/dL (7-18); Bilirubin, Total 0.66 mg/dL (0.2-1.0); CO2 26.2 mmol/L (21.0-32.0); Calcium 8.7 mg/dL (8.5-10.1); Chloride 96 mmol/L (98-107); Estimated GFR 74.68 (mL/min/1.73m2); Glucose 152 mg/dL (74-106); Potassium 4.5 mmol/L (3.5-5.1); Sodium 132 mmol/L (136-145); Total Protein 6.8 g/dL (6.4-8.2)
[2024-09-24 07:17] LABS: HCT 29.8 % (40.0-50.0); HGB 10.3 g/dL (13.5-17.5); MCH 31.3 pg (27.0-33.0); MCHC 34.6 % (32.0-36.0); MCV 91 fL (80-95); MPV 9.9 fL (8.0-11.0); Platelet Count 151 10^3/uL (130-400); RBC 3.29 10^6/uL (4.36-5.78); RDW 13.2 % (11.8-14.1); WBC 5.46 10^3/uL (4.4-10.8)
--- NOTE | 2024-09-24 07:29 | W.PM.PROGNOT ---
Date of Service Date of service: 09/24/24 Time of Service: 07:29 Assessment and Plan Assessment and plan (1) Hematuria: Status: Acute Assessment and plan: It appears that his active bleeding has settled. The exact cause of the hematuria is not exactly clear, but given his history, the most likely cause would be hemorrhagic cystitis. In the short-term, we have discontinued his bladder irrigation. If the urine output remains clear, he can be discharged but I would suggest leaving his catheter in place through the weekend. We would take his catheter out in the office early next week. We can then decide about repeating a cystoscopy on him if the hematuria does not clear. Have plans to adjust his antibiotic when the final culture comes back. His urine culture is still pending, so we may need to have plans to adjust his antibiotic coverage once the final culture is available. I believe the emergency department has already provided him with a prescription for antibiotics. Subjective Subjective Interval history since last seen: He had a fairly comfortable night but required hand irrigation for clots 2 or 3 times. His urine has now cleared. He has no fever or chills Exam Narrative Exam Narrative: He appears comfortable His urine outflow is clear. I hand irrigated his catheter and found no additional clots within the bladder. I then ran the bladder irrigation for another 5 to 10 minutes before discontinuing it He is awake and alert Objective Last Vital Signs Temp 36.9 C 09/24/24 06:19 Pulse 60 09/24/24 06:19 Resp 16 09/24/24 06:19 BP 124/70 09/24/24 06:19 Pulse Ox 98 09/24/24 06:19 Laboratory Results - last 24 hr 09/23/24 09/24/24 14:45 06:00 WBC 7.96 5.46 RBC 3.72 L 3.29 L Hgb 11.6 L 10.3 L Hct 33.1 L 29.8 L MCV 89 91 MCH 31.2 31.3 MCHC 35.0 34.6 RDW 13.2 13.2 Plt Count 180 151 MPV 9.9 9.9 Immature Gran % 0.3 Neutrophils % 82.0 Lymphocytes % 9.7 Monocytes % 7.4 Eosinophils % 0.3 Basophils % 0.3 Nucleated RBC % 0.0 Absolute Neutrophils 6.54 Absolute Lymphocytes 0.77 L Absolute Monocytes 0.59 Absolute Eosinophils 0.02 Absolute Basophils 0.02 PT 10.7 INR 1.1 Sodium 124 L* 132 L Potassium 4.4 4.5 Chloride 91 L 96 L Carbon Dioxide 23.5 26.2 Anion Gap 9.5 9.8 BUN 12 15 Creatinine 0.9 1.0 Est GFR (CKD-EPI 2020) 84.74 74.68 Glucose 238 H 152 H Calcium 9.3 8.7 Magnesium 1.8 Total Bilirubin 0.91 0.66 AST 17 12 L ALT 17 17 Alkaline Phosphatase 61 52 Total Protein 7.8 6.8 Albumin 3.9 3.4 ABO/Rh A Negative Antibody Screen NEGATIVE PAWSS Have you Been Recently Intoxicated or Drunk Within the Last 30 days?: No Have you Ever Experienced Previous Episodes of Alcohol Withdrawal?: No Have you ever Experienced Withdrawal Seizures?: No Have you ever Experienced Delirium Tremens(DT)s?: No Have you ever undergone Alcohol Rehabilitation Treatment (i.e, inpt ot outpatient treatment programs)?: No Have you ever Experienced Blackouts?: No Have you ever Combined Alcohol with other Downers within the last 90 days?: No Have you ever Combined Alcohol with any other Substance of Abuse during the last 90 days?: No Positive Blood Alcohol level on Presentation? [PCS.BAL]: No Evidence of Increased Autonomic Activity (i.e. HR>120, tremor, sweating, agitation, nausea)?: No Result: 0 Time Spent with Patient Time Spent with Patient: <25 minutes Time was spent: preparing to see the patient(eg.review tests), obtaining and/or reviewing separately otained hiistory, referring, communicating with other health home visit field care manager and counseling the patient
[2024-09-24 07:37] VITALS: BP 121/65; PULSE 68; RESP 19; TEMP 36.8; O2SAT 98
[2024-09-24] MEDS: metFORMIN 500 MG TAB 1000 MG PO (07:43)
[2024-09-24] MEDS: glipiZIDE 5 MG TAB 2.5 MG PO (07:44)
[2024-09-24] MEDS: Insulin Aspart 300 UNITS/3 ML PEN SC ×2 (07:49→12:13)
[2024-09-24] MEDS: Metoprolol CR 25 MG TABCR PO (08:39)
[2024-09-24] MEDS: Lisinopril 10 MG TAB 30 MG PO (08:39)
[2024-09-24] MEDS: Finasteride 5 MG TAB PO (08:39)
[2024-09-24] MEDS: Tamsulosin 0.4 MG CAPCR 0.8 MG PO (08:39)
[2024-09-24] MEDS: Ciprofloxacin 500 MG TAB PO (08:40)
[2024-09-24] MEDS: Normal Saline Flush 10 ML SYR IVP (08:41)
--- NOTE | 2024-09-24 11:19 | PDOC.CMDIS ---
Date of service: 09/24/24 Time of Service: 11:19 LACE Index Scoring Tool Questions: Length of Stay (in days): 1 Was the patient admitted via the E.D.?: Yes Comorbidities: Diabetes w/o Complication E.D. Visits: 4 Answers: Total Score: 9 Risk of Readmission: Low Risk Care Management Discharge Plan Reason for Hospitalization: hematuria with bladder outlet obstructions Discharge Plan: Clinton will be discharged home today with his pittman catheter in place. He has had foleys in the past and feels comfortable caring for it at home. He will see Dr. Jackson early next week and will f/u with his PCP, and continue per his plan of care. Clinton is independent at baseline. He lives with his in [place]. Clinton feels ready for discharge today, and will transport home in a private vehicle driven by his grandson. Patient/Family Education Needs: Review of discharge instructions, activity, limitations and f/u plan. Discuss Ask me three. [facility] Health Related Social Needs: No Data to Display
--- NOTE | 2024-09-24 13:21 | W.PM.DS.N ---
Date of service: 09/24/24 Time of Service: 13:21 DS: Diagnosis Discharge Diagnosis (1) Hematuria: Status: Acute Discharge Plan Disposition Patient Disposition: Home Condition: Good Discharge Details Reason For Visit: Hematuria w/ bladder outlet obstructions Admit Date/Time: 09/23/24 14:40 Admit Provider: Quincy Latham Attending Provider: Quincy Latham Primary Care Provider: [facility] Hospital Course: 84 yo M with history of hematuria, has been following with Dr. Jackson and had negative bladder biopsies, who was admitted with hematuria with clots causing obstruction of his bladder outlet. Presented twice to the emergency room before admission. He was first treated with cipro for hemorrhagic UTI (he had recent pseudomonal UTI sensitive to cipro. He returned with bladder obstruction and pittman placed and he was discharged. He returned 6 hours later with the pittman obstructed with clots and was admitted. He had bladder irrigation overnight and the bleeding resolved, no further clots. He was seen by Dr. Jackson who did not think he needed any procedures. Dr. Jackson recommended leaving the pittman in place and continuing ciprofloxacin until he is seen in urology clinic next week. He has chronic hyponatremia, which was worse on admission, possibly due to bladder irrigation. He was euvolemic. His sodium increased from 124 to 132 without specific intervention. Home Meds and New Rx's Prescriptions: Continued glipizide 5 mg tablet 2.5 mg PO BID Qty: 90 4RF Rx Instructions: dose increase aspirin [Adult Low Dose Aspirin] 81 mg tablet,delayed release (DR/EC) 81 mg PO DAILY clotrimazole 1 % cream 1 applic topical TID PRN (Reason: rash) Qty: 15 0RF Patient Comments: Yeast groin area lisinopril 30 mg tablet 30 mg PO DAILY Qty: 90 3RF metoprolol succinate 50 mg tablet extended release 24 hr 25 mg PO DAILY Qty: 45 3RF nitroglycerin [Nitrostat] 0.4 mg tablet, sublingual 0.4 mg Sublingual PRN MDD 3 tabs Qty: 25 4RF metformin 500 mg tablet 1,000 mg PO BID Qty: 360 3RF finasteride 5 mg tablet 5 mg PO DAILY Qty: 90 3RF tamsulosin [Flomax] 0.4 mg capsule 0.8 mg PO DAILY Qty: 180 3RF Rx Instructions: Note dosage increase cholecalciferol (vitamin D3) 1,000 UNIT capsule 1 cap PO DAILY (DME) blood-glucose meter Misc See Rx Instructions .MEDSUPPLY Qty: 1 0RF Rx Instructions: Check blood sugar once daily. No insulin. Dispense covered brand. Dx: E11.9 to maintain HbA1c less than 7%. Nephrocaps 1 mg capsule 1 cap PO DAILY Qty: 90 (DME) Blood Glucose Test Strip See Rx Instructions .MEDSUPPLY Qty: 100 3RF Rx Instructions: Check sugars once per day. No insulin. Dispense covered brand. Dx: E11.9 to maintain HbA1c less than 7%. (DME) lancets Misc See Rx Instructions .MEDSUPPLY Qty: 100 3RF Rx Instructions: Check sugars once daily. No insulin. Dispense covered brand. Dx: E11.9 to maintain HbA1c less than 7%. ciprofloxacin HCl [Cipro] 500 mg tablet 500 mg PO BID Qty: 14 0RF Discontinued folic acid 400 mcg tablet 0.4 mg PO DAILY Discharge Instructions Instructions: Urinary Retention (DC) Additional Instructions: Follow up with Dr. Jackson next week. Take the rest of the antibiotics you were previously prescribed for the next [address] Jackson will see you next week to remove the pittman catheter You had two different folic acid supplements on your list. Continue the nephrocaps vitamins (which have folic acid in them). Activity:: Activity as Tolerated Equipment/Supplies:: No Equipment Needed Diet:: As Tolerated Discharge Orders Discharge Orders: Discharge Order (Routine); Ordered 09/24/24 Ordered By: Quincy Latham DS: Summary Time Spent with Patient providing and/or coordinating discharge services: Greater than 30 minutes Status at Discharge Functional status at discharge: independent ambulation Overall status at discharge: patient is back to baseline Mental Status: mental status grossly normal Speech and Movement: speech and movement normal Mood: congruent mood Affect: normal affect Quality:SDOH Health Related Social Needs: No Data to Display Exam Narrative Exam Narrative: GEN: Alert and oriented x 4, pleasant and cooperative, gives linear history. No acute distress at rest. LUNGS: CTAB with normal effort CV: RRR with 2/6 systolic murmur at apex (old per patient), no gallops or rubs. ABD: active bowel sounds, soft, nontender and nondistended. No masses. EXT: no cyanosis, clubbing, or edema MSK: No joint redness or swelling. no CVAT : Urine in pittman now yellow. Psych Mental Status: mental status grossly normal Speech and Movement: speech and movement normal Mood: congruent mood Affect: normal affect DS: Data Vitals/I&O Vitals and I&O: Vital Signs Temperature 36.8 C 09/24/24 07:37 Temperature Source Temporal Artery Scan 09/24/24 07:37 Pulse 68 09/24/24 07:37 Pulse Rhythm Regular 09/23/24 17:30 Respiratory Rate 19 09/24/24 07:37 Respiratory Effort Normal 09/23/24 17:30 Respiratory Depth Normal 09/23/24 17:30 Respiratory Pattern Normal 09/23/24 17:30 Blood Pressure 121/65 09/24/24 07:37 Blood Pressure Position Sitting 09/23/24 13:02 Pulse Oximetry 98 09/24/24 07:37 Oxygen Delivery Method Room Air 09/24/24 07:37 Oxygen Flow Rate 0 09/24/24 07:37 Pain Level 0 09/24/24 01:00 Intake & Output 09/23/24 09/24/24 09/24/24 23:59 11:59 23:59 Output Total 11679 / 18409 8500 / 8850 350 / 8850 Balance -64964 / -42422 -8500 / -8850 -350 / -8850 Weight 89.499 kg Output: Urine 03022 / 31319 8500 / 8850 350 / 8850 Other: Urine Color Briceno Pale [facility] Urine Appearance Hematuria Clear Hematuria Clots Urine Odor None None Comment new 3000 bag up see pittman assessment for bags New 3 liter bag up Data Completed and Pending Labs on day of discharge: Labs from last 24 hours 09/24/24 09/23/24 06:00 14:45 WBC 5.46 7.96 RBC 3.29 L 3.72 L Hgb 10.3 L 11.6 L Hct 29.8 L 33.1 L MCV 91 89 MCH 31.3 31.2 MCHC 34.6 35.0 RDW 13.2 13.2 Plt Count 151 180 MPV 9.9 9.9 Immature Gran % 0.3 Neutrophils % 82.0 Lymphocytes % 9.7 Monocytes % 7.4 Eosinophils % 0.3 Basophils % 0.3 Nucleated RBC % 0.0 Absolute Neutrophils 6.54 Absolute Lymphocytes 0.77 L Absolute Monocytes 0.59 Absolute Eosinophils 0.02 Absolute Basophils 0.02 PT 10.7 INR 1.1 Sodium 132 L 124 L* Potassium 4.5 4.4 Chloride 96 L 91 L Carbon Dioxide 26.2 23.5 Anion Gap 9.8 9.5 BUN 15 12 Creatinine 1.0 0.9 Est GFR (CKD-EPI 2020) 74.68 84.74 Glucose 152 H 238 H Calcium 8.7 9.3 Magnesium 1.8 Total Bilirubin 0.66 0.91 AST 12 L 17 ALT 17 17 Alkaline Phosphatase 52 61 Total Protein 6.8 7.8 Albumin 3.4 3.9 ABO/Rh A Negative Antibody Screen NEGATIVE PFSH All Active Problems (Updated 09/23/24 @ 17:39 by Quincy Latham) DVT prophylaxis (Acute) Hematuria (Acute) Hematuria (Acute) Hematuria (Acute) Acute UTI (Acute) Recurrent UTI (urinary tract infection) (Acute) Heart murmur (Acute) Hyponatremia (Acute) Incomplete emptying of bladder (Acute) Closed right clavicular fracture (Acute 10/08/22) Arthritis of left knee (Acute) Bradycardia (Acute) Constipation (Acute) Anal and rectal polyp (Acute) Gastroesophageal reflux disease (Acute) Status post coronary artery stent placement (Acute) Sensorineural hearing loss (SNHL) of both ears (Acute 03/01/18) Primary osteoarthritis of right knee (Acute 08/02/16) Non-toxic multinodular goiter (Acute) Lipoma of neck (Acute 03/01/18) Essential hypertension (Chronic 07/24/13) Diabetic retinopathy (Acute) MILD IN LEFT EYE~OPTICAL EXPRESSIONS 08/12/15 Diabetes mellitus (Chronic 02/08/13) Arthritis (Acute) Medical History White coat syndrome with hypertension Stated per patient Change in facial mole not suspect- sees [facility] BPH w urinary obs/LUTS (03/01/18) Atherosclerosis of kashia coronary artery Asthma Surgical History S/P cystoscopy Stent placement (~05/2001) 05/30 2 STENTS LAD 11/2001 AND 02/2002 CLEANED BLOCKED STENT (WAS SCAR BUILDUP) KJG (below) Patient report radiation therapy in [facility] to correct scar formation. He believes bare metal stents were placed. Family History Mother , 91 Epilepsy Hyperlipidemia Parkinson disease Father , 73 Essential hypertension Personal history of malignant neoplasm SKIN Stroke Sister Diabetes Essential hypertension Heart disease Hyperlipidemia Brother Heart disease Stroke Pacemaker Parkinson disease Brother Diabetes Heart disease Stroke Brother Diabetes Essential hypertension Heart disease Hyperlipidemia Grandfather Diabetes Heart disease Stroke Grandfather Stroke Grandmother Essential hypertension Depression Heart disease Stroke Grandmother Essential hypertension Hyperlipidemia Stroke Daughter Diabetes Asthma Daughter Diabetes Heart disease VALVE REPLACEMENT Pancreatic cancer Social History Smoking/Tobacco Use Status: Former Tobacco Use tobacco type: cigarettes and cigars Quit Date: 10/30/67 Tobacco: How many years used: 14 Smoking risk assessment performed?: Yes Alcohol Intake: current Alcohol Intake frequency: 3 or more drinks per day Alcohol type: wine and hard liquor Drug use: Never Substance use type: does not use Caregiver/Support person: No Household members: spouse Housing: house Communication Needs: Hard of Hearing Do you need help understanding health information?: Rarely Pets and animals: No Sexually active: No Do you think of yourself as: straight/heterosexual Current gender identity: male What is your relationship status?: How often do you talk on the phone with friends or family?: twice per week How often do you get together with friends or relatives?: three or more times per week How often do you attend confucianist or mormon services?: 1-3 times per year Do you belong to any clubs or organized social groups?: no Panel score (0-1 are the most socially isolated patients): 2 What type of physical activity do you participate in: regular exercise Duration: > 90 minutes/day Frequency: 3-4 times per week Scarlett/Catholic: Roman Catholic Special scarlett needs: No Seatbelt use: always Helmet use: Yes Helmet use: sometimes Drive intox 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 day haul or farm charter bus driver: No Additional Social history: Unable to assess privately, at side Time Spent with Patient Time Spent with Patient: <45 minutes Time was spent: preparing to see the patient(eg.review tests), obtaining and/or reviewing separately otained hiistory, ordering medications,tests, procedures, referring, communicating with other health career technical supervisor, indepentently interpreting results, counseling the patient and care coordination
--- NOTE | 2024-09-25 09:09 | NUR.NOTE ---
Accessed chart to look up whether or not on antibiotic for culture result. Nursing Note:
== END 2024-09-24 14:08 | disposition home or self-care (01) | DRG 699 ==
LOC: ER 15:28 → MS 16:58
PROVIDERS: Admitting Provider Family Medicine; Emergency Provider Student in an Organized Health Care Education/Training Program; PCP Nurse Practitioner Family; Visit Provider Family Medicine
DX: T83.091A Other mechanical complication of indwelling urethral catheter, initial encounter (principal); E87.1 Hypo-osmolality and hyponatremia; N13.8 Other obstructive and reflux uropathy; N30.01 Acute cystitis with hematuria; N40.1 Benign prostatic hyperplasia with lower urinary tract symptoms; I10 Essential (primary) hypertension; E11.9 Type 2 diabetes mellitus without complications; I25.10 Atherosclerotic heart disease of native coronary artery without angina pectoris; R01.1 Cardiac murmur, unspecified; R33.8 Other retention of urine; K59.00 Constipation, unspecified; R00.1 Bradycardia, unspecified; H90.3 Sensorineural hearing loss, bilateral; K21.9 Gastro-esophageal reflux disease without esophagitis; Z95.5 Presence of coronary angioplasty implant and graft; E11.319 Type 2 diabetes mellitus with unspecified diabetic retinopathy without macular edema; J45.909 Unspecified asthma, uncomplicated; Z79.84 Long term (current) use of oral hypoglycemic drugs; Z79.899 Other long term (current) drug therapy; Z79.82 Long term (current) use of aspirin
CPT/HCPCS: 51703; 00123; 36415; 51702; 80053; 85027; 86850; 86900; 86901; 99222; 99231; 99284; 99285; 83735; 85025; 85610; 99239; J1815

== ENCOUNTER 2024-09-27 00:24 | Emergency (ER) | payer MEDICARE, SELFPAY ==
[2024-09-27] VITALS (38 sets, daily range): BP systolic 120–158; BP diastolic 44–80; PULSE 59–142; RESP 14–19; TEMP 36.5; O2SAT 91–99
--- NOTE | 2024-09-27 00:15 | RT.EKG_ITS ---
APPROVED REPORT Exam: Resting ECG Reason for Exam: chesat pain Patient Location: E HR:72 bpm ECG Measurements Heart Rate 72 AXIS NH 217 P 68 QRSd 155 QRS -29 QT 402 T 45 QTc 440 Conclusion Sinus rhythm...normal P axis, V-rate 60- 99 Borderline prolonged NH interval...NH >212, V-rate 50- 90 Right bundle branch block...QRSd>120, terminal axis(90,270) I have reviewed and interpreted ECG and agree with software generated interpretation. Unchanged from prior ekg on 02/12/2024
--- NOTE | 2024-09-27 01:00 | DI.RAD_ITS ---
Exam(s) XR PORTABLE CHEST AP EXAM: XR PORTABLE CHEST AP CLINICAL HISTORY: Chest pain TECHNIQUE: 2D digital imaging was performed of the chest. One image was obtained. An AP view was ob tained. COMPARISON: No exams were available for comparison FINDINGS: MEDIASTINUM: Normal. HEART: Normal. PULMONARY VASCULATURE: Normal. LUNGS: Clear. PLEURAL SPACE: No pleural effusion or pneumothorax. BONE:Within normal limits for the patient's age. OTHER FINDINGS:Normal. IMPRESSION: No acute pulmonary findings. DATA REPOSITORY: RADIATION DOSE DELIVERED:
[2024-09-27 01:08] LABS: Abs Immature Grans 0.02 10^3/uL (0.0-0.06); Absolute Basophil Count 0.02 10^3/uL (0.0-0.2); Absolute Lymphocyte Count 0.89 10^3/uL (1.2-3.4); Absolute Monocyte Count 0.54 10^3/uL (0.1-0.8); Absolute Neutrophil Count 3.48 10^3/uL (1.2-6.7); Basophils % 0.4 %; HCT 26.2 % (40.0-50.0); HGB 9.1 g/dL (13.5-17.5); Immature Grans % 0.4 %; Lymphocytes % 17.6 %; MCH 31.6 pg (27.0-33.0); MCHC 34.7 % (32.0-36.0); MCV 91 fL (80-95); MPV 9.9 fL (8.0-11.0); Monocytes % 10.7 %; Neutrophils % 68.9 %; Platelet Count 173 10^3/uL (130-400); RBC 2.88 10^6/uL (4.36-5.78); RDW 13.2 % (11.8-14.1); RDW-SD 43.4 fL; WBC 5.05 10^3/uL (4.4-10.8)
[2024-09-27 01:22] LABS: PTT Activated 25.4 sec (23.6-32.8)
[2024-09-27 01:30] LABS: ALT 18 U/L (16-63); AST 13 U/L (15-37); Albumin 3.4 g/dL (3.4-5.0); Alkaline Phosphatase 59 U/L (46-116); BUN 12 mg/dL (7-18); Bilirubin, Total 0.62 mg/dL (0.2-1.0); CREATININE 0.9 mg/dL (0.70-1.30); Calcium 8.9 mg/dL (8.5-10.1); Chloride 92 mmol/L (98-107); Estimated GFR 84.74 (mL/min/1.73m2); Glucose 182 mg/dL (74-106); NT-proBNP 72 pg/mL (<300); Potassium 4.4 mmol/L (3.5-5.1); Sodium 127 mmol/L (136-145); Total Protein 7.2 g/dL (6.4-8.2); Troponin I 8 ng/L (<or=76)
--- NOTE | 2024-09-27 02:03 | ED.GENADUL_ITS ---
Discharge Plan Disposition Patient Disposition: Home Condition: Good Discharge Details Clinical Impression: Chest discomfort Primary Care Provider: Delaney Gaviria ED Provider: Josh Greene Home Meds and New Rx's Prescriptions: New lidocaine [Lidoderm] 5 % adhesive patch,medicated 1 patch Topical Q24H Qty: 15 0RF No Action glipizide 5 mg tablet 2.5 mg PO BID Qty: 90 4RF Rx Instructions: dose increase aspirin [Adult Low Dose Aspirin] 81 mg tablet,delayed release (DR/EC) 81 mg PO DAILY clotrimazole 1 % cream 1 applic topical TID PRN (Reason: rash) Qty: 15 0RF Patient Comments: Yeast groin area lisinopril 30 mg tablet 30 mg PO DAILY Qty: 90 3RF metoprolol succinate 50 mg tablet extended release 24 hr 25 mg PO DAILY Qty: 45 3RF nitroglycerin [Nitrostat] 0.4 mg tablet, sublingual 0.4 mg Sublingual PRN MDD 3 tabs Qty: 25 4RF metformin 500 mg tablet 1,000 mg PO BID Qty: 360 3RF finasteride 5 mg tablet 5 mg PO DAILY Qty: 90 3RF tamsulosin [Flomax] 0.4 mg capsule 0.8 mg PO DAILY Qty: 180 3RF Rx Instructions: Note dosage increase cholecalciferol (vitamin D3) 1,000 UNIT capsule 1 cap PO DAILY (DME) blood-glucose meter Misc See Rx Instructions .MEDSUPPLY Qty: 1 0RF Rx Instructions: Check blood sugar once daily. No insulin. Dispense covered brand. Dx: E11.9 to maintain HbA1c less than 7%. Nephrocaps 1 mg capsule 1 cap PO DAILY Qty: 90 (DME) Blood Glucose Test Strip See Rx Instructions .MEDSUPPLY Qty: 100 3RF Rx Instructions: Check sugars once per day. No insulin. Dispense covered brand. Dx: E11.9 to maintain HbA1c less than 7%. (DME) lancets Misc See Rx Instructions .MEDSUPPLY Qty: 100 3RF Rx Instructions: Check sugars once daily. No insulin. Dispense covered brand. Dx: E11.9 to maintain HbA1c less than 7%. ciprofloxacin HCl [Cipro] 500 mg tablet 500 mg PO BID Qty: 14 0RF Discharge Instructions Instructions: Chest Pain, Adult ED Additional Instructions: At this time your heart markers have returned normal. However because of your history, it is prudent to follow-up closely with your dietitian chief for reassessment and potential nonemergent outpatient stress testing. Please use Lidoderm patches as prescribed for pain. A prescription has been sent to your pharmacy. If you notice any worsening of your symptoms, or any new symptoms such as vomiting, diarrhea, fever, chills, shortness of breath, chest pain, numbness, weakness, or fainting , please return immediately to the emergency department for reevaluation. Please follow up with your primary care provider as soon as possible for reassessment and reevaluation. As always, it was a pleasure participating in your medical care today. Referrals: Antoinette Melendez MD [[facility] STAFF PHYSICIAN] - Delaney Gaviria NP [Primary Care Provider] - [facility] General Date/Time Provider Initiated Documentation: 09/27/24 01:02 . HPI Narrative: 84-year-old male with past medical history of previous heart attack, stents in 2000, daily aspirin use, hypertension, diabetes, who presents today for evaluation of chest discomfort. Patient states that at around 11 AM today he developed some mild left-sided chest discomfort which she describes as an achy like sensation. He took nitroglycerin and this improved his symptoms, throughout the day the chest pain came back to different episodes, and he took nitroglycerin 2 different times. He does take nitroglycerin occasionally throughout the month, but not multiple times in 1 day. He denies any exertional discomfort, associated shortness of breath, or pleuritic chest pain. He states he has been taking his medications regularly otherwise. He denies any vomiting or diarrhea. He states that the chest pain is notably minimal at this time. EMS was called this evening, he was given full 325 aspirin. He was brought in for further assessment. He denies any tearing or ripping sensation. No other complaints. Related Data Home Medications ?Medication ?Instructions ?Recorded ?Confirmed cholecalciferol (vitamin D3) 25 1 cap PO DAILY 02/06/13 09/27/24 mcg (1,000 unit) capsule glipizide 5 mg tablet 2.5 mg (1/2 x 5 mg) PO BID #90 tabs 07/08/22 09/27/24 aspirin 81 mg tablet,delayed 81 mg PO DAILY 07/19/22 09/27/24 release (Adult Low Dose Aspirin) blood-glucose meter #1 ea 01/23/23 09/27/24 vitamin B complex and vitamin C 1 cap PO DAILY ##90 12/26/23 09/27/24 no.20-folic acid 1 mg capsule (Nephrocaps) clotrimazole 1 % topical cream 1 applic topical TID PRN rash #15 02/28/24 09/27/24 grams finasteride 5 mg tablet 5 mg PO DAILY #90 tabs 04/04/24 09/27/24 tamsulosin 0.4 mg capsule (Flomax) 0.8 mg (2 x 0.4 mg) PO DAILY #180 04/04/24 09/27/24 caps lisinopril 30 mg tablet 30 mg PO DAILY #90 tabs 04/18/24 09/27/24 metformin 500 mg tablet 1,000 mg (2 x 500 mg) PO BID #360 04/18/24 09/27/24 tabs metoprolol succinate 50 mg 25 mg (1/2 x 50 mg) PO DAILY #45 04/18/24 09/27/24 tablet,extended release 24 hr tabs nitroglycerin 0.4 mg sublingual 0.4 mg sublingual PRN #25 tabs 04/18/24 09/27/24 tablet (Nitrostat) blood sugar diagnostic (Blood #100 ea 05/27/24 09/27/24 Glucose Test strips) lancets #100 ea 05/27/24 09/27/24 ciprofloxacin HCl 500 mg tablet 500 mg PO BID #14 tabs 09/22/24 09/27/24 (Cipro) lidocaine 5 % topical patch 1 patch topical Q24H #15 ea 09/27/24 (Lidoderm) Previous Rx's ?Medication ?Instructions ?Recorded glipizide 5 mg tablet 2.5 mg (1/2 x 5 mg) PO BID #90 tabs 07/08/22 blood-glucose meter #1 ea 01/23/23 clotrimazole 1 % topical cream 1 applic topical TID PRN rash #15 02/28/24 grams finasteride 5 mg tablet 5 mg PO DAILY #90 tabs 04/04/24 tamsulosin 0.4 mg capsule (Flomax) 0.8 mg (2 x 0.4 mg) PO DAILY #180 04/04/24 caps lisinopril 30 mg tablet 30 mg PO DAILY #90 tabs 04/18/24 metformin 500 mg tablet 1,000 mg (2 x 500 mg) PO BID #360 04/18/24 tabs metoprolol succinate 50 mg 25 mg (1/2 x 50 mg) PO DAILY #45 04/18/24 tablet,extended release 24 hr tabs nitroglycerin 0.4 mg sublingual 0.4 mg sublingual PRN #25 tabs 04/18/24 tablet (Nitrostat) blood sugar diagnostic (Blood #100 ea 05/27/24 Glucose Test strips) lancets #100 ea 05/27/24 ciprofloxacin HCl 500 mg tablet 500 mg PO BID #14 tabs 09/22/24 (Cipro) lidocaine 5 % topical patch 1 patch topical Q24H #15 ea 09/27/24 (Lidoderm) Allergies Allergy/AdvReac Type Severity Reaction Status Date / Time menthol Allergy Unknown WHEEZING Verified 09/27/24 00:09 aspirin Allergy sick to Verified 09/27/24 00:09 stomach General Stated Complaint: Chest Pain LILA: 2 Review of Systems All systems reviewed & are unremarkable except as noted in HPI and below Exam Narrative Exam Narrative: 1.Const: Well-nourished, Well-developed, appearing stated age 2.Eyes: PERRL, no conjunctival injection, and symmetrical lids. 3.ENT: Atraumatic external nose and ears. Moist MM. Neck: Symmetric, trachea midline, No thyromegaly. 4.CVS: +S1/S2, Peripheral pulses 2+ and equal in all extremities. Brisk capillary refill in all extremities. 5.RESP: Unlabored respiratory effort. Clear to auscultation bilaterally. No wheezes rales or rhonchi 6.GI: Soft, Nontender/Nondistended, No hepatosplenomegaly. No guarding or rebound. 7.MSK: Normocephalic/Atraumatic, Extremities w/o deformity or ttp No cyanosis or clubbing, Normal movement of all extremities 8.Skin: Warm, Dry. No rashes or lesions. 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 Sensation grossly intact, no focal neurologic deficits. 10.Psych: (AAO) x3. Appropriate mood and affect Course Vital Signs Vital signs: Vital Signs Temperature 36.5 C 09/27/24 00:25 Pulse 119 H 09/27/24 00:25 Respiratory Rate 16 09/27/24 00:25 Blood Pressure 144/80 H 09/27/24 00:25 Pulse Oximetry 98 09/27/24 00:25 Temperature 36.5 C 09/27/24 00:25 Temperature Source Temporal Artery Scan 09/27/24 00:25 Pulse 67 09/27/24 00:46 Pulse 81 09/27/24 00:50 Respiratory Rate 16 09/27/24 00:50 Respiratory Effort Normal 09/27/24 00:54 Respiratory Depth Normal 09/27/24 00:54 Respiratory Pattern Normal 09/27/24 00:54 Blood Pressure 149/57 H 09/27/24 00:46 Blood Pressure Mean 89 09/27/24 00:46 Blood Pressure Position Sitting 09/27/24 00:25 Pulse Oximetry 96 09/27/24 00:50 Oxygen Delivery Method Room Air 09/27/24 00:25 Oxygen Flow Rate 0 09/27/24 00:25 Pain Level 2 09/27/24 00:25 Lab/Test Results Lab/Test Results: Laboratory Tests Range/Units 09/27/24 00:40 WBC (4.4-10.8) 10^3/uL 5.05 RBC (4.36-5.78) 10^6/uL 2.88 L Hgb (13.5-17.5) g/dL 9.1 L Hct (40.0-50.0) % 26.2 L MCV (80-95) fL 91 MCH (27.0-33.0) pg 31.6 MCHC (32.0-36.0) % 34.7 RDW (11.8-14.1) % 13.2 Plt Count (130-400) 10^3/uL 173 MPV (8.0-11.0) fL 9.9 Immature Gran % % 0.4 Neutrophils % % 68.9 Lymphocytes % % 17.6 Monocytes % % 10.7 Eosinophils % % 2.0 Basophils % % 0.4 Nucleated RBC % (0.0-0.3) % 0.0 Absolute Neutrophils (1.2-6.7) 10^3/uL 3.48 Absolute Lymphocytes (1.2-3.4) 10^3/uL 0.89 L Absolute Monocytes (0.1-0.8) 10^3/uL 0.54 Absolute Eosinophils (0.0-0.7) 10^3/uL 0.10 Absolute Basophils (0.0-0.2) 10^3/uL 0.02 PT (9.1-11.1) sec 10.0 INR (0.9-1.1) 1.0 APTT (23.6-32.8) sec 25.4 Sodium (136-145) mmol/L 127 L Potassium (3.5-5.1) mmol/L 4.4 Chloride (98-107) mmol/L 92 L Carbon Dioxide (21.0-32.0) mmol/L 27.0 Anion Gap (3-11) mmol/L 8.0 BUN (7-18) mg/dL 12 Creatinine (0.70-1.30) mg/dL 0.9 Est GFR (CKD-EPI 2020) (mL/min/1.73m2) 84.74 Glucose (74-106) mg/dL 182 H Calcium (8.5-10.1) mg/dL 8.9 Total Bilirubin (0.2-1.0) mg/dL 0.62 AST (15-37) U/L 13 L ALT (16-63) U/L 18 Alkaline Phosphatase (46-116) U/L 59 Troponin I (<or=76) ng/L 8 NT-Pro-B Natriuret Pep (<300) pg/mL 72 Total Protein (6.4-8.2) g/dL 7.2 Albumin (3.4-5.0) g/dL 3.4 Medical Decision Making 84-year-old male with past medical history of previous heart attack, stents in 2000, daily aspirin use, hypertension, diabetes, who presents today for evaluation of chest discomfort. Patient states that at around 11 AM today he developed some mild left-sided chest discomfort which she describes as an achy like sensation. He took nitroglycerin and this improved his symptoms, throughout the day the chest pain came back to different episodes, and he took nitroglycerin 2 different times. He does take nitroglycerin occasionally throughout the month, but not multiple times in 1 day. He denies any exertional discomfort, associated shortness of breath, or pleuritic chest pain. He states he has been taking his medications regularly otherwise. He denies any vomiting or diarrhea. He states that the chest pain is notably minimal at this time. EMS was called this evening, he was given full 325 aspirin. He was brought in for further assessment. He denies any tearing or ripping sensation. No other complaints. Exam demonstrates well-appearing male, no acute distress. No reproducible chest wall tenderness. Radial pulses are equal. No significant pitting edema. Differential includes ACS versus anginal equivalent, potential chronic anginal symptomatology, less likely pneumothorax. Symptoms inconsistent with dissection. No tachycardia or pleuritic chest pain to suggest PE. No tearing or ripping sensation in his chest. No cough to suggest pneumonia. Will evaluate for concerning etiologies, monitor closely and reassess. EKG does demonstrate evidence of right bundle branch block, with an atypical QRS complex. However symptoms do not appear to be consistent with de Palmer T waves or Brugada. EKG is unchanged from prior EKGs. 3:29 AM Patient continues to demonstrate minimal intermittent very mild achiness in the left chest, he is otherwise resting notably comfortable. Initial troponin was 8, subsequent 1 hour Trope was 12. We are pending 3-hour troponin. proBNP normal. Chest x-ray negative for acute process. Hemoglobin slightly lower than normal at 9.1. Platelets normal. Patient has been losing some blood recently over time from his internal lesion which is why has indwelling Alexandre catheter. He is scheduled to have this manage further this week. 4:30 AM Repeat serial troponins have remained within normal limits. Symptoms appear to be consistent with musculoskeletal irritation, pain notably improved with Lidoderm patch. However I do feel that the patient would benefit from additional stress testing. I offered inpatient admission for stress testing which the patient has declined. Patient will reach out to his PCP for close outpatient follow-up. Recommend nonemergent outpatient stress testing. Patient otherwise stable. Discussed red flags which to return. Symptoms inconsistent with PE, dissection, or ACS. I have extensively reviewed the treatment plan and discharge instructions with the patient. I have addressed all patient concerns at this time. The patient was made aware of what symptoms to monitor for that would warrant a return to the emergency department. Discussed the plan with the patient, they demonstrate verbal understanding and agreement with our assessment and plan at this time. The documentation in this chart was dictated using [email or web address] dictation software. Please excuse any dictation errors. FINDINGS: Lungs: No pulmonary consolidation is seen. Pleural spaces: No pleural effusion or pneumothorax is demonstrated. Heart/Mediastinum: The heart appears normal in size. There is atherosclerotic calcification at the apex of the aortic arch. Bones/joints: The visualized bony structures appear grossly intact. IMPRESSION: No active disease is seen in the chest. Thank you for allowing us to participate in the care of your patient. Dictated and Authenticated by: Elder Peterson MD 09/27/2024 2:05 AM Eastern Time ([place] & [place]) Quality:SDOH Health Related Social Needs: No Data to Display PFSH All Active Problems (Updated 09/27/24 @ 03:45 by Josh Greene DO) Chest discomfort (Acute) Hematuria (Acute) Acute UTI (Acute) Recurrent UTI (urinary tract infection) (Acute) Heart murmur (Acute) Hyponatremia (Acute) Incomplete emptying of bladder (Acute) Closed right clavicular fracture (Acute 10/08/22) Arthritis of left knee (Acute) Bradycardia (Acute) Constipation (Acute) Anal and rectal polyp (Acute) Gastroesophageal reflux disease (Acute) Status post coronary artery stent placement (Acute) Sensorineural hearing loss (SNHL) of both ears (Acute 03/01/18) Primary osteoarthritis of right knee (Acute 08/02/16) Non-toxic multinodular goiter (Acute) Lipoma of neck (Acute 03/01/18) Essential hypertension (Chronic 07/24/13) Diabetic retinopathy (Acute) MILD IN LEFT EYE~OPTICAL EXPRESSIONS 08/12/15 Diabetes mellitus (Chronic 02/08/13) Arthritis (Acute) Medical History White coat syndrome with hypertension Stated per patient BPH w urinary obs/LUTS (03/01/18) Atherosclerosis of [place] coronary artery Asthma Change in facial mole not suspect- [place] [facility] [place] S/P cystoscopy Stent placement (~05/2001) 05/30 2 STENTS LAD 11/2001 AND 02/2002 CLEANED BLOCKED STENT (WAS SCAR BUILDUP) KJG (below) Patient report radiation therapy in [facility] to correct scar formation. He believes bare metal stents were placed. Family History Mother , 91 Epilepsy Hyperlipidemia Parkinson disease Father , 73 Essential hypertension Personal history of malignant neoplasm SKIN Stroke Sister Diabetes Essential hypertension Heart disease Hyperlipidemia Brother Heart disease Stroke Pacemaker Parkinson disease Brother Diabetes Heart disease Stroke Brother Diabetes Essential hypertension Heart disease Hyperlipidemia Grandfather Diabetes Heart disease Stroke Grandfather Stroke Grandmother Essential hypertension Depression Heart disease Stroke Grandmother Essential hypertension Hyperlipidemia Stroke Daughter Diabetes Asthma Daughter Diabetes Heart disease VALVE REPLACEMENT Pancreatic cancer Social History Smoking/Tobacco Use Status: Former Tobacco Use tobacco type: cigarettes and cigars Quit Date: 10/30/67 Tobacco: How many years used: 14 Smoking risk assessment performed?: Yes Alcohol Intake: current Alcohol Intake frequency: 3 or more drinks per day Alcohol type: wine and hard liquor Drug use: Never Substance use type: does not use Caregiver/Support person: No Household members: spouse Housing: house Communication Needs: Hard of Hearing Do you need help understanding health information?: Rarely Pets and animals: No Sexually active: No Do you think of yourself as: straight/heterosexual Current gender identity: male What is your relationship status?: How often do you talk on the phone with friends or family?: twice per week How often do you get together with friends or relatives?: three or more times per week How often do you attend religion or tenriism services?: 1-3 times per year Do you belong to any clubs or organized social groups?: no Panel score (0-1 are the most socially isolated patients): 2 What type of physical activity do you participate in: regular exercise Duration: > 90 minutes/day Frequency: 3-4 times per week Scarlett/Quaker: Hoahaoism Special scarlett needs: No Seatbelt use: always Helmet use: Yes Helmet use: sometimes Drive intox 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 hi low truck driver: No Do you feel safe at home: Yes Do you feel safe in your relationship?: Yes
--- NOTE | 2024-09-27 02:05 | DI.VRAD_ITS ---
PROCEDURE INFORMATION: Exam: XR Chest Exam date and time: 09/27/2024 1:12 AM Age: 84 years old Clinical indication: Pain; Chest pressure; Prior surgery; Surgery date: 6+ months; Surgery type: Stents TECHNIQUE: Imaging protocol: Radiologic exam of the chest. Views: 1 view. COMPARISON: CT ABDOMEN PELVIS WO 02/27/2024 9:19 PM FINDINGS: Lungs: No pulmonary consolidation is seen. Pleural spaces: No pleural effusion or pneumothorax is demonstrated. Heart/Mediastinum: The heart appears normal in size. There is atherosclerotic calcification at the apex of the aortic arch. Bones/joints: The visualized bony structures appear grossly intact. IMPRESSION: No active disease is seen in the chest. Dictated and Authenticated by: Elder Peterson MD. Ordering:LUCIO Moreno MD
[2024-09-27 02:17] LABS: Troponin I 12 ng/L (<or=76)
[2024-09-27] MEDS: Lidocaine 5% Patch 1 PATCH TP (03:59)
[2024-09-27 04:14] LABS: Troponin I 14 ng/L (<or=76)
== END 2024-09-27 04:34 | disposition home or self-care (01) ==
PROVIDERS: Emergency Provider Student in an Organized Health Care Education/Training Program; PCP Nurse Practitioner Family
DX: R07.9 Chest pain, unspecified (principal); R11.10 Vomiting, unspecified; I25.10 Atherosclerotic heart disease of native coronary artery without angina pectoris; I25.2 Old myocardial infarction; I10 Essential (primary) hypertension; E11.319 Type 2 diabetes mellitus with unspecified diabetic retinopathy without macular edema; Z95.5 Presence of coronary angioplasty implant and graft; I45.19 Other right bundle-branch block; Z79.84 Long term (current) use of oral hypoglycemic drugs; Z79.82 Long term (current) use of aspirin; Z87.891 Personal history of nicotine dependence
CPT/HCPCS: 36415; 80053; 93005; 99285; 71045; 83880; 84484; 85025; 85610; 85730; 93010; 99284

== ENCOUNTER → 2024-09-30 08:02 | Outpatient (BNVA) | payer MEDICARE, SELFPAY | PROVIDERS: PCP Nurse Practitioner Family; Referring Provider Nurse Practitioner Family; Visit Provider Urology | DX: R31.9 Hematuria, unspecified (principal) ==

== ENCOUNTER 2024-10-13 13:55 | Inpatient (IN) | payer MEDICARE, SELFPAY ==
[2024-10-13] VITALS (13 sets, daily range): BP systolic 119–147; BP diastolic 59–66; PULSE 66–85; RESP 14–17; TEMP 36.4–36.7; O2SAT 93–100
[2024-10-13 14:55] LABS: Absolute Basophil Count 0.02 10^3/uL (0.0-0.2); Absolute Eosinophil Count 0.04 10^3/uL (0.0-0.7); Absolute Lymphocyte Count 0.55 10^3/uL (1.2-3.4); Absolute Monocyte Count 0.37 10^3/uL (0.1-0.8); Absolute Neutrophil Count 3.19 10^3/uL (1.2-6.7); Basophils % 0.5 %; HCT 28.6 % (40.0-50.0); HGB 9.6 g/dL (13.5-17.5); Lymphocytes % 13.2 %; MCH 30.5 pg (27.0-33.0); MCHC 33.6 % (32.0-36.0); MCV 91 fL (80-95); Monocytes % 8.9 %; Neutrophils % 76.4 %; Platelet Count 195 10^3/uL (130-400); RBC 3.15 10^6/uL (4.36-5.78); RDW 12.4 % (11.8-14.1); RDW-SD 41.1 fL; WBC 4.17 10^3/uL (4.4-10.8)
[2024-10-13 15:07] LABS: Prothrombin Time 10.5 sec (9.1-11.1)
[2024-10-13 15:11] LABS: ALT 18 U/L (16-63); AST 16 U/L (15-37); Albumin 3.6 g/dL (3.4-5.0); Alkaline Phosphatase 58 U/L (46-116); Anion Gap 8.1 mmol/L (3-11); BUN 12 mg/dL (7-18); Bilirubin, Total 0.43 mg/dL (0.2-1.0); CO2 24.9 mmol/L (21.0-32.0); Calcium 8.8 mg/dL (8.5-10.1); Chloride 96 mmol/L (98-107); Estimated GFR 74.68 (mL/min/1.73m2); Glucose 161 mg/dL (74-106); Magnesium 1.6 mg/dL (1.8-2.4); Potassium 4.6 mmol/L (3.5-5.1); Sodium 129 mmol/L (136-145); Total Protein 7.3 g/dL (6.4-8.2)
--- NOTE | 2024-10-13 15:42 | ED.GENADUL_ITS ---
Discharge Plan Disposition Patient Disposition: Admit to [facility] Condition: Stable Discharge Details Chief Complaint: Urinary Clinical Impression: Hematuria, Status post coronary artery stent placement, Hyponatremia, Diabetes mellitus, Essential hypertension Admit Date/Time: 10/13/24 15:48 Admit Provider: Ghassan Silverman Attending Provider: Ghassan Silverman Primary Care Provider: Delaney Gaviria ED Provider: Neema Galarza Discharge Data Discharge Date/Time-TO BE ENTERED AT DEPARTURE: 10/13/24 16:28 HPI General Mode of arrival: ambulatory . Date/Time Provider Initiated Documentation: 10/13/24 13:57 . Limitations to Documentation: no limitations . Information obtained by: patient, family and old records reviewed . HPI Narrative: HPI: This is an 84-year-old male patient with a past medical history significant for hematuria, recurrent UTI, coronary artery disease status post stent placement, diabetes, and hypertension, who is presenting for evaluation of gross hematuria. 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 He is followed by Dr. Jackson with urology. Around midnight the patient reports that he had to urinate, states that he passed large clots and frankly bloody urine, states that he does feel some discomfort over his bladder. He states that he has had increased urinary frequency and incomplete emptying over the course of the day. He does not take any blood thinners, takes a baby aspirin, and has otherwise been in his normal state of health without fever, chills, chest pain, shortness of breath. The patient's last admission was approximately a month ago for Alexandre placement and bladder irrigation. His last antibiotic for UTI with ciprofloxacin. Exam: Gen: Awake and alert, in no apparent distress HEENT: Non-icteric sclera Neck: Supple Lungs: No apparent respiratory distress, normal respiratory effort. CV: Appears well perfused, strong distal pulses Abdomen: Non-distended, soft, nontender, some discomfort over the bladder with some appreciable distention. MSK: Moves 4 extremities without apparent limitation in ROM Skin: Visualized skin without rashes, cyanosis. Neuro: Normal Gait, no obvious focal deficits or facial asymmetry. Speaks in full, clear sentences. Psych: Appropriate for situation. MDM: This is a an 84-year-old male patient presenting for evaluation of hematuria. Differential includes but is not limited to gross hematuria due to hemorrhagic cystitis as he has been diagnosed with previously, certainly also considered urinary retention, UTI, coagulopathy. Considered bladder and kidney malignancy, as well as renal stones. We will obtain laboratory studies to include CBC, CMP, PT/INR, and urinalysis. We will obtain a postvoid residual. I did reach out to the urologist, and discussed the case by telephone. He states that the patient would likely benefit from three-way catheter placement and irrigation, admission overnight, and that he did not see an indication for emergent imaging due to the chronic and recurrent nature of this complaint. ED Course: I reviewed the patient's laboratory studies, which show no leukocytosis. The patient's anemia is at his baseline and he has no thrombocytopenia or elevation in his INR. Chemistry panel demonstrates a stable hyponatremia to 129, no evidence of kidney dysfunction or liver disease. The initial urine was obtained, was frankly bloody and full of clots. Postvoid residual 650 mL. Three-way catheter was placed, and bladder irrigation was initiated. I did reach out to the hospitalist team, who requested a Noncon CT of the patient's abdomen and pelvis to ensure that he does not have obstructing renal stone. They will also follow-up on the results of the urinalysis given that his initial urine was jalyn clot. Patient remained hemodynamically appropriate while under my care. CT scan was obtained while the patient was in the emergency department but had not yet been read by radiologist. I note worsening of his previously noted left-sided hydronephrosis without obvious obstructing renal calculi. My discussion with the radiologist is most concerning for ongoing hemorrhagic cystitis with potential clot blockage of the ureter, though certainly tumor and uric acid s tones could certainly be considered. The patient was graciously accepted to the hospitalist team for admission, remained hemodynamically appropriate while under my care and was transferred from this department without incident. Neema Galarza MD Related Data Home Medications ?Medication ?Instructions ?Recorded ?Confirmed cholecalciferol (vitamin D3) 25 1 cap PO DAILY 02/06/13 10/13/24 mcg (1,000 unit) capsule glipizide 5 mg tablet 2.5 mg (1/2 x 5 mg) PO BID #90 tabs 07/08/22 10/13/24 aspirin 81 mg tablet,delayed 81 mg PO DAILY 07/19/22 10/13/24 release (Adult Low Dose Aspirin) blood-glucose meter #1 ea 01/23/23 10/13/24 vitamin B complex and vitamin C 1 cap PO DAILY ##90 12/26/23 10/13/24 no.20-folic acid 1 mg capsule (Nephrocaps) clotrimazole 1 % topical cream 1 applic topical TID PRN rash #15 02/28/24 10/13/24 grams finasteride 5 mg tablet 5 mg PO DAILY #90 tabs 04/04/24 10/13/24 tamsulosin 0.4 mg capsule (Flomax) 0.8 mg (2 x 0.4 mg) PO DAILY #180 04/04/24 10/13/24 caps lisinopril 30 mg tablet 30 mg PO DAILY #90 tabs 04/18/24 10/13/24 metformin 500 mg tablet 1,000 mg (2 x 500 mg) PO BID #360 04/18/24 10/13/24 tabs metoprolol succinate 50 mg 25 mg (1/2 x 50 mg) PO DAILY #45 04/18/24 10/13/24 tablet,extended release 24 hr tabs nitroglycerin 0.4 mg sublingual 0.4 mg sublingual PRN #25 tabs 04/18/24 10/13/24 tablet (Nitrostat) blood sugar diagnostic (Blood #100 ea 05/27/24 10/13/24 Glucose Test strips) lancets #100 ea 05/27/24 10/13/24 lidocaine 5 % topical patch 1 patch topical Q24H #15 ea 09/27/24 10/13/24 (Lidoderm) Previous Rx's ?Medication ?Instructions ?Recorded glipizide 5 mg tablet 2.5 mg (1/2 x 5 mg) PO BID #90 tabs 07/08/22 blood-glucose meter #1 ea 01/23/23 clotrimazole 1 % topical cream 1 applic topical TID PRN rash #15 02/28/24 grams finasteride 5 mg tablet 5 mg PO DAILY #90 tabs 04/04/24 tamsulosin 0.4 mg capsule (Flomax) 0.8 mg (2 x 0.4 mg) PO DAILY #180 04/04/24 caps lisinopril 30 mg tablet 30 mg PO DAILY #90 tabs 04/18/24 metformin 500 mg tablet 1,000 mg (2 x 500 mg) PO BID #360 04/18/24 tabs metoprolol succinate 50 mg 25 mg (1/2 x 50 mg) PO DAILY #45 04/18/24 tablet,extended release 24 hr tabs nitroglycerin 0.4 mg sublingual 0.4 mg sublingual PRN #25 tabs 04/18/24 tablet (Nitrostat) blood sugar diagnostic (Blood #100 ea 05/27/24 Glucose Test strips) lancets #100 ea 05/27/24 lidocaine 5 % topical patch 1 patch topical Q24H #15 ea 09/27/24 (Lidoderm) Allergies Allergy/AdvReac Type Severity Reaction Status Date / Time menthol Allergy Unknown WHEEZING Verified 10/13/24 14:06 aspirin Allergy sick to Verified 10/13/24 14:06 stomach General Stated Complaint: Urinary LILA: 3 Course Vital Signs Vital signs: Vital Signs Temperature 36.4 C L 10/13/24 14:00 Pulse 85 10/13/24 14:00 Respiratory Rate 14 10/13/24 14:00 Blood Pressure 119/66 10/13/24 14:00 Pulse Oximetry 98 10/13/24 14:00 Temperature 36.4 C L 10/13/24 14:13 Temperature Source Oral 10/13/24 14:13 Pulse 80 10/13/24 14:33 Respiratory Rate 16 10/13/24 14:33 Respiratory Effort Normal, Non-Labored 10/13/24 14:08 Blood Pressure 119/66 10/13/24 14:13 Blood Pressure Position Sitting 10/13/24 14:13 Pulse Oximetry 97 10/13/24 14:33 Oxygen Delivery Method Room Air 10/13/24 14:13 Oxygen Flow Rate 0 10/13/24 14:13 Pain Level 5 10/13/24 14:37 Lab/Test Results Lab/Test Results: Laboratory Tests Range/Units 10/13/24 14:47 WBC (4.4-10.8) 10^3/uL 4.17 L RBC (4.36-5.78) 10^6/uL 3.15 L Hgb (13.5-17.5) g/dL 9.6 L Hct (40.0-50.0) % 28.6 L MCV (80-95) fL 91 MCH (27.0-33.0) pg 30.5 MCHC (32.0-36.0) % 33.6 RDW (11.8-14.1) % 12.4 Plt Count (130-400) 10^3/uL 195 MPV (8.0-11.0) fL 9.0 Immature Gran % % 0.0 Neutrophils % % 76.4 Lymphocytes % % 13.2 Monocytes % % 8.9 Eosinophils % % 1.0 Basophils % % 0.5 Nucleated RBC % (0.0-0.3) % 0.0 Absolute Neutrophils (1.2-6.7) 10^3/uL 3.19 Absolute Lymphocytes (1.2-3.4) 10^3/uL 0.55 L Absolute Monocytes (0.1-0.8) 10^3/uL 0.37 Absolute Eosinophils (0.0-0.7) 10^3/uL 0.04 Absolute Basophils (0.0-0.2) 10^3/uL 0.02 PT (9.1-11.1) sec 10.5 INR (0.9-1.1) 1.0 Sodium (136-145) mmol/L 129 L Potassium (3.5-5.1) mmol/L 4.6 Chloride (98-107) mmol/L 96 L Carbon Dioxide (21.0-32.0) mmol/L 24.9 Anion Gap (3-11) mmol/L 8.1 BUN (7-18) mg/dL 12 Creatinine (0.70-1.30) mg/dL 1.0 Est GFR (CKD-EPI 2020) (mL/min/1.73m2) 74.68 Glucose (74-106) mg/dL 161 H Calcium (8.5-10.1) mg/dL 8.8 Magnesium (1.8-2.4) mg/dL 1.6 L Total Bilirubin (0.2-1.0) mg/dL 0.43 AST (15-37) U/L 16 ALT (16-63) U/L 18 Alkaline Phosphatase (46-116) U/L 58 Total Protein (6.4-8.2) g/dL 7.3 Albumin (3.4-5.0) g/dL 3.6 Medical Decision Making Quality:SDOH Health Related Social Needs: No Data to Display PFSH All Active Problems (Updated 10/13/24 @ 15:43 by Neema Galarza MD) Chest discomfort (Acute) Hematuria (Acute) Acute UTI (Acute) Recurrent UTI (urinary tract infection) (Acute) Heart murmur (Acute) Hyponatremia (Acute) Incomplete emptying of bladder (Acute) Closed right clavicular fracture (Acute 10/08/22) Arthritis of left knee (Acute) Bradycardia (Acute) Constipation (Acute) Anal and rectal polyp (Acute) Gastroesophageal reflux disease (Acute) Status post coronary artery stent placement (Acute) Sensorineural hearing loss (SNHL) of both ears (Acute 03/01/18) Primary osteoarthritis of right knee (Acute 08/02/16) Non-toxic multinodular goiter (Acute) Lipoma of neck (Acute 03/01/18) Essential hypertension (Chronic 07/24/13) Diabetic retinopathy (Acute) MILD IN LEFT EYE~OPTICAL EXPRESSIONS 08/12/15 Diabetes mellitus (Chronic 02/08/13) Arthritis (Acute) Medical History White coat syndrome with hypertension Stated per patient BPH w urinary obs/LUTS (03/01/18) Atherosclerosis of [place] coronary artery Asthma Change in facial mole not suspect- [place] [facility] [place] History S/P cystoscopy Stent placement (~05/2001) 05/30 2 STENTS LAD 11/2001 AND 02/2002 CLEANED BLOCKED STENT (WAS SCAR BUILDUP) KJG (below) Patient report radiation therapy in [facility] to correct scar formation. He believes bare metal stents were placed. Family History Mother , 91 Epilepsy Hyperlipidemia Parkinson disease Father , 73 Essential hypertension Personal history of malignant neoplasm SKIN Stroke Sister Diabetes Essential hypertension Heart disease Hyperlipidemia Brother Heart disease Stroke Pacemaker Parkinson disease Brother Diabetes Heart disease Stroke Brother Diabetes Essential hypertension Heart disease Hyperlipidemia Grandfather Diabetes Heart disease Stroke Grandfather Stroke Grandmother Essential hypertension Depression Heart disease Stroke Grandmother Essential hypertension Hyperlipidemia Stroke Daughter Diabetes Asthma Daughter Diabetes Heart disease VALVE REPLACEMENT Pancreatic cancer Social History Smoking/Tobacco Use Status: Former Tobacco Use tobacco type: cigarettes and cigars Quit Date: 10/30/67 Tobacco: How many years used: 14 Smoking risk assessment performed?: Yes Alcohol Intake: current Alcohol Intake frequency: 3 or more drinks per day Alcohol type: wine and hard liquor Drug use: Never Substance use type: does not use Caregiver/Support person: No Household members: spouse Housing: house Communication Needs: Hard of Hearing Do you need help understanding health information?: Rarely Pets and animals: No Sexually active: No Do you think of yourself as: straight/heterosexual Current gender identity: male What is your relationship status?: How often do you talk on the phone with friends or family?: twice per week How often do you get together with friends or relatives?: three or more times per week How often do you attend shinto or roman catholic services?: 1-3 times per year Do you belong to any clubs or organized social groups?: no Panel score (0-1 are the most socially isolated patients): 2 What type of physical activity do you participate in: regular exercise Duration: > 90 minutes/day Frequency: 3-4 times per week Scarlett/Roman Catholic: Worship Special scarlett needs: No Seatbelt use: always Helmet use: Yes Helmet use: sometimes Drive intox 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 Do you feel safe at home: Yes Do you feel safe in your relationship?: Yes PAWSS Have you Been Recently Intoxicated or Drunk Within the Last 30 days?: No Have you Ever Experienced Previous Episodes of Alcohol Withdrawal?: No Have you ever Experienced Withdrawal Seizures?: No Have you ever Experienced Delirium Tremens(DT)s?: No Have you ever undergone Alcohol Rehabilitation Treatment (i.e, inpt ot outpatient treatment programs)?: No Have you ever Experienced Blackouts?: No Have you ever Combined Alcohol with other Downers within the last 90 days?: No Have you ever Combined Alcohol with any other Substance of Abuse during the last 90 days?: No Positive Blood Alcohol level on Presentation? [PCS.BAL]: Unable to Obtain Evidence of Increased Autonomic Activity (i.e. HR>120, tremor, sweating, agitation, nausea)?: No Result: 0
--- NOTE | 2024-10-13 15:45 | DI.CT_ITS ---
Exam(s) CT RENAL COLIC WO EXAM: CT RENAL COLIC WO CLINICAL HISTORY: hematuria, eval stone. TECHNIQUE: Imaging Protocol: Axial computed tomography images with coronal and sagittal reformatted images were created and reviewed CONTRAST MATERIAL: Intravenous: none Oral: None COMPARISON: CT CT ABDOMEN PELVIS WO from 02/27/2024 FINDINGS: VISUALIZED LUNG BASES: No nodules nor pleural effusions evident. ABDOMEN: There is no ascites. LIVER: There are no obvious focal hepatic lesions evident of this noninfused study. GALLBLADDER/BILIARY: No obvious gallbladder pathology. CBD is not dilated. PANCREAS: No evidence of pancreatic mass nor dilatation of the pancreatic duct. SPLEEN: Spleen is not enlarged. No obvious intrasplenic lesions. ADRENALS: There are no significant adrenal masses. KIDNEYS:Right kidney unremarkable. There is left-sided hydronephrosis and hydroureter. The left ure ter is distended to a diameter of 1.8 cm. The left ureter is dilated down to the bladder wall. Ther e are multiple small calcifications around the distal ureter but these appear to be phleboliths. The re is no radiopaque calculus at the ureterovesical junction nor within the dilated left lower ureter nor within the urinary bladder. ABDOMINAL AORTA: Abdominal aorta is not enlarged. LYMPH NODES: There is no retroperitoneal nor paraaortic adenopathy. ABDOMINAL WALL: No evidence of significant anterior abdominal wall nor inguinal hernia. GI: There is diverticulosis of the descending-left colon and sigmoid but presently no evidence of acu te diverticulitis (as was evident on CT scan of 02/27/2024). PELVIS: LYMPH NODES: There is no intrapelvic nor inguinal adenopathy. GI: The cecum is mobile. Appendix is a above the right iliac fossa with no evidence of acute appendi citis. URINARY BLADDER: There is a Alexandre catheter in the urinary bladder. Balloon does not appear to be ful ly inflated. There also densities in the bladder lumen which may represent clots as well as some air in the urinary bladder. Cannot exclude possibility bladder neoplasm. Bladder wall is thickened ant eriorly. Prostate is only mildly enlarged.. REPRODUCTIVE: Prostate mildly enlarged. OSSEOUS: No significant osseous lesions.No fractures. No significant osseous lesions. There is mild degenerative anterolisthesis L4 upon L5 and moderate disc space narrowing at this level. IMPRESSION: 1. The main finding here is left-sided hydronephrosis and hydroureter, with the left ureter being dil ated down to the bladder level and without evidence of radiopaque calculus in the lower left ureter n or within the urinary bladder. The opposite-right kidney appears unremarkable 2. There is Alexandre catheter in the urinary bladder. The Alexandre balloon does not appear fully dilated. There are densities in the urinary bladder lumen which may represent clots. Findings are most proba huseyin consistent with hemorrhagic cystitis. Lower left ureter is either obstructed by possible adjacen t clot or non radiopaque calculus. Cannot exclude subtle bladder neoplasm. There are no radiopaque calculi in the bladder lumen. 3. No evidence of acute diverticulitis (as was evident on prior CT scan of 02/27/2024). Findings called by myself to ER provider 10/13/2024 at 4:40 p.m. RADIATION DOSE DELIVERED: 613.56mGy.cm Total DLP DATA REPOSITORY: All CT scans at this facility are submitted to the National Radiology Data Registry (NRDR) Dose Index Registry (DIR) with the [employer] (ACR). RADIATION OPTIMIZATION: All CT scans at this facility use at least one of these dose optimization te chniques: automated exposure control; mA and/or kV adjustment per patient size (includes targeted exa ms where dose is matched to clinical indication); or iterative reconstruction.
--- NOTE | 2024-10-13 16:14 | W.PC.ACHO ---
Registration Status: Primary Language: Preferred Language: ED Information & Data Chief Complaint Urinary 10/13/24 15:43 Triage Note Pt arrives to ED c/o 10/13/24 14:00 hematuria that started last night. Pt also c/o some lower abdominal discomfort. Pt states he is still able to void. Pt states the last time this occurred he required a bladder irrigation by Dr. Jackson. Hx of UTIs; last UTI was on 09/22 Pt takes a daily 81 mg Aspirin Medical / Surgical History (Last Reviewed 09/27/24 @ 02:07 by Josh Greene DO) White coat syndrome with hypertension BPH w urinary obs/LUTS (03/01/18) Atherosclerosis of [place] coronary artery Asthma Change in facial mole (Last Reviewed 09/27/24 @ 02:07 by Josh Greene DO) S/P cystoscopy Stent placement (~05/2001) Most Recent Vital Signs Temperature 36.4 C L 10/13/24 14:13 Temperature Source Oral 10/13/24 14:13 Pulse 78 10/13/24 14:40 Respiratory Rate 16 10/13/24 14:33 Respiratory Effort Normal, Non-Labored 10/13/24 14:08 Blood Pressure 119/66 10/13/24 14:13 Blood Pressure Position Sitting 10/13/24 14:13 Pulse Oximetry 98 10/13/24 15:40 Oxygen Delivery Method Room Air 10/13/24 14:13 Oxygen Flow Rate 0 10/13/24 14:13 Pain Level 5 10/13/24 14:37 Allergies menthol Allergy (Unknown, Verified 10/13/24 14:06) WHEEZING aspirin Allergy (Verified 10/13/24 14:06) sick to stomach Takes 81mg every day Precautions Isolation Standard precaution 10/13/24 14:08 IV IV Catheter Type [Left Forearm Peripheral IV ] IV Catheter Gauge [Left 18 Forearm] Diagnostics 10/13/24 Range/Units 14:47 WBC 4.17 L (4.4-10.8) 10^3/uL RBC 3.15 L (4.36-5.78) 10^6/uL Hgb 9.6 L (13.5-17.5) g/dL Hct 28.6 L (40.0-50.0) % MCV 91 (80-95) fL MCH 30.5 (27.0-33.0) pg MCHC 33.6 (32.0-36.0) % RDW 12.4 (11.8-14.1) % Plt Count 195 (130-400) 10^3/uL MPV 9.0 (8.0-11.0) fL Immature Gran % 0.0 % Neutrophils % 76.4 % Lymphocytes % 13.2 % Monocytes % 8.9 % Eosinophils % 1.0 % Basophils % 0.5 % Nucleated RBC % 0.0 (0.0-0.3) % Absolute Neutrophils 3.19 (1.2-6.7) 10^3/uL Absolute Lymphocytes 0.55 L (1.2-3.4) 10^3/uL Absolute Monocytes 0.37 (0.1-0.8) 10^3/uL Absolute Eosinophils 0.04 (0.0-0.7) 10^3/uL Absolute Basophils 0.02 (0.0-0.2) 10^3/uL PT 10.5 (9.1-11.1) sec INR 1.0 (0.9-1.1) Sodium 129 L (136-145) mmol/L Potassium 4.6 (3.5-5.1) mmol/L Chloride 96 L (98-107) mmol/L Carbon Dioxide 24.9 (21.0-32.0) mmol/L Anion Gap 8.1 (3-11) mmol/L BUN 12 (7-18) mg/dL Creatinine 1.0 (0.70-1.30) mg/dL Est GFR (CKD-EPI 2020) 74.68 (mL/min/1.73m2) Glucose 161 H (74-106) mg/dL Calcium 8.8 (8.5-10.1) mg/dL Magnesium 1.6 L (1.8-2.4) mg/dL Total Bilirubin 0.43 (0.2-1.0) mg/dL AST 16 (15-37) U/L ALT 18 (16-63) U/L Alkaline Phosphatase 58 (46-116) U/L Total Protein 7.3 (6.4-8.2) g/dL Albumin 3.6 (3.4-5.0) g/dL Intake and Output - 24 Hour Total 10/13/24 13:55 thru 10/13/24 15:44 Output Total 100 Balance -100 Weight 90.718 kg Output: Urine 100 Other: Urine Color Dark Red Urine Appearance Hematuria Clots Comment able to void small amount of bloody urine and large blood clot Urinary Catheter Urinary Catheter Date of 10/13/24 Insertion [3-way Urethral] Time of insertion [3-way 15:30 Urethral] Falls Risk Assessment History of Falls No History 10/13/24 14:13 Contributing Factors No Factors 10/13/24 14:13 Ambulatory Aids Uses ambulatory device + 10/13/24 14:13 Tubes/Lines With any additional score 10/13/24 14:13 Gait Evaluation No gait disturbance 10/13/24 14:13 Cognition No cognitive impairment 10/13/24 14:13 Fall Total Score 50 10/13/24 14:13 Level of Risk Moderate Risk 10/13/24 14:13 v v v v v v v v v Sending and/or Receiving Nurses: Please use comment section below to note any information pertinent to the patient hand-off not included above. Information / Comments: Report recieved. Report received from: Ella Montgomery, RN @ [phone]
--- NOTE | 2024-10-13 16:38 | W.PM.HP.N ---
Date of service: 10/13/24 Time of Service: 16:38 Assessment and Plan Assessment and plan (1) Hematuria: Status: Resolved Assessment and plan: Recurrent hematuria, but admitted due to clots causing outlet obstruction and failing outpatient management. Consult Dr. Jackson, urology NPO at [place] in case urology decides he needs a procedure in the AM. Start 0.9% NS @ 125 ml / h once NPO Renal function stable, anemia due to blood loss is mild and not symptomatic at this point (2) Acute UTI: Status: Acute Assessment and plan: Culture pending, continue cipro to cover pseudomonas for now. (3) Hyponatremia: Status: Chronic Assessment and plan: Chronic issue. He appears euvolemic. No symptoms. Fluid restriction. Bladder irrigation can cause this if hypotonic solution used, using isotonic fluid doubt this is contributing. Follow. (4) BPH w urinary obs/LUTS: Assessment and plan: Assocaited with the above. Continune finasteride and tamsulosin. (5) Essential hypertension: Status: Chronic Assessment and plan: continue outpatient medication. (6) Diabetes mellitus: Status: Chronic Assessment and plan: Hold Metformin, finger sticks AC HS, once MPO change to q6h, SS insulin (7) Atherosclerosis of [place] coronary artery: Assessment and plan: No symptoms. He is not on statin, defer to outpatient. Holding ASA with active bleeding but resume within 2-3 days given CAD. (8) DVT prophylaxis: Status: Acute Assessment and plan: TEDs/SCDs with active bleeding. History of Present Illness History of Present Illness Chief Complaint: Hematuria Narrative: 84-year-old male with a history of benign prostatic hyperplasia, coronary artery disease with a remote stent, and type 2 diabetes mellitus, presenting with recurrent hematuria complicated by clot formation, leading to outlet obstruction of his pittman catheter. The patient first developed gross hematuria in December, with associated bladder thickening and dilation of the left ureter. He underwent a transurethral resection of the affected bladder area, which showed a negative biopsy. The hematuria persisted intermittently since then. He was started on ciprofloxacin for a urinary tract infection after a urine culture grew Pseudomonas. The catheter was flushed in the ED, but clots continued to form. Urology was consulted, and the patient was admitted for continuous bladder irrigation and possible cystoscopy. The patient reports feeling well other than the hematuria. He denies fever, chills, nausea, vomiting, or abdominal pain. Any lower abdominal pressure he experienced has resolved. He denies any chest pain, palpitations, dizziness, or shortness of breath. Labs in the ED: WBC 4.17, hgb 9.6, Sodium 129, potassium 4.6, glucose 161, magnesium 1.6, urine color interference Renal CT 1. The main finding here is left-sided hydronephrosis and hydroureter, with the left ureter being dilated down to the bladder level and without evidence of radiopaque calculus in the lower left ureter nor within the urinary bladder. The opposite-right kidney appears unremarkable 2. There is Pittman catheter in the urinary bladder. The Pittman balloon does not appear fully dilated. There are densities in the urinary bladder lumen which may represent clots. Findings are most probably consistent with hemorrhagic cystitis. Lower left ureter is either obstructed by possible adjacent clot or non radiopaque calculus. Cannot exclude subtle bladder neoplasm. There are no radiopaque calculi in the bladder lumen. : Review of Systems All systems reviewed & are unremarkable except as noted in HPI and below PFSH All Active Problems (Updated 10/13/24 @ 17:32 by Sil Worthington NP) DVT prophylaxis (Acute) Chest discomfort (Acute) Hematuria (Acute) Acute UTI (Acute) Recurrent UTI (urinary tract infection) (Acute) Heart murmur (Acute) Hyponatremia (Chronic) Incomplete emptying of bladder (Acute) Closed right clavicular fracture (Acute 10/08/22) Arthritis of left knee (Acute) Bradycardia (Acute) Constipation (Acute) Anal and rectal polyp (Acute) Gastroesophageal reflux disease (Acute) Status post coronary artery stent placement (Acute) Sensorineural hearing loss (SNHL) of both ears (Acute 03/01/18) Primary osteoarthritis of right knee (Acute 08/02/16) Non-toxic multinodular goiter (Acute) Lipoma of neck (Acute 03/01/18) Essential hypertension (Chronic 07/24/13) Diabetic retinopathy (Acute) MILD IN LEFT EYE~OPTICAL EXPRESSIONS 08/12/15 Diabetes mellitus (Chronic 02/08/13) Arthritis (Acute) Medical History White coat syndrome with hypertension Stated per patient BPH w urinary obs/LUTS (03/01/18) Atherosclerosis of [place] coronary artery Asthma Change in facial mole not suspect- [place] [facility] [place] S/P cystoscopy Stent placement (~05/2001) 05/30 2 STENTS LAD 11/2001 AND 02/2002 CLEANED BLOCKED STENT (WAS SCAR BUILDUP) KJG (below) Patient report radiation therapy in [facility] to correct scar formation. He believes bare metal stents were placed. Family History Mother , 91 Epilepsy Hyperlipidemia Parkinson disease Father , 73 Essential hypertension Personal history of malignant neoplasm SKIN Stroke Sister Diabetes Essential hypertension Heart disease Hyperlipidemia Brother Heart disease Stroke Pacemaker Parkinson disease Brother Diabetes Heart disease Stroke Brother Diabetes Essential hypertension Heart disease Hyperlipidemia Grandfather Diabetes Heart disease Stroke Grandfather Stroke Grandmother Essential hypertension Depression Heart disease Stroke Grandmother Essential hypertension Hyperlipidemia Stroke Daughter Diabetes Asthma Daughter Diabetes Heart disease VALVE REPLACEMENT Pancreatic cancer Social History Smoking/Tobacco Use Status: Former Tobacco Use tobacco type: cigarettes and cigars Quit Date: 10/30/67 Tobacco: How many years used: 14 Smoking risk assessment performed?: Yes Alcohol Intake: current Alcohol Intake frequency: 3 or more drinks per day Alcohol type: wine and hard liquor Drug use: Never Substance use type: does not use Caregiver/Support person: No Household members: spouse Housing: house Communication Needs: Hard of Hearing Do you need help understanding health information?: Rarely Pets and animals: No Sexually active: No Do you think of yourself as: straight/heterosexual Current gender identity: male What is your relationship status?: How often do you talk on the phone with friends or family?: twice per week How often do you get together with friends or relatives?: three or more times per week How often do you attend taoist or denominational services?: 1-3 times per year Do you belong to any clubs or organized social groups?: no Panel score (0-1 are the most socially isolated patients): 2 What type of physical activity do you participate in: regular exercise Duration: > 90 minutes/day Frequency: 3-4 times per week Scarlett/Nondenominational: Nondenominational Special scarlett needs: No Seatbelt use: always Helmet use: Yes Helmet use: sometimes Drive intox 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 cmv driver: No Do you feel safe at home: Yes Do you feel safe in your relationship?: Yes Meds Allergies and Home Medications Allergies Allergy/AdvReac Type Severity Reaction Status Date / Time menthol Allergy Unknown WHEEZING Verified 10/13/24 14:06 aspirin Allergy sick to Verified 10/13/24 14:06 stomach Home Medications ?Medication ?Instructions ?Recorded ?Confirmed ?Type cholecalciferol (vitamin D3) 25 1 cap PO DAILY 02/06/13 10/13/24 History mcg (1,000 unit) capsule glipizide 5 mg tablet 2.5 mg (1/2 x 5 mg) PO BID #90 tabs 07/08/22 10/13/24 Rx aspirin 81 mg tablet,delayed 81 mg PO DAILY 07/19/22 10/13/24 History release (Adult Low Dose Aspirin) blood-glucose meter #1 ea 01/23/23 10/13/24 Rx vitamin B complex and vitamin C 1 cap PO DAILY ##90 12/26/23 10/13/24 History no.20-folic acid 1 mg capsule (Nephrocaps) clotrimazole 1 % topical cream 1 applic topical TID PRN rash #15 02/28/24 10/13/24 Rx grams finasteride 5 mg tablet 5 mg PO DAILY #90 tabs 04/04/24 10/13/24 Rx tamsulosin 0.4 mg capsule (Flomax) 0.8 mg (2 x 0.4 mg) PO DAILY #180 04/04/24 10/13/24 Rx caps lisinopril 30 mg tablet 30 mg PO DAILY #90 tabs 04/18/24 10/13/24 Rx metformin 500 mg tablet 1,000 mg (2 x 500 mg) PO BID #360 04/18/24 10/13/24 Rx tabs metoprolol succinate 50 mg 25 mg (1/2 x 50 mg) PO DAILY #45 04/18/24 10/13/24 Rx tablet,extended release 24 hr tabs nitroglycerin 0.4 mg sublingual 0.4 mg sublingual PRN #25 tabs 04/18/24 10/13/24 Rx tablet (Nitrostat) blood sugar diagnostic (Blood #100 ea 05/27/24 10/13/24 Rx Glucose Test strips) lancets #100 ea 05/27/24 10/13/24 Rx lidocaine 5 % topical patch 1 patch topical Q24H #15 ea 09/27/24 10/13/24 Rx (Lidoderm) Exam Narrative Exam Narrative: GEN: Alert and oriented x 4, pleasant and cooperative, gives linear history. No acute distress at rest. HEENT: Head atraumatic. Conjunctiva clear, no icterus. PEERL, EOMI. no rhinorrhea. MMM, Neck is supple with no masses or lymphadenopathy, trachea midline LUNGS: CTAB with normal effort CV: RRR with no murmurs, gallops, or rubs. ABD: active bowel sounds, soft, nontender and nondistended. No masses. EXT: no cyanosis, clubbing, or edema MSK: No joint redness or swelling. no CVAT : no penile lesions. indwelling urinary catheter, bright red urine in pittman. NEURO: CN 2-12 grossly intact. Normal movement of 4 extremities. Normal speech and coordination. No tremor SKIN: No rashes or open wounds. PSYCH: normal mood and affect Results Labs 10/13/24 14:47 10/13/24 14:47 Labs: Laboratory Results - last 24 hr 10/13/24 14:47 WBC 4.17 L RBC 3.15 L Hgb 9.6 L Hct 28.6 L MCV 91 MCH 30.5 MCHC 33.6 RDW 12.4 Plt Count 195 MPV 9.0 Immature Gran % 0.0 Neutrophils % 76.4 Lymphocytes % 13.2 Monocytes % 8.9 Eosinophils % 1.0 Basophils % 0.5 Nucleated RBC % 0.0 Absolute Neutrophils 3.19 Absolute Lymphocytes 0.55 L Absolute Monocytes 0.37 Absolute Eosinophils 0.04 Absolute Basophils 0.02 PT 10.5 INR 1.0 Sodium 129 L Potassium 4.6 Chloride 96 L Carbon Dioxide 24.9 Anion Gap 8.1 BUN 12 Creatinine 1.0 Est GFR (CKD-EPI 2020) 74.68 Glucose 161 H Calcium 8.8 Magnesium 1.6 L Total Bilirubin 0.43 AST 16 ALT 18 Alkaline Phosphatase 58 Total Protein 7.3 Albumin 3.6 Last Vital Signs Temp 36.4 C L 10/13/24 16:35 Pulse 66 10/13/24 16:35 Resp 14 10/13/24 16:35 BP 147/62 H 10/13/24 16:35 Pulse Ox 100 10/13/24 16:35 PAWSS Have you Been Recently Intoxicated or Drunk Within the Last 30 days?: No Have you Ever Experienced Previous Episodes of Alcohol Withdrawal?: No Have you ever Experienced Withdrawal Seizures?: No Have you ever Experienced Delirium Tremens(DT)s?: No Have you ever undergone Alcohol Rehabilitation Treatment (i.e, inpt ot outpatient treatment programs)?: No Have you ever Experienced Blackouts?: No Have you ever Combined Alcohol with other Downers within the last 90 days?: No Have you ever Combined Alcohol with any other Substance of Abuse during the last 90 days?: No Positive Blood Alcohol level on Presentation? [PCS.BAL]: Unable to Obtain Evidence of Increased Autonomic Activity (i.e. HR>120, tremor, sweating, agitation, nausea)?: No Result: 0 Time Spent Time spent with Patient: 40-54 minutes Time was spent: preparing to see the patient(eg.review tests), ordering medications,tests, procedures, referring, communicating with other health career development associate, indepentently interpreting results, counseling the patient and care coordination
[2024-10-13] MEDS: glipiZIDE 5 MG TAB 2.5 MG PO (17:29)
[2024-10-13] MEDS: CIPROFLOXACIN 400 MG/200 ML BAG 200 MG IVPB (17:36)
[2024-10-13] MEDS: Normal Saline Flush 10 ML SYR IVP ×2 (17:37→20:24)
[2024-10-13] MEDS: MAGNESIUM SULFATE 2 GM/50 ML BAG IV_INF (18:52)
[2024-10-13] MEDS: Insulin Aspart 300 UNITS/3 ML PEN SC (22:54)
[2024-10-14] MEDS: Normal Saline 1,000 ML 125 ML IV ×2 (00:05→08:27)
[2024-10-14 02:59] VITALS: BP 105/56; PULSE 70; RESP 17; TEMP 37; O2SAT 98
[2024-10-14] MEDS: CIPROFLOXACIN 400 MG/200 ML BAG 200 MG IVPB (05:07)
[2024-10-14 06:39] LABS: Abs Immature Grans 0.01 10^3/uL (0.0-0.06); Absolute Basophil Count 0.02 10^3/uL (0.0-0.2); Absolute Eosinophil Count 0.07 10^3/uL (0.0-0.7); Absolute Monocyte Count 0.39 10^3/uL (0.1-0.8); Absolute Neutrophil Count 2.38 10^3/uL (1.2-6.7); Basophils % 0.6 %; HCT 24.8 % (40.0-50.0); HGB 8.4 g/dL (13.5-17.5); Immature Grans % 0.3 %; Lymphocytes % 19.6 %; MCH 30.5 pg (27.0-33.0); MCHC 33.9 % (32.0-36.0); MCV 90 fL (80-95); MPV 8.7 fL (8.0-11.0); Monocytes % 10.9 %; Neutrophils % 66.6 %; Platelet Count 170 10^3/uL (130-400); RBC 2.75 10^6/uL (4.36-5.78); RDW 12.3 % (11.8-14.1); RDW-SD 40.5 fL; WBC 3.57 10^3/uL (4.4-10.8)
[2024-10-14 06:55] LABS: Diff Comment Diff Reviewed; Hypochromasia 2+
[2024-10-14 07:12] LABS: Anion Gap 6.3 mmol/L (3-11); BUN 6 mg/dL (7-18); CO2 28.7 mmol/L (21.0-32.0); CREATININE 0.8 mg/dL (0.70-1.30); Calcium 8.3 mg/dL (8.5-10.1); Chloride 97 mmol/L (98-107); Estimated GFR 87.81 (mL/min/1.73m2); Glucose 151 mg/dL (74-106); Magnesium 1.8 mg/dL (1.8-2.4); Potassium 4.6 mmol/L (3.5-5.1); Sodium 132 mmol/L (136-145)
[2024-10-14 07:22] VITALS: BP 112/64; PULSE 66; RESP 20; TEMP 36.6; O2SAT 99
[2024-10-14 07:42] LABS: Bilirubin Negative (Negative); Blood Large (Negative); Clarity Sl Cloudy (Clear); Glucose Negative (Negative); Ketones Negative (Negative); Leukocyte Esterase Large (Negative); Nitrite Negative (Negative); Urobilinogen 0.2 mg/dL (Up to 0.2)
[2024-10-14 07:47] LABS: Bacteria Moderate HPF (Negative); C & S Indicated? Yes; Casts Negative LPF (Negative); Crystals Negative HPF (Negative); Epithelial Cells Negative HPF (Negative); Mucus Negative (Negative); RBC >50 HPF (0-2); WBC >50 HPF (0-5)
[2024-10-14] MEDS: Lisinopril 10 MG TAB 30 MG PO (08:03)
[2024-10-14] MEDS: Tamsulosin 0.4 MG CAPCR 0.8 MG PO (08:03)
[2024-10-14] MEDS: Cholecalciferol (Vitamin D3) 1,000 UNIT TAB 1000 UNITS PO (08:03)
[2024-10-14] MEDS: Metoprolol CR 50 MG TABCR 25 MG PO (08:03)
[2024-10-14] MEDS: Finasteride 5 MG TAB PO (08:03)
[2024-10-14] MEDS: Insulin Aspart 300 UNITS/3 ML PEN SC ×2 (08:04→12:34)
[2024-10-14] MEDS: glipiZIDE 5 MG TAB 2.5 MG PO (08:04)
[2024-10-14] MEDS: Normal Saline Flush 10 ML SYR IVP ×2 (08:05→12:36)
--- NOTE | 2024-10-14 09:21 | UCONE_ITS ---
Date of service: 10/14/24 Time of Service: 09:22 Assessment and Plan Assessment and plan (1) Hematuria: Status: Acute (2) Recurrent UTI (urinary tract infection): Status: Acute Assessment and plan: I do not believe he will need to go to the operating room today for cystoscopy and clot evacuation. I have discontinued his bladder irrigation and restarted his diet. If his urine remains clear, he can probably be discharged later today with an oral antibiotic. We would then remove his catheter in the office in a few days. He is already on maximal medical therapy for his lower urinary tract symptoms. As his symptoms keep recurring, we will likely need to do a transurethral resection of the prostate. I would prefer to do such a procedure electively rather than emergently. History of Present Illness History of Present Illness Chief Complaint: Gross hematuria Narrative: This is an 84-year-old gentleman who has a history of gross hematuria. His episodes of hematuria have been associated with Pseudomonas urinary tract infections in the past. We had done cystoscopy and taken bladder biopsies and no malignancy was identified. He presented to the emergency department yesterday with gross hematuria and clots. An irrigating catheter was placed and multiple clots were evacuated. He was admitted for continuous bladder irrigation overnight. We are considering cystoscopy this morning to evacuate any remaining clots. He did have a clot that required evacuation last evening. Since then, he has been quite comfortable and his urine has been clear. He does admit to some dysuria a day or 2 before the bleeding started. He has not had any fever or chills. His urine culture is still pending. He is already on both tamsulosin and finasteride for his lower urinary tract symptoms. He has been on both of these medications while his hematuria and UTI episodes have occurred. Review of Systems Narrative: No fevers or chills Decreased hearing acuity. No dysphasia Diabetes. No thyroid dysfunction No shortness of breath, cough or hemoptysis No chest pain or palpitations No nausea, vomiting, hepatitis, ulcers, jaundice No seizures, strokes No bleeding disorders or anemia No gout PFSH All Active Problems (Updated 10/13/24 @ 17:32 by Sil Worthington NP) DVT prophylaxis (Acute) Chest discomfort (Acute) Hematuria (Acute) Acute UTI (Acute) Recurrent UTI (urinary tract infection) (Acute) Heart murmur (Acute) Hyponatremia (Chronic) Incomplete emptying of bladder (Acute) Closed right clavicular fracture (Acute 10/08/22) Arthritis of left knee (Acute) Bradycardia (Acute) Constipation (Acute) Anal and rectal polyp (Acute) Gastroesophageal reflux disease (Acute) Status post coronary artery stent placement (Acute) Sensorineural hearing loss (SNHL) of both ears (Acute 03/01/18) Primary osteoarthritis of right knee (Acute 08/02/16) Non-toxic multinodular goiter (Acute) Lipoma of neck (Acute 03/01/18) Essential hypertension (Chronic 07/24/13) Diabetic retinopathy (Acute) MILD IN LEFT EYE~OPTICAL EXPRESSIONS 08/12/15 Diabetes mellitus (Chronic 02/08/13) Arthritis (Acute) Medical History White coat syndrome with hypertension Stated per patient BPH w urinary obs/LUTS (03/01/18) Atherosclerosis of [place] coronary artery Asthma Change in facial mole not suspect- [place] [facility] [place] Surgical History S/P cystoscopy Stent placement (~05/2001) 05/30 2 STENTS LAD 11/2001 AND 02/2002 CLEANED BLOCKED STENT (WAS SCAR BUILDUP) KJG (below) Patient report radiation therapy in [facility] to correct scar formation. He believes bare metal stents were placed. Family History Mother , 91 Epilepsy Hyperlipidemia Parkinson disease Father , 73 Essential hypertension Personal history of malignant neoplasm SKIN Stroke Sister Diabetes Essential hypertension Heart disease Hyperlipidemia Brother Heart disease Stroke Pacemaker Parkinson disease Brother Diabetes Heart disease Stroke Brother Diabetes Essential hypertension Heart disease Hyperlipidemia Grandfather Diabetes Heart disease Stroke Grandfather Stroke Grandmother Essential hypertension Depression Heart disease Stroke Grandmother Essential hypertension Hyperlipidemia Stroke Daughter Diabetes Asthma Daughter Diabetes Heart disease VALVE REPLACEMENT Pancreatic cancer Social History Smoking/Tobacco Use Status: Former Tobacco Use tobacco type: cigarettes and cigars Quit Date: 10/30/67 Tobacco: How many years used: 14 Smoking risk assessment performed?: Yes Alcohol Intake: current Alcohol Intake frequency: 3 or more drinks per day Alcohol type: wine and hard liquor Drug use: Never Substance use type: does not use Caregiver/Support person: No Household members: spouse Housing: house Communication Needs: Hard of Hearing Do you need help understanding health information?: Rarely Pets and animals: No Sexually active: No Do you think of yourself as: straight/heterosexual Current gender identity: male What is your relationship status?: How often do you talk on the phone with friends or family?: twice per week How often do you get together with friends or relatives?: three or more times per week How often do you attend lutheran or faith services?: 1-3 times per year Do you belong to any clubs or organized social groups?: no Panel score (0-1 are the most socially isolated patients): 2 What type of physical activity do you participate in: regular exercise Duration: > 90 minutes/day Frequency: 3-4 times per week Scarlett/Denominational: Baptism Special scarlett needs: No Seatbelt use: always Helmet use: Yes Helmet use: sometimes Drive intox 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 sales route driver: No Do you feel safe at home: Yes Do you feel safe in your relationship?: Yes Exam Narrative Exam Narrative: He is a very pleasant older gentleman His vital signs are documented elsewhere His abdomen is soft with no guarding or rebound tenderness His bladder output is clear with his bladder irrigation going at a slow rate. We discontinued the bladder irrigation and hand irrigated the catheter and only obtained a few very small clots He is awake and alert Results Last Vital Signs Temp 36.6 C 10/14/24 07:22 Pulse 66 10/14/24 07:22 Resp 20 10/14/24 07:22 BP 112/64 10/14/24 07:22 Pulse Ox 99 10/14/24 07:22 Labs 10/14/24 06:28 10/14/24 06:28 Labs: Laboratory Results - last 24 hr 10/13/24 10/14/24 10/14/24 14:47 06:28 07:20 WBC 4.17 L 3.57 L RBC 3.15 L 2.75 L Hgb 9.6 L 8.4 L Hct 28.6 L 24.8 L MCV 91 90 MCH 30.5 30.5 MCHC 33.6 33.9 RDW 12.4 12.3 Plt Count 195 170 MPV 9.0 8.7 Immature Gran % 0.0 0.3 Neutrophils % 76.4 66.6 Lymphocytes % 13.2 19.6 Monocytes % 8.9 10.9 Eosinophils % 1.0 2.0 Basophils % 0.5 0.6 Nucleated RBC % 0.0 0.0 Absolute Neutrophils 3.19 2.38 Absolute Lymphocytes 0.55 L 0.70 L Absolute Monocytes 0.37 0.39 Absolute Eosinophils 0.04 0.07 Absolute Basophils 0.02 0.02 RBC Morphology See Below Hypochromasia 2+ PT 10.5 INR 1.0 Sodium 129 L 132 L Potassium 4.6 4.6 Chloride 96 L 97 L Carbon Dioxide 24.9 28.7 Anion Gap 8.1 6.3 BUN 12 6 L Creatinine 1.0 0.8 Est GFR (CKD-EPI 2020) 74.68 87.81 Glucose 161 H 151 H Calcium 8.8 8.3 L Magnesium 1.6 L 1.8 Total Bilirubin 0.43 AST 16 ALT 18 Alkaline Phosphatase 58 Total Protein 7.3 Albumin 3.6 Urine Color [place] Urine Clarity Sl Cloudy Urine pH 7.0 Ur Specific [place] 1.020 Urine Protein 30 H Urine Ketones Negative Urine Blood Large H Urine Nitrite Negative Urine Bilirubin Negative Urine Urobilinogen 0.2 Ur Leukocyte Esterase Large H Urine RBC >50 H Urine WBC >50 H Ur Epithelial Cells Negative Urine Crystals Negative Urine Bacteria Moderate Urine Casts Negative Urine Mucus Negative Ur Culture Indicated? Yes Urine Glucose Negative
--- NOTE | 2024-10-14 11:15 | PHACLINREV_ITS ---
Pharmacy Admission Review Admission Clinical Review Admission Pharmacy Review: DVT prophylaxis (Acute) Hematuria (Acute) Acute UTI (Acute) Recurrent UTI (urinary tract infection) (Acute) menthol Allergy (Unknown, Verified 10/13/24 14:06) WHEEZING aspirin Allergy (Verified 10/13/24 14:06) sick to stomach Resuscitation Status Full Code Height 5 ft 10 in Weight 90.718 kg Comments Comments/Follow Ups: Per urology consult - surgical intervention not needed Pharmacy Admission Review Renal Dosing Renal Dosing: BUN 6 mg/dL (7-18) L 10/14/24 06:28 Creatinine 0.8 mg/dL (0.70-1.30) 10/14/24 06:28 Medications needing adjustments: Reviewed (CrCl 63.4 ml/min) List of meds needing interventions: Current medications are okay Anticoagulation Anticoagulation: Hgb 8.4 g/dL (13.5-17.5) L 10/14/24 06:28 Hct 24.8 % (40.0-50.0) L 10/14/24 06:28 Plt Count 170 10^3/uL (130-400) 10/14/24 06:28 INR 1.0 (0.9-1.1) 10/13/24 14:47 Creatinine 0.8 mg/dL (0.70-1.30) 10/14/24 06:28 DVT Prophylaxis: Reviewed (SCDs - hematuria, Hgb decreased from 9.6) Relevant Labs Relevant Labs: Sodium 132 mmol/L (136-145) L 10/14/24 06:28 Potassium 4.6 mmol/L (3.5-5.1) 10/14/24 06:28 Chloride 97 mmol/L (98-107) L 10/14/24 06:28 Magnesium 1.8 mg/dL (1.8-2.4) 10/14/24 06:28 Electrolytes, C-Reactive P, ESR: Reviewed (Na increased from 129) DM Control DM Control: Glucose 151 mg/dL (74-106) H 10/14/24 06:28 Finger Stick Blood Glucose 154 0804 Finger Stick Blood Glucose 154 0706 Finger Stick Blood Glucose 154 0706 DM Control: Reviewed Insulin Dosing, Diabetic Medication: Has order for SS insulin and glipizide 2.5mg BID AC Cardiac Review BP, HR, EF%: Reviewed (BP and HR WNL) List meds needing interventions: Has order for lisinopril 30mg daily and me toprolol XL 50mg daily QTc Review QTc: Reviewed (440 from 09/27/24 - most recent EKG on file) IV to PO Switch IV Medications: Reviewed (ciprofloxacin) Home Meds Home Med List reviewed: Reviewed Relevent Home Meds Not ordered & why?: metformin (on hold), aspirin (on hold), clotrimazole cream and nitroglycerin (PRN) Current Meds Current Medication Order Review: Intervened Comments: Changed IV ED access Pharmacy Antibiotic Review Relevant Labs: WBC 3.57 10^3/uL (4.4-10.8) L 10/14/24 06:28 Temperature 36.6 C Temperature 37.0 C Pharmacy Antibiotic Activity: C/S review and Reviewed, no change Comments: Patient is on ciprofloxacin, day 1, for UTI. Urine culture pending and WBC decreased from 4.17. Comments Comments/Follow Ups: Per urology consult - surgical intervention not needed
--- NOTE | 2024-10-14 11:31 | DSE_ITS ---
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 He is followed by urology. He presented to the emergency department with gross hematuria and clots. Three-way Pittman was placed and he was started on continuous bladder irrigations. Hemodynamically he remained stable with stable H&H. He was seen by Dr. Jackson today and plan is for stopping the bladder irrigations, antibiotics to treat the suspected Pseudomonas urinary tract infections based on previous cultures while culture results pending. He was to be discharged to home with a void trial at his urology follow-up appointment. His diet has been advanced and he is tolerating oral intake. Urine remains clear yellow with no further hematuria or clots noted. He is being discharged to home on ciprofloxacin and will follow-up outpatient with Dr. Jackson as planned or return sooner for new or worsening symptoms Discussed with Dr. Silverman Home Meds and New Rx's Prescriptions: New ciprofloxacin HCl 500 mg tablet 500 mg PO BID Qty: 14 0RF Continued glipizide 5 mg tablet 2.5 mg PO BID Qty: 90 4RF Rx Instructions: dose increase clotrimazole 1 % cream 1 applic topical TID PRN (Reason: rash) Qty: 15 0RF Patient Comments: Yeast groin area lisinopril 30 mg tablet 30 mg PO DAILY Qty: 90 3RF metoprolol succinate 50 mg tablet extended release 24 hr 25 mg PO DAILY Qty: 45 3RF nitroglycerin [Nitrostat] 0.4 mg tablet, sublingual 0.4 mg Sublingual PRN MDD 3 tabs Qty: 25 4RF metformin 500 mg tablet 1,000 mg PO BID Qty: 360 3RF finasteride 5 mg tablet 5 mg PO DAILY Qty: 90 3RF tamsulosin [Flomax] 0.4 mg capsule 0.8 mg PO DAILY Qty: 180 3RF Rx Instructions: Note dosage increase cholecalciferol (vitamin D3) 1,000 UNIT capsule 1 cap PO DAILY (DME) blood-glucose meter Misc See Rx Instructions .MEDSUPPLY Qty: 1 0RF Rx Instructions: Check blood sugar once daily. No insulin. Dispense covered brand. Dx: E11.9 to maintain HbA1c less than 7%. Nephrocaps 1 mg capsule 1 cap PO DAILY Qty: 90 (DME) Blood Glucose Test Strip See Rx Instructions .MEDSUPPLY Qty: 100 3RF Rx Instructions: Check sugars once per day. No insulin. Dispense covered brand. Dx: E11.9 to maintain HbA1c less than 7%. (DME) lancets Misc See Rx Instructions .MEDSUPPLY Qty: 100 3RF Rx Instructions: Check sugars once daily. No insulin. Dispense covered brand. Dx: E11.9 to maintain HbA1c less than 7%. lidocaine [Lidoderm] 5 % adhesive patch,medicated 1 patch Topical Q24H Qty: 15 0RF Held aspirin [Adult Low Dose Aspirin] 81 mg tablet,delayed release (DR/EC) 81 mg PO DAILY Hold Instructions: Resume on 10/14/24. Discharge Instructions Instructions: Blood in the urine (hematuria) in adults, How to Care for Your Pittman Catheter, Urinary Tract Infection, Adult ED Additional Instructions: finish antibiotics as directed even if you feel better continue routine pittman catheter care and monitoring as directed. Call Dr. Jackson's office if you develop bloody urine or clots, abdominal pain, or fever or any concern. Stand Alone Forms: Nursing Discharge Form Referrals: Alexis Jackson MD [ [facility] STAFF PHYSICIAN] - Activity:: Activity as Tolerated Equipment/Supplies:: No Equipment Needed Diet:: As Tolerated Discharge Orders Discharge Orders: Discharge Order (Routine); Ordered 10/14/24 Ordered By: Jessica Garcia DS: Summary Time Spent with Patient providing and/or coordinating discharge services: Less than 30 minutes Status at Discharge Functional status at discharge: independent ambulation Overall status at discharge: patient is progressing back to baseline Mental Status: mental status grossly normal Speech and Movement: speech and movement normal Mood: congruent mood Affect: normal affect Quality:SDOH Health Related Social Needs: No Data to Display Exam Const General: no acute distress Orientation: alert HENMT Head: normal to inspection Ears: external ears normal General nose exam: external nose normal Mouth: moist mucous membranes Eyes General: appearance normal, both eyes and all related structures Neck Neck: normal visual inspection Resp Effort & Inspection: normal respiratory effort and able to speak in complete sentences Cardio Rate: regular rate GI Palpation: soft and nontender Other: Pittman to gravity drainage draining clear yellow urine no gross hematuria or clots noted Back/Spine/Pelvis Back: no CVA tenderness Skin General skin exam: no rashes or lesions noted Neuro General: patient alert and patient oriented x3 Extrem General: normal to inspection Psych Mental Status: mental status grossly normal Speech and Movement: speech and movement normal Mood: congruent mood Affect: normal affect DS: Data Vitals/I&O Vitals and I&O: Vital Signs Temperature 36.6 C 10/14/24 07:22 Temperature Source Temporal Artery Scan 10/14/24 07:22 Pulse 66 10/14/24 07:22 Pulse Rhythm Regular 10/13/24 16:42 Respiratory Rate 20 10/14/24 07:22 Respiratory Effort Normal, Non-Labored 10/13/24 16:42 Respiratory Depth Normal 10/13/24 16:42 Respiratory Pattern Normal 10/13/24 16:42 Blood Pressure 112/64 10/14/24 07:22 Blood Pressure Position Sitting 10/13/24 14:13 Pulse Oximetry 99 10/14/24 07:22 Oxygen Delivery Method Room Air 10/14/24 07:22 Oxygen Flow Rate 0 10/14/24 07:22 Pain Level 0 10/13/24 16:14 Intake & Output 10/13/24 10/13/24 10/14/24 11:59 23:59 11:59 Intake Total 200 / 200 1050 / 1050 Output Total 100 / 100 800 / 800 Balance 100 / 100 250 / 250 Weight 90.718 kg Intake: IV 200 / 200 1050 / 1050 Oral 0 / 0 Output: Urine 100 / 100 800 / 800 Other: Urine Color Pale Pale [place] Urine Appearance Clear Hematuria Urine Odor None Comment hand irrigated clots out. Catheter then started flowing again unmeasured amount of urine. Data Completed and Pending Labs on day of discharge: Labs from last 24 hours 10/14/24 10/14/24 10/13/24 07:20 06:28 14:47 WBC 3.57 L 4.17 L RBC 2.75 L 3.15 L Hgb 8.4 L 9.6 L Hct 24.8 L 28.6 L MCV 90 91 MCH 30.5 30.5 MCHC 33.9 33.6 RDW 12.3 12.4 Plt Count 170 195 MPV 8.7 9.0 Immature Gran % 0.3 0.0 Neutrophils % 66.6 76.4 Lymphocytes % 19.6 13.2 Monocytes % 10.9 8.9 Eosinophils % 2.0 1.0 Basophils % 0.6 0.5 Nucleated RBC % 0.0 0.0 Absolute Neutrophils 2.38 3.19 Absolute Lymphocytes 0.70 L 0.55 L Absolute Monocytes 0.39 0.37 Absolute Eosinophils 0.07 0.04 Absolute Basophils 0.02 0.02 RBC Morphology See Below Hypochromasia 2+ PT 10.5 INR 1.0 Sodium 132 L 129 L Potassium 4.6 4.6 Chloride 97 L 96 L Carbon Dioxide 28.7 24.9 Anion Gap 6.3 8.1 BUN 6 L 12 Creatinine 0.8 1.0 Est GFR (CKD-EPI 2020) 87.81 74.68 Glucose 151 H 161 H Calcium 8.3 L 8.8 Magnesium 1.8 1.6 L Total Bilirubin 0.43 AST 16 ALT 18 Alkaline Phosphatase 58 Total Protein 7.3 Albumin 3.6 Urine Color [place] Urine Clarity Sl Cloudy Urine pH 7.0 Ur Specific [place] 1.020 Urine Protein 30 H Urine Ketones Negative Urine Blood Large H Urine Nitrite Negative Urine Bilirubin Negative Urine Urobilinogen 0.2 Ur Leukocyte Esterase Large H Urine RBC >50 H Urine WBC >50 H Ur Epithelial Cells Negative Urine Crystals Negative Urine Bacteria Moderate Urine Casts Negative Urine Mucus Negative Ur Culture Indicated? Yes Urine Glucose Negative 10/14/24 07:20 Urine - Reflex from Urine Culture - Pending Preliminary micro results at discharge 10/14/24 07:20 Urine Culture - Pending Urine - Reflex from [facility] All Active Problems (Updated 10/13/24 @ 17:32 by Sil Worthington NP) DVT prophylaxis (Acute) Chest discomfort (Acute) Hematuria (Acute) Acute UTI (Acute) Recurrent UTI (urinary tract infection) (Acute) Heart murmur (Acute) Hyponatremia (Chronic) Incomplete emptying of bladder (Acute) Closed right clavicular fracture (Acute 10/08/22) Arthritis of left knee (Acute) Bradycardia (Acute) Constipation (Acute) Anal and rectal polyp (Acute) Gastroesophageal reflux disease (Acute) Status post coronary artery stent placement (Acute) Sensorineural hearing loss (SNHL) of both ears (Acute 03/01/18) Primary osteoarthritis of right knee (Acute 08/02/16) Non-toxic multinodular goiter (Acute) Lipoma of neck (Acute 03/01/18) Essential hypertension (Chronic 07/24/13) Diabetic retinopathy (Acute) MILD IN LEFT EYE~OPTICAL EXPRESSIONS 08/12/15 Diabetes mellitus (Chronic 02/08/13) Arthritis (Acute) Medical History White coat syndrome with hypertension Stated per patient BPH w urinary obs/LUTS (03/01/18) Atherosclerosis of [place] coronary artery Asthma Change in facial mole not suspect- sees [facility] [place] [place] Surgical History S/P cystoscopy Stent placement (~05/2001) 05/30 2 STENTS LAD 11/2001 AND 02/2002 CLEANED BLOCKED STENT (WAS SCAR BUILDUP) KJG (below) Patient report radiation therapy in [facility] to correct scar formation. He believes bare metal stents were placed. Family History Mother , 91 Epilepsy Hyperlipidemia Parkinson disease Father , 73 Essential hypertension Personal history of malignant neoplasm SKIN Stroke Sister Diabetes Essential hypertension Heart disease Hyperlipidemia Brother Heart disease Stroke Pacemaker Parkinson disease Brother Diabetes Heart disease Stroke Brother Diabetes Essential hypertension Heart disease Hyperlipidemia Grandfather Diabetes Heart disease Stroke Grandfather Stroke Grandmother Essential hypertension Depression Heart disease Stroke Grandmother Essential hypertension Hyperlipidemia Stroke Daughter Diabetes Asthma Daughter Diabetes Heart disease VALVE REPLACEMENT Pancreatic cancer Social History Smoking/Tobacco Use Status: Former Tobacco Use tobacco type: cigarettes and cigars Quit Date: 10/30/67 Tobacco: How many years used: 14 Smoking risk assessment performed?: Yes Alcohol Intake: current Alcohol Intake frequency: 3 or more drinks per day Alcohol type: wine and hard liquor Drug use: Never Substance use type: does not use Caregiver/Support person: No Household members: spouse Housing: house Communication Needs: Hard of Hearing Do you need help understanding health information?: Rarely Pets and animals: No Sexually active: No Do you think of yourself as: straight/heterosexual Current gender identity: male What is your relationship status?: How often do you talk on the phone with friends or family?: twice per week How often do you get together with friends or relatives?: three or more times per week How often do you attend tenriism or restoration services?: 1-3 times per year Do you belong to any clubs or organized social groups?: no Panel score (0-1 are the most socially isolated patients): 2 What type of physical activity do you participate in: regular exercise Duration: > 90 minutes/day Frequency: 3-4 times per week Scarlett/Lutheran: Sabianism Special scarlett needs: No Seatbelt use: always Helmet use: Yes Helmet use: sometimes Drive intox 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 transit mixer driver: No Do you feel safe at home: Yes Do you feel safe in your relationship?: Yes Time Spent with Patient Time Spent with Patient: <45 minutes Time was spent: preparing to see the patient(eg.review tests), obtaining and/or reviewing separately otained hiistory, ordering medications,tests, procedures, referring, communicating with other health gericare aide teacher, indepentently interpreting results and counseling the patient
[2024-10-14 11:42] VITALS: BP 110/51; PULSE 79; RESP 21; TEMP 36.8; O2SAT 97
--- NOTE | 2024-10-14 12:15 | PDOC.CMIN ---
Date of service: 10/14/24 Time of Service: 12:16 Care Management Initial Assmt Initial Assessment Reason for Hospitalization: recurrent hematuria, clots causing outlet obstruction Functional Status/Living Situation Patient Presentation: Clinton was admitted yesterday due to increased clots in his urine causing bladder outlet obstruction. He has a long history of this process. Has required catheters in the past, with irrigation, and is able to care for them independently. He will f/u with Dr. Jackson as an outpatient. Rachid was sitting up in the chair when CM met with him. He was very pleasant and talkative. He denied any complaints, and was pleased to hear he would likely be going home later today. Town of Residence: [place] Resides with: Spouse (Aislinn) Significant Other/Family: Local (Daughter, Padmini, and her family) Natural Supports: family Employment Status: Retired (worked at [employer] in the [employer] for years) Instrumental Activities of Daily Living (ADLs): Independent Activities/Hobbies/SocialSupport: enjoys working outside in the yard/farm Medications Medication Management: No Issues/Barriers identified Physical Functioning/Mobility Assistive Device: cane Advance Directives Advance Directives: Do you have an Advance Directive: N 04/22/13 08:14 AD On File at [facility]: N 01/24/13 10:33 Date Asked 09/23/24 09/23/24 07:44 AD Date Reviewed COLST On File at [facility] No 02/27/24 20:06 COLST Date Scanned Code Status Resuscitation Status Full Code Insurance Coverage/Financial Issues Insurance: Medicare with [employer] Supplement Financial Issues: denies Care Team Visit Care Team Role Provider Type Delaney Gaviria NP Primary Care Provider NURSE PRACTITIONER Drea Mccarthy RDN, CDCES Other Providers ELECTRIC CAR OPERATOR Mirna Thurston Other Providers ELECTRIC CAR OPERATOR Alexis Jackson MD Other Providers [facility] STAFF PHYSICIAN Dany Corona RDN Other Providers ELECTRIC CAR OPERATOR Neema Galarza MD Emergency Provider [facility] STAFF PHYSICIAN Ghassan Silverman MD Admit Provider [facility] STAFF PHYSICIAN Attending Provider Discharge Potential Discharge Needs: Other (urology- Dr. Jackson) Anticipated Barriers to Discharge: None Identified Patient/Family Education Needs: Review discharge instructions, discuss Ask Me Three Transportation: Private vehicle Plan: Anticipate that Clinton will be discharged home later today with no new services. He will f/u with Dr. Jackson as outpatient, and continue per his plan of care. CM will continue to follow. PFSH All Active Problems (Updated 10/13/24 @ 17:32 by Sil Worthington NP) DVT prophylaxis (Acute) Chest discomfort (Acute) Hematuria (Acute) Acute UTI (Acute) Recurrent UTI (urinary tract infection) (Acute) Heart murmur (Acute) Hyponatremia (Chronic) Incomplete emptying of bladder (Acute) Closed right clavicular fracture (Acute 10/08/22) Arthritis of left knee (Acute) Bradycardia (Acute) Constipation (Acute) Anal and rectal polyp (Acute) Gastroesophageal reflux disease (Acute) Status post coronary artery stent placement (Acute) Sensorineural hearing loss (SNHL) of both ears (Acute 03/01/18) Primary osteoarthritis of right knee (Acute 08/02/16) Non-toxic multinodular goiter (Acute) Lipoma of neck (Acute 03/01/18) Essential hypertension (Chronic 07/24/13) Diabetic retinopathy (Acute) MILD IN LEFT EYE~OPTICAL EXPRESSIONS 08/12/15 Diabetes mellitus (Chronic 02/08/13) Arthritis (Acute) Medical History White coat syndrome with hypertension Stated per patient BPH w urinary obs/LUTS (03/01/18) Atherosclerosis of [place] coronary artery Asthma Change in facial mole not suspect- sees [facility] Surgical History S/P cystoscopy Stent placement (~05/2001) 05/30 2 STENTS LAD 11/2001 AND 02/2002 CLEANED BLOCKED STENT (WAS SCAR BUILDUP) KJG (below) Patient report radiation therapy in [facility] to correct scar formation. He believes bare metal stents were placed. Family History Mother , 91 Epilepsy Hyperlipidemia Parkinson disease Father , 73 Essential hypertension Personal history of malignant neoplasm SKIN Stroke Sister Diabetes Essential hypertension Heart disease Hyperlipidemia Brother Heart disease Stroke Pacemaker Parkinson disease Brother Diabetes Heart disease Stroke Brother Diabetes Essential hypertension Heart disease Hyperlipidemia Grandfather Diabetes Heart disease Stroke Grandfather Stroke Grandmother Essential hypertension Depression Heart disease Stroke Grandmother Essential hypertension Hyperlipidemia Stroke Daughter Diabetes Asthma Daughter Diabetes Heart disease VALVE REPLACEMENT Pancreatic cancer Social History Smoking/Tobacco Use Status: Former Tobacco Use tobacco type: cigarettes and cigars Quit Date: 10/30/67 Tobacco: How many years used: 14 Smoking risk assessment performed?: Yes Alcohol Intake: current Alcohol Intake frequency: 3 or more drinks per day Alcohol type: wine and hard liquor Drug use: Never Substance use type: does not use Caregiver/Support person: No Household members: spouse Housing: house Communication Needs: Hard of Hearing Do you need help understanding health information?: Rarely Pets and animals: No Sexually active: No Do you think of yourself as: straight/heterosexual Current gender identity: male What is your relationship status?: How often do you talk on the phone with friends or family?: twice per week How often do you get together with friends or relatives?: three or more times per week How often do you attend rastafarian or gnosticism services?: 1-3 times per year Do you belong to any clubs or organized social groups?: no Panel score (0-1 are the most socially isolated patients): 2 What type of physical activity do you participate in: regular exercise Duration: > 90 minutes/day Frequency: 3-4 times per week Scarlett/Rastafarian: Sabianist Special scarlett needs: No Seatbelt use: always Helmet use: Yes Helmet use: sometimes Drive intox 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 Jackson ED visits How many ED visits in the past 12 months: 11 Assessment for Readmission Summary of readmission circumstances, based upon interviews: recurrent problem. Will be seeing Dr. Jackson to schedule TURP. SDOH(Care Management) Screening Will the Patient Participate in the Screening?: Yes Do you worry about having a steady place to live?: no In the past 12 months, have you had to go without electric, gas, oil or water in your home?: no Have you or anyone in your house had to go without enough food to eat?: no Has lack of transportation kept you from medical appointments or from doing things needed for daily living?: no Has anyone in your support network made you feel unsafe for any reason?: no
[2024-10-14 14:50] VITALS: BP 108/52; PULSE 77; RESP 18; TEMP 36.3; O2SAT 97
== END 2024-10-14 15:10 | disposition home or self-care (01) | DRG 690 ==
LOC: ER 14:02 → MS 16:21
PROVIDERS: Nurse Practitioner Family; Admitting Provider Hospitalist; Emergency Provider Emergency Medicine; PCP Nurse Practitioner Family; Visit Provider Hospitalist
DX: N39.0 Urinary tract infection, site not specified (principal); E87.1 Hypo-osmolality and hyponatremia; R31.0 Gross hematuria; N40.1 Benign prostatic hyperplasia with lower urinary tract symptoms; I10 Essential (primary) hypertension; E11.9 Type 2 diabetes mellitus without complications; I25.10 Atherosclerotic heart disease of native coronary artery without angina pectoris; Z87.440 Personal history of urinary (tract) infections; N13.8 Other obstructive and reflux uropathy; Z95.5 Presence of coronary angioplasty implant and graft; B96.5 Pseudomonas (aeruginosa) (mallei) (pseudomallei) as the cause of diseases classified elsewhere; K21.9 Gastro-esophageal reflux disease without esophagitis; H90.3 Sensorineural hearing loss, bilateral; J45.909 Unspecified asthma, uncomplicated; E11.319 Type 2 diabetes mellitus with unspecified diabetic retinopathy without macular edema; M17.11 Unilateral primary osteoarthritis, right knee; E04.2 Nontoxic multinodular goiter; Z79.84 Long term (current) use of oral hypoglycemic drugs
CPT/HCPCS: 00123; 36415; 51702; 51798; 80048; 80053; 99222; 99285; 74176; 81003; 81015; 83735; 85025; 85610; 87086; 99239; J0744; J1815; J3475

== ENCOUNTER → 2024-10-14 08:56 | Outpatient (BNVA) | payer MEDICARE, SELFPAY ==
--- NOTE | 2024-10-14 16:18 | PDOC.CMDIS ---
Date of service: 10/14/24 Time of Service: 15:00 LACE Index Scoring Tool Questions: Length of Stay (in days): 1 Was the patient admitted via the E.D.?: Yes Comorbidities: Diabetes w/o Complication E.D. Visits: 5 Answers: Total Score: 9 Risk of Readmission: Low Risk Care Management Discharge Plan Reason for Hospitalization: hematuria with clots causing outlet obstruction Discharge Plan: [place] was discharged home today with new orders for antibiotics. His pittman catheter was still in place, and will remain until he has his f/u with Dr. Jackson. Clinton also has a f/u with his PCP on 10/24. Clinton was transported home in a private vehicle with his family. Patient/Family Education Needs: Review of discharge instructions, activity, limitations, f/u plan and Ask me 3. SDOH Health Related Social Needs: No Data to Display
== END ==
PROVIDERS: PCP Nurse Practitioner Family; Referring Provider Nurse Practitioner Family; Visit Provider Urology

== ENCOUNTER → 2024-10-17 07:54 | Outpatient (BNVA) | payer MEDICARE, SELFPAY | PROVIDERS: PCP Nurse Practitioner Family; Referring Provider Nurse Practitioner Family; Visit Provider Nurse Practitioner Gerontology | DX: N40.1 Benign prostatic hyperplasia with lower urinary tract symptoms (principal); R31.9 Hematuria, unspecified; N13.8 Other obstructive and reflux uropathy; R33.8 Other retention of urine | CPT/HCPCS: 51702; 51798; 99213 ==

== ENCOUNTER → 2024-11-20 14:42 | Outpatient (BNVA) | payer MEDICARE, SELFPAY | PROVIDERS: PCP Nurse Practitioner Family; Referring Provider Nurse Practitioner Family; Visit Provider Nurse Practitioner Gerontology | DX: N40.1 Benign prostatic hyperplasia with lower urinary tract symptoms (principal); R33.8 Other retention of urine | CPT/HCPCS: 51702 ==

== ENCOUNTER → 2024-12-20 08:19 | Outpatient (BNVA) | payer MEDICARE, SELFPAY | PROVIDERS: PCP Nurse Practitioner Family; Referring Provider Nurse Practitioner Family; Visit Provider Urology | DX: R33.8 Other retention of urine (principal) | CPT/HCPCS: 51702 ==

== ENCOUNTER 2025-01-02 21:34 | Outpatient (REF) | payer MEDICARE, SELFPAY ==
[2025-01-02 21:36] LABS: COMMENT (LAB VIEW ONLY) 34.13 mg/dL
[2025-01-02 21:37] LABS: Microalb ug/mg Crea 154.1 ug/mg Cr
== END 2025-01-02 21:35 | disposition home or self-care (01) ==
LOC: LBN 21:34
PROVIDERS: PCP Nurse Practitioner Family; Visit Provider Nurse Practitioner Family
DX: I10 Essential (primary) hypertension (principal); E11.9 Type 2 diabetes mellitus without complications; E11.40 Type 2 diabetes mellitus with diabetic neuropathy, unspecified
CPT/HCPCS: 82043; 82570

== ENCOUNTER 2025-01-22 02:26 | Outpatient (CLI) | payer MEDICARE, SELFPAY ==
[2025-01-22 13:05] LABS: BUN 15 mg/dL (7-18); CREATININE 0.7 mg/dL (0.70-1.30); Calcium 9.5 mg/dL (8.5-10.1); Chloride 101 mmol/L (98-107); Estimated GFR 91.42 (mL/min/1.73m2); Glucose 154 mg/dL (74-106); Potassium 4.7 mmol/L (3.5-5.1); Sodium 134 mmol/L (136-145)
== END 2025-01-22 02:27 | disposition home or self-care (01) ==
LOC: LOS 02:44
PROVIDERS: PCP Nurse Practitioner Family; Visit Provider Nurse Practitioner Family
DX: I10 Essential (primary) hypertension (principal); E11.9 Type 2 diabetes mellitus without complications
CPT/HCPCS: 36415; 80048

== ENCOUNTER 2025-01-23 08:22 | Observation (INO) | payer MEDICARE, SELFPAY ==
[2025-01-23] VITALS (46 sets, daily range): BP systolic 106–164; BP diastolic 41–101; PULSE 39–74; RESP 9–27; TEMP 36–36.6; O2SAT 95–100; BMI 27.8
[2025-01-23] MEDS: Lactated Ringers 1,000 ML 80 ML IV ×2 (09:17→21:05)
--- NOTE | 2025-01-23 10:21 | W.ANESPRE ---
General Info Date of Service Date Performed: 01/23/25 Height: 5 ft 10 in Weight: 88 kg Body Mass Index (BMI): 27.8 Surgical Procedure: Operation Date: 01/23/25 10:40 Proposed Procedure Side Surgeon p Cysto/Transurethral Resection Prostate/Vaporization of Prostate Alexis Jackson MD Meds Allergies and Home Medications Allergies Allergy/AdvReac Type Severity Reaction Status Date / Time menthol Allergy Unknown WHEEZING Verified 01/23/25 08:40 aspirin Allergy sick to Verified 01/23/25 08:40 stomach Home Medication ?Medication ?Instructions ?Recorded cholecalciferol (vitamin D3) 25 1 cap PO DAILY 02/06/13 mcg (1,000 unit) capsule aspirin 81 mg tablet,delayed 81 mg PO DAILY 07/19/22 release (Adult Low Dose Aspirin) blood-glucose meter #1 ea 01/23/23 vitamin B complex and vitamin C 1 cap PO DAILY ##90 12/26/23 no.20-folic acid 1 mg capsule (Nephrocaps) clotrimazole 1 % topical cream 1 applic topical TID PRN rash #15 02/28/24 grams finasteride 5 mg tablet 5 mg PO DAILY #90 tabs 04/04/24 tamsulosin 0.4 mg capsule (Flomax) 0.8 mg (2 x 0.4 mg) PO DAILY #180 04/04/24 caps lisinopril 30 mg tablet 30 mg PO DAILY #90 tabs 04/18/24 metformin 500 mg tablet 1,000 mg (2 x 500 mg) PO BID #360 04/18/24 tabs metoprolol succinate 50 mg 25 mg (1/2 x 50 mg) PO DAILY #45 04/18/24 tablet,extended release 24 hr tabs nitroglycerin 0.4 mg sublingual 0.4 mg sublingual PRN #25 tabs 04/18/24 tablet (Nitrostat) blood sugar diagnostic (Blood #100 ea 05/27/24 Glucose Test strips) lancets #100 ea 05/27/24 lidocaine 5 % topical patch 1 patch topical Q24H #15 ea 09/27/24 (Lidoderm) Current Visit Medications: Current Medications Generic Name Dose Route Start Last Admin Trade Name Freq PRN Reason Stop Dose Admin Ciprofloxacin 400 mg in 200 mls @ 200 mls/hr 01/23/25 06:00 Cipro I.V. IVPB 01/23/25 23:59 PREOP NARCISO Ringer's Solution 1,000 mls @ 80 mls/hr 01/23/25 09:15 01/23/25 09:17 IV 80 mls/hr INFUSION NARCISO Administration IV Miscellaneous Supplies 1 each 01/23/25 06:00 Iv Access IV 01/23/25 23:59 DIRECTED NARCISO Sodium Chloride 0 ml 01/23/25 06:00 Normal Saline Flush 10 Ml Syr IV 01/23/25 23:59 PRN PRN Sodium Chloride 0 ml 01/23/25 06:00 Normal Saline 10 Ml Vial IJ 01/23/25 23:59 DIRECTED PRN Sterile Water 0 ml 01/23/25 06:00 Water,Injection,Sterile 10 Ml Vial IJ 01/23/25 23:59 DIRECTED PRN PFSH Active Problems Active Problems: Problem Status Onset Code DVT prophylaxis Acute Z29.9 Chest discomfort Acute R07.89 Hematuria Acute R31.9 Acute UTI Acute N39.0 Recurrent UTI (urinary tract infection) Acute N39.0 Heart murmur Acute R01.1 Hyponatremia Chronic E87.1 Incomplete emptying of bladder Acute R33.9 Closed right clavicular fracture Acute 10/08/22 S42.001A Arthritis of left knee Acute M17.12 Bradycardia Acute R00.1 Constipation Acute K59.00 Anal and rectal polyp Acute K62.0, K62.1 Gastroesophageal reflux disease Acute K21.9 Status post coronary artery stent placement Acute Z95.5 Sensorineural hearing loss (SNHL) of both ears Acute 03/01/18 H90.3 Primary osteoarthritis of right knee Acute 08/02/16 M17.11 Non-toxic multinodular goiter Acute E04.2 Lipoma of neck Acute 03/01/18 D17.0 Essential hypertension Chronic 07/24/13 I10 Diabetic retinopathy Acute E11.319 Diabetes mellitus Chronic 02/08/13 E11.9 Arthritis Acute M19.90 Medical History Medical History White coat syndrome with hypertension Stated per patient BPH w urinary obs/LUTS (03/01/18) Atherosclerosis of [place] coronary artery Asthma Change in facial mole not suspect- sees [facility] [place] Surgical History Surgical History 05/30 2 STENTS LAD 11/2001 AND 02/2002 CLEANED BLOCKED STENT (WAS SCAR BUILDUP) RAUL (below) Patient report radiation therapy in [facility] to correct scar formation. He believes bare metal stents were placed. Tobacco Smoking/Tobacco Use Status: Former Tobacco Use Passive smoking exposure: Yes Alcohol Alcohol Intake: current Alcohol intake frequency: 0-2 drinks per day Alcohol type: wine Substance Use Substance use: Never Substance use type: does not use Vital Signs and Lab Results Vital Signs Most Recent Vital Signs in EMR: Most Recent Vital Signs Temp Pulse Resp BP Pulse Ox 36.6 C 74 20 164/80 H 99 01/23/25 09:03 01/23/25 09:03 01/23/25 09:03 01/23/25 09:03 01/23/25 09:03 Point of Care Results Point of Care Results: Finger Stick Blood Glucose 164 01/23/25 08:47 Lab Results Blood Type / Crossmatch: No Data to Display Complete Blood Count: No Data to Display Complete Metabolic Panel: Sodium 134 mmol/L (136-145) L 01/22/25 09:24 Potassium 4.7 mmol/L (3.5-5.1) 01/22/25 09:24 Chloride 101 mmol/L (98-107) 01/22/25 09:24 Carbon Dioxide 29.0 mmol/L (21.0-32.0) 01/22/25 09:24 BUN 15 mg/dL (7-18) 01/22/25 09:24 Creatinine 0.7 mg/dL (0.70-1.30) 01/22/25 09:24 Est GFR (CKD-EPI 2020) 91.42 (mL/min/1.73m2) 01/22/25 09:24 Calcium 9.5 mg/dL (8.5-10.1) 01/22/25 09:24 Glucose 154 mg/dL (74-106) H 01/22/25 09:24 Hemoglobin A1c 6.2 % (4.5-5.7) H 01/02/25 14:17 Liver Function Panel: No Data to Display Coagulation Panel: No Data to Display Cardiac Panel: No Data to Display Arterial Blood Gas: No Data to Display Venous Blood Gas: No Data to Display Pancreas Panel: No Data to Display Thyroid Panel: No Data to Display Infectious Disease: No Data to Display Blood Cultures: No Data to Display Toxicology Panel: No Data to Display Imaging and Studies Imaging and Studies Study information below may be from another EMR and interpreted by another provider. Please see original notes in EMR for more complete details. EKG Summary: 02/12/24 Conclusion Sinus rhythm...normal P axis, V-rate 50- 99 Right bundle branch block...QRSd>120, terminal axis(90,270) Echocardiogram Summary: 02/06/24 Conclusion Normal left ventricular chamber size and wall thickness. EF 60%. Normal wall motion Normal right ventricular size and function Both atria are normal in size Aortic valve is mildly sclerotic and trileaflet with trace regurgitation Normal mitral valve, mild regurgitation Normal tricuspid valve with trace to mild regurgitation. Estimated right ventricular size pressure is 42 mmHg Ascending aorta 3.93 cm Anesthesia Assessment and Plan Anesthesia History Personal History: No History of Anesthesia Complications Family History: No Family History of Anesthesia Complications Exercise Tolerance Exercise Tolerance: Metabolic Equivalents<4 Pertinent Negatives Pertinent Negatives: No Symptoms of GERD and No History of CVA/TIA Cardiac & Pulmonary Exam Cardiac Exam: Normal S1/S2 Heart Sounds Pulmonary Exam: Clear Bilateral Breath Sounds Implantable Cardiac Device Does patient have a Pacemaker or an ICD?: No Airway Exam Known Difficult Airway: No Mallampati Class: 2 Mouth Opening: Normal (> 3cm) Thyromental Distance: Less than 3 cm Neck Range of Motion: Full ROM Neck Circumference: Normal Teeth Condition: Removable Dentures/Plates Upper ASA Classification ASA Score: ASA 3 Emergency Case?: No NPO Status NPO Status: NPO Clears >2 hours, Solids >8 hours Anesthesia Plan Resuscitation Status: Full Code Anesthesia Technique: General Anesthesia Airway Planned: LMA Monitors Used: Standard Monitors Preoperative Comments:: An episode of chest pressure relieved with NTG 10 days ago after eating. Otherwise states 4-5 NTG per year. He has regular followup with cardiology.
--- NOTE | 2025-01-23 10:50 | W.PM.HP.N ---
Date of service: 01/23/25 Time of Service: 10:51 History of Present Illness History of Present Illness Chief Complaint: Urinary retention Narrative: This is an 84-year-old gentleman who has a history of lower urinary tract symptoms. He has had recurrent episodes of gross hematuria with clot retention which have required catheterization, bladder irrigation and on occasion, cystoscopy with clot evacuation. After his most recent episode of hematuria, he has failed voiding trials and despite of maximal medical therapy. He currently has an indwelling urethral catheter. He presents for cystoscopy with transurethral resection of the prostate. Review of Systems Narrative: No fevers or chills Retinopathy. No dysphasia Diabetes. Hx goiter. No cough or hemoptysis Last episode of angina about 10 days ago - relieved with 1 nitro SL. No palpitations GERD. No hepatitis, ulcers, jaundice, diarrhea No seizures, strokes or peripheral neuropathy No bleeding disorders No gout PFSH All Active Problems DVT prophylaxis (Acute) Chest discomfort (Acute) Hematuria (Acute) Acute UTI (Acute) Recurrent UTI (urinary tract infection) (Acute) Heart murmur (Acute) Hyponatremia (Chronic) Incomplete emptying of bladder (Acute) Closed right clavicular fracture (Acute 10/08/22) Arthritis of left knee (Acute) Bradycardia (Acute) Constipation (Acute) Anal and rectal polyp (Acute) Gastroesophageal reflux disease (Acute) Status post coronary artery stent placement (Acute) Sensorineural hearing loss (SNHL) of both ears (Acute 03/01/18) Primary osteoarthritis of right knee (Acute 08/02/16) Non-toxic multinodular goiter (Acute) Lipoma of neck (Acute 03/01/18) Essential hypertension (Chronic 07/24/13) Diabetic retinopathy (Acute) MILD IN LEFT EYE~OPTICAL EXPRESSIONS 08/12/15 Diabetes mellitus (Chronic 02/08/13) Arthritis (Acute) Medical History White coat syndrome with hypertension Stated per patient BPH w urinary obs/LUTS (03/01/18) Atherosclerosis of [place] coronary artery Asthma Change in facial mole not suspect- sees [facility] [place] Surgical History S/P cystoscopy Stent placement (~05/2001) 05/30 2 STENTS LAD 11/2001 AND 02/2002 CLEANED BLOCKED STENT (WAS SCAR BUILDUP) KJG (below) Patient report radiation therapy in [facility] to correct scar formation. He believes bare metal stents were placed. Family History Mother , 91 Epilepsy Hyperlipidemia Parkinson disease Father , 73 Essential hypertension Personal history of malignant neoplasm SKIN Stroke Sister Diabetes Essential hypertension Heart disease Hyperlipidemia Brother Heart disease Stroke Pacemaker Parkinson disease Brother Diabetes Heart disease Stroke Brother Diabetes Essential hypertension Heart disease Hyperlipidemia Grandfather Diabetes Heart disease Stroke Grandfather Stroke Grandmother Essential hypertension Depression Heart disease Stroke Grandmother Essential hypertension Hyperlipidemia Stroke Daughter Diabetes Asthma Daughter Diabetes Heart disease VALVE REPLACEMENT Pancreatic cancer Social History Smoking/Tobacco Use Status: Former Tobacco Use tobacco type: cigarettes and cigars Quit Date: 10/30/67 Tobacco: How many years used: 14 Smoking risk assessment performed?: Yes Alcohol Intake: current Alcohol Intake frequency: 0-2 drinks per day Alcohol type: wine Drug use: Never Substance use type: does not use Caregiver/Support person: No Household members: spouse Housing: house Communication Needs: Hard of Hearing Do you need help understanding health information?: Rarely Pets and animals: No Sexually active: No Do you think of yourself as: straight/heterosexual Current gender identity: male What is your relationship status?: How often do you talk on the phone with friends or family?: twice per week How often do you get together with friends or relatives?: three or more times per week How often do you attend mandaeism or jainism services?: 1-3 times per year Do you belong to any clubs or organized social groups?: no Panel score (0-1 are the most socially isolated patients): 2 What type of physical activity do you participate in: regular exercise Duration: > 90 minutes/day Frequency: 3-4 times per week Scarlett/Yazidism: Mandaen Special scarlett needs: No Seatbelt use: always Helmet use: Yes Helmet use: sometimes Drive intox 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: No Do you feel safe in your relationship?: Yes Additional Social history: UT[employer] Meds Allergies and Home Medications Allergies Allergy/AdvReac Type Severity Reaction Status Date / Time menthol Allergy Unknown WHEEZING Verified 01/23/25 08:40 aspirin Allergy sick to Verified 01/23/25 08:40 stomach Home Medications ?Medication ?Instructions ?Recorded ?Confirmed ?Type cholecalciferol (vitamin D3) 25 1 cap PO DAILY 02/06/13 01/21/25 History mcg (1,000 unit) capsule aspirin 81 mg tablet,delayed 81 mg PO DAILY 07/19/22 01/21/25 History release (Adult Low Dose Aspirin) blood-glucose meter #1 ea 01/23/23 01/02/25 Rx vitamin B complex and vitamin C 1 cap PO DAILY ##90 12/26/23 01/21/25 History no.20-folic acid 1 mg capsule (Nephrocaps) clotrimazole 1 % topical cream 1 applic topical TID PRN rash #15 02/28/24 01/21/25 Rx grams finasteride 5 mg tablet 5 mg PO DAILY #90 tabs 04/04/24 01/23/25 Rx tamsulosin 0.4 mg capsule (Flomax) 0.8 mg (2 x 0.4 mg) PO DAILY #180 04/04/24 01/23/25 Rx caps lisinopril 30 mg tablet 30 mg PO DAILY #90 tabs 04/18/24 01/23/25 Rx metformin 500 mg tablet 1,000 mg (2 x 500 mg) PO BID #360 04/18/24 01/23/25 Rx tabs metoprolol succinate 50 mg 25 mg (1/2 x 50 mg) PO DAILY #45 04/18/24 01/23/25 Rx tablet,extended release 24 hr tabs nitroglycerin 0.4 mg sublingual 0.4 mg sublingual PRN #25 tabs 04/18/24 01/21/25 Rx tablet (Nitrostat) blood sugar diagnostic (Blood #100 ea 05/27/24 01/02/25 Rx Glucose Test strips) lancets #100 ea 05/27/24 01/02/25 Rx lidocaine 5 % topical patch 1 patch topical Q24H #15 ea 09/27/24 01/21/25 Rx (Lidoderm) Exam Const General: cooperative and other (talkative) Neck Neck: normal visual inspection and supple Resp Effort & Inspection: normal respiratory effort Auscultation: clear to auscultation bilaterally Cardio Rate: regular rate Rhythm: regular rhythm GI Inspection: normal to inspection General: other (urethral catheter in place) Neuro General: patient alert, patient awake and patient oriented x3 Results Last Vital Signs Temp 36.6 C 01/23/25 09:03 Pulse 74 01/23/25 09:03 Resp 20 01/23/25 09:03 BP 164/80 H 01/23/25 09:03 Pulse Ox 99 01/23/25 09:03 Time Spent Time spent with Patient: <40 minutes Time was spent: other
[2025-01-23] MEDS: CIPROFLOXACIN 400 MG/200 ML BAG 200 MG IVPB (11:27)
[2025-01-23] MEDS: Lidocaine 2% Jelly 6 ML SYR (11:45)
--- NOTE | 2025-01-23 12:15 | PROST_PTH ---
PATIENT: Clinton Cruz LOC: U#:[id number] AGE/SX: 84/M [facility]: Alexis Jackson MD : 1940 BED: A DIS: 01/24/2025 SPEC #: [id number] RECD: 01/23/25 13:16 STATUS: VIDAL REQ #: [id number] GIRISH: 01/23/25 12:[address]: Alexis Jackson DEPT: Surgical Specimen RECD BY: Mariely Azul ENTERED: 01/23/25 13:17 SP TYPE: PROST OTHR DR: Delaney Gaviria, FUENTES Tissues: 1 - PROSTATE CURRETTINGS Procedures: GROSS AND MICRO LEVEL 4 Comments: [id number]
--- NOTE | 2025-01-23 12:49 | W.PM.OP ---
Operative Note Operative Note PRE-OP DIAGNOSIS: urinary retention POST-OP DIAGNOSIS: same PROCEDURE: cystoscopy with transurethral resection of prostate SURGEON: Alexis Jackson ANESTHESIA TYPE: Local By Surgeon and General LMA/ETT Refer to Anesthesia Record ESTIMATED BLOOD LOSS: 500 PATHOLOGY: other (prostate chips) COMPLICATIONS: None Patient was transported to: PACU Patient's condition: stable Implants: 22 yakut Coude tipped irrigating catheter with 30 cc sterile water in balloon Indications: This is an 84-year-old gentleman who has a history of lower urinary tract symptoms. He has had intermittent episodes of gross pain less hematuria which have occasionally cause clot retention. He has had cystoscopy with clot evacuation. No bladder tumor was identified so the bleeding was presumed to be coming from his prostate. After his most recent episode of hematuria, he developed urinary retention. He has failed maximal medical therapy, so he presents now for transurethral resection of the prostate. Findings: Lateral lobe enlargement with no significant median lobe of the prostate Procedure Description: The patient was given preoperative antibiotics and brought to the operating room on 01/23/2025. After successful induction of general anesthesia, he was placed in the dorsal lithotomy position. His indwelling urethral catheter balloon was deflated and the catheter was removed. His genitalia was prepped and draped. Xylocaine jelly was instilled into the urethra. A 24 [place]ic resectoscope sheath was passed through the urethra into the bladder. We used a visual obturator and a 30 degree lens to inspect the urethra and bladder. The pendulous, bulbar and membranous urethra was all appeared normal with no strictures. The prostatic urethra showed lateral lobe enlargement but no significant median lobe. The bladder neck was entered and the bladder mucosa was inspected. There was some hyperemic mucosa on the bladder but no papillary or nodular lesions. 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 We then utilized an Interhyp resectoscope and bipolar cautery to perform transurethral resection of the prostate. The resection was taken from the bladder neck out to the Beth montanum. The depth of the resection was down to the prostatic capsule. Once we reach the capsule, we switched to a plasma button ball and vaporized/cauterized the prostate bed. Once hemostasis had been obtained, we ensured that all resected tissue was evacuated and sent to pathology for permanent section. The bladder was filled with irrigant and the resectoscope was removed. A 22 Green[place]ic hematuria catheter was passed through the urethra into the bladder. The catheter balloon was inflated with 30 cc of sterile water. Continuous bladder irrigation with saline was begun. Traction was placed on the catheter until the irrigant became clear. The catheter was hooked to gravity drainage. The patient tolerated the procedure well with no complications. Date of Procedure: 01/23/25
--- NOTE | 2025-01-23 13:45 | RT.EKG_ITS ---
APPROVED REPORT Exam: Resting ECG Reason for Exam: R/O Sinus Arrest/Missed beat Patient Location: I HR:61 bpm ECG Measurements Heart Rate 61 AXIS DC 225 P 17 QRSd 149 QRS -34 QT 439 T 31 QTc 455 Conclusion Sinus rhythm...normal P axis, V-rate 60- 99 Atrial premature complexes...SV complexes w/ short R-R intvls Prolonged DC interval...DC >220, V-rate 50- 90 Right bundle branch block...QRSd>120, terminal axis(90,270)
--- NOTE | 2025-01-23 14:09 | W.ANESPOSTOP ---
Postoperative Evaluation Date, Time and Location Date Performed: 01/23/25 Time Performed: 14:11 Patient Location: PACU Vital Signs Most Recent Imported Vital Signs: Most Recent Vital Signs Temp Pulse Resp BP Pulse Ox 36.5 C 60 17 142/49 H 99 01/23/25 14:01 01/23/25 14:01 01/23/25 14:01 01/23/25 14:01 01/23/25 14:01 Pain Score Most Recent Pain Score: Most Recent Pain Score Pain Level 3 01/23/25 14:03 Assessment Mental Status: Awake (Alert & Oriented to Patient Baseline) Airway and Respiratory Function: Patent airway with normal (patient baseline) respiratory exam Cardiovascular Function: Hemodynamically Stable Hydration Status: Adequately Hydrated Nausea & Vomiting: No Nausea or Vomiting Pain: Pain is tolerable per patient Peripheral Nerve Block: Patient did not receive a nerve block Postoperative Comments:: Noted in PACU that patient seems to be having some sinus pauses/Missed beat so 12 lead ordered. Pt. denies any SOB/Chest pressure. Will notify Dr. Jackson of this to discuss any further followup and will await final EKG reading.
--- NOTE | 2025-01-23 14:53 | PHACLINREV_ITS ---
Pharmacy Admission Review Admission Clinical Review Admission Pharmacy Review: menthol Allergy (Unknown, Verified 01/23/25 08:40) WHEEZING aspirin Allergy (Verified 01/23/25 08:40) sick to stomach Resuscitation Status Full Code Height 5 ft 10 in Weight 88 kg Comments Comments/Follow Ups: POD #0 cystoscopy with transurethral resection of prostate Pharmacy Admission Review Renal Dosing Medications needing adjustments: Reviewed (CrCl 62.54 mL/min) List of meds needing interventions: Current medications are okay Anticoagulation DVT Prophylaxis: Reviewed (none at this time - POD #0) Relevant Labs Electrolytes, C-Reactive P, ESR: Reviewed (labs pending @1452 today) DM Control DM Control: Finger Stick Blood Glucose 191 1258 Finger Stick Blood Glucose 191 1258 Finger Stick Blood Glucose 164 0847 Finger Stick Blood Glucose 164 0847 DM Control: Reviewed Insulin Dosing, Diabetic Medication: Has order for metformin 1000mg PO BID Cardiac Review Cardiac Review: Blood Pressure 158/59 1406 Blood Pressure 142/49 1401 Blood Pressure 142/71 1356 Blood Pressure 146/75 1352 Blood Pressure 150/52 1346 Blood Pressure 164/71 1341 Blood Pressure 155/54 1336 Blood Pressure 156/98 1331 Blood Pressure 146/72 1326 Blood Pressure 142/101 1321 Blood Pressure 130/50 1316 Blood Pressure 114/44 1314 Blood Pressure 106/70 1306 BP, HR, EF%: Reviewed (HR 48) List meds needing interventions: Has order for lisinopril 30mg daily and metoprolol XL 25mg daily QTc Review QTc: Reviewed (455 from 01/23/25) IV to PO Switch IV Medications: Reviewed (ketorolac) Home Meds Home Med List reviewed: Reviewed Relevent Home Meds Not ordered & why?: aspirin, clotrimazole cream (PRN), lidocaine patch (last filled 09/22 from 15 day supply per external fill hi story), tamsulosin and vitamin B complex Current Meds Current Medication Order Review: Reviewed Pharmacy Antibiotic Review Comments: Currently on ciprofloxacin 500mg PO BID, day 1, post op. Received a preop dose of IV ciprofloxacin this morning. Comments Comments/Follow Ups: POD #0 cystoscopy with transurethral resection of prostate
--- NOTE | 2025-01-23 14:53 | W.PC.ACHO ---
Registration Status: Primary Language: Preferred Language: Medical / Surgical History (Last Reviewed 01/23/25 @ 09:04 by Criss Kamara, RN) White coat syndrome with hypertension BPH w urinary obs/LUTS (03/01/18) Atherosclerosis of [place] coronary artery Asthma Change in facial mole (Last Reviewed 01/23/25 @ 09:04 by Criss Kamara, RN) S/P cystoscopy Stent placement (~05/2001) Most Recent Vital Signs Temperature 36.6 C 01/23/25 14:06 Pulse 48 L 01/23/25 14:10 Pulse Rhythm Regular 01/23/25 09:03 Pulse 48 L 01/23/25 14:10 Respiratory Rate 10 L 01/23/25 14:10 Respiratory Depth Deep 01/23/25 09:03 Blood Pressure 158/59 H 01/23/25 14:06 Blood Pressure Mean 91 01/23/25 14:06 Pulse Oximetry 100 01/23/25 14:10 Oxygen Delivery Method Room Air 01/23/25 14:03 Oxygen Flow Rate 0 01/23/25 09:03 Pain Level 3 01/23/25 14:03 Allergies menthol Allergy (Unknown, Verified 01/23/25 08:40) WHEEZING aspirin Allergy (Verified 01/23/25 08:40) sick to stomach Takes 81mg every day Active Medications Generic Name Dose Route Start Last Admin Trade Name Freq PRN Reason Stop Dose Admin Ringer's Solution 1,000 mls @ 80 mls/hr 01/23/25 09:15 01/23/25 14:26 IV 80 mls/hr INFUSION NARCISO Infusion IV IV Catheter Type [Right Peripheral IV Forearm] IV Catheter Gauge [Right 20 Forearm] Diet Orders Category Date Time Status DIET [Diabetes Consistent CHO] [DIET] Nutrition 01/23/25 Dinner Active Diagnostics 01/23/25 01/23/25 Range/Units 14:20 09:32 Sodium Pending Potassium Pending Chloride Pending Carbon Dioxide Pending Anion Gap Pending BUN Pending Creatinine Pending Est GFR (CKD-EPI 2020) Pending Glucose Pending Calcium Pending Total Bilirubin Pending AST Pending ALT Pending Alkaline Phosphatase Pending Total Protein Pending Albumin Pending ABO/Rh Cancelled Antibody Screen Cancelled [id number] Documentation Fingerstick Glucose Start: 01/23/25 08:49 Freq: Status: Active Protocol: Activity Type Activity Date Activity User E-sign Co-sign Detail Recorded Client Recorded Date Recorded By Document 01/23/25 12:58 BKG DAEMON(3) [id number] 01/23/25 12:59 BKG DAEMON(4) Intake and Output - 24 Hour Total 10/18/24 07:34 thru 01/23/25 14:48 Intake Total 650 Output Total 500 Balance 150 Weight 88 kg Intake: IV 650 Output: Estimated Blood Loss 500 Other: Urine Color [place] Comment Done by provider in OR Emesis Description None Urinary Catheter Urinary Catheter Date of 01/23/25 Insertion [Urethral (Alexandre)] Urinary Catheter Date of 01/23/25 Insertion [Urethral (Alexandre)] Time of insertion [Urethral ( 12:29 Alexandre)] v v v v v v v v v Sending and/or Receiving Nurses: Please use comment section below to note any information pertinent to the patient hand-off not included above. Information / Comments: Cysto/Turp, A&Ox4, FS at [id number], abnormal EKG in PACU, New orders for TELE, Labs, Report received from: Vijaya HAY BALER at [id number]
[2025-01-23 15:24] LABS: ALT 13 U/L (16-63); AST 13 U/L (15-37); Albumin 3.3 g/dL (3.4-5.0); Alkaline Phosphatase 51 U/L (46-116); Anion Gap 4.7 mmol/L (3-11); BUN 14 mg/dL (7-18); Bilirubin, Total 0.5 mg/dL (0.2-1.0); CO2 28.3 mmol/L (21.0-32.0); CREATININE 0.7 mg/dL (0.70-1.30); Calcium 8.5 mg/dL (8.5-10.1); Chloride 101 mmol/L (98-107); Estimated GFR 91.42 (mL/min/1.73m2); Glucose 195 mg/dL (74-106); Sodium 134 mmol/L (136-145); Total Protein 6.6 g/dL (6.4-8.2)
[2025-01-23] MEDS: Docusate Sodium 100 MG CAP PO (20:00)
[2025-01-23] MEDS: metFORMIN 500 MG TAB 1000 MG PO (20:00)
[2025-01-23] MEDS: Ciprofloxacin 500 MG TAB PO (20:00)
[2025-01-24 03:02] VITALS: BP 122/61; PULSE 52; RESP 18; O2SAT 97
[2025-01-24] MEDS: Acetaminophen 325 MG TAB 650 MG PO (04:30)
[2025-01-24] MEDS: Oxybutynin 5 MG TAB PO (04:31)
[2025-01-24 06:42] LABS: Abs Immature Grans 0.03 10^3/uL (0.0-0.06); Absolute Basophil Count 0.01 10^3/uL (0.0-0.2); Absolute Lymphocyte Count 0.66 10^3/uL (1.2-3.4); Absolute Monocyte Count 0.58 10^3/uL (0.1-0.8); Absolute Neutrophil Count 4.08 10^3/uL (1.2-6.7); Basophils % 0.2 %; HCT 25.9 % (40.0-50.0); HGB 8.1 g/dL (13.5-17.5); Immature Grans % 0.6 %; Lymphocytes % 12.3 %; MCHC 31.3 % (32.0-36.0); MCV 80 fL (80-95); MPV 9.6 fL (8.0-11.0); Monocytes % 10.8 %; Neutrophils % 76.1 %; Platelet Count 165 10^3/uL (130-400); RBC 3.24 10^6/uL (4.36-5.78); RDW 16.3 % (11.8-14.1); RDW-SD 47.2 fL; WBC 5.36 10^3/uL (4.4-10.8)
[2025-01-24 06:57] LABS: Anion Gap 6.4 mmol/L (3-11); BUN 14 mg/dL (7-18); CO2 27.6 mmol/L (21.0-32.0); CREATININE 0.8 mg/dL (0.70-1.30); Calcium 8.9 mg/dL (8.5-10.1); Chloride 100 mmol/L (98-107); Estimated GFR 87.81 (mL/min/1.73m2); Glucose 187 mg/dL (74-106); Potassium 4.8 mmol/L (3.5-5.1); Sodium 134 mmol/L (136-145)
[2025-01-24 07:27] LABS: Diff Comment RBC Morph Reviewed; Hypochromasia 1+; Microcytosis 1+
--- NOTE | 2025-01-24 07:34 | DSE_ITS ---
Date of service: 01/24/25 Time of Service: 07:34 DS: Diagnosis Discharge Diagnosis (1) Incomplete emptying of bladder: Status: Acute Discharge Plan Disposition Patient Disposition: Home Condition: Improving Discharge Details Reason For Visit: Urinary Retention Admit Date/Time: 01/23/25 08:22 Admit Provider: Alexis Jackson Attending Provider: Alexis Jackson [facility] Course: The patient was admitted and taken to the operating room on 01/23/2025. He underwent cystoscopy with transurethral resection of the prostate. Following the surgery, while in the PACU, he did have a bit of ectopy noted on monitor. He was completely asymptomatic, but we watched him on telemetry over the next 24 hours. No significant cardiac event occurred. We maintained continuous bladder irrigation for 24 hours. On postoperative day #1, the irrigant remained clear with no clots. He was able to tolerate oral nutrition and medications. We discontinued the irrigation and placed a catheter plug on the irrigation port of his catheter. He was discharged to home with his catheter still in place. Home Meds and New Rx's Prescriptions: Continued aspirin [Adult Low Dose Aspirin] 81 mg tablet,delayed release (DR/EC) 81 mg PO DAILY clotrimazole 1 % cream 1 applic topical TID PRN (Reason: rash) Qty: 15 0RF Patient Comments: Yeast groin area lisinopril 30 mg tablet 30 mg PO DAILY Qty: 90 3RF metoprolol succinate 50 mg tablet extended release 24 hr 25 mg PO DAILY Qty: 45 3RF nitroglycerin [Nitrostat] 0.4 mg tablet, sublingual 0.4 mg Sublingual PRN MDD 3 tabs Qty: 25 4RF metformin 500 mg tablet 1,000 mg PO BID Qty: 360 3RF finasteride 5 mg tablet 5 mg PO DAILY Qty: 90 3RF cholecalciferol (vitamin D3) 1,000 UNIT capsule 1 cap PO DAILY (DME) blood-glucose meter Mis See Rx Instructions .MEDSUPPLY Qty: 1 0RF Rx Instructions: Check blood sugar once daily. No insulin. Dispense covered brand. Dx: E11.9 to maintain HbA1c less than 7%. Nephrocaps 1 mg capsule 1 cap PO DAILY Qty: 90 (DME) Blood Glucose Test Strip See Rx Instructions .MEDSUPPLY Qty: 100 3RF Rx Instructions: Check sugars once per day. No insulin. Dispense covered brand. Dx: E11.9 to maintain HbA1c less than 7%. (DME) lancets Misc See Rx Instructions .MEDSUPPLY Qty: 100 3RF Rx Instructions: Check sugars once daily. No insulin. Dispense covered brand. Dx: E11.9 to maintain HbA1c less than 7%. lidocaine [Lidoderm] 5 % adhesive patch,medicated 1 patch Topical Q24H Qty: 15 0RF Discontinued tamsulosin [Flomax] 0.4 mg capsule 0.8 mg PO DAILY Qty: 180 3RF Rx Instructions: Note dosage increase Discharge Instructions Additional Instructions: Catheter plug to be placed on the irrigation port of the Pittman catheter Drainage port of the Pittman catheter to be hooked to a leg bag Follow-up early next week for catheter removal-this can be done by one of my [facility] staff Follow-up appointment with me in about 2 weeks to review the surgical pathology and urinary symptoms You may discontinue your tamsulosin, but please continue your finasteride until your 2-week follow-up appointment with me. We will plan to discontinue the medication at that time. No lifting over 10 pounds (about a gallon of milk) until your followup appt in 2 weeks. Walking (including up and down stairs) is OK. Activity:: No lifting over 10 pounds Equipment/Supplies:: pittman catheter to leg bag Diet:: As Tolerated Discharge Orders Discharge Orders: Discharge Order (Routine); Ordered 01/24/25 Ordered By: Alexis Jackson DS: Summary Time Spent with Patient providing and/or coordinating discharge services: Less than 30 minutes Status at Discharge Functional status at discharge: independent ambulation Overall status at discharge: patient is progressing back to baseline Mental Status: mental status grossly normal Speech and Movement: speech and movement normal Mood: congruent mood Affect: normal affect Quality:SDOH Health Related Social Needs: No Data to Display Exam Narrative Exam Narrative: On the morning of discharge, he is quite comfortable His vital signs are documented elsewhere in the chart His chest wall motion is normal. He is not short of breath at rest. His abdomen is soft with no guarding or rebound tenderness His bladder irrigation is clear while running at a slow rate He is awake and alert Psych Mental Status: mental status grossly normal Speech and Movement: speech and movement normal Mood: congruent mood Affect: normal affect DS: Data Vitals/I&O Vitals and I&O: Vital Signs Temperature 36.4 C L 01/23/25 22:37 Temperature Source Temporal Artery Scan 01/24/25 03:02 Pulse 52 L 01/24/25 03:02 Pulse Rhythm Regular 01/23/25 09:03 Pulse 48 L 01/23/25 14:10 Respiratory Rate 18 01/24/25 03:02 Respiratory Depth Deep 01/23/25 09:03 Blood Pressure 122/61 01/24/25 03:02 Blood Pressure Mean 91 01/23/25 14:06 Pulse Oximetry 97 01/24/25 03:02 Oxygen Delivery Method Room Air 01/24/25 03:02 Oxygen Flow Rate 0 01/24/25 03:02 Pain Level 3 01/24/25 04:30 Comment Notifying RN 01/23/25 15:10 Intake & Output 01/23/25 01/23/25 01/24/25 11:59 23:59 11:59 Intake Total 1182 / 1182 Output Total 500 / 500 Balance 682 / 682 Weight 88 kg Intake: IV 1182 / 1182 Output: Estimated Blood Loss 500 / 500 Other: Urine Color [place] Urine Appearance Cloudy Cloudy Hematuria Comment Urine was cloudy and pink, along with small blood clots. Nurse was notified. Patient's urine is cloudy and more pink in color. Possible trauma from moving around. Emesis Description None Data Completed and Pending Labs on day of discharge: Labs from last 24 hours 01/24/25 01/23/25 01/23/25 06:18 14:52 09:32 WBC 5.36 RBC 3.24 L Hgb 8.1 L Hct 25.9 L MCV 80 MCH 25.0 L MCHC 31.3 L RDW 16.3 H Plt Count 165 MPV 9.6 Immature Gran % 0.6 Neutrophils % 76.1 Lymphocytes % 12.3 Monocytes % 10.8 Eosinophils % 0.0 Basophils % 0.2 Nucleated RBC % 0.0 Absolute Neutrophils 4.08 Absolute Lymphocytes 0.66 L Absolute Monocytes 0.58 Absolute Eosinophils 0.00 Absolute Basophils 0.01 RBC Morphology See Below Hypochromasia 1+ Microcytosis 1+ Sodium 134 L 134 L Potassium 4.8 5.0 Chloride 100 101 Carbon Dioxide 27.6 28.3 Anion Gap 6.4 4.7 BUN 14 14 Creatinine 0.8 0.7 Est GFR (CKD-EPI 2020) 87.81 91.42 Glucose 187 H 195 H Calcium 8.9 8.5 Total Bilirubin 0.5 AST 13 L ALT 13 L Alkaline Phosphatase 51 Total Protein 6.6 Albumin 3.3 L ABO/Rh Cancelled Antibody Screen Cancelled PFSH All Active Problems DVT prophylaxis (Acute) Chest discomfort (Acute) Hematuria (Acute) Acute UTI (Acute) Recurrent UTI (urinary tract infection) (Acute) Heart murmur (Acute) Hyponatremia (Chronic) Incomplete emptying of bladder (Acute) Closed right clavicular fracture (Acute 10/08/22) Arthritis of left knee (Acute) Bradycardia (Acute) Constipation (Acute) Anal and rectal polyp (Acute) Gastroesophageal reflux disease (Acute) Status post coronary artery stent placement (Acute) Sensorineural hearing loss (SNHL) of both ears (Acute 03/01/18) Primary osteoarthritis of right knee (Acute 08/02/16) Non-toxic multinodular goiter (Acute) Lipoma of neck (Acute 03/01/18) Essential hypertension (Chronic 07/24/13) Diabetic retinopathy (Acute) MILD IN LEFT EYE~OPTICAL EXPRESSIONS 08/12/15 Diabetes mellitus (Chronic 02/08/13) Arthritis (Acute) Medical History White coat syndrome with hypertension Stated per patient BPH w urinary obs/LUTS (03/01/18) Atherosclerosis of [place] coronary artery Asthma Change in facial mole not suspect[place] [facility] [place] S/P TURP S/P cystoscopy Stent placement (~05/2001) 05/30 2 STENTS LAD 11/2001 AND 02/2002 CLEANED BLOCKED STENT (WAS SCAR BUILDUP) KJG (below) Patient report radiation therapy in [facility] to correct scar formation. He believes bare metal stents were placed. Family History Mother , 91 Epilepsy Hyperlipidemia Parkinson disease Father , 73 Essential hypertension Personal history of malignant neoplasm SKIN Stroke Sister Diabetes Essential hypertension Heart disease Hyperlipidemia Brother Heart disease Stroke Pacemaker Parkinson disease Brother Diabetes Heart disease Stroke Brother Diabetes Essential hypertension Heart disease Hyperlipidemia Grandfather Diabetes Heart disease Stroke Grandfather Stroke Grandmother Essential hypertension Depression Heart disease Stroke Grandmother Essential hypertension Hyperlipidemia Stroke Daughter Diabetes Asthma Daughter Diabetes Heart disease VALVE REPLACEMENT Pancreatic cancer Social History Smoking/Tobacco Use Status: Former Tobacco Use tobacco type: cigarettes and cigars Quit Date: 10/30/67 Tobacco: How many years used: 14 Smoking risk assessment performed?: Yes Alcohol Intake: current Alcohol Intake frequency: 0-2 drinks per day Alcohol type: wine Drug use: Never Substance use type: does not use Caregiver/Support person: No Household members: spouse Housing: house Communication Needs: Hard of Hearing Do you need help understanding health information?: Rarely Pets and animals: No Sexually active: No Do you think of yourself as: straight/heterosexual Current gender identity: male What is your relationship status?: How often do you talk on the phone with friends or family?: twice per week How often do you get together with friends or relatives?: three or more times per week How often do you attend zoroastrian or yazidi services?: 1-3 times per year Do you belong to any clubs or organized social groups?: no Panel score (0-1 are the most socially isolated patients): 2 What type of physical activity do you participate in: regular exercise Duration: > 90 minutes/day Frequency: 3-4 times per week Scarlett/Judaism: Latter-Day Special scarlett needs: No Seatbelt use: always Helmet use: Yes Helmet use: sometimes Drive intox 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 carry all driver: No Do you feel safe in your relationship?: Yes Additional Social history: [facility] Time Spent with Patient Time Spent with Patient: <45 minutes Time was spent: other
--- NOTE | 2025-01-24 07:43 | PGE_ITS ---
Date of Service Date of service: 01/24/25 Time of Service: 07:43 Assessment and Plan Assessment and plan (1) S/P TURP: Assessment and plan: He seems to be doing quite well, so we will discontinue his bladder irrigation. We will plan on discharging him to home later today with his catheter in place. He will come back to the office early next week to have his catheter removed. Subjective Subjective Interval history since last seen: He remained comfortable overnight. He had no episodes of clot retention. He restrepo d no chest pain or palpitations. Exam Narrative Exam Narrative: He looks well His vital signs are documented elsewhere His bladder output is clear with irrigation running at a slow rate He is awake and alert Objective Last Vital Signs Temp 36.4 C L 01/23/25 22:37 Pulse 52 L 01/24/25 03:02 Resp 18 01/24/25 03:02 BP 122/61 01/24/25 03:02 Pulse Ox 97 01/24/25 03:02 Laboratory Results - last 24 hr 01/23/25 01/23/25 01/24/25 09:32 14:52 06:18 WBC 5.36 RBC 3.24 L Hgb 8.1 L Hct 25.9 L MCV 80 MCH 25.0 L MCHC 31.3 L RDW 16.3 H Plt Count 165 MPV 9.6 Immature Gran % 0.6 Neutrophils % 76.1 Lymphocytes % 12.3 Monocytes % 10.8 Eosinophils % 0.0 Basophils % 0.2 Nucleated RBC % 0.0 Absolute Neutrophils 4.08 Absolute Lymphocytes 0.66 L Absolute Monocytes 0.58 Absolute Eosinophils 0.00 Absolute Basophils 0.01 RBC Morphology See Below Hypochromasia 1+ Microcytosis 1+ Sodium 134 L 134 L Potassium 5.0 4.8 Chloride 101 100 Carbon Dioxide 28.3 27.6 Anion Gap 4.7 6.4 BUN 14 14 Creatinine 0.7 0.8 Est GFR (CKD-EPI 2020) 91.42 87.81 Glucose 195 H 187 H Calcium 8.5 8.9 Total Bilirubin 0.5 AST 13 L ALT 13 L Alkaline Phosphatase 51 Total Protein 6.6 Albumin 3.3 L ABO/Rh Cancelled Antibody Screen Cancelled Time Spent with Patient Time Spent with Patient: <25 minutes Time was spent: other
[2025-01-24 08:41] VITALS: BP 137/69; PULSE 57; RESP 16; TEMP 36.3; O2SAT 96
[2025-01-24] MEDS: Normal Saline Flush 10 ML SYR IV (08:48)
[2025-01-24] MEDS: metFORMIN 500 MG TAB 1000 MG PO (08:50)
[2025-01-24] MEDS: Docusate Sodium 100 MG CAP PO (08:50)
[2025-01-24] MEDS: Lisinopril 10 MG TAB 30 MG PO (08:50)
[2025-01-24] MEDS: Finasteride 5 MG TAB PO (08:51)
[2025-01-24] MEDS: Metoprolol CR 25 MG TABCR PO (08:51)
[2025-01-24] MEDS: Ciprofloxacin 500 MG TAB PO (08:51)
[2025-01-24] MEDS: Cholecalciferol (Vitamin D3) 1,000 UNIT TAB 1000 UNITS PO (08:51)
--- NOTE | 2025-01-24 08:54 | PDOC.CMIN ---
Date of service: 01/24/25 Time of Service: 08:54 Care Management Initial Assmt Advance Directives Advance Directives: Do you have an Advance Directive: N 04/22/13 08:14 AD On File at [facility]: N 01/24/13 10:33 Date Asked 01/23/25 01/22/25 02:44 AD Date Reviewed COLST On File at [facility] No 02/27/24 20:06 COLST Date Scanned Code Status Resuscitation Status Full Code Care Team Visit Care Team Role Provider Type Delaney Gaviria NP Primary Care Provider NURSE PRACTITIONER Alexis Jackson MD Admit Provider [facility] STAFF PHYSICIAN Attending Provider [facility] All Active Problems DVT prophylaxis (Acute) Chest discomfort (Acute) Hematuria (Acute) Acute UTI (Acute) Recurrent UTI (urinary tract infection) (Acute) Heart murmur (Acute) Hyponatremia (Chronic) Incomplete emptying of bladder (Acute) Closed right clavicular fracture (Acute 10/08/22) Arthritis of left knee (Acute) Bradycardia (Acute) Constipation (Acute) Anal and rectal polyp (Acute) Gastroesophageal reflux disease (Acute) Status post coronary artery stent placement (Acute) Sensorineural hearing loss (SNHL) of both ears (Acute 03/01/18) Primary osteoarthritis of right knee (Acute 08/02/16) Non-toxic multinodular goiter (Acute) Lipoma of neck (Acute 03/01/18) Essential hypertension (Chronic 07/24/13) Diabetic retinopathy (Acute) MILD IN LEFT EYE~OPTICAL EXPRESSIONS 08/12/15 Diabetes mellitus (Chronic 02/08/13) Arthritis (Acute) Medical History White coat syndrome with hypertension Stated per patient BPH w urinary obs/LUTS (03/01/18) Atherosclerosis of [place] coronary artery Asthma Change in facial mole not suspect- [place] [facility] [place] S/P TURP S/P cystoscopy Stent placement (~05/2001) 05/30 2 STENTS LAD 11/2001 AND 02/2002 CLEANED BLOCKED STENT (WAS SCAR BUILDUP) KJG (below) Patient report radiation therapy in [facility] to correct scar formation. He believes bare metal stents were placed. Family History Mother , 91 Epilepsy Hyperlipidemia Parkinson disease Father , 73 Essential hypertension Personal history of malignant neoplasm SKIN Stroke Sister Diabetes Essential hypertension Heart disease Hyperlipidemia Brother Heart disease Stroke Pacemaker Parkinson disease Brother Diabetes Heart disease Stroke Brother Diabetes Essential hypertension Heart disease Hyperlipidemia Grandfather Diabetes Heart disease Stroke Grandfather Stroke Grandmother Essential hypertension Depression Heart disease Stroke Grandmother Essential hypertension Hyperlipidemia Stroke Daughter Diabetes Asthma Daughter Diabetes Heart disease VALVE REPLACEMENT Pancreatic cancer Social History Smoking/Tobacco Use Status: Former Tobacco Use tobacco type: cigarettes and cigars Quit Date: 10/30/67 Tobacco: How many years used: 14 Smoking risk assessment performed?: Yes Alcohol Intake: current Alcohol Intake frequency: 0-2 drinks per day Alcohol type: wine Drug use: Never Substance use type: does not use Caregiver/Support person: No Household members: spouse Housing: house Communication Needs: Hard of Hearing Do you need help understanding health information?: Rarely Pets and animals: No Sexually active: No Do you think of yourself as: straight/heterosexual Current gender identity: male What is your relationship status?: How often do you talk on the phone with friends or family?: twice per week How often do you get together with friends or relatives?: three or more times per week How often do you attend tenriism or synagogue services?: 1-3 times per year Do you belong to any clubs or organized social groups?: no Panel score (0-1 are the most socially isolated patients): 2 What type of physical activity do you participate in: regular exercise Duration: > 90 minutes/day Frequency: 3-4 times per week Scarlett/Yarsani: Baptist Special scarlett needs: No Seatbelt use: always Helmet use: Yes Helmet use: sometimes Drive intox 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 utility driver: No Do you feel safe in your relationship?: Yes Additional Social history: [facility]
--- NOTE | 2025-01-24 12:52 | NUR.NOTE ---
Documentation reviewed with student, agree with findings. Lyly Dunne, LENORE, RNC-OB, clinical instructor
== END 2025-01-24 10:27 | disposition home or self-care (01) ==
LOC: PDS 08:25 → MS 14:36 → PDS 14:36 → MS 14:37
PROVIDERS: Admitting Provider Urology; PCP Nurse Practitioner Family; Visit Provider Urology
PROC: 0VT08ZZ Resection of Prostate, Via Natural or Artificial Opening Endoscopic (ICD-10-PCS; CPT 52601; principal; 2025-01-23 10:30)
DX: N40.1 Benign prostatic hyperplasia with lower urinary tract symptoms (principal); R33.9 Retention of urine, unspecified; R31.0 Gross hematuria; R01.1 Cardiac murmur, unspecified; I10 Essential (primary) hypertension; H90.3 Sensorineural hearing loss, bilateral; E11.319 Type 2 diabetes mellitus with unspecified diabetic retinopathy without macular edema; Z95.5 Presence of coronary angioplasty implant and graft; Z79.899 Other long term (current) drug therapy; J45.909 Unspecified asthma, uncomplicated; I25.10 Atherosclerotic heart disease of native coronary artery without angina pectoris; Z79.84 Long term (current) use of oral hypoglycemic drugs
CPT/HCPCS: 52601; 36415; 80048; 80053; 86850; 86900; 86901; 88305; 85025; 93005; 93010; G0378; J0131; J0744; J1100; J2003; J2405; J2704

== ENCOUNTER → 2025-01-27 08:20 | Outpatient (BNVA) | payer MEDICARE, SELFPAY | PROVIDERS: PCP Nurse Practitioner Family; Referring Provider Nurse Practitioner Family; Visit Provider Urology | DX: Z90.79 Acquired absence of other genital organ(s); Z48.816 Encounter for surgical aftercare following surgery on the genitourinary system | CPT/HCPCS: 99024; NC ==

== ENCOUNTER → 2025-02-03 10:54 | Outpatient (BNVA) | payer MEDICARE, SELFPAY | PROVIDERS: PCP Nurse Practitioner Family; Referring Provider Nurse Practitioner Family; Visit Provider Urology | DX: N40.1 Benign prostatic hyperplasia with lower urinary tract symptoms (principal); N13.8 Other obstructive and reflux uropathy; Z90.79 Acquired absence of other genital organ(s); Z48.816 Encounter for surgical aftercare following surgery on the genitourinary system; R39.9 Unspecified symptoms and signs involving the genitourinary system | CPT/HCPCS: 51798; 99024 ==

== ENCOUNTER → 2025-02-10 13:37 | Outpatient (BNVA) | payer MEDICARE, SELFPAY | PROVIDERS: PCP Nurse Practitioner Family; Referring Provider Nurse Practitioner Family; Visit Provider Registered Nurse | DX: Z95.5 Presence of coronary angioplasty implant and graft (principal) | CPT/HCPCS: 99214 ==

== ENCOUNTER 2025-02-11 10:45 | Outpatient (CLI) | payer MEDICARE, SELFPAY | END 2025-02-11 10:46 | disposition home or self-care (01) | PROVIDERS: PCP Nurse Practitioner Family; Visit Provider Registered Nurse | DX: R07.89 Other chest pain (principal); R01.1 Cardiac murmur, unspecified; R00.1 Bradycardia, unspecified; I49.1 Atrial premature depolarization; Z95.5 Presence of coronary angioplasty implant and graft | CPT/HCPCS: 93225; 93226 ==

== ENCOUNTER → 2025-03-05 13:46 | Outpatient (BNVA) | payer MEDICARE, SELFPAY | PROVIDERS: PCP Nurse Practitioner Family; Visit Provider Nurse Practitioner Gerontology | DX: N40.1 Benign prostatic hyperplasia with lower urinary tract symptoms (principal); N13.8 Other obstructive and reflux uropathy; Z90.79 Acquired absence of other genital organ(s); R39.9 Unspecified symptoms and signs involving the genitourinary system | CPT/HCPCS: 51798; 99024 ==

== ENCOUNTER → 2025-05-26 13:22 | Outpatient (BNVA) | payer MEDICARE, SELFPAY | PROVIDERS: PCP Nurse Practitioner Family; Referring Provider Nurse Practitioner Family; Visit Provider Podiatrist | DX: L60.3 Nail dystrophy (principal); E11.42 Type 2 diabetes mellitus with diabetic polyneuropathy; E11.51 Type 2 diabetes mellitus with diabetic peripheral angiopathy without gangrene; L60.2 Onychogryphosis; R09.89 Other specified symptoms and signs involving the circulatory and respiratory systems; R60.0 Localized edema; L65.9 Nonscarring hair loss, unspecified; R23.8 Other skin changes | CPT/HCPCS: 99213; G0127 ==

== ENCOUNTER 2025-06-12 03:52 | Outpatient (CLI) | payer MEDICARE, SELFPAY ==
[2025-06-12 12:53] LABS: Anion Gap 5.8 mmol/L (3-11); BUN 9 mg/dL (7-18); CO2 30.2 mmol/L (21.0-32.0); Calcium 9.1 mg/dL (8.5-10.1); Calculated LDL 75 mg/dL (<100); Chloride 99 mmol/L (98-107); Cholesterol 146 mg/dL (<200); Estimated GFR 90.86 (mL/min/1.73m2); Glucose 159 mg/dL (74-106); HDL Cholesterol 60 mg/dL (>or=40); Potassium 4.5 mmol/L (3.5-5.1); Sodium 135 mmol/L (136-145); Triglyceride 58 mg/dL (<150)
== END 2025-06-12 03:53 | disposition home or self-care (01) ==
LOC: LOS 03:52
PROVIDERS: PCP Nurse Practitioner Family; Visit Provider Nurse Practitioner Family
DX: R01.1 Cardiac murmur, unspecified (principal); I10 Essential (primary) hypertension; Z95.5 Presence of coronary angioplasty implant and graft; E11.9 Type 2 diabetes mellitus without complications; K21.9 Gastro-esophageal reflux disease without esophagitis
CPT/HCPCS: 36415; 80048; 80061

== ENCOUNTER → 2025-06-18 13:41 | Outpatient (BNVA) | payer MEDICARE, SELFPAY | PROVIDERS: PCP Nurse Practitioner Family; Referring Provider Nurse Practitioner Family; Visit Provider Nurse Practitioner Gerontology | DX: N40.1 Benign prostatic hyperplasia with lower urinary tract symptoms (principal); N13.8 Other obstructive and reflux uropathy; R33.9 Retention of urine, unspecified; R31.9 Hematuria, unspecified; R39.9 Unspecified symptoms and signs involving the genitourinary system | CPT/HCPCS: 99214; 51798 ==

== ENCOUNTER → 2025-09-15 13:59 | Outpatient (BNVA) | payer MEDICARE, SELFPAY | PROVIDERS: PCP Nurse Practitioner Family; Referring Provider Nurse Practitioner Family; Visit Provider Podiatrist | DX: L60.2 Onychogryphosis (principal); E11.42 Type 2 diabetes mellitus with diabetic polyneuropathy; E11.51 Type 2 diabetes mellitus with diabetic peripheral angiopathy without gangrene; R09.89 Other specified symptoms and signs involving the circulatory and respiratory systems; R60.0 Localized edema; L65.9 Nonscarring hair loss, unspecified; R23.8 Other skin changes; L85.8 Other specified epidermal thickening | CPT/HCPCS: 93922; 11719 ==